=== PATIENT | female | born 1995 | race Caucasian/White ===

== ENCOUNTER 2023-08-26 19:17 | Inpatient (IN) | payer OTHER, SELFPAY ==
[2023-08-26] VITALS (50 sets, daily range): BP systolic 78–169; BP diastolic 41–99; PULSE 60–109; RESP 16–18; TEMP 36.1–37.3; O2SAT 91–100; BMI 44.2
[2023-08-26 19:45] LABS: Absolute Lymphocyte Count 2.22 X10^3/uL (0.83-4.51); Absolute Neutrophil Count 8.9 X10^3/uL (2.0-7.7); Basophil# 0.02 X10^3/uL; Basophil% 0.2 % (0-1); Eosinophil# 0.05 X10^3/uL; Eosinophils% 0.4 % (0-5); Hematocrit 36.3 % (37-47); Hemoglobin 12.6 g/dL (12.0-15.0); Lymphocyte # 2.22 X10^3/ul (0.83-4.51); Lymphocyte % 17.9 % (19-41); Mean Corp Hgb Conc 34.7 g/dL (32-36); Mean Corpuscular Hgb 30.6 pg (27.0-32.0); Mean Corpuscular Volume 88.1 fL (81-99); Mean Platelet Vol. 11.4 fl (6.2-12.0); Monocyte# 1.09 X10^3/uL; Monocyte% 8.8 % (0-10); NRBC Flagged by Analyzer 0 % (0-5); Neutrophil # 8.92 X10^3/uL (2.7-7.7); Neutrophil % 71.9 % (47-70); Platelet Count 204 K/mm3 (150-450); RBC Distribution Width CV 12.2 % (11.6-14.6); Red Blood Count 4.12 M/mm3 (4.2-5.4); White Blood Count 12.4 K/mm3 (4.4-11.0)
--- NOTE | 2023-08-26 19:49 | PCM.HP.OB ---
HPI - General General Date of Admission: 08/26/23 HPI Narrative VIKKI HATFIELD, is a 28 F at 37.6 weeks gestation who presents for induction of labor for gestational hypertension. Patient was seen in office with continued increasing blood pressures. Denies headache, vision changes, SOB, CP or RUQ pain. complicated by obesity and anxiety. Maternal Data Information GUERDA Calculator Estimated Delivery Date Method Current WG Current Estimate 09/10/23 Manual 37w 6d PFSH PFSH Medical History (Updated 08/26/23 @ 21:02 by Darleen Wu CNM) Gestational hypertension Home Medications ?Medication ?Instructions ?Recorded ?Last Taken ?Type PNV#14-iron fum-FA#9-oky-dlpanppe cap PO 08/26/23 08/26/23 History 27 mg iron-1 mg-300 mg-50 mg capsule magnesium 200 mg tablet 200 mg PO DAILY 08/26/23 08/26/23 History Allergy/AdvReac Type Severity Reaction Status Date / Time No Known Allergies Allergy Verified 08/26/23 19:38 Social History Smoking Status: Never smoker History Elective abortions Hx Para 0 Spontaneous abortions Hx # Term Pregnancies Ectopic pregnancies Hx # Pregnancies Multiple births # of living children NST FHR Rate Baby A Baseline: 150 Variability:: Moderate Accelerations:: 15 x 15 Decelerations:: None NST Reactive:: Yes FHR Category:: Category I Uterine Activity:: Irritability ROS Eyes Eyes: Denies blurry vision, change in vision or spots in vision ENT HEENT: Denies dizziness or headache(s) Cardiovascular Cardiovascular: Denies abdominal pain, chest pain or dyspnea Respiratory/Chest Respiratory/Chest: Denies cough, dyspnea, shortness of breath at rest or shortness of breath with exertion Gastrointestinal Gastrointestinal: Denies abdominal pain, diarrhea or vomiting Genitourinary Genitourinary: Denies change in urinary stream, difficulty urinating or dysuria Musculoskeletal Musculoskeletal: Reports none Integumentary Integumentary: Denies rash Neurologic Neurologic: Denies dizziness, headache(s), memory loss or weakness Psychiatric Psychiatric: Reports none Vital Signs Vital Signs Vital Signs: 08/26/23 19:31 08/26/23 19:31 08/26/23 19:31 Temperature 99.1 F Pulse Rate 109 H Blood Pressure 169/99 H BP Systolic 169 BP Diastolic 99 08/26/23 19:33 08/26/23 19:33 Temperature Pulse Rate 107 H Blood Pressure 156/82 H BP Systolic 156 BP Diastolic 82 Weight Weight: 274 lb Body Mass Index (BMI) 44.2 Physical Exam Const alert, oriented x3 and no apparent distress General Appearance: cooperative Orientation / Consciousness: awake Exam Limitations: no limitations HEENT normocephalic Head and Scalp: normal to inspection Eyes General Eye: normal appearance of both eyes Neck full ROM and no lymphadenopathy Lymph Lymphatic: no lymphadenopathy noted Chest inspection of chest normal Resp normal respiratory effort, normal air movement and clear to auscultation bilaterally Effort and Inspection: able to speak in complete sentences and symmetric chest movement Cardio regular rate and regular rhythm GI normal to inspection, nondistended, normoactive bowel sounds Manual OB Exam: presentation cephalic Back/Spine normal ROM Extremity full ROM and no calf tenderness Extremity Narrative: BLE +2 edema Skin no rashes or lesions noted General Skin Exam: no breakdown Neuro oriented x3 and CN's II-XII intact bilaterally Psych mental status grossly normal and thought process normal Labs Labs Labs: Blood Type A NEGATIVE Antibody Screen NEGATIVE Hct 36.3 % (37-47) L Hgb 12.6 g/dL (12.0-15.0) Syphilis Total Ab Non-reactive Hepatitis C Antibody Non-Reactive (Nonreactive) GBS negative Assessment & Plan (1) 37 weeks gestation of : (2) Encounter for induction of labor: (3) Obesity affecting : (4) Rh negative status during : (5) Acute adjustment disorder with mixed anxiety and depressed mood: PLAN: Plan Admit to labor and delivery GBS negative Initial BP elevated at 169/99 with repeat of 156/82 Hypertension protocol initiated PIH labs drawn CE /-3 Aggarwal bulb placed without difficulty and filled with 30 cc N/S Cytotec 25 mcg PO every 4 hours x [address] Suggs aware of admission and plan of care and is collaborating physician
[2023-08-26 20:39] LABS: Syphilis Antibodies Non-reactive
[2023-08-26] MEDS: miSOPROStol 25 MCG TABLET PO (20:40)
[2023-08-26] MEDS: 0.9% Normal Saline Single 100 ML IV.SOLN. INTRA-UTER (20:43)
[2023-08-26] MEDS: Lactated Ringers 1,000 ML 50 ML IV (20:43)
[2023-08-26 20:44] LABS: AST(SGOT) 19 U/L (15-37); Alanine Aminotransfer ALT/SGPT 17 U/L (13-56); Creatinine, Serum 0.53 mg/dL (0.55-1.02); EST Glomerular Filtration Rate 145 mL/min (>60); Est Glom Filt Rate - Afr Amer 175 mL/min (>60); Estimated Creatinine Clearance 212.79 ml/min; Uric Acid 3.2 mg/dL (2.6-6.0)
[2023-08-26 20:55] LABS: Hepatitis C Antibody Non-Reactive (Nonreactive)
[2023-08-26 21:10] LABS: Protein, Urine (Random) < 6.0 mg/dL (<11.9)
--- NOTE | 2023-08-26 21:24 | PCM.PN.CNM ---
Subjective Subjective Called by nursing for consecutive severe range blood pressures of 163/83 with repeat of 167/84. Hypertension protocol activated. Objective Data Objective Data Vital Signs: Vital Signs Temp Pulse Resp BP Pulse Ox 98.0 F 92 18 167/84 H 100 08/26/23 19:33 08/26/23 21:21 08/26/23 19:33 08/26/23 21:18 08/26/23 21:21 Weight: 274 lb Body Mass Index (BMI) 44.2 Intake & Output: Intake and Output for Last 24 Hours 08/24/23 08/25/23 08/26/23 23:59 23:59 23:59 Output Total 600 / 600 Balance -600 / -600 Lab / Micro Data 08/26/23 19:30 08/26/23 20:15 Labs: Laboratory Results - last 24 hr 08/26/23 19:30: WBC 12.4 H, RBC 4.12 L, Hgb 12.6, Hct 36.3 L, MCV 88.1, MCH 30.6, MCHC 34.7, RDW Std Deviation 39.0, RDW Coeff of Max 12.2, Plt Count 204, MPV 11.4, Immature Gran % (Auto) 0.800, Neut % (Auto) 71.9 H, Lymph % (Auto) 17.9 L, [place] % (Auto) 8.8, Eos % (Auto) 0.4, Baso % (Auto) 0.2, Absolute Neuts (auto) 8.9 H, Absolute Lymphs (auto) 2.22, Nucleated RBC % 0, Syphilis Total Ab Non-reactive, Hepatitis C Antibody Non-Reactive, Blood Type A NEGATIVE, Antibody Screen NEGATIVE 08/26/23 20:15: Creatinine 0.53 L, Estim Creat Clear Calc 212.79, Est GFR (MDRD) Af Amer 175, Est GFR (MDRD) Non-Af 145, Uric Acid 3.2, AST 19, ALT 17 08/26/23 20:50: U Random Total Protein < 6.0, Urine Creatinine 22.70, Protein/Creatinin Ratio TNP Assessment & Plan (1) Preeclampsia: (2) Obesity affecting : (3) Encounter for induction of labor: (4) 37 weeks gestation of : (5) Rh negative status during : (6) Acute adjustment disorder with mixed anxiety and depressed mood: PLAN: Plan Start Magnesium Sulfate- 4 gm IV bolus followed by 2 gm/ hour IV Continuous BP monitoring Fluid restriction Dr. Suggs to assume management of patient
[2023-08-26] MEDS: Labetalol (Prefilled) 20 MG/4 ML IV (21:33)
[2023-08-26] MEDS: Magnesium Sulfate 4gm/100mL 4 GM/100 ML IV.SOLN. IV (21:34)
[2023-08-26] MEDS: CHLORHEXIDINE GLUC 2% CLOTH 1 EACH TOWELETTE TOPICAL (22:41)
[2023-08-27] VITALS (131 sets, daily range): BP systolic 103–165; BP diastolic 53–91; PULSE 71–182; RESP 16–18; TEMP 35.9–38.1; O2SAT 91–100
[2023-08-27] MEDS: miSOPROStol 25 MCG TABLET PO (01:20)
[2023-08-27] MEDS: Magnesium Sulfate 20 GM/500 ML BAG IV ×2 (04:25→14:55)
[2023-08-27] MEDS: Oxytocin 15 Units/NS 250ml 15 UNITS/250 ML IV.SOLN 2 UNITS IV (06:01)
--- NOTE | 2023-08-27 07:08 | PCM.PN.CNM ---
Subjective Subjective Patient seen at bedside. Denies pain. Denies headache, dizziness, SOB, or CP. Objective Data Objective Data Vital Signs: Vital Signs Temp Pulse Resp BP Pulse Ox O2 Del Method 98.2 F 85 18 148/83 H 97 Room Air 08/27/23 04:39 08/27/23 07:04 08/27/23 06:10 08/27/23 07:04 08/27/23 06:21 08/27/23 06:10 Oxygen Delivery Method Room Air Weight: 274 lb Body Mass Index (BMI) 44.2 Intake & Output: Intake and Output for Last 24 Hours 08/25/23 08/26/23 08/27/23 23:59 23:59 23:59 Intake Total 579.55 / 579.55 51.47 / 51.47 Output Total 600 / 600 100 / 100 Balance -20.45 / -20.45 -48.53 / -48.53 Lab / Micro Data 08/26/23 19:30 08/26/23 20:15 Labs: Laboratory Results - last 24 hr 08/26/23 19:30: WBC 12.4 H, RBC 4.12 L, Hgb 12.6, Hct 36.3 L, MCV 88.1, MCH 30.6, MCHC 34.7, RDW Std Deviation 39.0, RDW Coeff of Max 12.2, Plt Count 204, MPV 11.4, Immature Gran % (Auto) 0.800, Neut % (Auto) 71.9 H, Lymph % (Auto) 17.9 L, [place] % (Auto) 8.8, Eos % (Auto) 0.4, Baso % (Auto) 0.2, Absolute Neuts (auto) 8.9 H, Absolute Lymphs (auto) 2.22, Nucleated RBC % 0, Syphilis Total Ab Non-reactive, Hepatitis C Antibody Non-Reactive, Blood Type A NEGATIVE, Antibody Screen NEGATIVE 08/26/23 20:15: Creatinine 0.53 L, Estim Creat Clear Calc 212.79, Est GFR (MDRD) Af Amer 175, Est GFR (MDRD) Non-Af 145, Uric Acid 3.2, AST 19, ALT 17 08/26/23 20:50: U Random Total Protein < 6.0, Urine Creatinine 22.70, Protein/Creatinin Ratio TNP Assessment & Plan (1) Preeclampsia: (2) Acute adjustment disorder with mixed anxiety and depressed mood: (3) Rh negative status during : (4) Obesity affecting : (5) Encounter for induction of labor: PLAN: Plan Magnesium Sufate 2 gm / hour running Aggarwal bulb out last night CE /-3 AROM for large amount of clear fluid Epidural when indicated Dr. Suggs involved with plan of care
[2023-08-27 07:12] LABS: Magnesium 3.1 mg/dL (1.6-2.6)
[2023-08-27] MEDS: LACTATED RINGERS 500 ML 999 ML IV ×2 (09:24→22:56)
[2023-08-27] MEDS: Lactated Ringers 1,000 ML 200 ML IV (09:55)
[2023-08-27] MEDS: fentaNYL-bupivacaine (epidural) 100 ML BAG EPIDURAL ×3 (10:15→19:32)
[2023-08-27] MEDS: CHLORHEXIDINE GLUC 2% CLOTH 1 EACH TOWELETTE TOPICAL (10:46)
[2023-08-27] MEDS: Acetaminophen 500 MG Tablet PO (17:15)
[2023-08-27] MEDS: Ondansetron 4 MG/2 ML Vial IV (19:32)
[2023-08-27] MEDS: Lactated Ringers 1,000 ML 100 ML IV (19:32)
[2023-08-27] MEDS: 0.9% Saline Lock 10 ML Syringe IV ×2 (19:32→22:16)
--- NOTE | 2023-08-27 19:48 | NURSING ---
this RN to place perla cath
[2023-08-27] MEDS: Carboprost Tromethamine 250 MCG/ML Ampul IM (21:54)
[2023-08-27] MEDS: Lidocaine 1% (20 ml mdv) 20 ML Vial INFILT (21:55)
[2023-08-27] MEDS: miSOPROStol 200 MCG Tablet 1000 MCG RC (22:12)
[2023-08-27] MEDS: Oxytocin 15 Units/NS 250ml 15 UNITS/250 ML IV.SOLN 83 UNITS IV (22:15)
[2023-08-27] MEDS: HYDROmorphone 1 MG/ML Syringe IV (22:16)
--- NOTE | 2023-08-27 22:27 | EX.PCM.OBRPT ---
Maternal Data Information GUERDA Calculator Estimated Delivery Date Method Current Current Estimate 09/10/23 Manual 38w 0d Final GUERDA: 08/27/23 Gestational age: 38 0/7 Vaginal Delivery Maternal Presentation Maternal Presentation: Medically Indicated Induction Type of Induction: Pitocin, Aggarwal Bulb, Amniotomy and Cytotec Medical Reason for Induction: Preeclampsia, eclampsia Operative Information Date of Procedure: 08/27/23 Pre-Operative Diagnosis: labor, preeclampsia with severe features, maternal exhaustion Post-Operative Diagnosis: same Surgery / Procedure Performed: Vacuum Assisted Vaginal Delivery (Outlet) Type of Anesthesia: Epidural and Local with 1% Lidocaine (20 cc) Drain: Aggarwal to straight drain Estimated Blood Loss: 900 Time of Delivery: 19:46 Findings Description of Procedure: The patient and pushing for over 2 hours with good progress. There is mild caput. Pelvis was adequate. Aggarwal catheter was in place. Epidural was in place and adequate. Patient was becoming very fatigued and having a lot of pressure in between contractions. Position was EM[place] and with pushing she was labia approximately 2 cm. She was plus 4 out of 5 station. Discussed with the patient and her partner response and alternatives to attempted vacuum-assisted vaginal delivery. They desire to proceed. The vacuum was placed on the flexion point after the team was assembled. There were 2 pulls with no pop offs. The pressure was 550 mmHg. The head was and the vacuum was removed. The head delivered with continued pushing efforts. There was a somewhat tight nuchal cord. The anterior shoulder was delivered easily with minimal traction and maternal pushing efforts and then the posterior shoulder and then I was able to reduce the nuchal cord and deliver the remainder the infant in less than 10 seconds. Nursing staff attended to the . Cord clamping was delayed until cord pulsations ceased. Spontaneous delivery of the placenta intact with a three-vessel cord. Cord gases were collected as was cord blood. Cervix was intact. There was some atony and I removed some clots from the uterus. IV Pitocin bolus was given along with Hemabate x 1. Some fundal massage was given and the bleeding slowed. There was then another small gush when I massage the uterus again. Some local lidocaine was placed in the perineal laceration and this was repaired with 3-0 Vicryl suture in a running standard fashion. Excellent hemostasis was noted. There is still some small amount of clot and debris in the uterus. The patient was given IV Dilaudid 1 mg to help with pain and discomfort from this. She was given 1000 mcg of rectal Cytotec. The uterus was then firm and bleeding was average. The Aggarwal was left in place. Sponge and needle counts were correct. Vaginal sweep was completed by me. Patient had atony without hemorrhage. Presentation: [place] Amniotic Membrane Rupture Type: Artificial Amniotic Fluid Description: Clear Placental Delivery Description: Spontaneous Placenta Disposition: [facility] Cord Vessel Description: 3 Vessels Cord Entanglement: Around neck x 1, tight Nuchal Cord Compression: Without compression Cord Gases: ABG and VBG A Gender: Male (1 minute): 8 (5 minute): 9 Delayed Cord Clamping: Yes Post Vaginal Delivery Medications Given After Delivery: IV Pitocin Episiotomy Description: None Laceration: 2nd degree Complication Complications: None
[2023-08-28] VITALS (50 sets, daily range): BP systolic 111–160; BP diastolic 52–78; PULSE 74–110; RESP 16; TEMP 36.2–37; O2SAT 94–100
[2023-08-28] MEDS: Ibuprofen 600 MG Tablet PO ×3 (00:05→17:02)
[2023-08-28] MEDS: Magnesium Sulfate 20 GM/500 ML BAG IV ×3 (00:56→19:22)
[2023-08-28 05:06] LABS: Absolute Lymphocyte Count 1.98 X10^3/uL (0.83-4.51); Absolute Neutrophil Count 20.5 X10^3/uL (2.0-7.7); Basophil# 0.06 X10^3/uL; Basophil% 0.2 % (0-1); Eosinophil# 0.01 X10^3/uL; Hematocrit 29.4 % (37-47); Lymphocyte # 1.98 X10^3/ul (0.83-4.51); Lymphocyte % 8.1 % (19-41); Mean Corpuscular Hgb 30.3 pg (27.0-32.0); Mean Corpuscular Volume 89.1 fL (81-99); Mean Platelet Vol. 11.3 fl (6.2-12.0); Monocyte# 1.79 X10^3/uL; Monocyte% 7.3 % (0-10); NRBC Flagged by Analyzer 0 % (0-5); Neutrophil # 20.53 X10^3/uL (2.7-7.7); Neutrophil % 83.6 % (47-70); POSITIVE DIFFERENTIAL YES; Platelet Count 211 K/mm3 (150-450); RBC Distribution Width CV 12.2 % (11.6-14.6); RBC Distribution Width SD 39.7 fl (35.1-43.9); White Blood Count 24.6 K/mm3 (4.4-11.0)
[2023-08-28 05:09] LABS: Differential Indicated SCAN CRITERIA MET
[2023-08-28 06:04] LABS: Differential Comment SCANNED
[2023-08-28] MEDS: Rho(D) Immune Globulin 300 MCG (1500 Unit) Syringe IV (06:34)
--- NOTE | 2023-08-28 08:27 | PN.OBGYN_ITS ---
Subjective Subjective Pain well-controlled. Average lochia. Denies headache or visual changes. Tired. Denies palpitations, chest pain or shortness of breath. Objective Data Objective Data Vital Signs: Vital Signs Temp Pulse Resp BP Pulse Ox O2 Del Method 97.7 F L 75 16 124/64 H 99 Room Air 08/28/23 07:37 08/28/23 07:36 08/28/23 06:41 08/28/23 07:36 08/28/23 06:41 08/28/23 06:41 Oxygen Delivery Method Room Air Weight: 124.284 kg Body Mass Index (BMI) 44.2 Intake & Output: Intake and Output for Last 24 Hours 08/26/23 08/27/23 08/28/23 23:59 23:59 23:59 Intake Total 579.55 / 579.55 4519.61 / 4669.61 989.17 / 989.17 Output Total 600 / 600 2500 / 2600 725 / 725 Balance -20.45 / -20.45 2019.61 / 2069.61 264.17 / 264.17 Lab / Micro Data 08/28/23 04:45 08/26/23 20:15 Labs: Laboratory Results - last 24 hr 08/28/23 04:45: WBC 24.6 H, RBC 3.30 L, Hgb 10.0 L, Hct 29.4 L, MCV 89.1, MCH 30.3, MCHC 34.0, RDW Std Deviation 39.7, RDW Coeff of Max 12.2, Plt Count 211, MPV 11.3, Immature Gran % (Auto) 0.800, Neut % (Auto) 83.6 H, Lymph % (Auto) 8.1 L, [place] % (Auto) 7.3, Eos % (Auto) 0.0, Baso % (Auto) 0.2, Absolute Neuts (auto) 20.5 H, Absolute Lymphs (auto) 1.98, Nucleated RBC % 0, Differential Comment SCANNED, Diff Path Review August, Screen NEGATIVE, Baby's Blood Type O POSITIVE, Baby's EFRAIN NEGATIVE Physical Exam Narrative 2+ lower extremity edema, no clonus, 2+ DTRs Const alert and no apparent distress Narrative: Fundus firm, below umbilicus. Assessment & Plan (1) Vacuum-assisted vaginal delivery: PLAN: day #1 status post vacuum-assisted vaginal delivery. is breast-feeding and doing well. Patient is doing well. Blood pressures are stable. Continue magnesium until 24 hours . May have regular diet. Acute blood loss anemia from delivery. Patient is tolerating well. Recheck CBC tomorrow. (2) Preeclampsia: QUALIFIERS: Trimester: third trimester Qualified Code(s): O14.93 - Unspecified pre-eclampsia, third trimester
[2023-08-29] VITALS (10 sets, daily range): BP systolic 129–139; BP diastolic 61–79; PULSE 73–100; RESP 16; TEMP 36.3–37.2; O2SAT 94–99
[2023-08-29] MEDS: Ibuprofen 600 MG Tablet PO ×3 (01:46→14:25)
--- NOTE | 2023-08-29 10:53 | PCM.PN.OB ---
Subjective Subjective pain well controlled, average lochia. Denies MENENDEZ or visual change. Denies fever, chills SOB or CP Objective Data Objective Data Vital Signs: Vital Signs Temp Pulse Resp BP Pulse Ox O2 Del Method 97.3 F L 76 16 131/68 H 97 Room Air 08/29/23 07:30 08/29/23 07:30 08/29/23 07:30 08/29/23 07:30 08/29/23 07:30 08/29/23 07:30 Oxygen Delivery Method Room Air Weight: 124.284 kg Body Mass Index (BMI) 44.2 Intake & Output: Intake and Output for Last 24 Hours 08/27/23 08/28/23 08/29/23 23:59 23:59 23:59 Intake Total 4519.61 / 4669.61 3382.51 / 3382.51 Output Total 2500 / 2600 4425 / 4625 200 / 200 Balance 2019.61 / 2069.61 -1042.49 / -1242.49 -200 / -200 Lab / Micro Data 08/28/23 04:45 08/26/23 20:15 Physical Exam Narrative 2+ LE edema, 2+DTRs, no clonus Const alert and no apparent distress Narrative: Fundus firm, below umbilicus. Assessment & Plan (1) Vacuum-assisted vaginal delivery: PLAN: PPD#2 preeclampsia w/ severe features. BP stable. D/w her r/b/a to d/c home w/ labetalol. Close surveillance of BP w/ home monitor. Patient has and has been checking at home. D/w her importance of f/u within 3 days. Call or return for severe preeclampsia features. acute blood loss anemia- d/c home on fe and doing well
--- NOTE | 2023-08-29 11:01 | PCM.DC.SUM ---
Providers Date of Admission: 08/26/23 Date of Discharge: 08/29/23 Reason For Visit: vacuum assisted vaginal delivery Diagnosis Discharge Diagnosis (1) Vacuum-assisted vaginal delivery: Status: Acute Code(s): Z37.9 - Outcome of delivery, unspecified Plan: PPD#2 preeclampsia w/ severe features. BP stable. D/w her r/b/a to d/c home w/ labetalol. Close surveillance of BP w/ home monitor. Patient has and has been checking at home. D/w her importance of f/u within 3 days. Call or return for severe preeclampsia features. acute blood loss anemia- d/c home on fe and doing well Medications at Discharge Home Medications PNV#14-iron fum-FA#2-[id number]-[id number] 27 mg iron-1 mg-300 mg-50 mg capsule cap PO 08/26/23 ferrous sulfate 325 mg (65 mg iron) tablet (FeroSul) 325 mg PO QODAY 60 days #15 tabs 08/29/23 ibuprofen 600 mg tablet 600 mg PO Q6H PRN Pain 20 days #60 TABLETS 08/29/23 labetalol 100 mg tablet 100 mg PO BID 10 days #20 tabs 08/29/23 Hospital Course Operations - (Vaccum assisted vaginal delivery on 08/27/23) Procedures None Summary of Care Provided Minutes Spent on Discharge: 22 Hospital Course: 28-year-old female presented for induction of labor on 08/26/2023 for gestational hypertension. Upon arrival she was diagnosed with preeclampsia with severe features. She required IV labetalol. She underwent Cytotec, Aggarwal, Pitocin and AROM for induction of labor. She had a vacuum-assisted vaginal delivery on 08/27/2023 for paternal exhaustion. She had a second-degree laceration. She had atony without hemorrhage. She had mild acute blood loss anemia. She tolerated this well. By day #2 her blood pressures were stable and she was not on antihypertensives. She was tolerating the anemia well. She was discharged home on iron. She was instructed to call or return for any symptoms of severe preeclampsia. She completed 24 hours of magnesium status post vaginal delivery. Discussed with her chance of rebound hypertension. Will discharge home with a prescription of labetalol. She does not have to take this regularly at this time but will give her 1 dose before she leaves to make sure she tolerates it so she can take it as needed at home if her blood pressure trends up. Return to the office within 3 days of delivery. Patient is comfortable with this plan and will monitor blood pressures closely at home. Weight / BMI Weight Weight: 124.284 kg Body Mass Index (BMI) 44.2 ABG / Lab / Microbiology Data 08/28/23 04:45 08/26/23 20:15 Meaningful Use Info Meaningful Use Meaningful Use Diagnoses (Choose all that apply): None applicable Ischemic Stroke Statin Dosing Therapy Reference: STATIN DOSE THERAPY REFERENCE: * Patients > 75 years receive moderate or high dose statin therapy. * Patients 75 years or YOUNGER should receive HIGH intensity statin dose unless contraindicated. You will be required to document reason for non-treatment if statin daily dose does not meet guidelines. HIGH DOSE STATIN THERAPY DAILY Atorvastatin > than or = to 40 mg Rosuvastatin > than or = to 20 mg Amlodipine + Atorvastatin > than or = to 2.5/40 mg Ezetimibe + Simvastatin 10/80 mg Simvastatin 80mg Discharge Plan Admission Admit Date/Time: 08/26/23 19:17 Primary Reason for Your Visit: Vaginal delivery Attending Provider: Sona Figueroa Discharge Orders/Prescriptions Prescriptions: New labetalol 100 mg tablet 100 mg PO BID 10 Days Qty: 20 0RF Rx Instructions: take if BP >150 systolic or > 95 diastolic ferrous sulfate [FeroSul] 325 mg (65 mg iron) tablet 325 mg PO QODAY 60 Days Qty: 15 1RF ibuprofen 600 mg tablet 600 mg PO Q6H PRN (Reason: Pain) 20 Days Qty: 60 1RF Continued PNV #14-iron-FA#2-[id number]-twecpdqs 27 mg iron-1 mg -300 mg-50 mg capsule PO Discontinued magnesium 200 mg tablet 200 mg PO DAILY Disposition Disposition (needs filled in before D/C Order can be placed): Home, Self Care
[2023-08-29] MEDS: Labetalol 100 MG Tablet PO (11:31)
[2023-08-31 14:39] LABS: Pathologist Review Reviewed
--- NOTE | 2023-09-04 08:40 | NURSING ---
F/up questions asked during IBCLC visit today. Pt. feeling sore but doing well. Feeling tired from the frequent jaundice checks for infant, but things on the upswing. Denies s+s of complications.
== END 2023-08-29 15:00 | disposition home or self-care (01) | DRG 806 ==
PROVIDERS: Advanced Practice Midwife; Obstetrics & Gynecology; Admitting Provider Obstetrics & Gynecology; Referring Provider Obstetrics & Gynecology; Visit Provider Obstetrics & Gynecology
DX: O14.14 Severe pre-eclampsia complicating childbirth (principal); Z37.0 Single live birth; D62 Acute posthemorrhagic anemia; O99.214 Obesity complicating childbirth; O13.4 Gestational [pregnancy-induced] hypertension without significant proteinuria, complicating childbirth; O70.1 Second degree perineal laceration during delivery; O90.81 Anemia of the puerperium; Z3A.37 37 weeks gestation of pregnancy; O75.81 Maternal exhaustion complicating labor and delivery; O69.1XX0 Labor and delivery complicated by cord around neck, with compression, not applicable or unspecified; O75.89 Other specified complications of labor and delivery
CPT/HCPCS: 59025; 59050; 82565; 82570; 83735; 84156; 84450; 84460; 84550; 85025; 85461; 86780; 86803; 86850; 86900; 86901; 90384; 99221; J7120; A4216; G0378; J0612; J2405; J2790; J2791

== ENCOUNTER 2025-01-21 19:13 | Inpatient (IN) | payer OTHER, SELFPAY ==
--- OUTSIDE RECORDS SUMMARY | 2025-01-21 19:07 | XMS RPT_ITS | CCD ---
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 Role Phone None, No PCP Unavailable Unavailable Unavailable Unavailable IRINA HANDLEY Attending UnavailIIRNA Barnes Attending UnavailMD IRINA Barnes Referring Unava ilable HANDLEY, MD IRINA QUINTANA Attending Unava ilable HANDLEYMD IRINA GIBSON Referring Unava ilable HANDLEY, MD IRINA QUINTANA Attending Unava ilable HANDLEYMD IRINA GIBSON Attending Unava ilable HANDLEY, MD IRINA QUINTANA Referring Unava ilable Handley Irina RAMEY Unavailable [phone] Unavailable Primary Care Provider Unavailabl e Unavailable Primary Care Provider Unavailabl e Eyal SIDE LASTER STAPLE, Karina Attending Unavailable Elicia Gaming Referring Unavailable Sona Figueroa Admitting Unavailable Sona Figueroa Attending Unavailable HANDLEY, IRINA P Referring Unavailable HANDLEY, IRINA P Attending Unavailable DARLEEN WU Attending Unavailable SHEPHERD, GRECIA Referring Unavailable NIKITA CARR Attending Unavailable NEYHART CANO, ELENITA Referring Unavail able SHEPHERD, GRECIA Referring Unavailable SHEPHERD, GRECIA Referring Unavailable SHEPHERD, GRECIA Referring Unavailable SHEPHERD, GRECIA Referring Unavailable NEYHART EVAN CANORE Attending Unavail able ELICIA GAMING Attending Unavailable SHEPHERD, GRECIA Referring Unavailable SHEPHERD, GRECIA Referring Unavailable SHEPHERD, GRECIA Referring Unavailable NEYHART CANO ELENITA Attending Unavail able GIANNI NASCIMENTO Attending Unavailable SHEPHERD, GRECIA Referring Unavailable NIKITA CARR Attending Unavailable NEYHART CANO, ELENITA Attending Unavail able SHEPHERD, GRECIA Attending Unavailable SHEPHERD, GRECIA Referring Unavailable NEYHART CANO, ELENITA Referring Unavail able HAURY, JONNIE Referring Unavailable DARLEEN WU Attending Unavailable HAURY, JONNIE Attending Unavailable KHADAR, TARA Attending Unavailable EZEQUIEL SHEPHERDICA Referring Unavailable GRECIA SHEPHERD Attending Unavailable SHEPHERD, GRECIA Attending Unavailable SHEPHERD, GRECIA Referring Unavailable KHADAR, TARA Referring Unavailable HAURY, JONNIE Attending Unavailable KHADAR, TARA Referring Unavailable HAURY, JONNIE Attending Unavailable KHADAR, TARA Referring Unavailable KHADAR, TARA Referring Unavailable Medications Current Medications Medication Drug Class(es) Dates Sig (Normalized) Sig (Original) aspirin 81 mg delayed release oral tablet (11 sources) Platelet Aggregation Inhibitor, Nonsteroidal Anti-inflammatory Drug Start: 12-05-2024 take 2 tablets by mouth once daily aspirin, enteric coated (ECOTRIN LOW STRENGTH) 81 mg EC tablet Indications: History of pre-eclampsia Take 2 tablets by mouth once daily. 90 tablet 3 12/05/2024 Active Start: 07-18-2024 End: 12-05-2024 take 1 tablet by mouth once daily aspirin, enteric coated (ECOTRIN LOW STRENGTH) 81 mg EC tablet Indications: with uncertain dates, antepartum (HCC) Take 1 tablet by mouth once daily. 90 tablet 3 07/18/2024 12/05/2024 Discontinued (Adjust Sig - Block E-Cancel) calcium phosphate dibas/vit D3 (VITAMIN D, WITH CALCIUM, ORAL) (3 sources) End: 07-18-2024 take 5000 mg by mouth once daily calcium phosphate dibas/vit D3 (VITAMIN D, WITH CALCIUM, ORAL) Take 5,000 mg by mouth once daily. 07/18/2024 Discontinued take 5000 mg by mouth once daily calcium phosphate dibas/vit D3 (VITAMIN D, WITH CALCIUM, ORAL) Take 5,000 mg by mouth once daily. Active take 5000 mg by mouth once daily calcium phosphate dibas/vit D3 (VITAMIN D, WITH CALCIUM, ORAL) Take 5,000 mg by mouth once daily. 0 Active ferrous sulfate 325 mg oral tablet (4 sources) End: 07-18-2024 take 1 tablet by mouth every other day ferrous sulfate (IRON) 325 mg (65 mg iron) tablet Take 325 mg by mouth every other day. 07/18/2024 Discontinued ibuprofen 200 mg oral tablet (4 sources) Nonsteroidal Anti-inflammatory Drug End: 07-18-2024 take 1 tablet by mouth every six hours as needed ibuprofen (MOTRIN) 200 mg tablet Take 200 mg by mouth every 6 hours as needed. 07/18/2024 Discontinued labetalol hydrochloride 100 mg oral tablet (4 sources) beta-Adrenergic Nilda Start: 08-29-2023 End: 07-18-2024 labetalol (TRANDATE) 100 mg tablet Take 100 mg by mouth once daily. TAKE 1 TABLET BY MOUTH TWICE DAILY FOR 10 DAYS. TAKE IF BLOOD PRESSURE IS GREATER THAN 150 SYSTOLIC OR GREATER THAN 95 DIASTOLIC 08/29/2023 07/18/2024 Discontinued magnesium oxide 400 mg oral tablet (20 sources) Start: 02-02-2023 take 1 tablet by mouth once daily magnesium oxide (MAG-OX) 400 mg (241.3 mg magnesium) tablet Take 400 mg by mouth once daily. 02/02/2023 Active Start: 02-02-2023 End: 02-02-2024 magnesium oxide (MAG-OX) 400 mg (241.3 mg magnesium) tablet Take 400 mg by mouth. 02/02/2023 Active Comment on above: Take 400 mg by mouth . PNV,calcium 72/iron,carb/fol ic ( PLUS ORAL) (2 sources) PNV,calcium 72/iron,carb/folic ( PLUS ORAL) Take by mouth. 0 Active vit calc,iron,folic ( LZAGEMZU-JAB-ON-FA ORAL) (20 sources) vit harriet c,iron,folic ( HQSFRNGX-QKI-CV-FA ORAL) Take by mouth as directed. Active vit harriet c,iron,folic ( IYFIMOOU-ELM-GV-FA ORAL) Take by mouth as directed. 0 Active Comment on above: Take by mouth as dir ected. Completed/Discontinued Medications Medication Drug Class(es) Dates Sig (Normalized) Sig (Original) PNV Plus Multivitamin TABS (7 sources) PNV Plu s Multivitamin TABS Quantity: 0 Refills: 0 Ordered: 23-Jun-2022 DO Active rho(d) immune globulin, human 1500 unt prefilled syringe (1 source) Human Immunoglobulin G Start: 06-24-2022 RhoGAM Ultra-Filtered Plus 1500 UNIT Intramuscular Solution Prefilled Syringe 0 SOSY IM Quantity: 0 Refills: 0 Ordered: 24-Jun-2022 DO Start : 24-Jun-2022 Complete Problems Active Problems Problem Classification Problem Date Documented Date Episodic/Chronic Diabetes or abnormal glucose tolerance complicating ; childbirth; or the puerperium (1 source) Impaired glucose tolerance in ; Translations: [Abnormal glucose complicating ] 06-17-2023 Episodic Headache; including migraine (20 sources) Tension-type headache; Translations: [Tension-type headache, unspecified, not intractable] Onset: 05-20-2023 05-20-2023 Chronic Hemorrhage during ; abruptio placenta; placenta previa (2 sources) Threatened ; Translations: [Threatened ] Onset: 02-09-2023 Episodic Hypertension complicating ; childbirth and the puerperium (1 source) Hypertensive disorder; Translations: [Unspecified maternal hypertension, complicating the puerperium] 09-01-2023 Chronic Hypertension complicating ; childbirth and the puerperium (11 sources) Hypertension AND/OR vomiting complicating childbirth AND/OR puerperium; Translations: [Gestational [-induced] hypertension without significant proteinuria, third trimester] Onset: 08-20-2023 Resolved: 10-06-2023 08-20-2023 Episodic Immunizations and screening for infectious disease (4 sources) Vaccination needed; Translations: [Encounter for immunization] Onset: 11-24-2024 06-17-2023 Episodic Other circulatory disease (3 sources) Elevated blood-pressure reading without diagnosis of hypertension; Translations: [Elevated blood-pressure reading, without diagnosis of hypertension] 08-17-2023 Episodic Other circulatory disease (1 source) Elevated blood-pressure reading, without diagnosis of hypertension; Translations: [Elevated BP without diagnosis of hypertension] Onset: 12-22-2024 Episodic Other complications of (20 sources) Maternal obesity complicating , childbirth and the puerperium, antepartum; Translations: [Obesity complicating , second trimester] Onset: 05-20-2023 Resolved: 09-01-2023 05-20-2023 Chronic Other complications of (2 sources) Obesity complicating , unspecified trimester; Translations: [Obesity affecting , antepartum, unspecified obesity type (HCC)] Onset: 12-05-2024 Chronic Other complications of (1 source) Obesity complicating , third trimester; Translations: [Obesity affecting in third trimester, unspecified obesity type ([facility])] Onset: 12-05-2024 Chronic Other complications of (14 sources) ; Translations: [ with inconclusive viability] Episodic Other complications of (6 sources) with inconclusive viability, not applicable or unspecified; Translations: [ with inconclusive viability] Onset: 06-24-2022 Episodic Other complications of (20 sources) High risk ; Translations: [Supervision of high risk , unspecified, second trimester] Onset: 05-20-2023 Resolved: 09-01-2023 05-20-2023 Episodic Other complications of (20 sources) RhD negative; Translations: [Other specified related conditions, second trimester] Onset: 05-20-2023 Resolved: 09-01-2023 05-20-2023 Episodic Other complications of (17 sources) Finding of pattern of ; Translations: [Supervision of other high risk pregnancies, unspecified trimester] Onset: 07-18-2024 07-18-2024 Episodic Other complications of (2 sources) Uterine size for dates discrepancy; Translations: [Uterine size-date discrepancy, third trimester] Onset: 12-05-2024 12-05-2024 Episodic Other complications of (1 source) Supervision of high risk , unspecified, third trimester; Translations: [Supervision of high risk in third trimester ([facility])] Onset: 01-12-2025 Episodic Other complications of (1 source) Supervision of high risk , unspecified, second trimester; Translations: [Supervision of high risk in second trimester ([facility])] Onset: 11-24-2024 Episodic Other complications of (1 source) Uterine size-date discrepancy, third trimester; Translations: [Uterine size-date discrepancy, third trimester ([facility])] Onset: 12-05-2024 Episodic Other complications of (1 source) Maternal care for excessive growth, third trimester, not applicable or unspecified; Translations: [Excessive growth affecting management of in third trimester, single or unspecified fetus ([facility])] Onset: 12-25-2024 Episodic Other female genital disorders (9 sources) Vaginal bleeding; Translations: [Other specified noninflammatory disorders of vagina] Onset: 01-31-2023 01-31-2023 Chronic Polyhydramnios and other problems of amniotic cavity (1 source) Polyhydramnios, unspecified trimester, not applicable or unspecified; Translations: [Polyhydramnios affecting (HCC)] Onset: 12-25-2024 Episodic Residual codes; unclassified (1 source) Less than 8 weeks gestation of ; Translations: [Less than 8 weeks gestation of ] Onset: 06-24-2022 Episodic Residual codes; unclassified (3 sources) Gestation period, 16 weeks; Translations: [16 weeks gestation of ] 04-21-2023 Episodic Residual codes; unclassified (1 source) Gestation period, 27 weeks; Translations: [27 weeks gestation of ] 06-17-2023 Episodic Residual codes; unclassified (2 sources) Gestation period, 31 weeks; Translations: [31 weeks gestation of ] 07-15-2023 Episodic Residual codes; unclassified (1 source) Gestation period, 33 weeks; Translations: [33 weeks gestation of ] 07-29-2023 Episodic Residual codes; unclassified (1 source) Gestation period, 35 weeks; Translations: [35 weeks gestation of ] 08-12-2023 Episodic Residual codes; unclassified (1 source) Gestation period, 36 weeks; Translations: [36 weeks gestation of ] 08-17-2023 Episodic Residual codes; unclassified (2 sources) Gestation period, 37 weeks; Translations: [37 weeks gestation of ] 08-20-2023 Episodic Residual codes; unclassified (2 sources) Gestation period, 10 weeks; Translations: [10 weeks gestation of ] 07-18-2024 Episodic Residual codes; unclassified (2 sources) Gestation period, 13 weeks; Translations: [13 weeks gestation of ] 08-09-2024 Episodic Residual codes; unclassified (15 sources) History of pre-eclampsia; Translations: [Personal history of other complications of , childbirth and the puerperium] Onset: 08-09-2024 08-09-2024 Episodic Residual codes; unclassified (2 sources) Gestation period, 20 weeks; Translations: [20 weeks gestation of ] 09-29-2024 Episodic Residual codes; unclassified (1 source) Gestation period, 24 weeks; Translations: [24 weeks gestation of ] 10-26-2024 Episodic Residual codes; unclassified (1 source) Gestation period, 28 weeks; Translations: [28 weeks gestation of ] 11-24-2024 Episodic Residual codes; unclassified (1 source) Gestation period, 30 weeks; Translations: [30 weeks gestation of ] 12-05-2024 Episodic Residual codes; unclassified (1 source) 36 weeks gestation of ; Translations: [36 weeks gestation of (HCC)] Onset: 01-15-2025 Episodic Residual codes; unclassified (1 source) 35 weeks gestation of ; Translations: [35 weeks gestation of (HCC)] Onset: 01-12-2025 Episodic Residual codes; unclassified (1 source) 34 weeks gestation of ; Translations: [34 weeks gestation of (HCC)] Onset: 01-05-2025 Episodic Residual codes; unclassified (1 source) 33 weeks gestation of ; Translations: [33 weeks gestation of (HCC)] Onset: 12-27-2024 Episodic Residual codes; unclassified (1 source) 32 weeks gestation of ; Translations: [32 weeks gestation of (HCC)] Onset: 12-22-2024 Episodic Residual codes; unclassified (1 source) 30 weeks gestation of ; Translations: [30 weeks gestation of (HCC)] Onset: 12-05-2024 Episodic Residual codes; unclassified (1 source) 28 weeks gestation of ; Translations: [28 weeks gestation of (HCC)] Onset: 11-24-2024 Episodic Residual codes; unclassified (1 source) 24 weeks gestation of ; Translations: [24 weeks gestation of (HCC)] Onset: 11-24-2024 Episodic Spontaneous (4 sources) Miscarriage; Translations: [Spontaneous , without mention of complication, unspecified] Onset: 01-31-2023 01-31-2023 Episodic Unclassified (20 sources) [facility] - [facility]ON Onset: 05-19-2023 05-19-2023 Unclassified (10 sources) Education - [place] Onset: 07-18-2024 07-18-2024 Unclassified (2 sources) Routine Visit; Translations: [Routine Visit] Onset: 04-21-2023 Past or Other Problems Problem Classification Problem Date Documented Date Episodic/Chronic Diabetes mellitus without complication (20 sources) Abnormal glucose tolerance test; Translations: [Other abnormal glucose] Onset: 06-18-2023 Resolved: 10-06-2023 06-18-2023 Episodic Other complications of (20 sources) Anxiety in ; Translations: [Other mental disorders complicating , unspecified trimester] Onset: 05-20-2023 Resolved: 10-06-2023 05-20-2023 Episodic Other complications of (20 sources) Diseases of the digestive system complicating , second trimester; Translations: [Other current conditions classifiable elsewhere of mother, antepartum condition or complication] Onset: 05-20-2023 Resolved: 09-01-2023 05-20-2023 Episodic Other complications of (10 sources) Other mental disorders complicating , unspecified trimester; Translations: [Mental disorders of mother, antepartum condition or complication] Onset: 05-20-2023 Resolved: 10-06-2023 10-06-2023 Episodic Other complications of (1 source) Other specified related conditions, unspecified trimester; Translations: [Rh negative state in antepartum period (HCC)] Onset: 08-09-2024 Episodic Other complications of (1 source) Supervision of other high risk pregnancies, unspecified trimester; Translations: [Short interval between pregnancies affecting , antepartum (HCC)] Onset: 07-18-2024 Episodic Other and delivery including normal (20 sources) Urine test positive; Translations: [ examination or test, positive result] Onset: 06-23-2022 Resolved: 09-01-2023 Episodic Other screening for suspected conditions (not mental disorders or infectious disease) (4 sources) Patient encounter status; Translations: [Encounter for other specified screening] Onset: 08-09-2024 07-15-2023 Episodic Residual codes; unclassified (5 sources) 16 weeks gestation of ; Translations: [16 weeks gestation of ] Onset: 03-31-2023 Episodic Residual codes; unclassified (20 sources) Gestation period, 23 weeks; Translations: [23 weeks gestation of ] Onset: 05-20-2023 Resolved: 09-01-2023 05-20-2023 Episodic Residual codes; unclassified (14 sources) H/O: previous delivery by vacuum extraction; Translations: [Personal history of other complications of , childbirth and the puerperium] Onset: 08-09-2024 08-09-2024 Episodic Residual codes; unclassified (18 sources) History of gestational hypertension; Translations: [Personal history of other complications of , childbirth and the puerperium] Onset: 08-20-2023 Resolved: 10-06-2023 08-09-2024 Episodic Residual codes; unclassified (3 sources) Personal history of other complications of , childbirth and the puerperium; Translations: [History of vacuum extraction assisted delivery] Onset: 09-01-2024 Episodic Residual codes; unclassified (1 source) Unspecified blood type, Rh negative; Translations: [Rh negative state in antepartum period (HCC)] Onset: 08-09-2024 Episodic Residual codes; unclassified (1 source) 20 weeks gestation of ; Translations: [20 weeks gestation of ([facility])] Onset: 09-29-2024 Episodic Residual codes; unclassified (1 source) 13 weeks gestation of ; Translations: [13 weeks gestation of ([facility])] Onset: 08-09-2024 Episodic Residual codes; unclassified (1 source) 10 weeks gestation of ; Translations: [10 weeks gestation of ([facility])] Onset: 07-18-2024 Episodic Unclassified (7 sources) Finding of menstrual bleeding; Translations: [Menstruation] Comment on above: AGE 12; Results Test Name Value Interpretation Reference Range Facility CBC panel Auto (Bld)on 01-18 Erythrocyte distribution width (RBC) [Ratio] 13.0 % Normal 11.5-15.[address] [facility] Comment on above: Order Comment: Lynsey soto Type: BLOOD SPECIMEN Ordering Facility: [facility] Address: [address] [place] [address] Performed By: #### 3 084-1, 62710-4 #### [facility] CLIA [id number] [address] [place] [address] [place] Hematocrit (Bld) [Volume fraction] 37.0 % Normal 36.0-46.[address] [facility] Comment on above: Order Comment: Lynsey soto Type: BLOOD SPECIMEN Ordering Facility: [facility] Address: [address] [place] [address] Performed By: #### 3 084-1, 62815-7 #### [facility] CLIA [id number] [address] [place] [address] [place] Hemoglobin (Bld) [Mass/Vol] 13.2 g/dL Normal 11.5-15.[address] [facility] Comment on above: Order Comment: Speci men Type: BLOOD SPECIMEN Ordering Facility: [facility] Address: [address] [place] [address] Performed By: #### 3 084-, 24166-7 #### [facility] CLIA [id number] [address] [place] [address] [place] MCH (RBC) [Entitic mass] 31.0 pg Normal 26.0-34.[address] [facility] Comment on above: Order Comment: Speci men Type: BLOOD SPECIMEN Ordering Facility: [facility] Address: [address] [place] [address] Performed By: #### 3 084-, 41541-4 #### [id number] [address] [place] [address] [place] MCHC (RBC) [Mass/Vol] 35.7 g/dL Normal 30.5-36.[address] [facility] Comment on above: Order Comment: Speci men Type: BLOOD SPECIMEN Ordering Facility: [facility] Address: [address] [place] [address] Performed By: #### 3 084-, 60507-8 #### [id number] [address] [place] [address] [place] MCV (RBC) [Entitic vol] 86.9 fL Normal 80.0-100.[address] [facility] Comment on above: Order Comment: Speci men Type: BLOOD SPECIMEN Ordering Facility: [facility] Address: [address] [place] [address] Performed By: #### 3 084-1, 49361-5 #### [facility] [id number] [address] [place] [address] [place] Nucleated RBC (Bld) [#/Vol] 10*3/uL Normal <0.[address] [facility] Comment on above: Order Comment: Speci men Type: BLOOD SPECIMEN Ordering Facility: [facility] Address: [address] [place] [address] Performed By: #### 3 084-1, 54535-7 #### [facility] CLIA [id number] [address] [place] [address] [place] Platelet mean volume (Bld) [Entitic vol] 11.1 fL Normal 9.0-12.[address] [facility] Comment on above: Order Comment: Speci men Type: BLOOD SPECIMEN Ordering Facility: [facility] Address: [address] [place] [address] Performed By: #### 3 084-1, 61046-5 #### [facility] CLIA [id number] [address] [place] [address] [place] Platelets (Bld) [#/Vol] 183 10*3/uL Normal 150-[address] [facility] Comment on above: Order Comment: Speci men Type: BLOOD SPECIMEN Ordering Facility: [facility] Address: [address] [place] [address] Performed By: #### 3 084-1, 80364-5 #### [facility] CLIA [id number] [address] [place] [address] [place] RBC (Bld) [#/Vol] 4.26 10*6/uL Normal 3.90-5.20 [facility] Comment on above: Order Comment: Speci men Type: BLOOD SPECIMEN Ordering Facility: [facility] Address: [address] [place] [address] Performed By: #### 3 084-1, 16261-0 #### [facility] CLIA [id number] [address] [place] [address] [place] WBC (Bld) [#/Vol] 12.43 10*3/uL High 3.70-11.00 [facility] Comment on above: Order Comment: Speci men Type: BLOOD SPECIMEN Ordering Facility: [facility] Address: [address] [place] [address] Performed By: #### 3 084-1, 60708-5 #### [facility] CLIA [id number] [address] [place] [address] [place] Comprehensive metabolic 2000 panelon 01-18-2025 Albumin [Mass/Vol] 3.3 g/dL Low 3.9-4.9 [facility] Comment on above: Order Comment: Speci men Type: BLOOD SPECIMENOrdering Facility: [facility] Address: [address] [place] [address] Performed By: #### 3 084-1, 85152-8 ####[facility] [id number] [place] [address] [place] ALP [Catalytic activity/Vol] 127 U/L High 34-[address] [facility] Comment on above: Order Comment: Speci men Type: BLOOD SPECIMENOrdering Facility: [facility] Address: [address] [place] [address] Performed By: #### 3 084-1, 85761-1 ####[facility] [id number] [place] [address] [place] ALT [Catalytic activity/Vol] 7 U/L Normal 7-[address] [facility] Comment on above: Order Comment: Speci men Type: BLOOD SPECIMENOrdering Facility: [facility] Address: [address] [place] [address] Performed By: #### 3 084-1, 79367-8 ####[facility] [id number] [place] [address] [place] Anion gap [Moles/Vol] 11 mmol/L Normal 8-[address] [facility] Comment on above: Order Comment: Speci men Type: BLOOD SPECIMENOrdering Facility: [facility] Address: [address] [place] [address] Performed By: #### 3 084-1, 60661-0 ####[facility] [id number] [place] [address] [place] AST [Catalytic activity/Vol] 11 U/L Low 13-[address] [facility] Comment on above: Order Comment: Speci men Type: BLOOD SPECIMENOrdering Facility: [facility] Address: [address] [place] [address] Performed By: #### 3 084-1, 90463-4 ####[facility] [id number] [place] [address] [place] Bilirubin [Mass/Vol] 0.2 mg/dL Normal 0.2-1.[address] [facility] Comment on above: Order Comment: Speci men Type: BLOOD SPECIMENOrdering Facility: [facility] Address: [address] [place] [address] Performed By: #### 3 084-1, 82558-8 ####[facility]IF[facility] [id number] [place] [address] [place] Calcium [Mass/Vol] 9.2 mg/dL Normal 8.5-10.2 [facility] Comment on above: Order Comment: Speci men Type: BLOOD SPECIMENOrdering Facility: [facility] Address: [address] [place], [place] [address] Performed By: #### 3 084-1, 47836-9 ####[facility]ITALNCLIA [id number] [place] [address] [place] Chloride [Moles/Vol] 104 mmol/L Normal 98-[address] [facility] Comment on above: Order Comment: Speci men Type: BLOOD SPECIMENOrdering Facility: [facility] Address: [address] [place] [address] Performed By: #### 3 084-1, 47695-0 ####[facility] ASHVINSunniNCCLEMENCIA [id number] [place] [address] [place] CO2 [Moles/Vol] 20 mmol/L Low 22-[address] [facility] Comment on above: Order Comment: Speci men Type: BLOOD SPECIMENOrdering Facility: [facility] Address: [address] [place] [address] Performed By: #### 3 084-1, 01879-9 ####[facility] HOSPITALNCLIA [id number] [place] [address] [place] Creatinine [Mass/Vol] 0.47 mg/dL Low 0.58-0.[address] [facility] Comment on above: Order Comment: Speci men Type: BLOOD SPECIMENOrdering Facility: [facility] Address: [address] [place] [address] Performed By: #### 3 084-1, 65819-3 ####[facility]ITALNCLIA [id number] [address] [place] eGFRcr SerPlBld CKD-EPI 2020 132 mL/min/1.73m??? Normal >=[address] [facility] Comment on above: Order Comment: Speci men Type: BLOOD SPECIMENOrdering Facility: [facility] Address: [address] [place] [address] Result Comment: Eda mated Glomerular Filtration Rate (eGFR) is calculated using the 2020 CKD-EPI creatinine equation. This equation utilizes serum creatinine, sex, and age as parameters. The creatinine assay has traceable calibration to isotope dilution-mass spectrometry. Refer to KDIGO guidelines for clinical interpretation. In patients with unstable renal function, e.g. those with acute kidney injury, the eGFR may not accurately reflect actual GFR. Performed By: #### 3 084-1, 45047-7 ####[facility]ITALNCLIA [id number] [place] [address] [place] Glucose [Mass/Vol] 97 mg/dL Normal 74-99 [facility] Comment on above: Order Comment: Speci men Type: BLOOD SPECIMENOrdering Facility: [facility] Address: [address] [place] [address] Result Comment: The [place] [employer] Association (ADA) provides guidance for cutoff values for fasting glucose and random glucose. The ADA defines fasting as no caloric intake for at least 8 hours. Fasting plasma glucose results between 100 to 125 mg/dL indicate increased risk for diabetes (prediabetes). Fasting plasma glucose results greater than or equal to 126 mg/dL meet the criteria for diagnosis of diabetes. In the absence of unequivocal hyperglycemia, results should be confirmed by repeat testing. In a patient with classic symptoms of hyperglycemia or hyperglycemic crisis, random plasma glucose results greater than or equal to 200 mg/dL meet the criteria for diagnosis of diabetes. Reference: Standards of Medical Care in Diabetes 2016, [place] [employer]. Diabetes Care. 2016.39(Suppl 1). Performed By: #### 3 084-1, 04486-6 ####[facility] ERA [id number] [place] [address] [place] Potassium [Moles/Vol] 3.7 mmol/L Normal 3.7-5.[address] [facility] Comment on above: Order Comment: Speci men Type: BLOOD SPECIMENOrdering Facility: [facility] Address: [address] [place] [address] Performed By: #### 3 084-1, 91347-6 ####[facility] CENTERLIA [id number] [place] [address] [place] Protein [Mass/Vol] 6.3 g/dL Normal 6.3-8.0 [facility] Comment on above: Order Comment: Speci men Type: BLOOD SPECIMENOrdering Facility: [facility] Address: [address] [place] [address] Performed By: #### 3 084-1, 43554-7 ####[facility]ITALNCLIA [id number] [place] [address] [place] Sodium [Moles/Vol] 135 mmol/L Low 136-144 [facility] Comment on above: Order Comment: Speci men Type: BLOOD SPECIMENOrdering Facility: [facility] Address: [address] [place] [address] Performed By: #### 3 084-1, 23935-2 ####[facility]ITALNCLIA [id number] [place] [address] [place] Urea nitrogen [Mass/Vol] 5 mg/dL Low 7-[address] [facility] Comment on above: Order Comment: Speci men Type: BLOOD SPECIMENOrdering Facility: [facility] Address: [address] [place] [address] Performed By: #### 3 084-1, 94947-4 ####[facility] ERA [id number] [place] [address] [place] Prot/Creat Uron 01-18-2025 Protein/Creatinine (U) [Mass ratio] 0.10 mg/mg Normal <0.[address] [facility] Comment on above: Order Comment: Speci men Type: URINE SPECIMENOrdering Facility: [facility] Address: [address] [place] [address] Result Comment: Adul t Proteinuria Categories: <0.15 mg/mg is considered normal to mildly increased 0.15 - 0.50 mg/mg is considered moderately increased >0.50 mg/mg is considered severely increased KDIGO. (2013). KDIGO 2012 Clinical Practice Guideline for the Evaluation and Management of Chronic Kidney Disease. Official Journal of the International Society of Nephrology, 3(1), 1-150. Performed By: #### 2 890-2 ####[facility] LABCLIA [id number] [place] [address] [place] Protein/Creatinine (U) [Mass ratio]on 01-18-2025 Creatinine (U) [Mass/Vol] 102.5 mg/dL Normal 20.0-300.[address] [facility] Comment on above: Order Comment: Speci men Type: URINE SPECIMENOrdering Facility: [facility] Address: [address] [place] [address] Performed By: #### 2 890-2 ####[facility] LABCLIA [id number] [address] [place] Protein (U) [Mass/Vol] 10 mg/dL Normal 0-[address] [facility] Comment on above: Order Comment: Speci men Type: URINE SPECIMENOrdering Facility: [facility] Address: [address] [place] [address] Performed By: #### 2 890-2 ####[facility] LABCLIA [id number] [address] [place] Urate SerPl-mCncon Urate [Mass/Vol] 4.0 mg/dL Normal 2.5-6.6 [facility] Comment on above: Order Comment: Speci men Type: BLOOD SPECIMENOrdering Facility: [facility] Address: [address] [place] [address] Performed By: #### 3 084-1, 69543-8 ####[facility] [id number] [place] [address] [place] CBC panel Auto (Bld)on 01-12 Erythrocyte distribution width (RBC) [Ratio] 12.8 % Normal 11.5-15.[address] [facility] Comment on above: Order Comment: Speci men Type: BLOOD SPECIMENOrdering Facility: [facility] Address: [address] [place] [address] Performed By: #### 5 8410-2 ####[facility] HOSPITALNCA [id number] [place] [address] [place] Hematocrit (Bld) [Volume fraction] 37.5 % Normal 36.0-46.[address] [facility] Comment on above: Order Comment: Speci men Type: BLOOD SPECIMENOrdering Facility: [facility] Address: [address] [place] [address] Performed By: #### 5 8410-2 ####[facility]ITALNCMCK[facility] [id number] [place] [address] [place] Hemoglobin (Bld) [Mass/Vol] 13.6 g/dL Normal 11.5-15.[address] [facility] Comment on above: Order Comment: Speci men Type: BLOOD SPECIMENOrdering Facility: [facility] Address: [address] [place] [address] Performed By: #### 5 8410-2 ####[facility]ITALNCMCKAY[facility] [id number] [place] [address] [place] MCH (RBC) [Entitic mass] 31.6 pg Normal 26.0-34.[address] [facility] Comment on above: Order Comment: Speci men Type: BLOOD SPECIMENOrdering Facility: [facility] Address: [address] [place] [address] Performed By: #### 5 8410-2 ####[facility] H[facility]ITALNCLI [id number] [place] [address] [place] MCHC (RBC) [Mass/Vol] 36.3 g/dL High 30.5-36.[address] [facility] Comment on above: Order Comment: Speci men Type: BLOOD SPECIMENOrdering Facility: [facility] Address: [address] [place], [place] [address] Performed By: #### 5 8410-2 ####[facility] CENTERLI [id number] [address] [place] MCV (RBC) [Entitic vol] 87.2 fL Normal 80.0-100.[address] [facility] Comment on above: Order Comment: Speci men Type: BLOOD SPECIMENOrdering Facility: [facility] Address: [address] [place] [address] Performed By: #### 5 8410-2 ####[facility] LLOYD [id number] [place] [address] [place] Nucleated RBC (Bld) [#/Vol] 10*3/uL Normal <0.[address] [facility] Comment on above: Order Comment: Speci men Type: BLOOD SPECIMENOrdering Facility: [facility] Address: [address] [place] [address] Performed By: #### 5 8410-2 ####[facility] HOSPITALHUNG [id number] [place] [address] [place] Platelet mean volume (Bld) [Entitic vol] 10.8 fL Normal 9.0-12.[address] [facility] Comment on above: Order Comment: Speci men Type: BLOOD SPECIMENOrdering Facility: [facility] Address: [address] [place] [address] Performed By: #### 5 8410-2 ####[facility] HOSPITALHUNG [id number] [place] [address] [place] Platelets (Bld) [#/Vol] 191 10*3/uL Normal 150-[address] [facility] Comment on above: Order Comment: Speci men Type: BLOOD SPECIMENOrdering Facility: [facility] Address: [address] [place] [address] Performed By: #### 5 8410-2 ####[facility] HOSPITALGLENNALIA [id number] [place] [address] [place] RBC (Bld) [#/Vol] 4.30 10*6/uL Normal 3.90-5.20 [facility] Comment on above: Order Comment: Speci men Type: BLOOD SPECIMENOrdering Facility: [facility] Address: [address] [place] [address] Performed By: #### 5 8410-2 ####[facility] MILLWNCLIA [id number] [place] [address] [place] WBC (Bld) [#/Vol] 12.57 10*3/uL High 3.70-11.00 [facility] Comment on above: Order Comment: Speci men Type: BLOOD SPECIMENOrdering Facility: [facility] Address: [address] [place] [address] Performed By: #### 5 8410-2 ####[facility] CENTERLIA [id number] [place] [address] [place] Comprehensive metabolic 2000 panelon 01-12-2025 Albumin [Mass/Vol] 3.6 g/dL Low 3.9-4.9 [facility] Comment on above: Order Comment: Speci men Type: BLOOD SPECIMEN [facility] Address: [address] [place], [place] [address] Performed By: #### 3 084-1, 99415-2 #### [facility] CLIA [id number] [address] [place] [address] [place] ALP [Catalytic activity/Vol] 128 U/L High 34-[address] [facility] Comment on above: Order Comment: Speci men Type: BLOOD SPECIMEN [facility] Address: [address] [place], [place] [address] Performed By: #### 3 084-1, 71645-0 #### [facility] CLIA [id number] [place] [address] [place] ALT [Catalytic activity/Vol] 6 U/L Low 7-[address] [facility] Comment on above: Order Comment: Speci men Type: BLOOD SPECIMEN [facility] Address: [address] [place], [place] [address] Performed By: #### 3 084-1, 18635-1 #### [facility] CLIA [id number] [address] [place] [address] [place] Anion gap [Moles/Vol] 13 mmol/L Normal 8-[address] [facility] Comment on above: Order Comment: Speci men Type: BLOOD SPECIMEN [facility] Address: [address] [place] [address] Performed By: #### 3 084-1, 84482-2 #### [facility] CLIA [id number] [address] [place] [address] [place] AST [Catalytic activity/Vol] 13 U/L Normal 13-[address] [facility] Comment on above: Order Comment: Speci men Type: BLOOD SPECIMEN [facility] Address: [address] [place] [address] Performed By: #### 3 084-1, 00911-0 #### [facility] CLIA [id number] [address] [place] [address] [place] Bilirubin [Mass/Vol] 0.2 mg/dL Normal 0.2-1.[address] [facility] Comment on above: Order Comment: Speci men Type: BLOOD SPECIMEN [facility] Address: [address] [place] [address] Performed By: #### 3 084-1, 33767-2 #### [facility] CLIA [id number] [address] [place] [address] [place] Calcium [Mass/Vol] 9.6 mg/dL Normal 8.5-10.2 [facility] Comment on above: Order Comment: Speci men Type: BLOOD SPECIMEN [facility] Address: [address] [place] [address] Performed By: #### 3 084-1, 79743-8 #### [facility] CLIA [id number] [address] [place] [address] [place] Chloride [Moles/Vol] 104 mmol/L Normal 98-[address] [facility] Comment on above: Order Comment: Speci men Type: BLOOD SPECIMEN [facility] Address: [address] [place] [address] Performed By: #### 3 084-1, 06639-2 #### [facility] CLIA [id number] [address] [place] [address] [place] CO2 [Moles/Vol] 19 mmol/L Low 22-[address] [facility] Comment on above: Order Comment: Speci men Type: BLOOD SPECIMEN [facility] Address: [address] [place] [address] Performed By: #### 3 084-1, 01612-4 #### [facility] CLIA [id number] [address] [place] [address] [place] Creatinine [Mass/Vol] 0.53 mg/dL Low 0.58-0.[address] [facility] Comment on above: Order Comment: Speci men Type: BLOOD SPECIMEN [facility] Address: [address] [place] [address] Performed By: #### 3 084-1, 28723-9 #### [facility] [id number] [address] [place] [address] [place] eGFRcr SerPlBld CKD-EPI 2020 129 mL/min/1.73m??? Normal >=[address] [facility] Comment on above: Order Comment: Speci men Type: BLOOD SPECIMEN [facility] Address: [address] [place] [address] Result Comment: Eda mated Glomerular Filtration Rate (eGFR) is calculated using the 2020 CKD-EPI creatinine equation. This equation utilizes serum creatinine, sex, and age as parameters. The creatinine assay has traceable calibration to isotope dilution-mass spectrometry. Refer to KDIGO guidelines for clinical interpretation. In patients with unstable renal function, e.g. those with acute kidney injury, the eGFR may not accurately reflect actual GFR. Performed By: #### 3 084- 26055-7 #### [facility] [id number] [address] [place] [address] [place] Glucose [Mass/Vol] 108 mg/dL High 74-99 [facility] Comment on above: Order Comment: Lynsey soto Type: BLOOD SPECIMEN [facility] Address: [address] [place] [address] Result Comment: The [place] Diabetes Association (ADA) provides guidance for cutoff values for fasting glucose and random glucose. The ADA defines fasting as no caloric intake for at least 8 hours. Fasting plasma glucose results between 100 to 125 mg/dL indicate increased risk for diabetes (prediabetes). Fasting plasma glucose results greater than or equal to 126 mg/dL meet the criteria for diagnosis of diabetes. In the absence of unequivocal hyperglycemia, results should be confirmed by repeat testing. In a patient with classic symptoms of hyperglycemia or hyperglycemic crisis, random plasma glucose results greater than or equal to 200 mg/dL meet the criteria for diagnosis of diabetes. Reference: Standards of Medical Care in Diabetes 2016, [place] [employer]. Diabetes Care. 2016.39(Suppl 1). Performed By: #### 3 084-1, 58740-1 #### [facility] [id number] [address] [place] [address] [place] Potassium [Moles/Vol] 3.8 mmol/L Normal 3.7-5.[address] [facility] Comment on above: Order Comment: Lynsey soto Type: BLOOD SPECIMEN [facility] Address: [address] [place] [address] Performed By: #### 3 084-1, 66919-0 #### [facility] [id number] [address] [place] [address] [place] Protein [Mass/Vol] 6.8 g/dL Normal 6.3-8.0 [facility] Comment on above: Order Comment: Lynsey soto Type: BLOOD SPECIMEN [facility] Address: [address] [place], [place] [address] Performed By: #### 3 084-1, 41826-7 #### [facility] CLIA [id number] [address] [place] [address] [place] Sodium [Moles/Vol] 136 mmol/L Normal 136-144 [facility] Comment on above: Order Comment: Speci men Type: BLOOD SPECIMEN [facility] Address: [address] [place] [address] Performed By: #### 3 084-1, 97669-0 #### [facility] CLIA [id number] [address] [place] [address] [place] Urea nitrogen [Mass/Vol] 7 mg/dL Normal 7-[address] [facility] Comment on above: Order Comment: Speci men Type: BLOOD SPECIMEN [facility] Address: [address] [place] [address] Performed By: #### 3 084-1, 61235-1 #### [facility] [id number] [address] [place] [address] [place] Prot/Creat Uron 01-12-2025 Protein/Creatinine (U) [Mass ratio] 0.10 mg/mg Normal <0.[address] [facility] Comment on above: Order Comment: Speci men Type: URINE SPECIMENOrdering Facility: [facility] Address: [address] [place] [address] Result Comment: Adul t Proteinuria Categories: <0.15 mg/mg is considered normal to mildly increased 0.15 - 0.50 mg/mg is considered moderately increased >0.50 mg/mg is considered severely increased KDIGO. (2013). KDIGO 2012 Clinical Practice Guideline for the Evaluation and Management of Chronic Kidney Disease. Official Journal of the International Society of Nephrology, 3(1), 1-150. Performed By: #### 2 890-2 ####[facility] LABCLIA [id number] [place] [address] [place] Protein/Creatinine (U) [Mass ratio]on 01-12-2025 Creatinine (U) [Mass/Vol] 69.4 mg/dL Normal 20.0-300.[address] [facility] Comment on above: Order Comment: Speci men Type: URINE SPECIMENOrdering Facility: [facility] Address: [address] [place] [address] Performed By: #### 2 890-2 ####[facility] LABCLIA [id number] [place] [address] [place] Protein (U) [Mass/Vol] 7 mg/dL Normal 0-[address] [facility] Comment on above: Order Comment: Speci men Type: URINE SPECIMENOrdering Facility: [facility] Address: [address] [place] [address] Performed By: #### 2 890-2 ####[facility] LABCLIA [id number] [place] [address] [place] ROUTINE, GROUP B ST REPTOCOCCUS BY PCRon 01-12-2025 ROUTINE, GROUP B STREPTOCOCCUS BY PCR Not detected Normal [facility] Comment on above: Performed By: #### G BPCR ####[facility] LABIA [id number] [place] [address] [place] Urate SerPl-mCncon Urate [Mass/Vol] 3.8 mg/dL Normal 2.5-6.6 [facility] Comment on above: Order Comment: Speci men Type: BLOOD SPECIMEN [facility] Address: [address] [place] [address] Performed By: #### 3 084-1, 57300-6 #### [facility] [id number] [address] [place] [address] [place] CNPTana 01-05-2025 BILLN Telephone (OBGYWM) -------- GRECIA LOCKETT ([id number]) 1995 F Date Time Provider Department 01/05/25 GRECIA SHEPHERD During your visit today, we recorded the following information about you: Susan Munoz RN 01/05/2025 10:05 AM Signed Received [facility] paperwork for patient. Patient presented with paperwork today for NST appointment. She requested that this be filled out for leave today or Wednesday due to gestational HTN. Dr Cano requests paperwork goes to Grecia Shepherd because she recently discussed this with her at appointment. [place] paperwork on Grecia Shepherd's desk for her to address next week. Elicia Ashley RN 01/08/2025 5:00 PM Signed [place] faxed to employer and copy sent for scanning. Elicia Ashley RN Allergies As of Date: 01/05/2025 (No Known Allergies) Date Reviewed: 01/02/2025 Reviewed by: Hector Yost LPN - Fully Assessed Reason for Visit: [facility] Paperwork [8069] Prescriptions as of 01/08/2025 - aspirin, enteric coated (ECOTRIN LOW STRENGTH) 81 mg EC tablet Take 2 tablets by mouth once daily. - vit calc,iron,folic ( PLODNQKO-XHR-UB-FA ORAL) Take by mouth as directed. - magnesium oxide (MAG-OX) 400 mg (241.3 mg magnesium) tablet Take 400 mg by mouth once daily. Problem List As Of Date 01/05/2025 Noted Resolved Supervision of high risk in second tr*05/20/2023 09/01/2023 23 weeks gestation of [Z3A.23] 05/20/2023 09/01/2023 Rh negative state in antepartum period (HCC) [O*05/20/2023 with care elsewhere in secon*05/20/2023 09/01/2023 Tension headaches [G44.209] 05/20/2023 Anxiety during [O99.340, F41.9] 05/20/2023 10/06/2023 Obesity affecting , antepartum (HCC) [*07/18/2024 Constipation during in second trimest*05/20/2023 09/01/2023 Elevated glucose tolerance test [R73.09] 06/18/2023 10/06/2023 History of gestational hypertension [Z87.59] 08/20/2023 10/06/2023 Short interval between pregnancies affecting pr*07/18/2024 Supervision of high risk in second tr*07/18/2024 History of vacuum extraction assisted delivery *08/09/2024 History of pre-eclampsia [Z87.59] 08/09/2024 History of gestational hypertension [Z87.59] 09/01/2024 Uterine size-date discrepancy, third trimester *12/05/2024 Gestational hypertension, third trimester (HCC)*12/22/2024 Polyhydramnios affecting (HCC) [O40.9*12/25/2024 Excessive growth affecting management of *12/25/2024 Encounter Status:Closed by ELCIIA ASHLEY on 01/08/[address] [facility] CBC W Auto Differential pane l (Bld)on 01-02-2025 Basophils (Bld) [#/Vol] 10*3/uL Normal <0.[address] [facility] Comment on above: Order Comment: Speci men Type: BLOOD SPECIMENOrdering Facility: [facility] Address: [address] [place] [address] Performed By: #### 5 7021-8 ####[facility] [id number] [place] [address] [place] Basophils/100 WBC (Bld) 0.2 % Normal [facility] Comment on above: Order Comment: Speci men Type: BLOOD SPECIMENOrdering Facility: [facility] Address: [address] [place] [address] Performed By: #### 5 7021-8 ####[facility] [id number] [place] [address] [place] Differential cell count method Nom (Bld) Auto Normal [facility] Comment on above: Order Comment: Speci men Type: BLOOD SPECIMENOrdering Facility: [facility] Address: [address] [place] [address] Performed By: #### 5 7021-8 ####[facility] [id number] [place] [address] [place] Eosinophils (Bld) [#/Vol] 0.06 10*3/uL Normal <0.[address] [facility] Comment on above: Order Comment: Speci men Type: BLOOD SPECIMENOrdering Facility: [facility] Address: [address] [place] [address] Performed By: #### 5 7021-8 ####[facility] [id number] [place] [address] [place] Eosinophils/100 WBC (Bld) 0.6 % Normal [facility] Comment on above: Order Comment: Speci men Type: BLOOD SPECIMENOrdering Facility: [facility] Address: [address] [place] [address] Performed By: #### 5 7021-8 ####[facility] [id number] [place] [address] [place] Erythrocyte distribution width (RBC) [Ratio] 12.8 % Normal 11.5-15.[address] [facility] Comment on above: Order Comment: Speci men Type: BLOOD SPECIMENOrdering Facility: [facility] Address: [address] [place] [address] Performed By: #### 5 7021-8 ####[facility] [id number] [place] [address] [place] Hematocrit (Bld) [Volume fraction] 35.6 % Low 36.0-46.[address] [facility] Comment on above: Order Comment: Speci men Type: BLOOD SPECIMENOrdering Facility: [facility] Address: [address] [place] [address] Performed By: #### 5 7021-8 ####[facility] MILLTOWNCLIA [id number] [place] [address] [place] Hemoglobin (Bld) [Mass/Vol] 12.5 g/dL Normal 11.5-15.[address] [facility] Comment on above: Order Comment: Speci men Type: BLOOD SPECIMENOrdering Facility: [facility] Address: [address] [place] [address] Performed By: #### 5 7021-8 ####[facility]ITALNCLIA [id number] [place] [address] [place] Immature granulocytes (Bld) [#/Vol] 0.13 10*3/uL High <0.[address] [facility] Comment on above: Order Comment: Speci men Type: BLOOD SPECIMENOrdering Facility: [facility] Address: [address] [place] [address] Performed By: #### 5 7021-8 ####[facility]ITALNCLIA [id number] [place] [address] [place] Immature granulocytes/100 WBC (Bld) 1.2 % Normal [facility] Comment on above: Order Comment: Speci men Type: BLOOD SPECIMENOrdering Facility: [facility] Address: [address] [place] [address] Performed By: #### 5 7021-8 ####[facility]ITALNCLIA [id number] [place] [address] [place] Lymphocytes (Bld) [#/Vol] 2.06 10*3/uL Normal 1.00-4.[address] [facility] Comment on above: Order Comment: Speci men Type: BLOOD SPECIMENOrdering Facility: [facility] Address: [address] [place] [address] Performed By: #### 5 7021-8 ####[facility]ITALNCLIA [id number] [place] [address] [place] Lymphocytes/100 WBC (Bld) 19.8 % Normal [facility] Comment on above: Order Comment: Speci men Type: BLOOD SPECIMENOrdering Facility: [facility] Address: [address] [place] [address] Performed By: #### 5 7021-8 ####[facility]PITALGLENNAMCKAY-DEE [facility] [id number] [place] [address] [place] MCH (RBC) [Entitic mass] 31.3 pg Normal 26.0-34.[address] [facility] Comment on above: Order Comment: Speci men Type: BLOOD SPECIMENOrdering Facility: [facility] Address: [address] [place] [address] Performed By: #### 5 7021-8 ####[facility] HOSPITALNCSal [id number] [place] [address] [place] MCHC (RBC) [Mass/Vol] 35.1 g/dL Normal 30.5-36.[address] [facility] Comment on above: Order Comment: Speci men Type: BLOOD SPECIMENOrdering Facility: [facility] Address: [address] [place] [address] Performed By: #### 5 7021-8 ####[facility] HOSPITALNCLISal [id number] [place] [address] [place] MCV (RBC) [Entitic vol] 89.0 fL Normal 80.0-100.[address] [facility] Comment on above: Order Comment: Speci men Type: BLOOD SPECIMENOrdering Facility: [facility] Address: [address] [place] [address] Performed By: #### 5 7021-8 ####[facility] HOSPITALNCLI [id number] [place] [address] [place] Monocytes (Bld) [#/Vol] 0.87 10*3/uL High <0.[address] [facility] Comment on above: Order Comment: Speci men Type: BLOOD SPECIMENOrdering Facility: [facility] Address: [address] [place] [address] Performed By: #### 5 7021-8 ####[facility] [id number] [place] [address] [place] Monocytes/100 WBC (Bld) 8.4 % Normal [facility] Comment on above: Order Comment: Speci men Type: BLOOD SPECIMENOrdering Facility: [facility] Address: [address] [place] [address] Performed By: #### 5 7021-8 ####[facility] [id number] [place] [address] [place] Neutrophils (Bld) [#/Vol] 7.27 10*3/uL Normal 1.45-7.[address] [facility] Comment on above: Order Comment: Speci men Type: BLOOD SPECIMENOrdering Facility: [facility] Address: [address] [place] [address] Performed By: #### 5 7021-8 ####[facility] [id number] [place] [address] [place] Neutrophils/100 WBC (Bld) 69.8 % Normal [facility] Comment on above: Order Comment: Speci men Type: BLOOD SPECIMENOrdering Facility: [facility] Address: [address] [place] [address] Performed By: #### 5 7021-8 ####[facility] [id number] [place] [address] [place] Nucleated RBC (Bld) [#/Vol] 10*3/uL Normal <0.[address] [facility] Comment on above: Order Comment: Speci men Type: BLOOD SPECIMENOrdering Facility: [facility] Address: [address] [place] [address] Performed By: #### 5 7021-8 ####[facility] ANIKETNCLIA [id number] [place] [address] [place] Nucleated RBC/100 WBC (Bld) [Ratio] 0.0 /[address] [facility] Comment on above: Order Comment: Speci men Type: BLOOD SPECIMENOrdering Facility: [facility] Address: [address] [place] [address] Performed By: #### 5 7021-8 ####[facility]ITALNCLIA [id number] [place] [address] [place] Platelet mean volume (Bld) [Entitic vol] 10.5 fL Normal 9.0-12.[address] [facility] Comment on above: Order Comment: Speci men Type: BLOOD SPECIMENOrdering Facility: [facility] Address: [address] [place] [address] Performed By: #### 5 7021-8 ####[facility] H[facility]ITALNCLIA [id number] [place] [address] [place] Platelets (Bld) [#/Vol] 185 10*3/uL Normal 150-[address] [facility] Comment on above: Order Comment: Speci men Type: BLOOD SPECIMENOrdering Facility: [facility] Address: [address] [place] [address] Performed By: #### 5 7021-8 ####[facility]ITALNCLIA [id number] [place] [address] [place] RBC (Bld) [#/Vol] 4.00 10*6/uL Normal 3.90-5.20 [facility] Comment on above: Order Comment: Speci men Type: BLOOD SPECIMENOrdering Facility: [facility] Address: [address] [place] [address] Performed By: #### 5 7021-8 ####[facility]ITALNCLIA [id number] [place] [address] [place] WBC (Bld) [#/Vol] 10.41 10*3/uL Normal 3.70-11.00 [facility] Comment on above: Order Comment: Speci men Type: BLOOD SPECIMENOrdering Facility: [facility] Address: [address] [place] [address] Performed By: #### 5 7021-8 ####[facility] [id number] [place] [address] [place] Comprehensive metabolic 2000 panelon 01-02-2025 Albumin [Mass/Vol] 3.4 g/dL Low 3.9-4.9 [facility] Comment on above: Order Comment: Speci men Type: BLOOD SPECIMEN [facility] Address: [address] [place] [address] Performed By: #### 3 084-1, 13554-6 #### [facility] CLIA [id number] [address] [place] [address] [place] ALP [Catalytic activity/Vol] 99 U/L Normal 34-[address] [facility] Comment on above: Order Comment: Speci men Type: BLOOD SPECIMEN [facility] Address: [address] [place] [address] Performed By: #### 3 084-1, 35040-5 #### [facility] CLIA [id number] [address] [place] [address] [place] ALT [Catalytic activity/Vol] 6 U/L Low 7-[address] [facility] Comment on above: Order Comment: Speci men Type: BLOOD SPECIMEN [facility] Address: [address] [place] [address] Performed By: #### 3 084-1, 20352-6 #### [facility] CLIA [id number] [address] [place] [address] [place] Anion gap [Moles/Vol] 10 mmol/L Normal 8-[address] [facility] Comment on above: Order Comment: Speci men Type: BLOOD SPECIMEN [facility] Address: [address] [place] [address] Performed By: #### 3 084-1, 08469-8 #### [facility] CLIA [id number] [address] [place] [address] [place] AST [Catalytic activity/Vol] 11 U/L Low 13-[address] [facility] Comment on above: Order Comment: Speci men Type: BLOOD SPECIMEN [facility] Address: [address] [place] [address] Performed By: #### 3 084-1, 89100-6 #### [facility] CLIA [id number] [address] [place] [address] [place] Bilirubin [Mass/Vol] 0.2 mg/dL Normal 0.2-1.[address] [facility] Comment on above: Order Comment: Speci men Type: BLOOD SPECIMEN [facility] Address: [address] [place] [address] Performed By: #### 3 084-1, 31123-0 #### [facility] CLIA [id number] [address] [place] [address] [place] Calcium [Mass/Vol] 9.0 mg/dL Normal 8.5-10.2 [facility] Comment on above: Order Comment: Speci men Type: BLOOD SPECIMEN [facility] Address: [address] [place] [address] Performed By: #### 3 084-1, 12697-1 #### [facility] CLIA [id number] [address] [place] [address] [place] Chloride [Moles/Vol] 104 mmol/L Normal 98-[address] [facility] Comment on above: Order Comment: Speci men Type: BLOOD SPECIMEN [facility] Address: [address] [place], [place] [address] Performed By: #### 3 084-1, 55142-7 #### [facility] [id number] [address] [place] [address] [place] CO2 [Moles/Vol] 22 mmol/L Normal 22-[address] [facility] Comment on above: Order Comment: Speci men Type: BLOOD SPECIMEN [facility] Address: [address] [place] [address] Performed By: #### 3 084-1, 90211-7 #### [facility] [id number] [address] [place] [address] [place] Creatinine [Mass/Vol] 0.57 mg/dL Low 0.58-0.[address] [facility] Comment on above: Order Comment: Speci men Type: BLOOD SPECIMEN [facility] Address: [address] [place] [address] Performed By: #### 3 084-1, 03108-6 #### [facility] [id number] [address] [place] [address] [place] eGFRcr SerPlBld CKD-EPI 2020 126 mL/min/1.73m??? Normal >=[address] [facility] Comment on above: Order Comment: Speci men Type: BLOOD SPECIMEN [facility] Address: [address] [place] [address] Result Comment: Eda mated Glomerular Filtration Rate (eGFR) is calculated using the 2020 CKD-EPI creatinine equation. This equation utilizes serum creatinine, sex, and age as parameters. The creatinine assay has traceable calibration to isotope dilution-mass spectrometry. Refer to KDIGO guidelines for clinical interpretation. In patients with unstable renal function, e.g. those with acute kidney injury, the eGFR may not accurately reflect actual GFR. Performed By: #### 3 084-1, 69340-6 #### [facility] CLIA [id number] [address] [place] [address] [place] Glucose [Mass/Vol] 90 mg/dL Normal 74-99 [facility] Comment on above: Order Comment: Lynsye soto Type: BLOOD SPECIMEN [facility] Address: [address] [place], [place] [address] Result Comment: The [place] [employer] (ADA) provides guidance for cutoff values for fasting glucose and random glucose. The ADA defines fasting as no caloric intake for at least 8 hours. Fasting plasma glucose results between 100 to 125 mg/dL indicate increased risk for diabetes (prediabetes). Fasting plasma glucose results greater than or equal to 126 mg/dL meet the criteria for diagnosis of diabetes. In the absence of unequivocal hyperglycemia, results should be confirmed by repeat testing. In a patient with classic symptoms of hyperglycemia or hyperglycemic crisis, random plasma glucose results greater than or equal to 200 mg/dL meet the criteria for diagnosis of diabetes. Reference: Standards of Medical Care in Diabetes 2016, [place] [employer]. Diabetes Care. 2016.39(Suppl 1). Performed By: #### 3 084-1, 17554-0 #### [facility] [id number] [address] [place] [address] [place] Potassium [Moles/Vol] 3.9 mmol/L Normal 3.7-5.[address] [facility] Comment on above: Order Comment: Lynsey soto Type: BLOOD SPECIMEN [facility] Address: [address] [place] [address] Performed By: #### 3 084-1, 00389-0 #### [facility] CLIA [id number] [address] [place] [address] [place] Protein [Mass/Vol] 6.3 g/dL Normal 6.3-8.0 [facility] Comment on above: Order Comment: Lynsey soto Type: BLOOD SPECIMEN [facility] Address: [address] [place], [place] [address] Performed By: #### 3 084-1, 68243-9 #### [facility] CLIA [id number] [address] [place] [address] [place] Sodium [Moles/Vol] 136 mmol/L Normal 136-144 [facility] Comment on above: Order Comment: Speci men Type: BLOOD SPECIMEN [facility] Address: [address] [place] [address] Performed By: #### 3 084-1, 70465-4 #### [facility] CLIA [id number] [address] [place] [address] [place] Urea nitrogen [Mass/Vol] 5 mg/dL Low 7-[address] [facility] Comment on above: Order Comment: Speci men Type: BLOOD SPECIMEN [facility] Address: [address] [place] [address] Performed By: #### 3 084-1, 11654-3 #### [facility] CLIA [id number] [address] [place] [address] [place] Prot/Creat Uron 01-02-2025 Protein/Creatinine (U) [Mass ratio] 0.15 mg/mg High <0.[address] [facility] Comment on above: Order Comment: Speci men Type: BLOOD SPECIMEN [facility] Address: [address] [place] [address] Result Comment: Adul t Proteinuria Categories: <0.15 mg/mg is considered normal to mildly increased 0.15 - 0.50 mg/mg is considered moderately increased >0.50 mg/mg is considered severely increased KDIGO. (2013). KDIGO 2012 Clinical Practice Guideline for the Evaluation and Management of Chronic Kidney Disease. Official Journal of the International Society of Nephrology, 3(1), 1-150. Performed By: #### 3 084-1, 82047-4 #### [facility] CLIA [id number] [address] [place] [address] [place] Protein/Creatinine (U) [Mass ratio]on 01-02-2025 Creatinine (U) [Mass/Vol] 33.4 mg/dL Normal 20.0-300.[address] [facility] Comment on above: Order Comment: Speci men Type: BLOOD SPECIMEN [facility] Address: [address] [place] [address] Performed By: #### 3 084-1, 76198-9 #### [facility] CLIA [id number] [address] [place] [address] [place] Protein (U) [Mass/Vol] 5 mg/dL Normal 0-[address] [facility] Comment on above: Order Comment: Speci men Type: BLOOD SPECIMEN [facility] Address: [address] [place] [address] Performed By: #### 3 084-1, 40972-1 #### [facility] [id number] [address] [place] [address] [place] Urate SerPl-mCncon Urate [Mass/Vol] 3.5 mg/dL Normal 2.5-6.6 [facility] Comment on above: Order Comment: Speci men Type: BLOOD SPECIMEN [facility] Address: [address] [place] [address] Performed By: #### 3 084-1, 13402-3 #### [facility] [id number] [address] [place] [address] [place] CBC W Auto Differential pane l (Bld)on 12-22-2024 Basophils (Bld) [#/Vol] 0.03 10*3/uL Normal <0.[address] [facility] Comment on above: Order Comment: Speci men Type: BLOOD SPECIMENOrdering Facility: [facility] Address: [address] [place] [address] Performed By: #### 5 7021-8 ####[facility] [id number] [place] [address] [place] Basophils/100 WBC (Bld) 0.3 % Normal [facility] Comment on above: Order Comment: Speci men Type: BLOOD SPECIMENOrdering Facility: [facility] Address: [address] [place] [address] Performed By: #### 5 7021-8 ####[facility] HOSPITALGLENNALIA [id number] [place] [address] [place] Differential cell count method Nom (Bld) Auto Normal [facility] Comment on above: Order Comment: Speci men Type: BLOOD SPECIMENOrdering Facility: [facility] Address: [address] [place] [address] Performed By: #### 5 7021-8 ####[facility] HOSPITALSILASA [id number] [place] [address] [place] Eosinophils (Bld) [#/Vol] 0.08 10*3/uL Normal <0.[address] [facility] Comment on above: Order Comment: Speci men Type: BLOOD SPECIMENOrdering Facility: [facility] Address: [address] [place] [address] Performed By: #### 5 7021-8 ####[facility] [id number] [place] [address] [place] Eosinophils/100 WBC (Bld) 0.7 % Normal [facility] Comment on above: Order Comment: Speci men Type: BLOOD SPECIMENOrdering Facility: [facility] Address: [address] [place] [address] Performed By: #### 5 7021-8 ####[facility]ITALNCLIA [id number] [place] [address] [place] Erythrocyte distribution width (RBC) [Ratio] 12.8 % Normal 11.5-15.[address] [facility] Comment on above: Order Comment: Speci men Type: BLOOD SPECIMENOrdering Facility: [facility] Address: [address] [place] [address] Performed By: #### 5 7021-8 ####[facility] ASHVINVARSHALIA [id number] [place] [address] [place] Hematocrit (Bld) [Volume fraction] 35.0 % Low 36.0-46.[address] [facility] Comment on above: Order Comment: Speci men Type: BLOOD SPECIMENOrdering Facility: [facility] Address: [address] [place] [address] Performed By: #### 5 7021-8 ####[facility] CENTERLIA [id number] [place] [address] [place] Hemoglobin (Bld) [Mass/Vol] 12.4 g/dL Normal 11.5-15.[address] [facility] Comment on above: Order Comment: Speci men Type: BLOOD SPECIMENOrdering Facility: [facility] Address: [address] [place] [address] Performed By: #### 5 7021-8 ####[facility] [id number] [place] [address] [place] Immature granulocytes (Bld) [#/Vol] 0.12 10*3/uL High <0.[address] [facility] Comment on above: Order Comment: Speci men Type: BLOOD SPECIMENOrdering Facility: [facility] Address: [address] [place] [address] Performed By: #### 5 7021-8 ####[facility] CENTERLIA [id number] [place] [address] [place] Immature granulocytes/100 WBC (Bld) 1.1 % Normal [facility] Comment on above: Order Comment: Speci men Type: BLOOD SPECIMENOrdering Facility: [facility] Address: [address] [place] [address] Performed By: #### 5 7021-8 ####[facility]ENTERLI [id number] [place] [address] [place] Lymphocytes (Bld) [#/Vol] 2.24 10*3/uL Normal 1.00-4.[address] [facility] Comment on above: Order Comment: Speci men Type: BLOOD SPECIMENOrdering Facility: [facility] Address: [address] [place] [address] Performed By: #### 5 7021-8 ####[facility] [id number] [place] [address] [place] Lymphocytes/100 WBC (Bld) 19.7 % Normal [facility] Comment on above: Order Comment: Speci men Type: BLOOD SPECIMENOrdering Facility: [facility] Address: [address] [place] [address] Performed By: #### 5 7021-8 ####[facility] [id number] [place] [address] [place] MCH (RBC) [Entitic mass] 31.4 pg Normal 26.0-34.[address] [facility] Comment on above: Order Comment: Speci men Type: BLOOD SPECIMENOrdering Facility: [facility] Address: [address] [place] [address] Performed By: #### 5 7021-8 ####[facility] [id number] [place] [address] [place] MCHC (RBC) [Mass/Vol] 35.4 g/dL Normal 30.5-36.[address] [facility] Comment on above: Order Comment: Speci men Type: BLOOD SPECIMENOrdering Facility: [facility] Address: [address] [place] [address] Performed By: #### 5 7021-8 ####[facility]ITALNCLI [id number] [place] [address] [place] MCV (RBC) [Entitic vol] 88.6 fL Normal 80.0-100.[address] [facility] Comment on above: Order Comment: Speci men Type: BLOOD SPECIMENOrdering Facility: [facility] Address: [address] [place] [address] Performed By: #### 5 7021-8 ####[facility] ASHVINSunniNCCLEMENCIA [id number] [place] [address] [place] Monocytes (Bld) [#/Vol] 1.00 10*3/uL High <0.[address] [facility] Comment on above: Order Comment: Speci men Type: BLOOD SPECIMENOrdering Facility: [facility] Address: [address] [place] [address] Performed By: #### 5 7021-8 ####[facility] [id number] [place] [address] [place] Monocytes/100 WBC (Bld) 8.8 % Normal [facility] Comment on above: Order Comment: Speci men Type: BLOOD SPECIMENOrdering Facility: [facility] Address: [address] [place] [address] Performed By: #### 5 7021-8 ####[facility] [id number] [place] [address] [place] Neutrophils (Bld) [#/Vol] 7.92 10*3/uL High 1.45-7.[address] [facility] Comment on above: Order Comment: Speci men Type: BLOOD SPECIMENOrdering Facility: [facility] Address: [address] [place] [address] Performed By: #### 5 7021-8 ####[facility] HOSPITALNCA [id number] [place] [address] [place] Neutrophils/100 WBC (Bld) 69.4 % Normal [facility] Comment on above: Order Comment: Speci men Type: BLOOD SPECIMENOrdering Facility: [facility] Address: [address] [place] [address] Performed By: #### 5 7021-8 ####[facility]ITALNCLIA [id number] [place] [address] [place] Nucleated RBC (Bld) [#/Vol] 10*3/uL Normal <0.[address] [facility] Comment on above: Order Comment: Speci men Type: BLOOD SPECIMENOrdering Facility: [facility] Address: [address] [place] [address] Performed By: #### 5 7021-8 ####[facility] [id number] [place] [address] [place] Nucleated RBC/100 WBC (Bld) [Ratio] 0.0 /[address] [facility] Comment on above: Order Comment: Speci men Type: BLOOD SPECIMENOrdering Facility: [facility] Address: [address] [place] [address] Performed By: #### 5 7021-8 ####[facility] [id number] [place] [address] [place] Platelet mean volume (Bld) [Entitic vol] 10.3 fL Normal 9.0-12.[address] [facility] Comment on above: Order Comment: Speci men Type: BLOOD SPECIMENOrdering Facility: [facility] Address: [address] [place] [address] Performed By: #### 5 7021-8 ####[facility] [id number] [place] [address] [place] Platelets (Bld) [#/Vol] 186 10*3/uL Normal 150-[address] [facility] Comment on above: Order Comment: Speci men Type: BLOOD SPECIMENOrdering Facility: [facility] Address: [address] [place] [address] Performed By: #### 5 7021-8 ####[facility] [id number] [place] [address] [place] RBC (Bld) [#/Vol] 3.95 10*6/uL Normal 3.90-5.20 [facility] Comment on above: Order Comment: Speci men Type: BLOOD SPECIMENOrdering Facility: [facility] Address: [address] [place] [address] Performed By: #### 5 7021-8 ####[facility] [id number] [place] [address] [place] WBC (Bld) [#/Vol] 11.39 10*3/uL High 3.70-11.00 [facility] Comment on above: Order Comment: Speci men Type: BLOOD SPECIMENOrdering Facility: [facility] Address: [address] [place] [address] Performed By: #### 5 7021-8 ####[facility] [id number] [place] [address] [place] Comprehensive metabolic 2000 panelon 12-22-2024 Albumin [Mass/Vol] 3.5 g/dL Low 3.9-4.9 [facility] Comment on above: Order Comment: Speci men Type: BLOOD SPECIMEN [facility] Address: [address] [place] [address] Performed By: #### 3 084-1, 94208-0 #### [facility] CLIA [id number] [address] [place] [address] [place] ALP [Catalytic activity/Vol] 91 U/L Normal 34-[address] [facility] Comment on above: Order Comment: Speci men Type: BLOOD SPECIMEN [facility] Address: [address] [place] [address] Performed By: #### 3 084-1, 34971-7 #### [facility] CLIA [id number] [address] [place] [address] [place] ALT [Catalytic activity/Vol] 6 U/L Low 7-[address] [facility] Comment on above: Order Comment: Speci men Type: BLOOD SPECIMEN [facility] Address: [address] [place] [address] Performed By: #### 3 084-1, 42806-9 #### [facility] CLIA [id number] [address] [place] [address] [place] Anion gap [Moles/Vol] 11 mmol/L Normal 8-[address] [facility] Comment on above: Order Comment: Speci men Type: BLOOD SPECIMEN [facility] Address: [address] [place] [address] Performed By: #### 3 084-1, 94621-7 #### [facility] CLIA [id number] [address] [place] [address] [place] AST [Catalytic activity/Vol] 10 U/L Low 13-[address] [facility] Comment on above: Order Comment: Speci men Type: BLOOD SPECIMEN [facility] Address: [address] [place] [address] Performed By: #### 3 084-1, 62738-2 #### [facility] CLIA [id number] [address] [place] [address] [place] Bilirubin [Mass/Vol] 0.2 mg/dL Normal 0.2-1.[address] [facility] Comment on above: Order Comment: Speci men Type: BLOOD SPECIMEN [facility] Address: [address] [place] [address] Performed By: #### 3 084-1, 99844-9 #### [facility] CLIA [id number] [address] [place] [address] [place] Calcium [Mass/Vol] 9.0 mg/dL Normal 8.5-10.2 [facility] Comment on above: Order Comment: Speci men Type: BLOOD SPECIMEN [facility] Address: [address] [place] [address] Performed By: #### 3 084-1, 43576-8 #### [facility] CLIA [id number] [address] [place] [address] [place] Chloride [Moles/Vol] 107 mmol/L Normal 98-[address] [facility] Comment on above: Order Comment: Speci men Type: BLOOD SPECIMEN [facility] Address: [address] [place] [address] Performed By: #### 3 084-1, 28138-6 #### [facility] CLIA [id number] [address] [place] [address] [place] CO2 [Moles/Vol] 19 mmol/L Low 22-[address] [facility] Comment on above: Order Comment: Speci men Type: BLOOD SPECIMEN [facility] Address: [address] [place] [address] Performed By: #### 3 084-1, 00182-2 #### [facility] CLIA [id number] [address] [place] [address] [place] Creatinine [Mass/Vol] 0.53 mg/dL Low 0.58-0.[address] [facility] Comment on above: Order Comment: Speci men Type: BLOOD SPECIMEN [facility] Address: [address] [place] [address] Performed By: #### 3 084-1, 74439-2 #### [facility] CLIA [id number] [address] [place] [address] [place] eGFRcr SerPlBld CKD-EPI 2020 129 mL/min/1.73m??? Normal >=[address] [facility] Comment on above: Order Comment: Speci men Type: BLOOD SPECIMEN [facility] Address: [address] [place] [address] Result Comment: Eda mated Glomerular Filtration Rate (eGFR) is calculated using the 2020 CKD-EPI creatinine equation. This equation utilizes serum creatinine, sex, and age as parameters. The creatinine assay has traceable calibration to isotope dilution-mass spectrometry. Refer to KDIGO guidelines for clinical interpretation. In patients with unstable renal function, e.g. those with acute kidney injury, the eGFR may not accurately reflect actual GFR. Performed By: #### 3 084-1, 03313-2 #### [facility] CLIA [id number] [address] [place] [address] [place] Glucose [Mass/Vol] 99 mg/dL Normal 74-99 [facility] Comment on above: Order Comment: Lynsey soto Type: BLOOD SPECIMEN [facility] Address: [address] [place] [address] Result Comment: The [place] [employer] (ADA) provides guidance for cutoff values for fasting glucose and random glucose. The ADA defines fasting as no caloric intake for at least 8 hours. Fasting plasma glucose results between 100 to 125 mg/dL indicate increased risk for diabetes (prediabetes). Fasting plasma glucose results greater than or equal to 126 mg/dL meet the criteria for diagnosis of diabetes. In the absence of unequivocal hyperglycemia, results should be confirmed by repeat testing. In a patient with classic symptoms of hyperglycemia or hyperglycemic crisis, random plasma glucose results greater than or equal to 200 mg/dL meet the criteria for diagnosis of diabetes. Reference: Standards of Medical Care in Diabetes 2016, [place] [employer]. Diabetes Care. 2016.39(Suppl 1). Performed By: #### 3 084-, 27453-4 #### [facility] [id number] [address] [place] [address] [place] Potassium [Moles/Vol] 3.6 mmol/L Low 3.7-5.[address] [facility] Comment on above: Order Comment: Lynsey soto Type: BLOOD SPECIMEN [facility] Address: [address] [place] [address] Performed By: #### 3 084-1, 07020-0 #### [facility] CLIA [id number] [address] [place] [address] [place] Protein [Mass/Vol] 6.3 g/dL Normal 6.3-8.0 [facility] Comment on above: Order Comment: Speci men Type: BLOOD SPECIMEN [facility] Address: [address] [place] [address] Performed By: #### 3 084-1, 70700-6 #### [facility] [id number] [address] [place] [address] [place] Sodium [Moles/Vol] 137 mmol/L Normal 136-144 [facility] Comment on above: Order Comment: Speci men Type: BLOOD SPECIMEN [facility] Address: [address] [place] [address] Performed By: #### 3 084-1, 22912-6 #### [facility] [id number] [address] [place] [address] [place] Urea nitrogen [Mass/Vol] 5 mg/dL Low 7-[address] [facility] Comment on above: Order Comment: Speci men Type: BLOOD SPECIMEN [facility] Address: [address] [place] [address] Performed By: #### 3 084-1, 24206-9 #### [facility] [id number] [address] [place] [address] [place] Prot/Creat Uron 12-22-2024 Protein/Creatinine (U) [Mass ratio] 0.08 mg/mg Normal <0.[address] [facility] Comment on above: Order Comment: Speci men Type: URINE SPECIMENOrdering Facility: [facility] Address: [address] [place] [address] Result Comment: Adul t Proteinuria Categories: <0.15 mg/mg is considered normal to mildly increased 0.15 - 0.50 mg/mg is considered moderately increased >0.50 mg/mg is considered severely increased KDIGO. (2013). KDIGO 2012 Clinical Practice Guideline for the Evaluation and Management of Chronic Kidney Disease. Official Journal of the International Society of Nephrology, 3(1), 1-150. Performed By: #### 2 890-2 ####[facility] [id number] [place] [id number] [place] Protein/Creatinine (U) [Mass ratio]on 12-22-2024 Creatinine (U) [Mass/Vol] 166.1 mg/dL Normal 20.0-300.[address] [facility] Comment on above: Order Comment: Speci men Type: URINE SPECIMENOrdering Facility: [facility] Address: [address] [place] [address] Performed By: #### 2 890-2 ####[facility] [id number] [place] [id number] [place] Protein (U) [Mass/Vol] 13 mg/dL Normal 0-[address] [facility] Comment on above: Order Comment: Speci men Type: URINE SPECIMENOrdering Facility: [facility] Address: [address] [place] [address] Performed By: #### 2 890-2 ####[facility] [id number] [place] [id number] [place] Urate SerPl-mCncon Urate [Mass/Vol] 3.3 mg/dL Normal 2.5-6.6 [facility] Comment on above: Order Comment: Speci men Type: BLOOD SPECIMEN [facility] Address: [address] [place] [address] Performed By: #### 3 084-1, 63904-7 #### [facility] [id number] [address] [place] [address] [place] CBC panel Auto (Bld)on 11-24 Erythrocyte distribution width (RBC) [Ratio] 12.3 % Normal 11.5-15.[address] [facility] Comment on above: Order Comment: Speci men Type: BLOOD SPECIMEN [facility] Address: [address] [place] [address] Performed By: #### R UBIGG #### [facility] CLIA [id number] [address] [place] [address] [place] Hematocrit (Bld) [Volume fraction] 33.9 % Low 36.0-46.[address] [facility] Comment on above: Order Comment: Speci men Type: BLOOD SPECIMEN [facility] Address: [address] [place] [address] Performed By: #### R UBIGG #### [facility] IA [id number] [address] [place] [address] [place] Hemoglobin (Bld) [Mass/Vol] 11.9 g/dL Normal 11.5-15.[address] [facility] Comment on above: Order Comment: Speci men Type: BLOOD SPECIMEN [facility] Address: [address] [place] [address] Performed By: #### R UBIGG #### [facility] IA [id number] [address] [place] [address] [place] MCH (RBC) [Entitic mass] 31.6 pg Normal 26.0-34.[address] [facility] Comment on above: Order Comment: Speci men Type: BLOOD SPECIMEN [facility] Address: [address] [place] [address] Performed By: #### R UBIGG #### [facility] CLIA [id number] [address] [place] [address] [place] MCHC (RBC) [Mass/Vol] 35.1 g/dL Normal 30.5-36.[address] [facility] Comment on above: Order Comment: Speci men Type: BLOOD SPECIMEN [facility] Address: [address] [place] [address] Performed By: #### R UBIGG #### [facility] CLIA [id number] [address] [place] [address] [place] MCV (RBC) [Entitic vol] 89.9 fL Normal 80.0-100.[address] [facility] Comment on above: Order Comment: Speci men Type: BLOOD SPECIMEN [facility] Address: [address] [place] [address] Performed By: #### R UBIGG #### [facility] CLIA [id number] [address] [place] [address] [place] Nucleated RBC (Bld) [#/Vol] 10*3/uL Normal <0.[address] [facility] Comment on above: Order Comment: Speci men Type: BLOOD SPECIMEN [facility] Address: [address] [place] [address] Performed By: #### R UBIGG #### [facility] CLIA [id number] [address] [place] [address] [place] Platelet mean volume (Bld) [Entitic vol] 10.0 fL Normal 9.0-12.[address] [facility] Comment on above: Order Comment: Speci men Type: BLOOD SPECIMEN [facility] Address: [address] [place] [address] Performed By: #### R UBIGG #### [facility] CLIA [id number] [address] [place] [address] [place] Platelets (Bld) [#/Vol] 189 10*3/uL Normal 150-[address] [facility] Comment on above: Order Comment: Speci men Type: BLOOD SPECIMEN [facility] Address: [address] [place] [address] Performed By: #### R UBIGG #### [facility] CLIA [id number] [address] [place] [address] [place] RBC (Bld) [#/Vol] 3.77 10*6/uL Low 3.90-5.20 [facility] Comment on above: Order Comment: Speci men Type: BLOOD SPECIMEN [facility] Address: [address] [place] [address] Performed By: #### R UBIGG #### [facility] CLIA [id number] [address] [place] [address] [place] WBC (Bld) [#/Vol] 8.49 10*3/uL Normal 3.70-11.00 [facility] Comment on above: Order Comment: Speci men Type: BLOOD SPECIMEN [facility] Address: [address] [place] [address] Performed By: #### R UBIGG #### [facility] CLIA [id number] [address] [place] [address] [place] GESTATIONAL GLUCOSE SCREEN, 1-HOUR, 50 GRAM, NON-FASTINGon 11-24-2024 Glucose [Mass/Vol] 128 mg/dL Normal 74-134 [facility] Comment on above: Order Comment: Speci men Type: BLOOD SPECIMEN [facility] Address: [address] [place] [address] Result Comment: [facility] Congress of Obstetricians and Gynecologists (Angeline/Tushar) guidelines state a gestational diabetes mellitus positive screen is made, in women not previously diagnosed with overt diabetes, when the 1 hr plasma glucose level is equal to or above 140 mg/dL. The [facility] Campaign Advisor and [facility] [place] recommends a 135 mg/dL cutoff. Performed By: #### R UBIGG #### [facility] CLIA [id number] [address] [place] [address] [place] Reagin and Treponema pallidu m IgG and IgM [Interp]on 11-24-2024 T. pallidum IgG+IgM IA Ql (S) Non-Reactive Normal Nonreactive [facility] Comment on above: Order Comment: Speci men Type: BLOOD SPECIMEN [facility] Address: [address] [place] [address] Performed By: #### R UBIGG #### [facility] CLIA [id number] [address] [place] [address] [place] Reagin+T pallidum IgG+IgM Se rPl-Impon 11-24-2024 Reagin and Treponema pallidum IgG and IgM [Interp] Cannot exclude recent Treponemal infection if specimen collected within 7-10 days after appearance of suspect lesions or 2-3 weeks after an exposure. Clinical correlation is required. Normal [facility] Comment on above: Order Comment: Speci men Type: BLOOD SPECIMEN [facility] Address: [address] [place] [address] Performed By: #### R UBIGG #### [facility] CLIA [id number] [address] [place] [address] [place] TYPE + SCREEN PRENATALon ABO A Normal [facility] Comment on above: Order Comment: Speci men Type: BLOOD SPECIMENOrdering Facility: [facility] Address: [address] [place] [address] Performed By: #### T SPN ####[facility] [id number] [place] [address] [place] Rh Nom (Bld) Negative Normal [facility] Comment on above: Order Comment: Speci men Type: BLOOD SPECIMENOrdering Facility: [facility] Address: [address] [place] [address] Performed By: #### T SPN ####[facility] [id number] [place] [address] [place] TYPE AND SCREEN EXPIRATION 11/27/2024 23:[address] [facility] Comment on above: Order Comment: Speci men Type: BLOOD SPECIMENOrdering Facility: [facility] Address: [address] [place] [address] Performed By: #### T SPN ####[facility] [id number] [place] [address] [place] Examination level ultrasound on 09-29-2024 Indication Detailed anatomic survey Maternal obesity, BMI >35, History of preeclampsia Impression The patient is referred for a detailed anatomic survey. - Single, live, intrauterine . - biometry is consistent with the established gestational age. - No malformations were visualized on a complete detailed anatomic survey. - The amniotic fluid volume is normal amount. - The placenta is posterior, fundal. - The Transabdominal cervical length measures 39.8 mm with no evidence of funneling or other dynamic changes. - Not all structural malformations can be detected by ultrasound examination. Recommendations Additional follow-up as clinically indicated. Maternal Assessment Height 168 cm Height (ft) 5 ft Height (in) 6 in Physical Exam Initial weight (lb) 245 lb Initial BMI 39.54 kg/m Maternal assessment other: 3 Para 1 REMOTE READ Method Transabdominal ultrasound examination. View: Suboptimal view: limited by maternal body habitus Vazquez . Number of fetuses: 1 Dating LMP on: 04/23/2024 GA by LMP 22 w + 5 d GUERDA by LMP: 01/28/2025 GA by prior assessment 20 w + 5 d GUERDA by prior assessment: 02/11/2025 Ultrasound examination on: 09/29/2024 GA by U/S based upon: AC, BPD, Femur, HC GA by U/S 21 w + 3 d GUERDA by U/S: 02/06/2025 Assigned: based on stated GUERDA, selected on 09/29/2024 Assigned GA 20 w + 5 d Assigned GUERDA: 02/11/2025 General Evaluation Cardiac activity present. FHR 141 bpm. movements: present. Presentation: breech Placenta: Placental site: posterior, fundal Umbilical cord: Cord vessels: 3 vessel cord Amniotic fluid: Amount of AF: normal amount. MVP 7.0 cm Growth Overview Exam date GA BPD (mm) HC (mm) AC (mm) FL (mm) HL (mm) EFW (g) 09/29/2024 20w 5d 51.4 82% 192.3 73% 164.7 70% 34.2 66% 33.7 74% 407 71% Biometry Standard BPD 51.4 mm 21w 4d 82% Hadlock OFD 68.5 mm 21w 3d 94% Nicolaides HC 192.3 mm 21w 3d 73% Marianna Cerebellum tr 21.9 mm 20w 4d 62% Hill Nuchal fold 5.5 mm AC 164.7 mm 21w 4d 70% Hadlock Femur 34.2 mm 21w 0d 66% Marianna Humerus 33.7 mm 21w 3d 74% Marianna EFW 407 g 21w 1d 71% Hadlock EFW (lb) 0 lb EFW (oz) 14 oz EFW by: Hadlock (HC-AC-FL) Extended Physician Assistant Certified 4.5 mm CM 3.8 mm 11% Nicolaides Extremities / Bony Struc FL / HC 0.18 15% Hadlock Other Structures FHR 141 bpm Anatomy Cranium: normal Lateral ventricles: normal Choroid plexus: normal Midline falx: normal Cavum septi pellucidi: normal Cerebellum: normal Cisterna magna: normal Head / Neck Vermis: normal Neck: normal Nuchal fold: normal Lips: normal Profile: normal Nose: normal Face Maxilla: normal Mandible: normal Orbits: normal Lens: normal 4-chamber view: normal RVOT view: normal LVOT view: normal 3-vessel view: normal 0-jbojid-fbezcqu view: normal Heart / Thorax Situs: situs solitus (normal) Aortic arch view: normal SVC: normal IVC: normal Cardiac axis: normal Rt lung: normal Lt lung: normal Diaphragm: normal Cord insertion: normal Stomach: normal Kidneys: normal Bladder: normal Genitals: normal Abdomen Abdom. wall: normal Cervical spine: normal Thoracic spine: normal Lumbar spine: normal Sacral spine: normal Arms: normal Legs: normal Rt upper arm: normal Rt forearm: normal Rt hand: normal Rt fingers: normal Lt upper arm: normal Lt forearm: normal Lt hand: normal Lt fingers: normal Rt upper leg: normal Rt lower leg: normal Rt foot: normal Lt upper leg: normal Lt lower leg: normal Lt foot: normal sex: female Wants to know sex: yes Maternal Structures Uterus / Cervix Uterus: Visualized Cervix: Visualized Approach: Transabdominal Cervical length 39.8 mm Other: Patient declined transvaginal ultrasound for cervical length. Ovaries / Tubes / Adnexa Rt ovary: Visualized Lt ovary: Visualized Performed By: Lisa Alston RDMS, RVT Read By: Elvie Goodwin M.D. MATERNAL MEDICINE [facility] Radiology Study observation (narrative) [facility] Examination level ultrasound on 08-09-2024 Indication First trimester anatomic survey Maternal obesity, BMI >35 Impression The patient is referred for a first trimester anatomy scan including nuchal translucency measurement as clinically indicated. - Single, live, intrauterine . - Samak rump length measurement is consistent with the established gestational age. - A qualitative screen of the nuchal translucency and other anatomic structures was unremarkable on an incomplete first trimester anatomic assessment. - Not all structural malformations can be detected by ultrasound examination. Maternal Structures: Right Ovary: Size 37 mm x 32 mm x 26 mm Left Ovary: Size 38 mm x 30 mm x 13 mm Recommendations - A standard anatomic survey at 16 weeks can be offered and a detailed exam at 20 weeks is recommended for increased risk. Maternal Assessment Height 168 cm Height (ft) 5 ft Height (in) 6 in Physical Exam Initial weight (lb) 245 lb Initial BMI 39.54 kg/m Maternal assessment other: 3 Para 1 REMOTE READ Method Transabdominal ultrasound examination Vazquez . Number of fetuses: 1 Dating LMP on: 04/23/2024 GA by LMP 15 w + 3 d GUERDA by LMP: 01/28/2025 GA by prior assessment 13 w + 3 d GUERDA by prior assessment: 02/11/2025 Ultrasound examination on: 08/09/2024 GA by U/S based upon: CRL GA by U/S 13 w + 6 d GUERDA by U/S: 02/08/2025 Assigned: based on stated GUERDA, selected on 08/09/2024 Assigned GA 13 w + 3 d Assigned GUERDA: 02/11/2025 General Evaluation Cardiac activity present Placenta: posterior Cord vessels: 3 vessel cord Amniotic fluid: normal amount Biometry Standard FHR 151 bpm CRL 78.5 mm 13w 6d 75% [facility] Calvarium: normal Falx cerebri: normal Choroid plexus: normal Profile: normal Nasal bone: normal Retronasal triangle: normal Maxilla: normal Mandible: normal Nuchal translucency: Unremarkable Situs: normal Cardiac position: normal Cardiac axis: normal 4-chamber view: visualized 4-chamber view with color: visualized 7-mfbogr-wadconu view: normal Abdominal cord insertion: normal Stomach: normal Kidneys: visualized Bladder: normal Color doppler of perivesical umbilical arteries: normal Vertebral alignment: normal Arms: normal Hands: normal Legs: normal Feet: normal Maternal Structures Uterus / Cervix Uterus: Visualized Uterus length 192 mm Uterus width 119 mm Uterus height 66 mm Uterus Vol 789.4 cm Ovaries / Tubes / Adnexa Rt ovary: Visualized Rt ovary D1 37 mm Rt ovary D2 32 mm Rt ovary D3 26 mm Rt ovary Vol 16.0 cm Lt ovary: Visualized Lt ovary D1 38 mm Lt ovary D2 30 mm Lt ovary D3 13 mm Lt ovary Vol 7.8 cm Performed By: Lisa Alston, GREG, RVT Read By: Elvie Goodwin M.D. MATERNAL MEDICINE [facility] Radiology Study observation (narrative) [facility] Bacteria Ur Culton Bacteria identified Cx Nom (U) CULTURE, URINE: No growth (<1,000 CFU/ml) Normal [facility] Comment on above: Performed By: #### 6 30-4 ####[facility] [id number] [address] STATES OF [facility] C. trachomatis+N. gonorrhoea e DNA ESME+probe Ql (Unsp spec)on 07-18-2024 C. trachomatis rRNA ESME+probe Ql (Unsp spec) Not detected Normal Not detected [facility] Comment on above: Order Comment: Speci men Type: BLOOD SPECIMEN Ordering Facility: [facility] Address: [address] [place] [address] Performed By: #### R UBIGG #### [facility] CLIA [id number] [address] [place] [address] [place] N. gonorrhoeae rRNA ESME+probe Ql (Unsp spec) Not detected Normal Not detected [facility] Comment on above: Order Comment: Speci men Type: BLOOD SPECIMEN Ordering Facility: [facility] Address: [address] [place] [address] Performed By: #### R UBIGG #### [facility] CLIA [id number] [address] [place] [address] [place] CBC W Auto Differential pane l (Bld)on 07-18-2024 Basophils (Bld) [#/Vol] 10*3/uL Normal <0.[address] [facility] Comment on above: Order Comment: Speci men Type: BLOOD SPECIMEN Ordering Facility: [facility] Address: [address] [place] [address] Performed By: #### R UBIGG #### [facility] CLIA [id number] [address] [place] [address] [place] Basophils/100 WBC (Bld) 0.3 % Normal [facility] Comment on above: Order Comment: Speci men Type: BLOOD SPECIMEN Ordering Facility: [facility] Address: [address] [place] [address] Performed By: #### R UBIGG #### [facility] CLIA [id number] [address] [place] [address] [place] Differential cell count method Nom (Bld) Auto Normal [facility] Comment on above: Order Comment: Speci men Type: BLOOD SPECIMEN Ordering Facility: [facility] Address: [address] [place] [address] Performed By: #### R UBIGG #### [facility] CLIA [id number] [address] [place] [address] [place] Eosinophils (Bld) [#/Vol] 0.06 10*3/uL Normal <0.[address] [facility] Comment on above: Order Comment: Speci men Type: BLOOD SPECIMEN Ordering Facility: [facility] Address: [address] [place] [address] Performed By: #### R UBIGG #### [facility] CLIA [id number] [address] [place] [address] [place] Eosinophils/100 WBC (Bld) 1.0 % Normal [facility] Comment on above: Order Comment: Speci men Type: BLOOD SPECIMEN Ordering Facility: [facility] Address: [address] [place] [address] Performed By: #### R UBIGG #### [facility] CLIA [id number] [address] [place] [address] [place] Erythrocyte distribution width (RBC) [Ratio] 12.3 % Normal 11.5-15.[address] [facility] Comment on above: Order Comment: Speci men Type: BLOOD SPECIMEN Ordering Facility: [facility] Address: [address] [place] [address] Performed By: #### R UBIGG #### [facility] CLIA [id number] [address] [place] [address] [place] Hematocrit (Bld) [Volume fraction] 35.3 % Low 36.0-46.[address] [facility] Comment on above: Order Comment: Speci men Type: BLOOD SPECIMEN Ordering Facility: [facility] Address: [address] [place] [address] Performed By: #### R UBIGG #### [facility] CLIA [id number] [address] [place] [address] [place] Hemoglobin (Bld) [Mass/Vol] 12.6 g/dL Normal 11.5-15.[address] [facility] Comment on above: Order Comment: Speci men Type: BLOOD SPECIMEN Ordering Facility: [facility] Address: [address] [place] [address] Performed By: #### R UBIGG #### [facility] CLIA [id number] [address] [place] [address] [place] Immature granulocytes (Bld) [#/Vol] 10*3/uL Normal <0.[address] [facility] Comment on above: Order Comment: Speci men Type: BLOOD SPECIMEN Ordering Facility: [facility] Address: [address] [place] [address] Performed By: #### R UBIGG #### [facility] CLIA [id number] [address] [place] [address] [place] Immature granulocytes/100 WBC (Bld) 0.3 % Normal [facility] Comment on above: Order Comment: Speci men Type: BLOOD SPECIMEN Ordering Facility: [facility] Address: [address] [place] [address] Performed By: #### R UBIGG #### [facility] CLIA [id number] [address] [place] [address] [place] Lymphocytes (Bld) [#/Vol] 1.82 10*3/uL Normal 1.00-4.[address] [facility] Comment on above: Order Comment: Speci men Type: BLOOD SPECIMEN Ordering Facility: [facility] Address: [address] [place] [address] Performed By: #### R UBIGG #### [facility] CLIA [id number] [address] [place] [address] [place] Lymphocytes/100 WBC (Bld) 29.2 % Normal [facility] Comment on above: Order Comment: Speci men Type: BLOOD SPECIMEN Ordering Facility: [facility] Address: [address] [place] [address] Performed By: #### R UBIGG #### [facility] CLIA [id number] [address] [place] [address] [place] MCH (RBC) [Entitic mass] 31.0 pg Normal 26.0-34.[address] [facility] Comment on above: Order Comment: Speci men Type: BLOOD SPECIMEN Ordering Facility: [facility] Address: [address] [place] [address] Performed By: #### R UBIGG #### [facility] CLIA [id number] [address] [place] [address] [place] MCHC (RBC) [Mass/Vol] 35.7 g/dL Normal 30.5-36.[address] [facility] Comment on above: Order Comment: Speci men Type: BLOOD SPECIMEN Ordering Facility: [facility] Address: [address] [place] [address] Performed By: #### R UBIGG #### [facility] CLIA [id number] [address] [place] [address] [place] MCV (RBC) [Entitic vol] 86.9 fL Normal 80.0-100.[address] [facility] Comment on above: Order Comment: Speci men Type: BLOOD SPECIMEN Ordering Facility: [facility] Address: [address] [place] [address] Performed By: #### R UBIGG #### [facility] CLIA [id number] [address] [place] [address] [place] Monocytes (Bld) [#/Vol] 0.51 10*3/uL Normal <0.[address] [facility] Comment on above: Order Comment: Speci men Type: BLOOD SPECIMEN Ordering Facility: [facility] Address: [address] [place] [address] Performed By: #### R UBIGG #### [facility] CLIA [id number] [address] [place] [address] [place] Monocytes/100 WBC (Bld) 8.2 % Normal [facility] Comment on above: Order Comment: Speci men Type: BLOOD SPECIMEN Ordering Facility: [facility] Address: [address] [place] [address] Performed By: #### R UBIGG #### [facility] CLIA [id number] [address] [place] [address] [place] Neutrophils (Bld) [#/Vol] 3.81 10*3/uL Normal 1.45-7.[address] [facility] Comment on above: Order Comment: Speci men Type: BLOOD SPECIMEN Ordering Facility: [facility] Address: [address] [place] [address] Performed By: #### R UBIGG #### [facility] CLIA [id number] [address] [place] [address] [place] Neutrophils/100 WBC (Bld) 61.0 % Normal [facility] Comment on above: Order Comment: Speci men Type: BLOOD SPECIMEN Ordering Facility: [facility] Address: [address] [place] [address] Performed By: #### R UBIGG #### [facility] CLIA [id number] [address] [place] [address] [place] Nucleated RBC (Bld) [#/Vol] 10*3/uL Normal <0.[address] [facility] Comment on above: Order Comment: Speci men Type: BLOOD SPECIMEN Ordering Facility: [facility] Address: [address] [place] [address] Performed By: #### R UBIGG #### [facility] CLIA [id number] [address] [place] [address] [place] Nucleated RBC/100 WBC (Bld) [Ratio] 0.0 /[address] [facility] Comment on above: Order Comment: Speci men Type: BLOOD SPECIMEN Ordering Facility: [facility] Address: [address] [place] [address] Performed By: #### R UBIGG #### [facility] CLIA [id number] [address] [place] [address] [place] Platelet mean volume (Bld) [Entitic vol] 10.2 fL Normal 9.0-12.[address] [facility] Comment on above: Order Comment: Speci men Type: BLOOD SPECIMEN Ordering Facility: [facility] Address: [address] [place] [address] Performed By: #### R UBIGG #### [facility] CLIA [id number] [address] [place] [address] [place] Platelets (Bld) [#/Vol] 228 10*3/uL Normal 150-[address] [facility] Comment on above: Order Comment: Speci men Type: BLOOD SPECIMEN Ordering Facility: [facility] Address: [address] [place] [address] Performed By: #### R UBIGG #### [facility] CLIA [id number] [address] [place] [address] [place] RBC (Bld) [#/Vol] 4.06 10*6/uL Normal 3.90-5.20 [facility] Comment on above: Order Comment: Speci men Type: BLOOD SPECIMEN Ordering Facility: [facility] Address: [address] [place] [address] Performed By: #### R UBIGG #### [facility] CLIA [id number] [address] [place] [address] [place] WBC (Bld) [#/Vol] 6.24 10*3/uL Normal 3.70-11.00 [facility] Comment on above: Order Comment: Speci men Type: BLOOD SPECIMEN Ordering Facility: [facility] Address: [address] [place] [address] Performed By: #### R UBIGG #### [facility] CLIA [id number] [address] [place] [address] [place] [facility] [place] Comprehensive metabolic 2000 panelOrdered By: Tonia Dinero on 07-18-2024 Albumin [Mass/Vol] 4.1 g/dL 3.9 - 4.9 g/dL [facility] ALP [Catalytic activity/Vol] 63 U/L 34 - 123 U/L [facility] ALT [Catalytic activity/Vol] 8 U/L 7 - 38 U/L [facility] Anion gap [Moles/Vol] 11 mmol/L 8 - 15 mmol/L [facility] AST [Catalytic activity/Vol] 12 U/L Low 13 - 35 U/L [facility] Bilirubin [Mass/Vol] 0.3 mg/dL 0.2 - 1.3 mg/dL [facility] Calcium [Mass/Vol] 9.4 mg/dL 8.5 - 10. 2 mg/dL [facility] Chloride [Moles/Vol] 105 mmol/L 98 - 107 mmol/L [facility] CO2 [Moles/Vol] 20 mmol/L Low 22 - 30 mmol/L [facility] Creatinine [Mass/Vol] 0.55 mg/dL Low 0.58 - 0.96 mg/dL [facility] GFR/1.73 sq M.predicted among non-blacks MDRD (S/P/Bld) [Vol rate/Area] 128 mL/min/{1.73_m2} - PINF [facility] Comment on above: Estimated Glomerular Filtration Rate (eGFR) is calculated using the 2020 CKD-EPI creatinine equation. This equation utilizes serum creatinine, sex, and age as parameters. The creatinine assay has traceable calibration to isotope dilution-mass spectrometry. Refer to KDIGO guidelines for clinical interpretation. In patients with unstable renal function, e.g. those with acute kidney injury, the eGFR may not accurately reflect actual GFR. Glucose [Mass/Vol] 94 mg/dL 74 - 99 mg/dL [facility] Comment on above: The [place] Di[employer] Association (ADA) provides guidance for cutoff values for fasting glucose and random glucose. The ADA defines fasting as no caloric intake for at least 8 hours. Fasting plasma glucose results between 100 to 125 mg/dL indicate increased risk for diabetes (prediabetes). Fasting plasma glucose results greater than or equal to 126 mg/dL meet the criteria for diagnosis of diabetes. In the absence of unequivocal hyperglycemia, results should be confirmed by repeat testing. In a patient with classic symptoms of hyperglycemia or hyperglycemic crisis, random plasma glucose results greater than or equal to 200 mg/dL meet the criteria for diagnosis of diabetes. Reference: Standards of Medical Care in Diabetes 2016, [place] [employer]. Diabetes Care. 2016.39(Suppl 1). Interpretation and review of laboratory results Abnormal [facility] Potassium [Moles/Vol] 3.6 mmol/L Low 3.7 - 5.1 mmol/L [facility] Protein [Mass/Vol] 6.7 g/dL 6.3 - 8.0 g/dL [facility] Sodium [Moles/Vol] 136 mmol/L 136 - 144 mmol/L [facility] Urea nitrogen [Mass/Vol] 8 mg/dL 7 - 21 mg/dL [facility] Comprehensive metabolic 2000 panelon 07-18-2024 Albumin [Mass/Vol] 4.1 g/dL Normal 3.9-4.9 [facility] Comment on above: Order Comment: Speci men Type: BLOOD SPECIMEN Ordering Facility: [facility] Address: [address] [place] [address] Performed By: #### R UBIGG #### [facility] CLIA [id number] [address] [place] [address] [place] ALP [Catalytic activity/Vol] 63 U/L Normal 34-[address] [facility] Comment on above: Order Comment: Speci men Type: BLOOD SPECIMEN Ordering Facility: [facility] Address: [address] [place] [address] Performed By: #### R UBIGG #### [facility] CLIA [id number] [address] [place] [address] [place] ALT [Catalytic activity/Vol] 8 U/L Normal 7-[address] [facility] Comment on above: Order Comment: Speci men Type: BLOOD SPECIMEN Ordering Facility: [facility] Address: [address] [place] [address] Performed By: #### R UBIGG #### [facility] CLIA [id number] [address] [place] [address] [place] Anion gap [Moles/Vol] 11 mmol/L Normal 8-[address] [facility] Comment on above: Order Comment: Speci men Type: BLOOD SPECIMEN Ordering Facility: [facility] Address: [address] [place] [address] Performed By: #### R UBIGG #### [facility] CLIA [id number] [address] [place] [address] [place] AST [Catalytic activity/Vol] 12 U/L Low 13-[address] [facility] Comment on above: Order Comment: Speci men Type: BLOOD SPECIMEN Ordering Facility: [facility] Address: [address] [place] [address] Performed By: #### R UBIGG #### [facility] CLIA [id number] [address] [place] [address] [place] Bilirubin [Mass/Vol] 0.3 mg/dL Normal 0.2-1.[address] [facility] Comment on above: Order Comment: Speci men Type: BLOOD SPECIMEN Ordering Facility: [facility] Address: [address] [place] [address] Performed By: #### R UBIGG #### [facility] CLIA [id number] [address] [place] [address] [place] Calcium [Mass/Vol] 9.4 mg/dL Normal 8.5-10.2 [facility] Comment on above: Order Comment: Speci men Type: BLOOD SPECIMEN Ordering Facility: [facility] Address: [address] [place] [address] Performed By: #### R UBIGG #### [facility] CLIA [id number] [address] [place] [address] [place] Chloride [Moles/Vol] 105 mmol/L Normal 98-[address] [facility] Comment on above: Order Comment: Speci men Type: BLOOD SPECIMEN Ordering Facility: [facility] Address: [address] [place] [address] Performed By: #### R UBIGG #### [facility] CLIA [id number] [address] [place] [address] [place] CO2 [Moles/Vol] 20 mmol/L Low 22-[address] [facility] Comment on above: Order Comment: Speci men Type: BLOOD SPECIMEN Ordering Facility: [facility] Address: [address] [place] [address] Performed By: #### R UBIGG #### [facility] CLIA [id number] [address] [place] [address] [place] Creatinine [Mass/Vol] 0.55 mg/dL Low 0.58-0.[address] [facility] Comment on above: Order Comment: Speci men Type: BLOOD SPECIMEN Ordering Facility: [facility] Address: [address] [place] [address] Performed By: #### R UBIGG #### [facility] CLIA [id number] [address] [place] [address] [place] Creatinine and Glomerular filtration rate.predicted panel (S/P/Bld) 128 mL/min/1.73m??? Normal >=[address] [facility] Comment on above: Order Comment: Lynsey soto Type: BLOOD SPECIMEN Ordering Facility: [facility] Address: [address] [place] [address] Result Comment: Eda mated Glomerular Filtration Rate (eGFR) is calculated using the 2020 CKD-EPI creatinine equation. This equation utilizes serum creatinine, sex, and age as parameters. The creatinine assay has traceable calibration to isotope dilution-mass spectrometry. Refer to KDIGO guidelines for clinical interpretation. In patients with unstable renal function, e.g. those with acute kidney injury, the eGFR may not accurately reflect actual GFR. Performed By: #### R UBIGG #### [facility] CLIA [id number] [address] [place] [address] [place] Glucose [Mass/Vol] 94 mg/dL Normal 74-99 [facility] Comment on above: Order Comment: Lynsey soto Type: BLOOD SPECIMEN Ordering Facility: [facility] Address: [address] [place] [address] Result Comment: The [place] Diabetes Association (ADA) provides guidance for cutoff values for fasting glucose and random glucose. The ADA defines fasting as no caloric intake for at least 8 hours. Fasting plasma glucose results between 100 to 125 mg/dL indicate increased risk for diabetes (prediabetes). Fasting plasma glucose results greater than or equal to 126 mg/dL meet the criteria for diagnosis of diabetes. In the absence of unequivocal hyperglycemia, results should be confirmed by repeat testing. In a patient with classic symptoms of hyperglycemia or hyperglycemic crisis, random plasma glucose results greater than or equal to 200 mg/dL meet the criteria for diagnosis of diabetes. Reference: Standards of Medical Care in Diabetes 2016, [place] [employer]. Diabetes Care. 2016.39(Suppl 1). Performed By: #### R UBIGG #### [facility] CLIA [id number] [address] [place] [address] [place] Potassium [Moles/Vol] 3.6 mmol/L Low 3.7-5.[address] [facility] Comment on above: Order Comment: Speci men Type: BLOOD SPECIMEN Ordering Facility: [facility] Address: [address] [place] [address] Performed By: #### R UBIGG #### [facility] CLIA [id number] [address] [place] [address] [place] Protein [Mass/Vol] 6.7 g/dL Normal 6.3-8.0 [facility] Comment on above: Order Comment: Speci men Type: BLOOD SPECIMEN Ordering Facility: [facility] Address: [address] [place] [address] Performed By: #### R UBIGG #### [facility] CLIA [id number] [address] [place] [address] [place] Sodium [Moles/Vol] 136 mmol/L Normal 136-144 [facility] Comment on above: Order Comment: Speci men Type: BLOOD SPECIMEN Ordering Facility: [facility] Address: [address] [place] [address] Performed By: #### R UBIGG #### [facility] CLIA [id number] [address] [place] [address] [place] Urea nitrogen [Mass/Vol] 8 mg/dL Normal 7-[address] [facility] Comment on above: Order Comment: Speci men Type: BLOOD SPECIMEN Ordering Facility: [facility] Address: [address] [place] [address] Performed By: #### R UBIGG #### [facility] CLIA [id number] [address] [place] [address] [place] HBV surface Ag Ser Qlon 04- HBV surface Ag Ql (S) Negative Normal Negative [facility] Comment on above: Order Comment: Speci men Type: BLOOD SPECIMENOrdering Facility: [facility] Address: [address] [place], [place] [id number] Performed By: #### 3 1201-7, 87122-5, 5-3 ####[facility] [id number] [place] [address] [place] HCV Ab Ser Qlon 07-18-2024 HCV Ab Ql (S) Negative Normal Negative [facility] Comment on above: Order Comment: Speci men Type: BLOOD SPECIMEN Ordering Facility: [facility] Address: [address] [place] [address] Result Comment: The result suggests no evidence of infection with Hepatitis C virus. Should recent infection be suspected, repeat testing may be considered 4-6 weeks after this draw. Performed By: #### R UBIGG #### [facility] CLIA [id number] [address] [place] [address] [place] HIV 1+2 Ab IA Qlon HIV 1 and 2 Ab IA.rapid Nom (S/P/Bld) Normal [facility] Comment on above: Order Comment: Speci men Type: BLOOD SPECIMENOrdering Facility: [facility] Address: [address] [place] [address] Result Comment: Test not indicated. Performed By: #### 3 1201-7, 97187-3, 5194-3 ####[facility] [id number] [place] [address] [place] HIV 1+2 Ab+HIV1 p24 Ag IA Ql Non-Reactive Normal Nonreactive [facility] Comment on above: Order Comment: Speci men Type: BLOOD SPECIMENOrdering Facility: [facility] Address: [address] [place] [address] Performed By: #### 3 1201-7, 70792-8, 5195-3 ####[facility] [id number] [place] [address] [place] HIV immunoassay testing algorithm interpretation (S/P/Bld) [Interp] Normal [facility] Comment on above: Order Comment: Speci men Type: BLOOD SPECIMENOrdering Facility: [facility] Address: [address] [place] [address] Result Comment: No e vidence of HIV-1 or HIV-2 infection. Should recent infection be suspected, repeat testing may be considered 2-3 weeks after this draw. Maverick Rev. Code 3701.243(E): This information has been disclosed to you from confidential records protected from disclosure by state law. ???You shall make no further disclosure of this information without the specific, written, and informed release of the individual to whom it pertains or as otherwise permitted by state law. A general authorization for the release of medical or other information is not sufficient for the purpose of the release of HIV test results or diagnoses. Performed By: #### 3 1201-7, 54227-9, 5195-3 ####[facility] [id number] [place] [address] [place] HbA1c (Bld)on 07-18-2024 Average glucose Estimated from glycated hemoglobin (Bld) [Mass/Vol] 88 mg/dL Normal [facility] Comment on above: Order Comment: [facility] Type: BLOOD SPECIMEN [facility] Address: [address] [place] [address] Result Comment: eAG: (Estimated average glucose) is a calculated value from HgbA1c and is ambulatory services representative of the average blood glucose level in the last 2-3 month period. Performed By: #### R UBIGG #### [facility] CLIA [id number] [address] [place] [address] [place] HbA1c (Bld) [Mass fraction] 4.7 % Normal 4.3-5.[address] [facility] Comment on above: Order Comment: Lynsey soto Type: BLOOD SPECIMEN [facility] Address: [address] [place] [address] Result Comment: Amer ican Diabetes Association guidelines indicate that patients with HgbA1c in the range 5.7-6.4% are at increased risk for development of diabetes, and intervention by lifestyle modification may be beneficial. HgbA1c greater or equal to 6.5% is considered diagnostic of diabetes. Performed By: #### R UBIGG #### [facility] CLIA [id number] [address] [place] [address] [place] [id number] PLUSon 07-18-2024 Cell-free DNA./Cell-free DNA.total Dosage of chromosome-specific cfDNA (cfDNA) [Molar fraction] 13% Normal [facility] Comment on above: Order Comment: Speci men Type: BLOOD SPECIMEN [facility] Address: [address] [place] [address] Performed By: #### 3 084-1, 91633-2 #### [facility] CLIA [id number] [address] [place] [address] OF [place] Chr 13+18+21+X+Y aneuploidy Dosage of chromosome-specific cfDNA Ql (cfDNA) Negative Normal [facility] Comment on above: Order Comment: Speci men Type: BLOOD SPECIMEN [facility] Address: [address] [place] [address] Performed By: #### 3 084-1, 14924-1 #### [id number] [address] [place] [address] Chr 21 trisomy Dosage of chromosome-specific cfDNA Ql (cfDNA) Negative Normal [facility] Comment on above: Order Comment: Speci men Type: BLOOD SPECIMEN [facility] Address: [address] [place] [address] Performed By: #### 3 084-1, 03606-4 #### [facility] [id number] [address] [place] [address] OF [place] Chr X and Y aneuploidy risk Sequencing Ql (cfDNA) [Interp] Not detected Normal [facility] Comment on above: Order Comment: Speci men Type: BLOOD SPECIMEN [facility] Address: [address] [place] [address] Result Comment: Not Detected Not Detected Performed By: #### 3 084-1, 68973-7 #### [facility] CLIA [id number] [address] [place] [address] [place] Citation Roe (Reference lab test) Comment Normal [facility] Comment on above: Order Comment: Speci men Type: BLOOD SPECIMEN [facility] Address: [address] [place] [address] Result Comment: 1. P chloe GONCALVES, et al. Nayely Med. 2012;14(3):296-305. 2. Luis MUÑOZ et al. Prenat Diag. 2013;33(6):591-597. 3. Adam C, et al. Clin Chem. 2015 Apr;61(4):608-616. 4. Jessy GONCALVES et al. Nayely Med. 2011;13(11):913-920. 5. ACOG/SMFM Practice Bulletin No. 226, Jan 2020. Performed By: #### 3 084-1, 52933-1 #### [facility] CLIA [id number] [address] [place] [address] [place] Gestational age Estimated from conception date Vazquez Normal [facility] Comment on above: Order Comment: Speci men Type: BLOOD SPECIMEN [facility] Address: [address] [place] [address] Performed By: #### 3 084-1, 02342-7 #### [facility] CLIA [id number] [address] [place] [address] [place] GESTATIONALAGE AGE > OR = 9W Yes Normal [facility] Comment on above: Order Comment: Speci men Type: BLOOD SPECIMEN [facility] Address: [address] [place] [address] Performed By: #### 3 084-1, 11625-9 #### [facility] CLIA [id number] [address] [place] [address] [place] Laboratory comment Roe (Report) Comment Normal [facility] Comment on above: Order Comment: Lynsey soto Type: BLOOD SPECIMEN [facility] Address: [address] [place] [address] Result Comment: The MaterniT(R) 21 PLUS laboratory-developed test (LDT) analyzes circulating cell-free DNA from a maternal blood sample. This test is used for screening purposes and not diagnostic. Clinical correlation is recommended. Validation data on twin pregnancies is limited and the ability of this test to detect aneuploidy in higher multiple gestations has not yet been validated. Performed By: #### 3 084-1, 78354-4 #### [facility] CLIA [id number] [address] [place] [address] OF [facility] interactive art director name Nom (Provider) Comment Normal [facility] Comment on above: Order Comment: Lynsey soto Type: BLOOD SPECIMEN [facility] Address: [address] [place] [address] Result Comment: This specimen showed an expected representation of chromosome 21, 18 and 13 material. Clinical correlation is suggested. Comment Иван Calderon MD, PhD, Director, [facility] Performed By: #### 3 084-1, 37598-0 #### [facility] CLIA [id number] [address] [place] [address] LIMITATIONS OF THE TEST Comment Normal [facility] Comment on above: Order Comment: Lynsey soto Type: BLOOD SPECIMEN [facility] Address: [address] [place] [address] Result Comment: Malini sheldon the results of these tests are highly reliable, discordant results, including inaccurate sex prediction, may occur due to placental, maternal, or mosaicism or neoplasm; vanishing twin; prior maternal organ transplant; or other causes. These tests are screening tests and not diagnostic; they do not replace the accuracy and precision of diagnosis with CVS or amniocentesis. A patient with a positive test result should be referred for genetic counseling and offered invasive diagnosis for confirmation of test results.[5] The results of this testing, including the benefits and limitations, should be discussed with a qualified healthcare provider. management decisions, including termination of the , should not be based on the results of these tests alone. The healthcare provider is responsible for the use of this information in the management of their patient. Sex chromosomal aneuploidies are not reportable for known multiple gestations. A negative result does not ensure an unaffected nor does it exclude the possibility of other chromosomal abnormalities or defects which are not a part of these tests. An uninformative result may be reported, the causes of which may include, but are not limited to, insufficient sequencing coverage, noise or artifacts in the region, amplification or sequencing bias, or insufficient fraction. These tests are not intended to identify pregnancies at risk for neural tube defects or ventral wall defects. Testing for whole chromosome abnormalities (including sex chromosomes) and for subchromosomal abnormalities could lead to the potential discovery of both and maternal genomic abnormalities that could have major, minor, or no, clinical significance. Evaluating the significance of a positive or a non-reportable result may involve both invasive testing and additional studies on the mother. Such investigations may lead to a diagnosis of maternal chromosomal or subchromosomal abnormalities, which on occasion may be associated with benign or malignant maternal neoplasms. These tests may not accurately identify triploidy, balanced rearrangements, or the precise location of subchromosomal duplications or deletions; these may be detected by diagnosis with CVS or amniocentesis. The ability to report results may be impacted by maternal BMI, maternal weight, maternal systemic lupus erythematosus (SLE) and/or by certain pharmaceutical agents such as low molecular weight heparin (for example: Lovenox(R), Xaparin(R), Clexane(R) and Fragmin(R)). Performed By: #### 3 084-1, 05372-1 #### [facility] CLIA [id number] [address] [place] [address] [place] Monosomy X risk Dosage of chromosome-specific cfDNA Ql (Plasma cell-free+WBC DNA) [Interp] Not detected Normal [facility] Comment on above: Order Comment: Speci men Type: BLOOD SPECIMEN [facility] Address: [address] [place], [place] [address] Performed By: #### 3 084-1, 72486-4 #### [facility] CLIA [id number] [address] NEGATIVE PREDICTIVE VALUE Note Normal [facility] Comment on above: Order Comment: Lynsey soto Type: BLOOD SPECIMEN [facility] Address: [address] [place] [address] Result Comment: The Negative Predictive Value (NPV) for trisomy 21, 18, and 13 is greater than 99%. The NPV for SCA and ESS cannot be calculated as SCA and ESS are only reported when an abnormality is detected. Performed By: #### 3 084-1, 34874-9 #### [facility] CLIA [id number] [address] PERFORMANCE CHARACTERISTICS Note Normal [facility] Comment on above: Order Comment: Lynsey soto Type: BLOOD SPECIMEN [facility] Address: [address] [place] [address] Result Comment: ! Sex ! Accuracy: 99.4% ! ! ! ! Region (associated syndrome) ! Est. Sens# ! Est. Spec ! ! ! ! Trisomy 21 (Down Syndrome) ! 99.1% ! 99.9% ! ! ! ! Trisomy 18 (Connolly Syndrome) ! >99.9% ! 99.6% ! ! ! ! Trisomy 13 (Patau Syndrome) ! 91.7% ! 99.7% ! ! ! ! Sex Chromosome Aneuploidies## ! 96.2% ! 99.7% ! ! ! * As reported in [facility] database nstd37 [https://www.ncbi.nlm.nih.gov/dbvar/studies/nstd37/ ] # Estimated Sensitivity. Sensitivity estimated across the observed size distribution of each syndrome [per [facility] database nstd37] and across the range of fractions observed in routine clinical NIPT. Actual sensitivity can also be influenced by other factors such as the size of the event, total sequence counts, amplification bias, or sequence bias. ## Vazquez gestation only. Performed By: #### 3 084-1, 21287-6 #### [facility] [id number] [address] [place] [address] [place] POSITIVE PREDICTIVE VALUE N/A Normal [facility] Comment on above: Order Comment: Speci men Type: BLOOD SPECIMEN [facility] Address: [address] [place] [address] Performed By: #### 3 084-1, 01266-0 #### [facility] CLIA [id number] [address] [place] [address] [place] Reference Lab Test Method Comment Normal [facility] Comment on above: Order Comment: Speci men Type: BLOOD SPECIMEN [facility] Address: [address] [place] [address] Result Comment: See Notes Circulating cell-free DNA was purified from the plasma component of maternal blood. The extracted DNA was then converted into a genomic DNA library for aneuploidy analysis of chromosomes 21, 18, and 13 via next generation sequencing.[1] Optional findings based on the test order include sex chromosome aneuploidy (SCA)[2], and enhanced sequencing series (ESS)[3], which will only be reported on as an additional finding when an abnormality is detected. SCA testing includes information on X and Y representation, while ESS testing includes deletions in selected regions (22q, 15q, 11q, 8q, 5p, 4p, 1p) and trisomy of chromosomes 16 and 22. Performed By: #### 3 084-1, 07110-3 #### [facility] CLIA [id number] [address] [place] [address] [place] Service comment (Unsp spec) [Interp] Comment Normal [facility] Comment on above: Order Comment: Lynsey soto Type: BLOOD SPECIMEN [facility] Address: [address] [place] [address] Result Comment: See Notes [facility]. is a subsidiary of [employer], using the brand [employer]. This test was developed and its performance characteristics determined by [employer]. It has not been cleared or approved by the Food and Drug Administration. This laboratory is certified under the Clinical Laboratory Improvement Amendments (CLIA) as qualified to perform high complexity clinical laboratory testing and accredited by the [employer] (CAP). If there is future clinical need for adding MaterniT GENOME testing, this specimen will be available until term. [facility] samples will not be retained beyond 60 days. [facility] patients will have to send a new sample for re-sequencing ([facility] Test Code: [id number]). Performed By: #### 3 084-1, 69530-1 #### [facility] CLIA [id number] [address] [place] [address] [place] Sex Dosage of chromosome-specific cfDNA Nom (cfDNA) Comment Normal [facility] Comment on above: Order Comment: Speci men Type: BLOOD SPECIMEN [facility] Address: [address] [place] [address] Result Comment: Cons istent with Female Performed By: #### 3 084-1, 15999-6 #### [facility] CLIA [id number] [address] [place] [address] [place] Test performance information Roe (Unsp spec) Comment Normal [facility] Comment on above: Order Comment: Speci men Type: BLOOD SPECIMEN [facility] Address: [address] [place] [address] Result Comment: The performance characteristics of the MaterniT(R) 21 PLUS laboratory-developed test (LDT) have been determined in a clinical validation study with women at increased risk for chromosomal aneuploidy.[1-4] Performed By: #### 3 084-1, 67702-1 #### [facility] CLIA [id number] [address] [place] [address] [place] Trisomy 13 risk Dosage of chromosome-specific cfDNA Ql (cfDNA) [Interp] Negative Normal [facility] Comment on above: Order Comment: Speci men Type: BLOOD SPECIMEN [facility] Address: [address] [place] [address] Performed By: #### 3 084-1, 64728-0 #### [facility] CLIA [id number] [address] [place] [address] [place] Trisomy 18 risk Dosage of chromosome-specific cfDNA Ql (Plasma cell-free+WBC DNA) [Interp] Negative Normal [facility] Comment on above: Order Comment: Leoneli men Type: BLOOD SPECIMEN [facility] Address: [address] [place] [address] Performed By: #### 3 084-1, 00268-6 #### 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 Confirmation of cardiac activity. Estimation of gestational age Impression cardiac activity is visualized, CRL indicates discrepancy from clinical dates, GUERDA 02/11/25 based on today's ultrasound Recommendations Follow up for 1st Trimester Anatomy with Nuchal Translucency as clinically indicated if desired. Method Transvaginal ultrasound examination. View: Adequate visualization Vazquez . Number of fetuses: 1 Dating LMP on: 04/23/2024 GA by LMP 12 w + 2 d GUERDA by LMP: 01/28/2025 Ultrasound examination on: 07/18/2024 GA by U/S based upon: CRL GA by U/S 10 w + 2 d GUERDA by U/S: 02/11/2025 Assigned: based on ultrasound (CRL), selected on 07/18/2024 Assigned GA 10 w + 2 d Assigned GUERDA: 02/11/2025 Biometry Standard FHR 167 bpm 34% Nicolaides CRL 34.4 mm 10w 2d 36% Hadlock Assessment Gestational sac: visualized Location: intrauterine Yolk sac: visualized Embryo: visualized CRL 34.4 mm 10w 2d 36% Hadlock Cardiac activity: present FHR 167 bpm 34% Nicolaides Maternal Structures BMI 39 General Evaluation Cardiac activity present. FHR 167 bpm. movements: present Performed By: Tara Rubalcava CNP Read By: Tara Rubalcava CNP MATERNAL MEDICINE [facility] Radiology Study observation (narrative) [facility] Prot/Creat Uron 07-18-2024 Protein/Creatinine (U) [Mass ratio] 0.32 mg/mg High <0.[address] [facility] Comment on above: Order Comment: Speci men Type: BLOOD SPECIMEN [facility] Address: [facility] [place] [address] Result Comment: Adul t Proteinuria Categories: <0.15 mg/mg is considered normal to mildly increased 0.15 - 0.50 mg/mg is considered moderately increased >0.50 mg/mg is considered severely increased KDIGO. (2013). KDIGO 2012 Clinical Practice Guideline for the Evaluation and Management of Chronic Kidney Disease. Official Journal of the International Society of Nephrology, 3(1), 1-150. Performed By: #### R UBIGG #### [facility] CLIA [id number] [address] [place] [address] [place] Protein/Creatinine (U) [Mass ratio]on 07-18-2024 Creatinine (U) [Mass/Vol] 37.9 mg/dL Normal 20.0-300.[address] [facility] Comment on above: Order Comment: Speci men Type: BLOOD SPECIMEN [facility] Address: [address] [place] [address] Performed By: #### R UBIGG #### [facility] IA [id number] [address] [place] [address] [place] Protein (U) [Mass/Vol] 12 mg/dL Normal 0-[address] [facility] Comment on above: Order Comment: Speci brittany Type: BLOOD SPECIMEN [facility] Address: [address] [place] [address] Performed By: #### R UBIGG #### [facility] CLIA [id number] [address] [place] [address] [place] RUBELLA IGG ANTIBODYon 07-18 RUBELLA IGG AB, QUAL Positive Normal Positive [facility] Comment on above: Order Comment: Lynsey soto Type: BLOOD SPECIMEN [facility] Address: [address] [place] [address] Result Comment: The result suggests recent or past exposure to Rubella virus or history of Rubella vaccination. Positive result may also be seen due to presence of passively-transferred antibodies. Please correlate with patient's history. Performed By: #### R UBIGG #### [facility] CLIA [id number] [address] [place] [address] [place] Reagin and Treponema pallidu m IgG and IgM [Interp]on 07-18-2024 T. pallidum IgG+IgM IA Ql (S) Non-Reactive Normal Nonreactive [facility] Comment on above: Order Comment: Speci men Type: BLOOD SPECIMENOrdering Facility: [facility] Address: [address] [place] [address] Performed By: #### 3 1201-7, 60701-1, 5195-3 ####[facility] [id number] [place] [address] [place] Reagin+T pallidum IgG+IgM Se rPl-Impon 07-18-2024 Reagin and Treponema pallidum IgG and IgM [Interp] Cannot exclude recent Treponemal infection if specimen collected within 7-10 days after appearance of suspect lesions or 2-3 weeks after an exposure. Clinical correlation is required. Normal [facility] Comment on above: Order Comment: Speci men Type: BLOOD SPECIMENOrdering Facility: [facility] Address: [address] [place] [address] Performed By: #### 3 1201-7, 82289-5, 5195-3 ####[facility] [id number] [place] [address] [place] TRICHOMONAS VAGINALIS NAATon 07-18-2024 T. vaginalis DNA ESME+probe Ql (Unsp spec) Not detected Normal Not detected [facility] Comment on above: Order Comment: Speci men Type: BLOOD SPECIMEN [facility] Address: [address] [place] [address] Performed By: #### R UBIGG #### [facility] CLIA [id number] [address] [place] [address] [place] TYPE + SCREEN PRENATALon ABO A Normal [facility] Comment on above: Order Comment: Speci men Type: BLOOD SPECIMENOrdering Facility: [facility] Address: [address] [place] [address] Performed By: #### T SPN ####[facility] [id number] [place] [address] [place] Rh Nom (Bld) Negative Normal [facility] Comment on above: Order Comment: Speci men Type: BLOOD SPECIMENOrdering Facility: [facility] Address: [address] [place] [address] Performed By: #### T SPN ####[facility] [id number] [address] TYPE AND SCREEN EXPIRATION 07/21/2024 23:[address] [facility] Comment on above: Order Comment: Speci men Type: BLOOD SPECIMENOrdering Facility: [facility] Address: [address] [place] [address] Performed By: #### T SPN ####[facility] [id number] [address] CNPTana 06-27-2024 BILLN Telephone (WOOB) -------- GRECIA LOCKETT ([id number]) 1995 F Date Time Provider Department 06/27/24 TARA RUBALCAVA During your visit today, we recorded the following information about you: Sheri Park 06/27/2024 9:27 AM Signed Patient called said she's needs her first appointments (her last period was 04/23) next available appointment is 07/18 Can be reached at [phone] Please advise Den Kang, BLANCA 06/27/2024 10:17 AM Signed Called Pt to offer sooner appt 07/05/24 at 0845 with as she has 2 appointments available for 45 minute spot; however, Pt states she is unable to come in that day d/t her work schedule. This RN asked Pt if she would be able to switch her work schedule around and Pt stated that it would be unlikely. Advised Pt to come to appt on 07/18/24 with full bladder, anticipate call from MA/RN to obtain medical hx prior to appt and if we are unable to reach her we ask that she arrive 30 minutes prior to her scheduled appt. Advised Pt if she develops vaginal bleeding or severe abdominal pain to go to ER. Pt voiced understanding. Den Kang RN Allergies As of Date: 06/27/2024 (No Known Allergies) Date Reviewed: 10/06/2023 Reviewed by: Elicia Gaming MD - Fully Assessed Reason for Visit: Patient Question [1477] Cmt: Sooner appointment? Prescriptions as of 06/27/2024 - calcium phosphate dibas/vit D3 (VITAMIN D, WITH CALCIUM, ORAL) Take 5,000 mg by mouth once daily. - labetalol (TRANDATE) 100 mg tablet Take 100 mg by mouth once daily. TAKE 1 TABLET BY MOUTH TWICE DAILY FOR 10 DAYS. TAKE IF BLOOD PRESSURE IS GREATER THAN 150 SYSTOLIC OR GREATER THAN 95 DIASTOLIC - ferrous sulfate (IRON) 325 mg (65 mg iron) tablet Take 325 mg by mouth every other day. - ibuprofen (MOTRIN) 200 mg tablet Take 200 mg by mouth every 6 hours as needed. - vit calc,iron,folic ( [id number]-[id number]-PK-FA ORAL) Take by mouth as directed. - magnesium oxide (MAG-OX) 400 mg (241.3 mg magnesium) tablet Take 400 mg by mouth. Problem List As Of Date 06/27/2024 Noted Resolved Supervision of high risk in second tr*05/20/2023 09/01/2023 23 weeks gestation of [Z3A.23] 05/20/2023 09/01/2023 Rh negative state in antepartum period, second *05/20/2023 09/01/20[facility]05/20/2023 09/01/2023 Tension headaches [G44.209] 05/20/2023 Anxiety during [O99.340, F41.9] 05/20/2023 10/06/2023 Obesity affecting in second trimester*05/20/2023 09/01/2023 Constipation during in second trimest*05/20/2023 09/01/2023 Elevated glucose tolerance test [R73.09] 06/18/2023 10/06/2023 Gestational hypertension, third trimester [O13.*08/20/2023 10/06/2023 Encounter Status:Closed by DEN KANG on 06/27/24 [facility] MR/BMS.Dayna 09-01-2023 MR/BMS.[facility] [place] [address] OFFICE VISIT Date of Service: 08/31/23 MR#: [id number] Acct: [id number] Name: GRECIA LOCKETT Rep #: [id number] : 1995 Provider: Karina Birch NP Age/Sex: 28/F Location: [facility] [place] Status: Signed Intake Vital Signs 08/26/23 19:37 09/01/23 10:06 Height 5 ft 6 in 5 ft 6 in Intake Visit Reasons: assessment Chief Complaint: assessment Accompanied by: Allergies No Known Allergies Allergy (Verified 08/26/23 19:38) : Yes PFSH PFSH Medical History (Updated 08/28/23 @ 08:[address] Sona Figueroa MD) Gestational hypertension Social History Smoking Status: Never smoker History 1 Elective abortions Hx Para 1 Spontaneous abortions Hx # Term Pregnancies Ectopic pregnancies Hx # Pregnancies Multiple births # of living children 1 HPI HPI HPI: GRECIA LOCKETT, is a 28 F who presents to the office today for assessment. History provided by the patient. ROS ROS Const Constitutional: Denies fever(s) or lethargy : Denies nipple discharge Skin Skin/Breast: Reports breast pain (feeling more full, milk coming in more last night ); Denies breast skin changes or nipple discharge Details: attempting to breastfeed q 3 hours, 5-45 minutes to one side, about 50% of the time baby has difficulty latching and parents will give him a bottle 10-20 ml, sometimes he latches after the bottle and other times he falls asleep, milk started to come in last night, pumping with Zomee pump and started to get 50 ml last night, minimal nipple pain with latching or pumping Exam Maternal Assessment Breast Assessment Bilateral Breasts: Full Nipple Assessment Bilateral Nipples: Everted Areolar Tissue Areolar Tissue: Pliable Assessment Baby Feeding History Is your baby latching onto the breast: Yes Number of Breast Feedings in 24 hours: about 5-6x latching effectively Minutes per breast: First Breast: 5-45 Supplements Supplement Type:: Expressed milk Frequency: 4-5 Amount: 10-20 ml Breast Pumping Type of Breast Pump: Zomee Frequency: q 3 hours Amount: 50 ml Reason for supplements or pumping:: Concerns baby is not latching well, pumping for supply and supplement Goals Breast Feeding Goals: To provide as much breastmilk as possible Exam Const General: comfortable and no acute distress Orientation: alert and oriented x3 Chest Breast inspection: normal inspection of the breasts Breast palpation: normal palpation of the breasts (full, no warmth) Other: bilateral nipples slight reddened Resp Effort Inspection: normal respiratory effort Skin General: no rashes or lesions noted Psych Appearance: grossly normal Mental Status: mental status grossly normal Affect: normal affect Assessment and Plan Assessment and Plan (1) Care and examination of lactating mother: Plan: Latch Score L - Latch Latch: Repeated attempts, holds nipple in mouth, stimulate to suck (1) A - Audible Swallowing Audible Swallowing: None (0) T - Type of Nipple Type of Nipple: Everted (after stimulation) (2) C - Comfort (Breast/Nipple) Comfort (Breast/Nipple): Filling/reddened/small blisters/bruises/mild/mo derate discomfort (1) H - Hold (Positioning) Hold (Positioning): Full assist (staff holds at breast) (0) Total Score Total Score:: 4 Observation Feeding Observed:: Yes Educated on latching positions, pumping, set up hands free pump and educated on settings. Discussed milk supply and milk storage. Follow up with PRN. Coding Level of Care Code 27891 PRVT COUNSELING INDIVID Diagnoses Care and examination of lactating mother Z39.1 Time Spent (min) 30 09/01/23 8804 Date Karina Birch NP [employer]-C Cosigner Signature: Date (if applicable) CC: Normal [facility] CBC W/Diff, Automatedon 05-2 PATH REV Reviewed Normal [facility] Comment on above: Order Comment: Comme nts: First day Result Comment: Neut rophilic leukocytosis. Normocytic anemia. Clinical correlation suggested. Anton Ross D.O. 08/31/23 AMENDED REPORT 08/31/23 1439 PATH REV previously reported as: August Performed By: #### L 100.0100 ####[facility] [address] [place], [place], [id number] BRho(D) IGon 08-28-2023 Rho(D) IG Normal [facility] Comment on above: Result Comment: RH10 5076 Rho(D) IG PRSMD TRFSD 08/28/23 0558 Performed By: #### B RHNM, BRho(D) IG #### [facility] [address] [place], [place], [id number] Rh Negative Mom Workupon ABO and Rh group Nom (Bld) Blood group A Rh(D) negative Normal [facility] Comment on above: Order Comment: Comme nts: Age > 13 Weeks baby boy saleemanzio [id number] Performed By: #### B RHNM, BRho(D) IG #### [facility] [address] [place], [place], [phone] ABO and Rh group Nom (Bld) Blood group O Rh(D) positive Normal [facility] Comment on above: Order Comment: Comme nts: Age > 13 Weeks baby boy pisanzio [id number] Performed By: #### B RHNM, BRho(D) IG #### [facility] [address] [place], [place], [phone] DIRECT ANTIGLOB Negative Normal NEGATIVE [facility] Comment on above: Order Comment: Comme nts: Age > 13 Weeks baby boy chase [id number] Performed By: #### B Genny MARTIN(D) IG #### [facility] [address] [place], [place], [address] SCREEN Negative Normal NEGATIVE [facility] Comment on above: Order Comment: Comme nts: Age > 13 Weeks baby boy chase [id number] Performed By: #### B Genny MARTIN(D) IG #### [facility] [address] [place], [place], [phone] MOM'S ABS Negative Normal [facility] Comment on above: Order Comment: Comme nts: Age > 13 Weeks baby boy chase [phone] Performed By: #### B MARIO, AMARILISho(D) IG #### [facility] [address] [place], [place], [address] Magnesiumon 08-27-2023 Magnesium [Mass/Vol] 3.1 mg/dL High 1.6-2.6 [facility] Comment on above: Performed By: #### L 501.5200 #### [facility] [address] [place], [place], [address] Operative Reporton 4 Operative Report [facility] Medical Records Department [address] [place] [address] Operative Report 08/27/23 2227 MR#: [id number] Acct: [id number] Name: GRECIA LOCKETT Rep #: [id number] : 1995 28 From: Sona Figueroa MD PCP: Status:ADM IN Location: [id number] Maternal Data Information GUERDA Calculator Estimated Delivery Date Method Current WG Current Estimate 09/10/23 Manual 38w 0d Final GUERDA: 08/27/23 Gestational age: 38 0/7 Vaginal Delivery Maternal Presentation Maternal Presentation: Medically Indicated Induction Type of Induction: Pitocin, Aggarwal Bulb, Amniotomy and Cytotec Medical Reason for Induction: Preeclampsia, eclampsia Operative Information Date of Procedure: 08/27/23 Pre-Operative Diagnosis: labor, preeclampsia with severe features, maternal exhaustion Post-Operative Diagnosis: same Surgery / Procedure Performed: Vacuum Assisted Vaginal Delivery (Outlet) Type of Anesthesia: Epidural and Local with 1% Lidocaine (20 cc) Drain: Aggarwal to straight drain Estimated Blood Loss: 900 Time of Delivery: 19:46 Findings Description of Procedure: The patient and pushing for over 2 hours with good progress. There is mild caput. Pelvis was adequate. Aggarwal catheter was in place. Epidural was in place and adequate. Patient was becoming very fatigued and having a lot of pressure in between contractions. Position was EMERSON and with pushing she was labia approximately 2 cm. She was plus 4 out of 5 station. Discussed with the patient and her partner response and alternatives to attempted vacuum-assisted vaginal delivery. They desire to proceed. The vacuum was placed on the flexion point after the team was assembled. There were 2 pulls with no pop offs. The pressure was 550 mmHg. The head was and the vacuum was removed. The head delivered with continued pushing efforts. There was a somewhat tight nuchal cord. The anterior shoulder was delivered easily with minimal traction and maternal pushing efforts and then the posterior shoulder and then I was able to reduce the nuchal cord and deliver the remainder the infant in less than 10 seconds. Nursing staff attended to the . Cord clamping was delayed until cord pulsations ceased. Spontaneous delivery of the placenta intact with a three-vessel cord. Cord gases were collected as was cord blood. Cervix was intact. There was some atony and I removed some clots from the uterus. IV Pitocin bolus was given along with Hemabate x 1. Some fundal massage was given and the bleeding slowed. There was then another small gush when I massage the uterus again. Some local lidocaine was placed in the perineal laceration and this was repaired with 3-0 Vicryl suture in a running standard fashion. Excellent hemostasis was noted. There is still some small amount of clot and debris in the uterus. The patient was given IV Dilaudid 1 mg to help with pain and discomfort from this. She was given 1000 mcg of rectal Cytotec. The uterus was then firm and bleeding was average. The Aggarwal was left in place. Sponge and needle counts were correct. Vaginal sweep was completed by me. Patient had atony without hemorrhage. Presentation: EMERSON Amniotic Membrane Rupture Type: Artificial Amniotic Fluid Description: Clear Placental Delivery Description: Spontaneous Placenta Disposition: [facility] Cord Vessel Description: 3 Vessels Cord Entanglement: Around neck x 1, tight Nuchal Cord Compression: Without compression Cord Gases: ABG and VBG Infant A Gender: Male (1 minute): 8 (5 minute): 9 Delayed Cord Clamping: Yes Post Vaginal Delivery Medications Given After Delivery: IV Pitocin Episiotomy Description: None Laceration: 2nd degree Complication Complications: None 08/27/232231 Cosigner Signature (if applicable): CC: Dr. Elicia Gaming MD; Dr. Sona Figueroa MD Signed Normal [facility] AST(SGOT)on 08-26-2023 AST [Catalytic activity/Vol] 19 U/L Normal 15-37 [facility] Comment on above: Performed By: #### L 501.1400, L100.0500, L501.4405, L501.0900, L501.4100, L501.1105 ####[facility] [address] [place], [address] Alanine Aminotransferas (SGP T)on 08-26-2023 ALT [Catalytic activity/Vol] 17 U/L Normal 13-56 [facility] Comment on above: Performed By: #### L 501.1400, L100.0500, L501.4405, L501.0900, L501.4100, L501.1105 ####[facility] [address] [place], [address] CBC W/Diff, Automatedon 05- Absolute Lymph 2.22 X10 3/uL Normal 0.83-4.51 [facility] Comment on above: Performed By: #### L 100.0100, BTS, K31251-5 #### [facility] [address] [place], [address] Absolute Neut 8.9 X10 3/uL High 2.0-7.7 [facility] Comment on above: Performed By: #### L 100.0100, BTS, O98904-3 #### [facility] [address] [place], [address] Basophils/100 WBC (Bld) 0.2 % Normal 0-1 [facility] Comment on above: Performed By: #### L 100.0100, BTS, O12025-8 #### [facility] [address] [place], [address] Eosinophils/100 WBC (Bld) 0.4 % Normal 0-5 [facility] Comment on above: Performed By: #### L 100.0100, BTS, J25492-3 #### [facility] [address] [place], [address] Erythrocyte distribution width (RBC) [Ratio] 12.2 % Normal 11.6-14.6 [facility] Comment on above: Performed By: #### L 100.0100, BTS, E27376-4 #### [facility] [address] [place], [address] Hematocrit (Bld) [Volume fraction] 36.3 % Low 37-47 [facility] Comment on above: Performed By: #### L 100.0100, BTS, V60871-4 #### [facility] [address] [place], [address] Hemoglobin (Bld) [Mass/Vol] 12.6 g/dL Normal 12.0-15.0 [facility] Comment on above: Performed By: #### L 100.0100, BTS, V60967-5 #### [facility] [address] [place], [address] IG% 0.800 Normal 0.0-0.9 [facility] Comment on above: Result Comment: IG% - Immature Granulocytes (promyelocytes, myelocytes and metamyelocytes) > 1% indicates that a LEFT SHIFT is Present. Performed By: #### L 100.0100, BTS, Z13603-3 #### [facility] [address] [place], [address] Lymphocytes/100 WBC (Bld) 17.9 % Low 19-41 [facility] Comment on above: Performed By: #### L 100.0100, BTS, V33640-5 #### [facility] [address] [place], [address] MCH (RBC) [Entitic mass] 30.6 pg Normal 27.0-32.0 [facility] Comment on above: Performed By: #### L 100.0100, BTS, U23283-9 #### [facility] [address] [place], [address] MCHC (RBC) [Mass/Vol] 34.7 g/dL Normal 32-36 [facility] Comment on above: Performed By: #### L 100.0100, BTS, M54030-6 #### [facility] [address] [place], [address] MCV (RBC) [Entitic vol] 88.1 fL Normal 81-99 [facility] Comment on above: Performed By: #### L 100.0100, BTS, D23250-2 #### [facility] [address] [place], [address] Monocytes/100 WBC (Bld) 8.8 % Normal 0-10 [facility] Comment on above: Performed By: #### L 100.0100, BTS, S42677-5 #### [facility] [address] [place], [address] Neutrophils/100 WBC (Bld) 71.9 % High 47-70 [facility] Comment on above: Performed By: #### L 100.0100, BTS, S80784-0 #### [facility] [address] [place], [address] Nucleated RBC (Bld) [#/Vol] 0 10*3/uL Normal 0-5 [facility] Comment on above: Performed By: #### L 100.0100, BTS, T03212-3 #### [facility] [address] [place], [address] Platelet mean volume (Bld) [Entitic vol] 11.4 fL Normal 6.2-12.0 [facility] Comment on above: Performed By: #### L 100.0100, BTS, P02833-8 #### [facility] [address] [place], [address] Platelets (Bld) [#/Vol] 204 10*3/uL Normal 150-450 [facility] Comment on above: Performed By: #### L 100.0100, BTS, U69467-0 #### [facility] [address] [place], [address] RBC (Bld) [#/Vol] 4.12 10*6/uL Low 4.2-5.4 [facility] Comment on above: Performed By: #### L 100.0100, BTS, Y18909-8 #### [facility] [address] [place], [address] RDW SD 39.0 fl Normal 35.1-43.9 [facility] Comment on above: Performed By: #### L 100.0100, BTS, U73902-1 #### [facility] [address] [place], [address] WBC (Bld) [#/Vol] 12.4 10*3/uL High 4.4-11.0 [facility] Comment on above: Performed By: #### L 100.0100, BTS, Q56024-6 #### [facility] [address] [place], [address] CBC-Complete Blood Cnt No Di ffon 08-26-2023 HCT Normal 37-47 [facility] Comment on above: Result Comment: DUPL ICATE ORDER Performed By: #### L 501.1400, L100.0500, L501.4405, L501.0900, L501.4100, L501.1105 ####[facility] [address] [place], [address] HGB Normal 12.0-15.0 [facility] Comment on above: Result Comment: DUPL ICATE ORDER Performed By: #### L 501.1400, L100.0500, L501.4405, L501.0900, L501.4100, L501.1105 ####[facility] [address] [place], [address] MCH Normal 27.0-32.0 [facility] Comment on above: Result Comment: DUPL ICATE ORDER Performed By: #### L 501.1400, L100.0500, L501.4405, L501.0900, L501.4100, L501.1105 ####[facility] [address] [place], [address] MCHC Normal 32-36 [facility] Comment on above: Result Comment: DUPL ICATE ORDER Performed By: #### L 501.1400, L100.0500, L501.4405, L501.0900, L501.4100, L501.1105 ####[facility] [address] [place], [address] MCV Normal 81-99 [facility] Comment on above: Result Comment: DUPL ICATE ORDER Performed By: #### L 501.1400, L100.0500, L501.4405, L501.0900, L501.4100, L501.1105 ####[facility] [address] [place], [address] PLT Normal 150-450 [facility] Comment on above: Result Comment: DUPL ICATE ORDER Performed By: #### L 501.1400, L100.0500, L501.4405, L501.0900, L501.4100, L501.1105 ####[facility] [address] [place], [address] RBC Normal 4.2-5.4 [facility] Comment on above: Result Comment: DUPL ICATE ORDER Performed By: #### L 501.1400, L100.0500, L501.4405, L501.0900, L501.4100, L501.1105 ####[facility] [address] [place], [address] RDW CV Normal 11.6-14.6 [facility] Comment on above: Result Comment: DUPL ICATE ORDER Performed By: #### L 501.1400, L100.0500, L501.4405, L501.0900, L501.4100, L501.1105 ####[facility] [address] [place], [address] RDW SD Normal 35.1-43.9 [facility] Comment on above: Result Comment: DUPL ICATE ORDER Performed By: #### L 501.1400, L100.0500, L501.4405, L501.0900, L501.4100, L501.1105 ####[facility] [address] [place], [address] WBC Normal 4.4-11.0 [facility] Comment on above: Result Comment: DUPL ICATE ORDER Performed By: #### L 501.1400, L100.0500, L501.4405, L501.0900, L501.4100, L501.1105 ####[facility] [address] [place], [address] H AND P Exam - OB/GYNon 05-2 H&P Exam - KILN TENDER [facility] Medical Records Department [address] [place] [address] H P Exam - KILN TENDER 08/26/231948 MR#: [id number] Acct: [id number] Name: GRECIA LOCKETT Rep #: [id number] : 1995 28 From: Darleen Wu CNM PCP: Status:ADM IN Location: [id number] HPI - General General Date of Admission: 08/26/23 HPI Narrative GRECIA LOCKETT, is a 28 F at 37.6 weeks gestation who presents for induction of labor for gestational hypertension. Patient was seen in office with continued increasing blood pressures. Denies headache, vision changes, SOB, CP or RUQ pain. complicated by obesity and anxiety. Maternal Data Information GUERDA Calculator Estimated Delivery Date Method Current WG Current Estimate 09/10/23 Manual 37w 6d PFSH PFS Medical History (Updated 08/26/23 @ 21:02 by Darleen Wu CNM) Gestational hypertension Home Medications ???Medication ???Instructions ???Recorded ???Last Taken ???Type PNV#14-iron fum-FA#7-csb-lngiddae cap PO 08/26/23 08/26/23 History 27 mg iron-1 mg-300 mg-50 mg capsule magnesium 200 mg tablet 200 mg PO DAILY 08/26/23 08/26/23 History Allergy/AdvReac Type Severity Reaction Status Date / Time No Known Allergies Allergy Verified 08/26/23 19:38 Social History Smoking Status: Never smoker History Elective abortions Hx Para 0 Spontaneous abortions Hx # Term Pregnancies Ectopic pregnancies Hx # Pregnancies Multiple births # of living children NST FHR Rate Baby A Baseline: 150 Variability:: Moderate Accelerations:: 15 x 15 Decelerations:: None NST Reactive:: Yes FHR Category:: Category I Uterine Activity:: Irritability ROS Eyes Eyes: Denies blurry vision, change in vision or spots in vision ENT HEENT: Denies dizziness or headache(s) Cardiovascular Cardiovascular: Denies abdominal pain, chest pain or dyspnea Respiratory/Chest Respiratory/Chest: Denies cough, dyspnea, shortness of breath at rest or shortness of breath with exertion Gastrointestinal Gastrointestinal: Denies abdominal pain, diarrhea or vomiting Genitourinary Genitourinary: Denies change in urinary stream, difficulty urinating or dysuria Musculoskeletal Musculoskeletal: Reports none Integumentary Integumentary: Denies rash Neurologic Neurologic: Denies dizziness, headache(s), memory loss or weakness Psychiatric Psychiatric: Reports none Vital Signs Vital Signs Vital Signs: 08/26/23 19:31 08/26/23 19:31 08/26/23 19:31 Temperature 99.1 F Pulse Rate 109 H Blood Pressure 169/99 H BP Systolic 169 BP Diastolic 99 08/26/23 19:33 08/26/23 19:33 Temperature Pulse Rate 107 H Blood Pressure 156/82 H BP Systolic 156 BP Diastolic 82 Weight Weight: 274 lb Body Mass Index (BMI) 44.2 Physical Exam Const alert, oriented x3 and no apparent distress General Appearance: cooperative Orientation / Consciousness: awake Exam Limitations: no limitations HEENT normocephalic Head and Scalp: normal to inspection Eyes General Eye: normal appearance of both eyes Neck full ROM and no lymphadenopathy Lymph Lymphatic: no lymphadenopathy noted Chest inspection of chest normal Resp normal respiratory effort, normal air movement and clear to auscultation bilaterally Effort and Inspection: able to speak in complete sentences and symmetric chest movement Cardio regular rate and regular rhythm GI normal to inspection, nondistended, normoactive bowel sounds Manual OB Exam: presentation cephalic Back/Spine normal ROM Extremity full ROM and no calf tenderness Extremity Narrative: BLE +2 edema Skin no rashes or lesions noted General Skin Exam: no breakdown Neuro oriented x3 and CN's II-XII intact bilaterally Psych mental status grossly normal and thought process normal Labs Labs Labs: Blood Type A NEGATIVE Antibody Screen NEGATIVE Hct 36.3 % (37-47) L Hgb 12.6 g/dL (12.0-15.0) Syphilis Total Ab Non-reactive Hepatitis C Antibody Non-Reactive (Nonreactive) GBS negative Assessment Plan (1) 37 weeks gestation of : (2) Encounter for induction of labor: (3) Obesity affecting : (4) Rh negative status during : (5) Acute adjustment disorder with mixed anxiety and depressed mood: PLAN: Plan Admit to labor and delivery GBS negative Initial BP elevated at 169/99 with repeat of 156/82 Hypertension protocol initiated PIH labs drawn CE /- Aggarwal bulb placed without difficulty and filled with 30 cc N/S Cytotec 25 mcg PO every 4 hours x [address] Nascimento aware of admission and plan of care and is collaborating physici (more content not included)... Normal [facility] Hepatitis C Antibodyon 08-25 Hepatitis C AB Non-Reactive Normal Nonreactive [facility] Comment on above: Result Comment: Non Reactive: < 0.8 Equivocal: >/= 0.8 to < 1.0 Reactive: >/= 1.0 The [facility] requires that a reactive/equivocal HCV antibody result be sent out for confirmation. HCV Quant by PCR testing. Performed By: #### L 3890.6300 ####[facility] [address] [place], [address] L509.8000on 08-26-2023 Syphilis Abs Non-Reactive Normal [facility] Comment on above: Performed By: #### L 509.8000 #### [facility] [address] [place], [address] Protein+Creatinine Ratio,Uri neon 08-26-2023 PROT:CRE RATIO TNP Normal 0-200 [facility] Comment on above: Performed By: #### L 501.1400, L100.0500, L501.4405, L501.0900, L501.4100, L501.1105 ####[facility] [address] [place], [address] PROTEIN,UR.RAN. < 6.0 Normal <11.9 [facility] Comment on above: Performed By: #### L 501.1400, L100.0500, L501.4405, L501.0900, L501.4100, L501.1105 ####[facility] [address] [place], [address] UR CREAT 22.70 mg/dL Normal NO RANGE EST. [facility] Comment on above: Performed By: #### L 501.1400, L100.0500, L501.4405, L501.0900, L501.4100, L501.1105 ####[facility] [address] [place], [address] Serum Creatinine AND GFRon 0 08-26-2023 Creatinine [Mass/Vol] 0.53 mg/dL Low 0.55-1.02 [facility] Comment on above: Result Comment: The validity of the calculated GFR GFRAA in patients over 70 years has not been determined. Clinical correlation is essential. Performed By: #### L 501.1400, L100.0500, L501.4405, L501.0900, L501.4100, L501.1105 ####[facility] [address] [place], [address] ECRCL 212.79 ml/min Normal [facility] Comment on above: Performed By: #### L 501.1400, L100.0500, L501.4405, L501.0900, L501.4100, L501.1105 ####[facility] [address] [place], [address] EST GFR - AA 175 mL/min Normal >60 [facility] Comment on above: Result Comment: Afri can [place]an GFR Calc Performed By: #### L 501.1400, L100.0500, L501.4405, L501.0900, L501.4100, L501.1105 ####[facility] [address] [place], [address] GFR/1.73 sq M.predicted among non-blacks MDRD (S/P/Bld) [Vol rate/Area] 145 mL/min/{1.73_m2} Normal >60 [facility] Comment on above: Result Comment: Non- GFR Calc Performed By: #### L 501.1400, L100.0500, L501.4405, L501.0900, L501.4100, L501.1105 ####[facility] [address] [place], [address] Type AND Screenon 08-26-2023 Ab SCREEN GEL TNP Normal [facility] Comment on above: Order Comment: Labor Performed By: #### L 100.0100, BTS, Y98156-5 #### [facility] [address] [place], [place], [address] Uric Acidon 08-26-2023 URIC 3.2 mg/dL Normal 2.6-6.0 [facility] Comment on above: Result Comment: The drugs N-Acetylcysteine and Metamizole may falsely depress this assay. Performed By: #### L 501.1400, L100.0500, L501.4405, L501.0900, L501.4100, L501.1105 ####[facility] [address] [place], [place], [id number] ALANINE AMINOTRANSFERASE / S GPTOrdered By: Shyanne Márquez on 08-17-2023 ALT [Catalytic activity/Vol] 8 U/L 7 - 38 U/L [facility] ALT [Catalytic activity/Vol] Ordered By: Shyanne Márquez on 08-17-2023 Interpretation and review of laboratory results Normal [facility] ASPARTATE AMINOTRANSFERASE/S GOTon 08-17-2023 AST [Catalytic activity/Vol] 15 U/L 13 - 35 U/L [facility] CBC panel Auto (Bld)on 08-16 Erythrocyte distribution width (RBC) [Ratio] 12.1 % 11.5 - 15.0 % [facility] Hematocrit (Bld) [Volume fraction] 38.6 % 36.0 - 46.0 % [facility] Hemoglobin (Bld) [Mass/Vol] 13.3 g/dL 11.5 - 15.5 g/dL [facility] Interpretation and review of laboratory results Normal [facility] MCH (RBC) [Entitic mass] 30.5 pg 26.0 - 34.0 pg [facility] MCHC (RBC) [Mass/Vol] 34.5 g/dL 30.5 - 36.0 g/dL [facility] MCV (RBC) [Entitic vol] 88.5 fL 80.0 - 100.0 fL [facility] Nucleated RBC (Bld) [#/Vol] NINF [facility] Platelet mean volume (Bld) [Entitic vol] 10.9 fL 9.0 - 12.7 fL [facility] Platelets (Bld) [#/Vol] 205 10*3/uL [facility] RBC (Bld) [#/Vol] 4.36 10*6/uL 3.90 - 5.2 0 m/uL [facility] WBC (Bld) [#/Vol] 10.04 10*3/uL [facility] CREATININE BLDon 08-17-2023 Creatinine [Mass/Vol] 0.60 mg/dL 0.58 - 0.96 mg/dL [facility] GFR/1.73 sq M.predicted among non-blacks MDRD (S/P/Bld) [Vol rate/Area] 126 mL/min/{1.73_m2} - PINF [facility] Comment on above: Estimated Glomerular Filtration Rate (eGFR) is calculated using the 2020 CKD-EPI creatinine equation. This equation utilizes serum creatinine, sex, and age as parameters. The creatinine assay has traceable calibration to isotope dilution-mass spectrometry. Refer to KDIGO guidelines for clinical interpretation. In patients with unstable renal function, e.g. those with acute kidney injury, the eGFR may not accurately reflect actual GFR. Interpretation and review of laboratory results Normal [facility] No Panel Informationon 08-16 [facility] Interpretation and review of laboratory results Normal [facility] PROTEIN / CREATININE RATIOon 08-17-2023 Protein/Creatinine (U) [Mass ratio] 0.10 mg/mg [facility] - 0.15 mg/mg [facility] Comment on above: Adult Proteinuria Ca tegories: <0.15 mg/mg is considered normal to mildly increased 0.15 - 0.50 mg/mg is considered moderately increased >0.50 mg/mg is considered severely increased KDIGO. (2013). KDIGO 2012 Clinical Practice Guideline for the Evaluation and Management of Chronic Kidney Disease. Official Journal of the International Society of Nephrology, 3(1), 1-150. Protein/Creatinine (U) [Mass ratio]on 08-17-2023 Creatinine (U) [Mass/Vol] 111.3 mg/dL 20.0 - 300.0 mg/dL [facility] Interpretation and review of laboratory results Normal [facility] Protein (U) [Mass/Vol] 11 mg/dL 0 - 20 mg/dL [facility] UREA NITROGENon 08-17-2023 Urea nitrogen [Mass/Vol] 5 mg/dL Low 7 - 21 mg/dL [facility] URIC ACIDon 08-17-2023 Urate [Mass/Vol] 4.3 mg/dL 2.5 - 6.6 mg/dL [facility] URINE OB DIP B/Oon 4 Glucose Ql (U) Negative Neg mg/dL [facility] Interpretation and review of laboratory results Normal [facility] Protein.monoclonal (U) [Mass/Vol] Negative Neg mg/dL [facility] Urea nitrogen [Mass/Vol]on 0 08-17-2023 Interpretation and review of laboratory results Abnormal [facility] URINE OB DIP B/Oon 4 Glucose Ql (U) Negative Neg mg/dL [facility] Protein.monoclonal (U) [Mass/Vol] Negative Neg mg/dL [facility] URINE OB DIP B/Oon 4 Glucose Ql (U) Negative Neg mg/dL [facility] Protein.monoclonal (U) [Mass/Vol] Negative Neg mg/dL [facility] Examination level ultrasound on 07-15-2023 [facility] US OB 14+ WEEKS ANATOMY SCAN on 04-21-2023 US OB 14+ WEEKS ANATOMY SCAN Interpreted By: Maxime Santiago, STUDY: US OB 14+ WEEKS ANATOMY SCAN; 04/21/2023 10:10 am INDICATION: Signs/Symptoms:Anatomy. COMPARISON: None. ACCESSION NUMBER(S): [id number] ORDERING CLINICIAN: IRINA HANDLEY TECHNIQUE: Multiple images were obtained through the pelvis. Transabdominal ultrasound was performed. FINDINGS: There is a single live intrauterine gestation in variable position. BPD 47mm, 20 weeks, 0 days HC 172mm, 19 weeks, 5 days AC 140mm, 19 weeks, 3 days FL 31mm, 19 weeks, 5 days This results in a composite gestational age of 19 weeks, 5 days, +/-10 days. The estimated date of delivery by ultrasound is 09/10/2023. By dates the fetus should be 19 weeks, 5 days, which is concordant with the ultrasound dating. There is an estimated weight of 302 g +/-45 g (39th percentile). heart rate measures 141 beats per minute. Anatomy: HEART (FOUR-CHAMBER): Seen THREE-VESSEL CORD: Seen UMBILICAL CORD INSERTION: Seen BLADDER: Seen STOMACH: Seen SPINE: Seen KIDNEYS: Seen DIAPHRAGM: Seen LATERAL VENTRICLE: Seen The placenta is is in anterior position. No evidence of placenta previa is seen. The amniotic fluid volume is within normal limits. Maternal anatomy: The cervix is closed, measuring up to 4.4 cm in length. IMPRESSION: Single live intrauterine gestation corresponding to 19 weeks, 5 days, +/-10 days. No gross anatomic abnormality is identified. Recommend continued routine follow-up imaging evaluation. MACRO: None Signed by: Maxime Santiago 04/21/2023 12:41 PM Dictation workstation: [id number] [facility] US for in second o r third trimesteron 04-21-2023 Single live intraute rine gestation corresponding to 19 weeks, 5 days, +/-10 days. No gross anatomic abnormality is identified. Recommend continued routine follow-up imaging evaluation. MACRO: None Signed by: Maxime Santiago 04/21/2023 12:41 PM Dictation workstation: [id number] [facility] Interpreted By: Maxime Santiago, STUDY: US OB 14+ WEEKS ANATOMY SCAN; 04/21/2023 10:10 am INDICATION: Signs/Symptoms:Anatomy. COMPARISON: None. ACCESSION NUMBER(S): [id number] ORDERING CLINICIAN: IRINA HANDLEY TECHNIQUE: Multiple images were obtained through the pelvis. Transabdominal ultrasound was performed. FINDINGS: There is a single live intrauterine gestation in variable position. BPD 47mm, 20 weeks, 0 days HC 172mm, 19 weeks, 5 days AC 140mm, 19 weeks, 3 days FL 31mm, 19 weeks, 5 days This results in a composite gestational age of 19 weeks, 5 days, +/-10 days. The estimated date of delivery by ultrasound is 09/10/2023. By dates the fetus should be 19 weeks, 5 days, which is concordant with the ultrasound dating. There is an estimated weight of 302 g +/-45 g (39th percentile). heart rate measures 141 beats per minute. Anatomy: HEART (FOUR-CHAMBER): Seen THREE-VESSEL CORD: Seen UMBILICAL CORD INSERTION: Seen BLADDER: Seen STOMACH: Seen SPINE: Seen KIDNEYS: Seen DIAPHRAGM: Seen LATERAL VENTRICLE: Seen The placenta is is in anterior position. No evidence of placenta previa is seen. The amniotic fluid volume is within normal limits. Maternal anatomy: The cervix is closed, measuring up to 4.4 cm in length. [facility] Maxime Santiago MD - 04/21/2023 Interpreted By: Maxime Santiago, STUDY: US OB 14+ WEEKS ANATOMY SCAN; 04/21/2023 10:10 am INDICATION: Signs/Symptoms:Anatomy. COMPARISON: None. ACCESSION NUMBER(S): [id number] ORDERING CLINICIAN: IRINA HANDLEY TECHNIQUE: Multiple images were obtained through the pelvis. Transabdominal ultrasound was performed. FINDINGS: There is a single live intrauterine gestation in variable position. BPD 47mm, 20 weeks, 0 days HC 172mm, 19 weeks, 5 days AC 140mm, 19 weeks, 3 days FL 31mm, 19 weeks, 5 days This results in a composite gestational age of 19 weeks, 5 days, +/-10 days. The estimated date of delivery by ultrasound is 09/10/2023. By dates the fetus should be 19 weeks, 5 days, which is concordant with the ultrasound dating. There is an estimated weight of 302 g +/-45 g (39th percentile). heart rate measures 141 beats per minute. Anatomy: HEART (FOUR-CHAMBER): Seen THREE-VESSEL CORD: Seen UMBILICAL CORD INSERTION: Seen BLADDER: Seen STOMACH: Seen SPINE: Seen KIDNEYS: Seen DIAPHRAGM: Seen LATERAL VENTRICLE: Seen The placenta is is in anterior position. No evidence of placenta previa is seen. The amniotic fluid volume is within normal limits. Maternal anatomy: The cervix is closed, measuring up to 4.4 cm in length. IMPRESSION: Single live intrauterine gestation corresponding to 19 weeks, 5 days, +/-10 days. No gross anatomic abnormality is identified. Recommend continued routine follow-up imaging evaluation. MACRO: None Signed by: Maxime Santiago 04/21/2023 12:41 PM Dictation workstation: [id number] [facility] Work Phone: Radiology Study observation (narrative) [facility] Work Phone: US for in second o r third trimesterOrdered By: Maxime Santiago on 04-21-2023 [facility] Work Phone: CBC panel Auto (Bld)on 03-02 Erythrocyte distribution width (RBC) [Ratio] 12.4 % Normal 11.5-14.5 [facility] Comment on above: Performed By: #### 5 8410-2 #### QUAN PEDRAZA ([id number]) [facility] ([facility]) [address] [place] [address] Hematocrit (Bld) [Volume fraction] 39.5 % Normal 36.0-46.0 [facility] Comment on above: Performed By: #### 5 8410-2 #### QUAN PEDRAZA ([id number]) [facility] ([facility]) [address] [place] [address] Hemoglobin (Bld) [Mass/Vol] 13.5 g/dL Normal 12.0-16.0 [facility] Comment on above: Performed By: #### 5 8410-2 #### QUAN PEDRAZA ([id number]) [facility] ([facility]) [address] [place] [address] MCH (RBC) [Entitic mass] 30.1 pg Normal 26.0-34.0 [facility] Comment on above: Performed By: #### 5 8410-2 #### QUAN PEDRAZA ([id number]) [facility] ([facility]) [address] [place] [address] MCHC (RBC) [Mass/Vol] 34.2 g/dL Normal 32.0-36.0 [facility] Comment on above: Performed By: #### 5 8410-2 #### QUAN PEDRAZA ([id number]) [facility] ([facility]) [address] [place] [address] MCV (RBC) [Entitic vol] 88 fL Normal 80-100 [facility] Comment on above: Performed By: #### 5 8410-2 #### QUAN PEDRAZA ([id number]) [facility] ([facility]) [address] [place] [address] Nucleated RBC/100 WBC (Bld) [Ratio] 0.0 /100 WBCs Normal 0.0-0.0 [facility] Comment on above: Performed By: #### 5 8410-2 #### QUAN PEDRAZA ([id number]) [facility] ([facility]) [address] [place] [address] Platelets (Bld) [#/Vol] 245 x10*3/uL Normal 150-450 [facility] Comment on above: Performed By: #### 5 8410-2 #### QUAN PEDRAZA ([id number]) [facility] ([facility]) [address] [place] [address] RBC (Bld) [#/Vol] 4.49 x10*6/uL Normal 4.00-5.20 [facility] Comment on above: Performed By: #### 5 8410-2 #### QUAN PEDRAZA ([id number]) [facility] ([facility]) [address] [place] [address] WBC (Bld) [#/Vol] 7.6 x10*3/uL Normal 4.4-11.3 [facility] Comment on above: Performed By: #### 5 8410-2 #### QUAN PEDRAZA ([id number]) [facility] ([facility]) [address] [place] [address] HIV 1+2 Ab+HIV1 p24 Agon HIV 1+2 Ab+HIV1 p24 Ag IA Ql Non-Reactive Normal Nonreactive [facility] Comment on above: Order Comment: HIV A g/Ab screen is performed using the Siemens AtellFilecubed HIV Ag/Ab Combo assay which detects the presence of HIV p24 antigen as well as antibodies to HIV-1 (Group M and O) and HIV-2. No laboratory evidence of HIV infection. If acute HIV infection is suspected, consider testing for HIV RNA by PCR (viral load). Performed By: #### 5 6888-1 #### SHYANNE Ross ([id number]) [facility] ([facility]) [address] [place] [address] Hepatitis B virus surface Ag on 03-02-2023 HBV surface Ag IA Ql Non-Reactive Normal Nonreactive [facility] Comment on above: Result Comment: Biot in interference may cause falsely decreased results. Patients taking a Biotin dose of up to 5 mg/day should refrain from taking Biotin for 24 hours before sample collection. Providers may contact their local laboratory for further information. Performed By: #### 5 196-1 #### SHYANNE Ross ([id number]) [facility] ([facility]) [address] [place] [address] REFLEX ADDED, ANEMIA PANELon 03-02-2023 REFLEX ADDED, ANEMIA PANEL Normal [facility] Comment on above: Result Comment: No r eflex Performed By: #### A PRFX #### SHYANNE Ross ([id number]) [facility] ([facility]) [address] [place] [address] Rubella virus IgG IA Qnon Rubella virus IgG IA Ql Positive Normal Negative [facility] Comment on above: Order Comment: NEGAT LIDYA: No IgG antibodies specific to Rubella detected. It is likely that the patient has not had a previous exposure to Rubella through infection or vaccination. Alternatively, the patient may have been exposed to Rubella but a failure to respond may indicate immunodeficiency. EQUIVOCAL: Equivocal results; obtain an additional sample for re-testing POSITIVE: IgG antibody to Rubella detected. This may indicate that the patient was exposed to Rubella through infection or vaccination. Performed By: #### 5 334-8 #### SHYANNE Ross ([id number]) [facility] ([facility]) [address] [place], [place] [address] Rubella virus IgG Qn (S) 1.6 IA Normal <=0.7 IA [facility] Comment on above: Order Comment: NEGAT LIDYA: No IgG antibodies specific to Rubella detected. It is likely that the patient has not had a previous exposure to Rubella through infection or vaccination. Alternatively, the patient may have been exposed to Rubella but a failure to respond may indicate immunodeficiency. EQUIVOCAL: Equivocal results; obtain an additional sample for re-testing POSITIVE: IgG antibody to Rubella detected. This may indicate that the patient was exposed to Rubella through infection or vaccination. Performed By: #### 5 334-8 #### SHYANNE Ross ([id number]) [facility] ([facility]) [address] [place], [place] [address] Treponema pallidum Abon 02-04 T. pallidum Ab Ql (S) Non-Reactive Normal Nonreactive [facility] Comment on above: Result Comment: No s ignificant level of Treponema pallidum antibody detected. Repeat testing in 2 to 4 weeks may be considered if early infection or incubating syphilis infection is suspected. Performed By: #### 2 2587-0 #### SHYANNE Ross ([id number]) [facility] ([facility]) [address] [place], [place] [address] Blood type and Indirect anti body screen panel (Bld)on 02-09-2023 ABO group Nom (Bld) A [facility] Comment on above: Order Comment: Speci men for compatibility testing requires full first and last name, MRN, , date, time of collection, and dry cans back tender/telephone coin box collector's signature on tube(s) or it will be rejected. Please collect 1 lavender top-KEDTA OR 1 pink top-KEDTA and sign, date and time with the patient's full first and last name, MRN and . Review your Rh Negative female patient's potential need for Rh Immune Globulin (RhIg)administration. Performed By: #### 3 4532-2 #### QUAN PEDRAZA ([id number]) [facility] [address] [place] [address] [place] Blood group antibody screen Ql Negative Normal [facility] Comment on above: Order Comment: Speci men for compatibility testing requires full first and last name, MRN, , date, time of collection, and dry cans back tender/telephone coin box collector's signature on tube(s) or it will be rejected. Please collect 1 lavender top-KEDTA OR 1 pink top-KEDTA and sign, date and time with the patient's full first and last name, MRN and . Review your Rh Negative female patient's potential need for Rh Immune Globulin (RhIg)administration. Performed By: #### 3 4532-2 #### QUAN PEDRAZA ([id number]) [facility] ([facility]) [address] [place], [place] [id number] [place] D Ag Ql (Bld) Negative Normal [facility] Comment on above: Order Comment: Speci men for compatibility testing requires full first and last name, MRN, , date, time of collection, and dry cans back tender/telephone coin box collector's signature on tube(s) or it will be rejected. Please collect 1 lavender top-KEDTA OR 1 pink top-KEDTA and sign, date and time with the patient's full first and last name, MRN and . Review your Rh Negative female patient's potential need for Rh Immune Globulin (RhIg)administration. Performed By: #### 3 4532-2 #### QUAN PEDRAZA ([id number]) [facility] ([facility]) [address] [place] [address] HCG, Beta Quantitativeon HCG.beta subunit Qn m[IU]/mL [place] [address] [place] Work Phone: Comment on above: .Total HCG measureme nt is performed using the [employer] AccessImmunoassay which detects intact HCG and free beta HCG subunit. .This test is not indicated for use as a tumor marker.HCG testing is performed using a different test methodology at [facility] than other [facility]. Direct result comparisonshould only be made within the same method. REF VALUESNON FEMALE <5MALES <5 HCG,BETA-QUANTITATIVEon 04- HCG,BETA-QUANTITATI VE <2 Normal [facility] Comment on above: Result Comment: . Total HCG measurement is performed using the [employer] [place] Access Immunoassay which detects intact HCG and free beta HCG subunit. . This test is not indicated for use as a tumor marker. HCG testing is performed using a different test methodology at [facility] than other [facility]. Direct result comparison should only be made within the same method. REF VALUES NON FEMALE <5 MALES <5 Performed By: #### H CGQU #### [place] [address] HCG, Beta Quantitativeon HCG.beta subunit Qn 5 m[IU]/mL Abnormal [facility] [address] [place] Work Phone: Comment on above: .Total HCG measureme nt is performed using the [employer] [place] AccessImmunoassay which detects intact HCG and free beta HCG subunit. .This test is not indicated for use as a tumor marker.HCG testing is performed using a different test methodology at [facility] than other [facility]. Direct result comparisonshould only be made within the same method. REF VALUESNON FEMALE <5MALES <5.Low-level positive HCG results can be seen in early , in bee- or post-menopausal females due to normal pituitary HCGproduction, or with analytic interference. Repeat testing in 48-72hours can aid in assessing for as results should doublein this time period. FSH measurement is recommended in bee- orpost-menopausal females as concurrent elevation of FSH can supportpituitary production as the source of the HCG elevation. HCG,BETA-QUANTITATIVEon 07-04 HCG,BETA-QUANTITATI VE 5 mIU/mL Abnormal [facility] Comment on above: Result Comment: . Total HCG measurement is performed using the [employer] [place] Access Immunoassay which detects intact HCG and free beta HCG subunit. . This test is not indicated for use as a tumor marker. HCG testing is performed using a different test methodology at [facility] than other [facility]. Direct result comparison should only be made within the same method. REF VALUES NON FEMALE <5 MALES <5 . Low-level positive HCG results can be seen in early , in bee- or post-menopausal females due to normal pituitary HCG production, or with analytic interference. Repeat testing in 48-72 hours can aid in assessing for as results should double in this time period. FSH measurement is recommended in bee- or post-menopausal females as concurrent elevation of FSH can support pituitary production as the source of the HCG elevation. Performed By: #### H QU #### [address] [address] KILN TENDER - Office Visiton 06-04 KILN TENDER - Office Visit Provider Impressions Grecia and her were here to discuss the results of her blood work. Her quantitative hCGs have started falling from 21,000-19,000 consistent with a nonviable and the ultrasound also showed a gestational sac but no pole. I discussed the significance of this. This is consistent with a blighted ovum. Discussed with the patient the option of expectant management versus scheduling a dilation and evacuation. Discussed the risk of expectant management as well as the risk of surgery. Patient desires expectant management for the time being. Patient advised that if she does not pass the products of conception within the next 2 to 3 weeks to contact our office. Additionally if she believes she has miscarried to please call us and we will follow her quantitative hCGs until they go back down to non levels. Bleeding precautions were given to patient and she and her verbalized understanding Chief Complaint Patient here for miscarriage follow up. She is still bleeding. A little bit more now but still not wearing a pad. She notes no cramping. History of Present IllnessGrecia is a 26-year-old who comes in to discuss results of blood work done. Patient was here earlier this week with some brown discharge to confirm her . However on ultrasound here no acute pole was identified. Subsequently we have been watching her hCGs Active Problems Problems Positive urine test (V72.42) (Z32.01) (V22.2) (Z34.90) of unknown anatomic location (V23.87) (O36.80X0) Vaginal spotting (623.8) (N93.9) Past Medical History Problems History of Menstruation AGE 12 Surgical History Problems No history of surgery Family History Grandparent Family history of diabetes mellitus (V18.0) (Z83.3) Grandfather Family history of hypertension (V17.49) (Z82.49) Social History Problems Does not use illicit drugs (V49.89) (Z78.9) Non-smoker (V49.89) (Z78.9) Rarely consumes alcohol (V49.89) (Z78.9) Sexually active Allergies Medication No Known Drug Allergies Recorded By: Yani Joseph; 06/23/2022 10:39:14 AM Current Meds Medication NameInstruction PNV Plus Multivitamin TABS Vitals Vital Signs Recorded: 26Jun2022 08:40AM Kqalzuwe825 Pwwfgkrfm61 Height5 ft 6 in Dughju509 lb BMI Jeeonidhwp83.87 kg/m2 BSA Calculated2.19 Physical Exam Constitutional: Healthy-appearing in no distress. Head and Face: No obvious lesions. Pulmonary: Breathing comfortably. Musculoskeletal: Good mobility. Psychiatric: Appropriately oriented with normal mood and affect. Signatures Electronically signed by : Irina Handley MD; Jun 26 2022 8:49AM EST (Author) Normal Touchworks HCG, Beta Quantitativeon HCG.beta subunit Qn m[IU]/mL Abnormal [facility] [address] Work Phone: Comment on above: .Total HCG measureme nt is performed using the [employer] AccessImmunoassay which detects intact HCG and free beta HCG subunit. .This test is not indicated for use as a tumor marker.HCG testing is performed using a different test methodology at [facility] than other [facility]. Direct result comparisonshould only be made within the same method. REF VALUESNON FEMALE <5MALES <5.Low-level positive HCG results can be seen in early , in bee- or post-menopausal females due to normal pituitary HCGproduction, or with analytic interference. Repeat testing in 48-72hours can aid in assessing for as results should doublein this time period. FSH measurement is recommended in bee- orpost-menopausal females as concurrent elevation of FSH can supportpituitary production as the source of the HCG elevation. HCG,BETA-QUANTITATIVEon 06-04 HCG,BETA-QUANTITATI VE mIU/mL Abnormal [facility] Comment on above: Result Comment: . Total HCG measurement is performed using the [employer] Access Immunoassay which detects intact HCG and free beta HCG subunit. . This test is not indicated for use as a tumor marker. HCG testing is performed using a different test methodology at [facility] than other [facility]. Direct result comparison should only be made within the same method. REF VALUES NON FEMALE <5 MALES <5 . Low-level positive HCG results can be seen in early , in bee- or post-menopausal females due to normal pituitary HCG production, or with analytic interference. Repeat testing in 48-72 hours can aid in assessing for as results should double in this time period. FSH measurement is recommended in bee- or post-menopausal females as concurrent elevation of FSH can support pituitary production as the source of the HCG elevation. Performed By: #### H CGQU #### [facility] [address] [place] [address] No Panel Informationon 06-24 Normal [facility] [address] Work Phone: KILN TENDER - Office Visiton 06-04 KILN TENDER - Office Visit Diagnoses/Problems Assessed of unknown anatomic location (V23.87) (O36.80X0) Orders Administered: RhoGAM Ultra-Filtered Plus 1500 UNIT Intramuscular Solution Prefilled Syringe HCG, Beta Quantitative; Status:Active; Requested for:24Jun2022; Provider Impressions The second is a 26-year-old who comes in for follow-up of questionable viability of . By today's ultrasound there was a approximately a 5-week gestational sac but no clear intrauterine . Patient may be extremely early versus a blighted ovum. Discussed the significance of these 2 with the patient we will repeat the quantitative hCG and 24 hours. If rising appropriately we will repeated again in 48 hours. If not rising appropriately we will call patient and discussed the options which were previously mentioned today of expectant management versus a dilation and evacuation. Bleeding precautions and ectopic precautions were also reviewed with patient and patient did receive RhoGAM today. Also discussed the significance of Rh- blood type and the protection provided by RhoGAM Chief Complaint PT HERE TODAY FOR U/S RESULTS AND RHOGAM. PT HAS NO CONCERNS OFFICE SUPPLY [facility] [place] [phone] LOT [id number] EXP 09/13/2023 RIGHT DELTOID History of Present IllnessLoDominick is a 26-year-old who comes in for follow-up after an ultrasound that was done today for questionable patient of . Patient was here yesterday and had an ultrasound that did not reveal anything within the uterus other than a sac. She was to be approximately 8 weeks gestation. She had been having some small amount of bleeding for approximately a week. Active Problems Problems Positive urine test (V72.42) (Z32.01) (V22.2) (Z34.90) of unknown anatomic location (V23.87) (O36.80X0) Vaginal spotting (623.8) (N93.9) Past Medical History Problems History of Menstruation AGE 12 Surgical History Problems No history of surgery Family History Grandparent Family history of diabetes mellitus (V18.0) (Z83.3) Grandfather Family history of hypertension (V17.49) (Z82.49) Social History Problems Does not use illicit drugs (V49.89) (Z78.9) Non-smoker (V49.89) (Z78.9) Rarely consumes alcohol (V49.89) (Z78.9) Sexually active Allergies Medication No Known Drug Allergies Recorded By: Yani Joseph; 06/23/2022 10:39:14 AM Current Meds Medication NameInstruction PNV Plus Multivitamin TABS Vitals Vital Signs Recorded: 24Jun2022 10:15AM Hkymzqcz582 Qpxbzksou92 Height5 ft 6 in Smqvnn621 lb 5.79 oz BMI Bczlrimsic02.77 kg/m2 BSA Calculated2.19 Physical Exam Constitutional: Healthy-appearing in no acute distress. Head and Face: No obvious lesions. Pulmonary: Breathing comfortably. Musculoskeletal: Good mobility. Psychiatric: Appropriately oriented with normal mood and affect. Signatures Electronically signed by : Irina Handley MD; Jun 24 2022 10:32AM EST (Author) Normal [employer] US PELVIS OB TRANSABDOMINAL W TRANSVAGINAL UP TO 1st TRIMESTERon 06-24-2022 US PELVIS OB TRANSABDOMINAL W TRANSVAGINAL UP TO 1st TRIMESTER Patient Name: GRECIA LOCKETT STUDY: US PELVIS OB TRANSABDOMINAL WITH TRANSVAGINAL 06/24/2022 9:47 am INDICATION: unknown location O36.80X0: of unknown anatomic location. COMPARISON: None. ACCESSION NUMBER(S): [id number] ORDERING CLINICIAN: IRINA HANDLEY TECHNIQUE: Multiple grayscale ultrasonographic images were obtained through the pelvis utilizing transabdominal and endovaginal imaging. FINDINGS: UTERUS AND GESTATIONAL SAC: There is a single intrauterine gestational sac identified. Within the gestational sac, no yolk sac or pole are visualized. The mean gestational sac diameter measures 1.6 cm. This corresponds to a gestational age of 5 weeks, 6 days + / -7 days. The estimated gestational age by last menstrual period was 9 weeks, 0 days, which is discordant with ultrasound dating. No cardiac motion is identified. The uterus measures at 8.6 cm in length and 5.8 x 6.0 cm in AP and in transverse diameters. The cervix is closed. ADNEXA/OVARIES: No discrete adnexal mass seen. RIGHT OVARY: Right ovary: A cyst is seen in the right ovary, measuring up to 4.4 x 4.7 x 4.1 cm Right ovary size: 6.2 x 6.7 x 5.6 cm LEFT OVARY: Left ovary: Grossly unremarkable in appearance. Left ovary size: 3.0 x 2.3 x 4.1 cm FREE FLUID: None. IMPRESSION: 1. Single intrauterine gestational sac. No pole or yolk sac is seen, though this may be secondary to early gestational age. Correlation with serial beta HCG levels and, if necessary, repeat ultrasound in 1-2 weeks is recommended. 2. Estimated gestational age: 5 weeks 6 days + / -7 days. Electronically signed by: MAXIME SANTIAGO MD [facility] Cult, Genitalon 06-23-2022 Bacteria identified Aer cx Nom (Genital specimen) [facility] [employer] Work Phone: GENITAL CULTURE, BACT.on GENITAL CULTURE, BACT. PATIENT: GRECIA LOCKETT LOCATION: [facility] BILL#: [id number] : 89 AGE: SEX: F ORDERED BY: IRINA HANDLEY SOURCE: GENITAL COLLECTED: 06/23/22 11:35 ANTIBIOTICS AT ANA CRISTINA.: RECEIVED : 06/23/22 17:49 SITE: Vaginal R E S U L T S GENITAL CULTURE, BACT. FINAL 06/27/22 09:32 NO PATHOGENS Culture examined for Group A Streptococcus, Group B Streptococcus, Neisseria gonorrhoeae and Yeast ONLY. NO Neisseria gonorrhoeae ISOLATED. Normal [facility] Comment on above: Performed By: #### G ENLO #### [facility] [address] [place] [address] HCG, [place] [address] m[IU]/mL Abnormal [facility] [employer] [address] Work Phone: Comment on above: .Total HCG measureme nt is performed using the [employer] AccessImmunoassay which detects intact HCG and free beta HCG subunit. .This test is not indicated for use as a tumor marker.HCG testing is performed using a different test methodology at [facility] than other [facility]. Direct result comparisonshould only be made within the same method. REF VALUESNON FEMALE <5MALES <5.Low-level positive HCG results can be seen in early , in bee- or post-menopausal females due to normal pituitary HCGproduction, or with analytic interference. Repeat testing in 48-72hours can aid in assessing for as results should doublein this time period. FSH measurement is recommended in bee- orpost-menopausal females as concurrent elevation of FSH can supportpituitary production as the source of the HCG elevation. HCG,BETA-QUANTITATIVEon 06-04 H[place] [address] mIU/mL Abnormal [facility] Comment on above: Result Comment: . Total HCG measurement is performed using the [employer] Access Immunoassay which detects intact HCG and free beta HCG subunit. . This test is not indicated for use as a tumor marker. HCG testing is performed using a different test methodology at [facility] than other [facility]. Direct result comparison should only be made within the same method. REF VALUES NON FEMALE <5 MALES <5 . Low-level positive HCG results can be seen in early , in bee- or post-menopausal females due to normal pituitary HCG production, or with analytic interference. Repeat testing in 48-72 hours can aid in assessing for as results should double in this time period. FSH measurement is recommended in bee- or post-menopausal females as concurrent elevation of FSH can support pituitary production as the source of the HCG elevation. Performed By: #### H CGQU #### [place] [id number] [place] [address] IO HCG, Urine Test on 06-23-2022 HCG ( test) Ql (U) Positive [facility] [employer] [address] Work Phone: Laboratory - Blood bankon ABO group Nom (Bld) A [facility] [address] Work Phone: ABO group Nom (Bld) Canceled [facility] [address] Work Phone: Blood group antibody screen Ql Negative [facility] Work Phone: Blood group antibody screen Ql Canceled [facility] Work Phone: Rh immune globulin screen (Bld) [Interp] Negative [facility] Work Phone: Comment on above: Review your Rh Negat lidya female patient's potential need for Rh Immune Globulin (RhIg)administration. Rh immune globulin screen (Bld) [Interp] Canceled [facility] Work Phone: KILN TENDER - Office Visiton 06-04 KILN TENDER - Office Visit Diagnoses/Problems Assessed (V22.2) (Z34.90) Vaginal spotting (623.8) (N93.9) Orders HCG, Beta Quantitative; Status:Active; Requested for:23Jun2022; Type and Screen; Status:Active; Requested for:23Jun2022; Tobacco Use Screening; Status:Complete; Done: 23Jun2022 Cult, Genital; Status:In Progress - Specimen/Data Collected,Retrospective Authorization; Done: 23Jun2022 Site : Vaginal Provider Impressions Patient is a 26-year-old who comes in for confirmation of . was confirmed however nothing was seen within the endometrial cavity. Unclear significance discussed with patient this may just be a very early IUP we will get a quantitative hCG stat and call her with plans for follow-up Chief Complaint New patient here today for amenorrhea. She states her LMP 04/22/2022 and her periods come regular. She has nausea, no breast tenderness, Some spotting when she wipes for the past week. History of Present IllnessJessica is a 26-year-old 1 para 0 who comes in for confirmation of . This is the patient's first . Patient reports that for about a week she has been having some brown spotting discharge. Patient reports she has been sexually active with her partner and the bleeding started before hand. Patient is taking vitamins and has no additional concerns today Active Problems Problems (V22.2) (Z34.90) Past Medical History Problems History of Menstruation AGE 12 Surgical History Problems No history of surgery Family History Grandparent Family history of diabetes mellitus (V18.0) (Z83.3) Grandfather Family history of hypertension (V17.49) (Z82.49) Social History Problems Does not use illicit drugs (V49.89) (Z78.9) Non-smoker (V49.89) (Z78.9) Rarely consumes alcohol (V49.89) (Z78.9) Sexually active Allergies Medication No Known Drug Allergies Recorded By: Yani Joseph; 06/23/2022 10:39:14 AM Current Meds Medication NameInstruction PNV Plus Multivitamin TABS Vitals Vital Signs Recorded: 23Jun2022 11:16AM Bcyfgvnl549 Xssqfloka36 Height5 ft 6 in Tjszuf380 lb BMI Qrgvjqlhsg42.54 kg/m2 BSA Calculated2.18 Physical Exam Constitutional: Healthy-appearing in no distress. Head and Face: No obvious lesions. Neck: Good range of motion. Pulmonary: breathing comfortably. External genitalia no lesions, scant brown discharge her cervix was nonfriable healthy appearing Musculoskeletal: Good mobility. Psychiatric: Appropriately oriented with normal mood and affect. Transvaginal ultrasound revealed a uterus empty uterus with no gestational sac or pole identified Signatures Electronically signed by : Irina Handley MD; Jun 23 2022 11:38AM EST (Author) Normal [facility]works TYPE + SCREENon 06-23-2022 ABO TYPE A Normal [facility] Comment on above: Performed By: #### T +S #### [place] [address] RH TYPE Negative Normal [facility] Comment on above: Result Comment: Revi ew your Rh Negative female patient's potential need for Rh Immune Globulin (RhIg)administration. Performed By: #### T +S #### [place] [id number] ABO TYPE Canceled Normal [facility] Comment on above: Order Comment: TEST TYPE + SCREEN WAS CANCELLED, 06/23/2022 14:12 MBANK. Performed By: #### T +S #### [facility] [address] [place] [address] RH TYPE Canceled Normal [facility] Comment on above: Order Comment: TEST TYPE + SCREEN WAS CANCELLED, 06/23/2022 14:12 MBANK. Performed By: #### T +S #### [facility] [address] [place] [address] Vital Signs Date Time Vital Sign Value Performing Clinician Facility 12-05-2024 09:33-0400 Body mass index (BMI) [Ratio] 43.58 kg/m2 Grecia Shepherd [employer]OE[employer]ANT ELECTRICAL ENGINEER.CNM Work Phone: [facility] 12-05-2024 09:33-0400 Body weight 122.47 kg Grecia Shepherd [employer] ELECTRICAL ENGINEER.CNM Work Phone: [facility] 12-05-2024 09:33-0400 Diastolic blood pressure 80 mm[Hg] Grecia Shepherd [employer] ELECTRICAL ENGINEER.CNM Work Phone: [facility] 12-05-2024 09:33-0400 Systolic blood pressure 124 mm[Hg] Grecia Shepherd [employer] ELECTRICAL ENGINEER.CNM Work Phone: [facility] 11-24-2024 09:14-0400 Body mass index (BMI) [Ratio] 42.93 kg/m2 Darleen Wu [employer] ELECTRICAL ENGINEER.CNM Work Phone: [facility] 11-24-2024 09:14-0400 Body weight 120.66 kg Darleen Wu [employer] ELECTRICAL ENGINEER.CNM Work Phone: [facility] 11-24-2024 09:14-0400 Diastolic blood pressure 70 mm[Hg] Darleen Vizcainots [employer]OELECT[employer]IC PLANT ELECTRICAL ENGINEER.CNM Work Phone: [facility] 11-24-2024 09:14-0400 Systolic blood pressure 144 mm[Hg] Darleen Vizcainots HY[employer]OELECT[employer]IC [employer]ANT ELECTRICAL ENGINEER.CNM Work Phone: [facility] 10-26-2024 08:36-0400 Body mass index (BMI) [Ratio] 41.48 kg/m2 Jonnie Hopson [employer] ELECTRICAL ENGINEER.PROVIDER SERVICE REPRESENTATIVE Work Phone: [facility] 10-26-2024 08:36-0400 Body weight 116.57 kg Jonnie Hopson HY[employer] PLANT ELECTRICAL ENGINEER.PROVIDER SERVICE REPRESENTATIVE Work Phone: [facility] 10-26-2024 08:36-0400 Diastolic blood pressure 68 mm[Hg] Jonnie Haury HYDROELECT[employer]IC PLANT ELECTRICAL ENGINEER.PROVIDER SERVICE REPRESENTATIVE Work Phone: [facility] 10-26-2024 08:36-0400 Systolic blood pressure 120 mm[Hg] Jonnie Haury HYDROELECTRIC PLANT ELECTRICAL ENGINEER.PROVIDER SERVICE REPRESENTATIVE Work Phone: [facility] 09-29-2024 10:40-0400 Body mass index (BMI) [Ratio] 40.19 kg/m2 Darleen Plotts HY[employer]IC PLANT ELECTRICAL ENGINEER.CNM Work Phone: [facility] 09-29-2024 10:40-0400 Body weight 112.95 kg Darleen Plotts HYDROELECTRIC PLANT ELECTRICAL ENGINEER.CNM Work Phone: [facility] 09-29-2024 10:40-0400 Diastolic blood pressure 76 mm[Hg] Darleen Plotts HYDROELECTRIC PLANT ELECTRICAL ENGINEER.CNM Work Phone: [facility] 09-29-2024 10:40-0400 Systolic blood pressure 116 mm[Hg] Darleen Plotts HYDROELECTRIC PLANT ELECTRICAL ENGINEER.CNM Work Phone: [facility] 09-01-2024 08:33-0400 Body mass index (BMI) [Ratio] 39.54 kg/m2 Jonnie Haury HYDROE[employer]IC PLANT ELECTRICAL ENGINEER.PROVIDER SERVICE REPRESENTATIVE Work Phone: [facility] 09-01-2024 08:33-0400 Body weight 111.13 kg Jonnie Haury HYDROE[employer]IC PLANT ELECTRICAL ENGINEER.PROVIDER SERVICE REPRESENTATIVE Work Phone: [facility] 09-01-2024 08:33-0400 Diastolic blood pressure 84 mm[Hg] Jonnie Haury HYDROELECTRIC PLANT ELECTRICAL ENGINEER.PROVIDER SERVICE REPRESENTATIVE Work Phone: [facility] 09-01-2024 08:33-0400 Systolic blood pressure 130 mm[Hg] Jonnie Haury HYDROELECTRIC PLANT ELECTRICAL ENGINEER.PROVIDER SERVICE REPRESENTATIVE Work Phone: [facility] 08-09-2024 08:38-0400 Body mass index (BMI) [Ratio] 39.54 kg/m2 Jonnie Haury HYDROE[employer]IC PLANT ELECTRICAL ENGINEER.PROVIDER SERVICE REPRESENTATIVE Work Phone: [facility] 08-09-2024 08:38-0400 Body weight 111.13 kg Jonnie Haury HYDROELECT[employer]IC PLANT ELECTRICAL ENGINEER.PROVIDER SERVICE REPRESENTATIVE Work Phone: [facility] 08-09-2024 08:38-0400 Diastolic blood pressure 72 mm[Hg] Jonnie Haury HYDROELECTRIC PLANT ELECTRICAL ENGINEER.PROVIDER SERVICE REPRESENTATIVE Work Phone: [facility] 08-09-2024 08:38-0400 Systolic blood pressure 120 mm[Hg] Jonnie Haury HYDROELECTRIC PLANT ELECTRICAL ENGINEER.PROVIDER SERVICE REPRESENTATIVE Work Phone: [facility] 07-18-2024 08:22-0400 Body mass index (BMI) [Ratio] 39.61 kg/m2 Tara Khadar HYDROELECTRIC PLANT ELECTRICAL ENGINEER.PROVIDER SERVICE REPRESENTATIVE Work Phone: [facility] 07-18-2024 08:22-0400 Body weight 111.31 kg Tara Hamburg HYDROELECTRIC PLANT ELECTRICAL ENGINEER.PROVIDER SERVICE REPRESENTATIVE Work Phone: [facility] 07-18-2024 08:22-0400 Diastolic blood pressure 70 mm[Hg] Tara Khadar HYDROELECTRIC PLANT ELECTRICAL ENGINEER.PROVIDER SERVICE REPRESENTATIVE Work Phone: [facility] 07-18-2024 08:22-0400 Systolic blood pressure 124 mm[Hg] Tara Khadar HYDROELECTRIC PLANT ELECTRICAL ENGINEER.PROVIDER SERVICE REPRESENTATIVE Work Phone: [facility] 10-06-2023 10:11-0400 Body mass index (BMI) [Ratio] 41.09 kg/m2 Elicia Gaming MD Work Phone: [facility] 10-06-2023 10:11-0400 Body weight 115.49 kg Elicia Gaming MD Work Phone: [facility] 10-06-2023 10:11-0400 Diastolic blood pressure 76 mm[Hg] Elicia Gaming MD Work Phone: [facility] 10-06-2023 10:11-0400 Systolic blood pressure 120 mm[Hg] Elicia Gaming MD Work Phone: [facility] 09-01-2023 14:40-0400 Body mass index (BMI) [Ratio] 41.48 kg/m2 Elicia Gaming MD Work Phone: [facility] 09-01-2023 14:40-0400 Body weight 116.57 kg Elicia Gaming MD Work Phone: [facility] 09-01-2023 14:40-0400 Diastolic blood pressure 86 mm[Hg] Elicia Gaming MD Work Phone: [facility] 09-01-2023 14:40-0400 Systolic blood pressure 131 mm[Hg] Elicia Gaming MD Work Phone: [facility] 08-25-2023 08:58-0400 Body mass index (BMI) [Ratio] 43.9 kg/m2 Elicia Gaming MD Work Phone: [facility] 08-25-2023 08:58-0400 Body weight 123.38 kg Elicia Gaming MD Work Phone: [facility] 08-25-2023 08:58-0400 Diastolic blood pressure 90 mm[Hg] Elicia Gaming MD Work Phone: [facility] Comment on above: Simultaneous filing. User may not have s een previous data. 08-25-2023 08:58-0400 Systolic blood pressure 135 mm[Hg] Elicia Gaming MD Work Phone: [facility] Comment on above: Simultaneous filing. User may not have s een previous data. 08-20-2023 11:07-0400 Body mass index (BMI) [Ratio] 43.26 kg/m2 Elicia Gaming MD Work Phone: [facility] 08-20-2023 11:07-0400 Body weight 121.56 kg Elicia Gaming MD Work Phone: [facility] 08-20-2023 11:07-0400 Diastolic blood pressure 84 mm[Hg] Elicia Gaming MD Work Phone: [facility] 08-20-2023 11:07-0400 Systolic blood pressure 142 mm[Hg] Elicia Gaming MD Work Phone: [facility] 08-17-2023 13:45-0400 Diastolic blood pressure 85 mm[Hg] Gianni Nascimento MD Work Phone: [facility] Comment on above: truBP average 08-17-2023 13:45-0400 Systolic blood pressure 133 mm[Hg] Gianni Nascimento MD Work Phone: [facility] Comment on above: truBP average 08-17-2023 13:33-0400 Body mass index (BMI) [Ratio] 42.87 kg/m2 Gianni Nascimento MD Work Phone: [facility] 08-17-2023 13:33-0400 Body weight 120.47 kg Gianni Nascimento MD Work Phone: [facility] 08-12-2023 14:09-0400 Body mass index (BMI) [Ratio] 42.77 kg/m2 Gianni Nascimento MD Work Phone: [facility] 08-12-2023 14:09-0400 Body weight 120.2 kg Gianni Nascimento MD Work Phone: [facility] 08-12-2023 14:09-0400 Diastolic blood pressure 84 mm[Hg] Gianni Nascimento MD Work Phone: [facility] 08-12-2023 14:09-0400 Systolic blood pressure 136 mm[Hg] Gianni Nascimento MD Work Phone: [facility] 07-29-2023 13:38-0400 Body mass index (BMI) [Ratio] 41.48 kg/m2 Gianni Nascimento MD Work Phone: [facility] 07-29-2023 13:38-0400 Body weight 116.57 kg Gianni Nascimento MD Work Phone: [facility] 07-29-2023 13:38-0400 Diastolic blood pressure 84 mm[Hg] Gianni Nascimento MD Work Phone: [facility] 07-29-2023 13:38-0400 Systolic blood pressure 134 mm[Hg] Gianni Nascimento MD Work Phone: [facility] 07-15-2023 14:35-0400 Diastolic blood pressure 83 mm[Hg] Gianni Nascimento MD Work Phone: [facility] 07-15-2023 14:35-0400 Systolic blood pressure 126 mm[Hg] Gianni Nascimento MD Work Phone: [facility] 07-15-2023 13:54-0400 Body weight 117.94 kg Gianni Nascimento MD Work Phone: [facility] 06-17-2023 09:40-0400 Body weight 115.21 kg Gianni Nascimento MD Work Phone: [facility] 06-17-2023 09:40-0400 Diastolic blood pressure 84 mm[Hg] Gianni Nascimento MD Work Phone: [facility] 06-17-2023 09:40-0400 Systolic blood pressure 128 mm[Hg] Gianni Nascimento MD Work Phone: [facility] 05-20-2023 10:00-0500 Body height 167.6 cm Jonnie Haury HYDROELECTRIC PLANT ELECTRICAL ENGINEER.PROVIDER SERVICE REPRESENTATIVE Work Phone: [facility] 05-20-2023 10:00-0500 Body weight 114.49 kg Jonnie Haury HYDROELECTRIC PLANT ELECTRICAL ENGINEER.PROVIDER SERVICE REPRESENTATIVE Work Phone: [facility] 05-20-2023 10:00-0500 Diastolic blood pressure 86 mm[Hg] Jonnie Haury HYDROELECTRIC PLANT ELECTRICAL ENGINEER.PROVIDER SERVICE REPRESENTATIVE Work Phone: [facility] 05-20-2023 10:00-0500 Systolic blood pressure 120 mm[Hg] Jonnie Haury HYDROELECTRIC PLANT ELECTRICAL ENGINEER.PROVIDER SERVICE REPRESENTATIVE Work Phone: [facility] 06-26-2022 08:40-0400 Body height 167.64 cm No PCP None [facility] [address] Work Phone: 06-26-2022 08:40-0400 Body mass index (BMI) [Ratio] 39.87 kg/m2 No PCP None [facility] [address] Work Phone: 06-26-2022 08:40-0400 Body surface area Derived from formula 2.19 m2 No PCP None [facility] [address] Work Phone: 06-26-2022 08:40-0400 Body weight 112.04 kg No PCP None [facility] [place] Work Phone: 06-26-2022 08:40-0400 Diastolic blood pressure 82 mm[Hg] No PCP None [facility] [place] Work Phone: 06-26-2022 08:40-0400 Systolic blood pressure 132 mm[Hg] No PCP None [facility] [place] Work Phone: 06-24-2022 10:15-0400 Body height 167.64 cm No PCP None [facility] [place] Work Phone: 06-24-2022 10:15-0400 Body mass index (BMI) [Ratio] 39.77 kg/m2 No PCP None [facility] [place] Work Phone: 06-24-2022 10:15-0400 Body surface area Derived from formula 2.19 m2 No PCP None [facility] [place] Work Phone: 06-24-2022 10:15-0400 Body weight 111.75 kg No PCP None [facility] [place] Work Phone: 06-24-2022 10:15-0400 Diastolic blood pressure 90 mm[Hg] No PCP None [facility] [place] Work Phone: 06-24-2022 10:15-0400 Systolic blood pressure 136 mm[Hg] No PCP None [facility] [place] Work Phone: 06-23-2022 11:16-0400 Body height 167.64 cm No PCP None [facility] [place] Work Phone: 06-23-2022 11:16-0400 Body mass index (BMI) [Ratio] 39.54 kg/m2 No PCP None [facility] [place] Work Phone: 06-23-2022 11:16-0400 Body surface area Derived from formula 2.18 m2 No PCP None [facility] [address] Work Phone: 06-23-2022 11:16-0400 Body weight 111.13 kg No PCP None [facility] [address] Work Phone: 06-23-2022 11:16-0400 Diastolic blood pressure 72 mm[Hg] No PCP None [facility] [address] Work Phone: 06-23-2022 11:16-0400 Systolic blood pressure 118 mm[Hg] No PCP None [facility] [address] Work Phone: Encounters Encounter Date Encounter Type Care Provider Facility Start: 01-18-2025 End: 01-18-2025 ambulatory ELENITA CANO Facility:[facility] Start: 01-18-2025 End: 01-18-2025 ambulatory GRECIA SHEPHERD Facility:[facility] Start: 01-16-2025 End: 01-16-2025 ambulatory GIANNI NASCIMENTO Facility:[facility] Start: 01-15-2025 End: 01-15-2025 ambulatory GRECIA SHEPHERD Facility:[facility] Start: 01-12-2025 End: 01-12-2025 ambulatory ELENITA CANO Facility:[facility] Start: 01-12-2025 End: 01-12-2025 ambulatory GRECIA SHEPHERD Facility:[facility] Start: 01-10-2025 End: 01-10-2025 ambulatory ELICIA GAMING Facility:[facility] Start: 01-05-2025 End: 01-05-2025 ambulatory GRECIALAKEISHA SHEPHERD Facility:[facility] Start: 01-02-2025 End: 01-02-2025 ambulatory GRECIA SHEPHERD Facility:[facility] Start: 01-02-2025 End: 01-02-2025 ambulatory GRECIA SHEPHERD Facility:[facility] Start: 12-27-2024 End: 12-27-2024 ambulatory ELENITA CANO Facility:[facility] Start: 12-22-2024 End: 12-22-2024 ambulatory GRECIA SHEPHERD Facility:[facility] Start: 12-22-2024 End: 12-22-2024 ambulatory GRECIA SHEPHERD Facility:[facility] Start: 12-05-2024 End: 12-05-2024 Patient encounter procedure Grecia Shepherd HYDROELECTRIC PLANT ELECTRICAL ENGINEER.CATRACHITAM Work Phone: OB/Gynecology Comment on above: Supervision of high risk in third trimester (HCC) (Primary Dx); 30 weeks gestation of (HCC); History of pre-eclampsia; Short interval between pregnancies affecting , antepartum (HCC); Obesity affecting , antepartum, unspecified obesity type (HCC); Rh negative state in antepartum period (HCC); Uterine size-date discrepancy, third trimester (HCC) Start: 12-05-2024 End: 12-05-2024 [facility] GRECIA DAI Facility:[facility] Start: 11-24-2024 End: 11-24-2024 Patient encounter procedure Darleen Wu HYDROELECTRIC PLANT ELECTRICAL ENGINEER.CNM Work Phone: OB/Gynecology Comment on above: Supervision of high risk in third trimester (HCC) (Primary Dx); 28 weeks gestation of (HCC); History of vacuum extraction assisted delivery; History of pre-eclampsia; Short interval between pregnancies affecting , antepartum (HCC); Obesity affecting , antepartum, unspecified obesity type (HCC); Need for vaccination; Rh negative state in antepartum period (HCC); Supervision of high risk in second trimester (HCC) Start: 11-24-2024 End: 11-24-2024 [facility] JONNIE HOPSON Facility:[facility] Start: 10-26-2024 End: 10-26-2024 Patient encounter procedure Jonnie Hopson HYDROELECTRIC PLANT ELECTRICAL ENGINEER.PROVIDER SERVICE REPRESENTATIVE Work Phone: OB/Gynecology Comment on above: Supervision of high risk in second trimester (HCC) (Primary Dx); 24 weeks gestation of (HCC); History of vacuum extraction assisted delivery; History of pre-eclampsia; Short interval between pregnancies affecting , antepartum (HCC); Obesity affecting , antepartum, unspecified obesity type (HCC); History of gestational hypertension Start: 10-26-2024 End: 10-26-2024 [facility] JONNIE HOPSON Facility:[facility] Start: 09-29-2024 End: 09-29-2024 Patient encounter procedure Darleen Wu APRN.CNM Work Phone: OB/Gynecology Comment on above: 20 weeks gestation o f (HCC) (Primary Dx); Supervision of high risk in second trimester (HCC); History of vacuum extraction assisted delivery; History of pre-eclampsia; Short interval between pregnancies affecting , antepartum (HCC); Obesity affecting , antepartum, unspecified obesity type (HCC) Encounter for anatomic survey (HCC) (Primary Dx); 20 weeks gestation of (HCC); Obesity affecting in second trimester, unspecified obesity type (HCC) Start: 09-29-2024 End: 09-29-2024 [facility] Start: 09-01-2024 End: 09-01-2024 Patient encounter procedure Jonnie Hopson APRN.CNP Work Phone: OB/Gynecology Comment on above: Supervision of high risk in second trimester (HCC) (Primary Dx); 16 weeks gestation of (HCC); History of vacuum extraction assisted delivery; History of pre-eclampsia; Short interval between pregnancies affecting , antepartum (HCC); Obesity affecting , antepartum, unspecified obesity type (HCC); History of gestational hypertension Start: 09-01-2024 End: 09-01-2024 [facility] Start: 08-09-2024 End: 08-09-2024 Patient encounter procedure Jonnie Hopson APRN.CNP Work Phone: OB/Gynecology Comment on above: Supervision of high risk in second trimester (HCC) (Primary Dx); 13 weeks gestation of (HCC); Short interval between pregnancies affecting , antepartum (HCC); Obesity affecting , antepartum, unspecified obesity type (HCC); History of vacuum extraction assisted delivery; History of pre-eclampsia Encounter for antena prudence screening for malformation using ultrasound (HCC) (Primary Dx); 13 weeks gestation of (HCC) Start: 08-09-2024 End: 08-09-2024 [facility] Start: 07-18-2024 End: 09-17-2024 Follow-up encounter Tara Rubalcava APRN.CNP Work Phone: OB/Gynecology Start: 07-18-2024 End: 07-18-2024 ambulatory TARA RUBALCAVA Facility:[facility] Start: 07-18-2024 End: 07-18-2024 Patient encounter procedure Tara Rubalcava BILLY.PROVIDER SERVICE REPRESENTATIVE Work Phone: OB/Gynecology Comment on above: , supervisi on, high-risk, unspecified trimester (HCC) (Primary Dx); Short interval between pregnancies affecting , antepartum (HCC); 10 weeks gestation of (HCC); with uncertain dates, antepartum (HCC); Screen for STD (sexually transmitted disease) Start: 06-27-2024 End: 06-27-2024 Telephone encounter Tara Rubalcava BILLY.PROVIDER SERVICE REPRESENTATIVE Work Phone: OB/Gynecology Comment on above: Patient Question (So keyon appointment?) Start: 10-06-2023 End: 10-06-2023 Patient encounter procedure Elicia Gaming MD Work Phone: OB/Gynecology Comment on above: care and examination (Primary Dx) Start: 09-01-2023 End: 09-01-2023 Patient encounter procedure Elicia Gaming MD Work Phone: OB/Gynecology Comment on above: hypertens ion (Primary Dx) Start: 08-31-2023 End: 08-31-2023 ambulatory Maru Esp[facility] [place] Start: 08-31-2023 Patient encounter procedure [facility] [place] Comment on above: Population Health Na vigation Outreach (Ob.peds/) Start: 08-27-2023 ambulatory Sona corral MD Work Phone: OB/Gynecology Comment on above: Ob Delivery Note Start: 08-26-2023 End: 08-29-2023 Evaluation and management of inpatient Elicia Gaming Facility:[facility] Start: 08-25-2023 End: 08-25-2023 Patient encounter procedure Elicia Gaming MD Work Phone: OB/Gynecology Comment on above: Obesity affecting pr egnancy in third trimester, unspecified obesity type (Primary Dx); Elevated blood pressure reading without diagnosis of hypertension; with care elsewhere in third trimester; 37 weeks gestation of Start: 08-20-2023 End: 08-20-2023 Patient encounter procedure Elicia Gaming MD Work Phone: OB/Gynecology Comment on above: with prena prudence care elsewhere in third trimester (Primary Dx); Obesity affecting in third trimester, unspecified obesity type; Elevated blood pressure reading without diagnosis of hypertension; 37 weeks gestation of ; Gestational hypertension, third trimester Start: 08-18-2023 ambulatory Gianni Abarca Work Phone: OB/Gynecology Comment on above: Being done with work Start: 08-17-2023 End: 08-17-2023 Patient encounter procedure Gianni Nascimento MD Work Phone: OB/Gynecology Comment on above: 36 weeks gestation o f (Primary Dx); Obesity affecting in third trimester, unspecified obesity type; Elevated blood pressure reading without diagnosis of hypertension Start: 08-12-2023 End: 08-12-2023 Patient encounter procedure Gianni Nascimento MD Work Phone: OB/Gynecology Comment on above: 35 weeks gestation o f (Primary Dx); Obesity affecting in third trimester, unspecified obesity type; with care elsewhere in third trimester Start: 07-29-2023 End: 07-29-2023 Patient encounter procedure Gianni Nascimento MD Work Phone: OB/Gynecology Comment on above: 33 weeks gestation o f (Primary Dx); Obesity affecting in third trimester, unspecified obesity type; with care elsewhere in third trimester Start: 07-16-2023 Telephone encounter Gianni byrne MD Work Phone: OB/Gynecology Comment on above: FMLA Paperwork Start: 07-15-2023 End: 07-15-2023 Patient encounter procedure Assignment Clerk [facility] Work Phone: OB/Gynecology Comment on above: Encounter for anatomic survey (Primary Dx); Obesity affecting in third trimester, unspecified obesity type; with care elsewhere in third trimester; 31 weeks gestation of 31 weeks gestation o f (Primary Dx); Obesity affecting in third trimester, unspecified obesity type Start: 06-18-2023 Telephone encounter Jonnie christie APRN.CNP Work Phone: OB/Gynecology Comment on above: Abnormal Glucose Start: 06-17-2023 ambulatory Gianni Abarca Work Phone: OB/Gynecology Comment on above: Glucose screening te st results Start: 06-17-2023 End: 06-17-2023 Patient encounter procedure Gianni Nascimento MD Work Phone: OB/Gynecology Comment on above: 27 weeks gestation o f (Primary Dx); Need for vaccination; Obesity affecting in third trimester, unspecified obesity type; Rh negative state in antepartum period Start: 05-20-2023 Telephone encounter Jonnie christie APRN.CNP Work Phone: OB/Gynecology Comment on above: Records Start: 05-20-2023 End: 05-20-2023 Patient encounter procedure Jonnie Hopson APRN.CNP Work Phone: OB/Gynecology Comment on above: Encounter for superv ision of high risk in second trimester, antepartum (Primary Dx); 23 weeks gestation of ; Rh negative state in antepartum period, second trimester; with care elsewhere in second trimester; Tension headaches; Anxiety during ; Obesity affecting in second trimester, unspecified obesity type; Constipation during in second trimester Start: 04-21-2023 End: 04-21-2023 ambulatory [facility] Start: 04-21-2023 End: 04-21-2023 Subsequent hospital visit by physician [address] Comment on above: 16 weeks gestation o f Start: 04-21-2023 End: 04-21-[address] [facility] Start: 03-31-2023 [facility] Start: 03-02-2023 End: 03-03-2023 [facility] Start: 02-09-2023 End: 02-10-2023 [facility] Start: 07-31-2022 Chart Update No PCP None [address] Work Phone: Start: 07-15-2022 AUDIT No PCP None [facility] [address] Work Phone: Start: 06-29-2022 Chart Update No PCP None [facility] [address] Work Phone: Start: 06-26-2022 FUV, Provider: Irina Handley, Status: Pen, Time: 8:30 AM No PCP None [facility] [address] Work Phone: Start: 06-26-2022 Office outpatient vi sit 25 minutes No PCP None [facility] [address] Work Phone: Start: 06-26-2022 ambulatory MD IRINA HANDLEY Facility:[id number] Start: 06-25-2022 Chart Update No PCP None [facility] [address] Work Phone: Start: 06-24-2022 Office outpatient vi sit 25 minutes No PCP None [facility] [address] Work Phone: Start: 06-24-2022 ambulatory MD IRINA HANDLEY Facility:[id number] Start: 06-24-2022 ambulatory IRINA HANDLEY Facility:[id number] Start: 06-23-2022 ambulatory IRINA HANDLEY Facility:[id number] Start: 06-23-2022 Office outpatient ne w 30 minutes No PCP None [facility] [address] Work Phone: Start: 06-23-2022 ambulatory MD IRINA HANDLEY Facility:[id number] Procedures Date Procedure Procedure Detail Performing Clinician Start: 11-24-2024 Antibody screen CHRISTINE WU Comment on above: Order Comment: Speci men Type: BLOOD SPECIMENOrdering Facility: [facility] Address: [address] [place] [address] Performed By: #### T SPN ####CC MAIN BLOOD BANKCLIA [id number] [facility] [id number] [place] [address] [place] Start: 09-29-2024 Us preg uterus after 1st trimest 04/05 gestation Tara Khadar HYDROELECTRIC PLANT ELECTRICAL ENGINEER.PROVIDER SERVICE REPRESENTATIVE Work Phone: Start: 08-09-2024 Us preg uterus after 1st trimest 04/05 gestation Tara Hamburg HYDROELECTRIC PLANT ELECTRICAL ENGINEER.PROVIDER SERVICE REPRESENTATIVE Work Phone: Start: 07-18-2024 Antibody screen CHRISTINE WU Comment on above: Order Comment: Speci men Type: BLOOD SPECIMENOrdering Facility: [facility] Address: [facility] [place] [address] Performed By: #### T SPN ####CC MAIN BLOOD BANKCLIA [id number] [facility] [id number] [place] Start: 07-18-2024 Us uterus l imited 1 fetuses Tara Whitecalf HYDROELECTRIC PLANT ELECTRICAL ENGINEER.PROVIDER SERVICE REPRESENTATIVE Work Phone: Start: 08-26-2023 Antibody screen Karina Birch NP Comment on above: Order Comment: Labor Performed By: #### L 100.0100, [facility], [id number] #### [facility] [address] [facility] [place], [place], [id number] Start: 08-17-2023 URINE OB DIP B/O Gianni Nascimento MD Work Phone: Start: 08-12-2023 URINE OB DIP B/O Gianni Nascimento MD Work Phone: Start: 07-29-2023 URINE OB DIP B/O Gianni Nascimento MD Work Phone: Start: 07-15-2023 Us preg uterus after 1st trimest 04/05 gestation Gianni Nascimento MD Work Phone: Start: 04-21-2023 US OB 14+ WEEKS ANATOMY SCAN IRINA HANDLEY Start: 04-21-2023 Us preg uterus after 1st trimest 04/05 gestation Irina Handley MD Work Phone: Start: 03-31-2023 QUAD SCREEN Start: 03-02-2023 CBC ANEMIA PANEL WIT H REFLEX, Start: 03-02-2023 CBC panel - Blood by Automated count Start: 03-02-2023 HEPATITIS B SURFACE ANTIGEN Start: 03-02-2023 HIV 1/2 ANTIGEN/ANTI BODY SCREEN WIH REFLEX TO CONFIRMATION Start: 03-02-2023 REFLEX ADDED, ANEMIA PANEL Start: 03-02-2023 RUBELLA ANTIBODY, IGG Start: 03-02-2023 SYPHILIS SCREENING W ITH REFLEX Start: 03-02-2023 Microscopic observat ion [Identifier] in Cervix by Cyto stain [facility] 2 Start: 02-09-2023 TYPE AND SCREEN Start: 06-23-2022 Antibody screen IRINA PITTMAN Comment on above: Performed By: #### T +S #### [facility] [address] [place] [address] Start: 06-23-2022 Antibody screen MD GI HANDLEY Comment on above: Order Comment: TEST TYPE + SCREEN WAS CANCELLED, 06/23/2022 14:12 MBANK. Performed By: #### T +S #### [facility] [address] [place] [address] No history of surgery No PCP None Plan of Treatment Date Care Activity Detail Author Start: 08-05-2045 Zoster Vaccines (1 o f 2) Zoster Vaccines (1 of 2) [facility] Start: 11-24-2034 Urine microalbumin profile DTaP,Tdap,Td Vaccine (3 - Td or Tdap) [facility] Start: 06-16-2033 Urine microalbumin profile DTaP,Tdap,Td Vaccine (2 - Td or Tdap) [facility] Start: 03-02-2026 Screening for malign ant neoplasm of cervix [facility] Start: 01-29-2025 End: 01-29-2025 Patient encounter procedure OB/Gynecology Comment on above: NST / OB Start: 01-24-2025 End: 01-24-2025 Patient encounter procedure OB/Gynecology Comment on above: NST NST OB Start: 01-15-2025 End: 01-15-2025 Patient encounter procedure [facility] Comment on above: BPP/ OB OB Start: 01-02-2025 End: 01-02-2025 Patient encounter procedure 01/02/2025 10:15 AM EDT Routine Office Visit OB/Gynecology [address] [place] [address] Grecia Shepherd APRN.CNM [address] [place] [address] Ob OB/Gynecology Comment on above: Ob Start: 12-22-2024 End: 12-22-2024 Patient encounter procedure [facility] Comment on above: BPP / OB OB Start: 12-17-2024 RSV Vaccine (1 - Ris k 1-dose series) RSV Vaccine (1 - Risk 1-dose series) [facility] Start: 12-05-2024 End: 12-05-2024 Patient encounter procedure 12/05/2024 9:45 AM EDT Routine Office Visit OB/Gynecology [address] [place] [address] Grecia Shepherd APRN.CNM [address] [place] [address] OB OB/Gynecology Comment on above: OB Start: 12-04-2024 Influenza vaccination [facility] Start: 11-24-2024 End: 11-24-2024 Patient encounter procedure 11/24/2024 9:15 AM EDT Routine Office Visit OB/Gynecology [address] [place] [address] Darleen Wu APRN.CNM [address] [place] [address] OB OB/Gynecology Comment on above: OB Start: 10-26-2024 End: 01-25-2025 CBC panel - Blood by Automated count COMPLETE BLOOD COUNT Lab Routine Supervision of high risk in second trimester (HCC) 24 weeks gestation of (HCC) Expected: 10/26/2024, Expires: 01/25/[address] [facility] Work Phone: Comment on above: Expected: 10/26/2024 , Expires: 01/25/2025 Start: 10-26-2024 End: 01-25-2025 GESTATIONAL GLUCOSE SCREEN, 1-HOUR, 50 GRAM, NON-FASTING GESTATIONAL GLUCOSE SCREEN, 1-HOUR, 50 GRAM, NON-FASTING Lab Routine Supervision of high risk in second trimester (HCC) 24 weeks gestation of (HCC) Expected: 10/26/2024, Expires: 01/25/2025 [facility] Comment on above: Expected: 10/26/2024 , Expires: 01/25/2025 Start: 10-26-2024 End: 01-25-2025 SYPHILIS TREPONEMAL W/REFLEX SYPHILIS TREPONEMAL W/REFLEX Lab Routine Supervision of high risk in second trimester (HCC) 24 weeks gestation of (HCC) Expected: 10/26/2024, Expires: 01/25/2025 [facility] Comment on above: Expected: 10/26/2024 , Expires: 01/25/2025 Start: 10-26-2024 End: 01-25-2025 TYPE + SCREEN TYPE + SCREEN Blood Bank Routine Supervision of high risk in second trimester (HCC) 24 weeks gestation of (HCC) Expected: 10/26/2024, Expires: 01/25/2025 [facility] Comment on above: Expected: 10/26/2024 , Expires: 01/25/2025 Start: 10-26-2024 End: 10-26-2024 Patient encounter procedure 10/26/2024 8:45 AM EDT Routine Office Visit OB/Gynecology [address] [place] [address] Jonnie Hopson APRN.PROVIDER SERVICE REPRESENTATIVE [address] [place] [address] OB OB/Gynecology Comment on above: OB Start: 10-10-2024 End: 10-10-2024 Patient encounter procedure 10/10/2024 9:40 AM EDT Office Visit OB/Gynecology [address] [place] [address] Gianni Nascimento MD [address] [place] [address] annual OB/Gynecology Comment on above: annual Start: 09-29-2024 End: 09-29-2024 Patient encounter procedure [facility] Comment on above: Anatomy Scan OB Routine Start: 09-01-2024 End: 09-01-2024 Patient encounter procedure 09/01/2024 8:45 AM EDT Routine Office Visit OB/Gynecology [address] [place] [address] Jonnie Hopson APRN.PROVIDER SERVICE REPRESENTATIVE [address] [place] [id number] OB Routine OB/Gynecology Comment on above: OB Routine Start: 08-17-2024 End: 08-17-2024 Patient encounter procedure 08/17/2024 10:00 AM EDT Routine Office Visit OB/Gynecology [address] [place] [address] Gianni Nascimento MD [address] [place] [address] OB/Gynecology Comment on above: Start: 08-09-2024 End: 08-09-2024 Patient encounter procedure Maternal Medicine Comment on above: Nuchal US OB Routine Start: 07-18-2024 End: 10-17-2024 ANEMIA REFLEX PANEL [facility] Work Phone: Comment on above: Expected: 07/18/2024 , Expires: 10/17/2024 Start: 07-18-2024 End: 10-17-2024 Chromosome 21 trisomy [Presence] in Blood or Tissue by Cytogenetics [facility] Comment on above: Expected: 07/18/2024 , Expires: 10/17/2024 Start: 07-18-2024 End: 10-17-2024 Hemoglobin A1c in Blood [facility] Comment on above: Expected: 07/18/2024 , Expires: 10/17/2024 Start: 07-18-2024 End: 10-17-2024 Hepatitis B virus surface Ag [Presence] in Serum [facility] Comment on above: Expected: 07/18/2024 , Expires: 10/17/2024 Start: 07-18-2024 End: 10-17-2024 Hepatitis C virus Ab [Presence] in Serum [facility] Comment on above: Expected: 07/18/2024 , Expires: 10/17/2024 Start: 07-18-2024 End: 10-17-2024 HIV 1+2 Ab [Presence] in Serum or Plasma by Immunoassay [facility] Comment on above: Expected: 07/18/2024 , Expires: 10/17/2024 Start: 07-18-2024 End: 07-18-2025 OBSTETRIC ULTRASOUND WHI [facility] Comment on above: Expected: 07/18/2024 , Expires: 07/18/2025 Start: 07-18-2024 End: 10-17-2024 Protein/Creatinine [Mass Ratio] in Urine [facility] Comment on above: Expected: 07/18/2024 , Expires: 10/17/2024 Start: 07-18-2024 End: 10-17-2024 RUBELLA IGG ANTIBODY [facility] Comment on above: Expected: 07/18/2024 , Expires: 10/17/2024 Start: 07-18-2024 End: 10-17-2024 SYPHILIS TREPONEMAL W/REFLEX [facility] Comment on above: Expected: 07/18/2024 , Expires: 10/17/2024 Start: 07-18-2024 End: 10-17-2024 TYPE + SCREEN [facility] Comment on above: Expected: 07/18/2024 , Expires: 10/17/2024 Start: 07-18-2024 End: 07-18-2024 Patient encounter procedure 07/18/2024 8:15 AM EDT Initial Office Visit OB/Gynecology [address] [place], [place] [address] Tara Rubalcava, BILLY.PROVIDER SERVICE REPRESENTATIVE [address] [place] [address] New OB OB/Gynecology Comment on above: New OB Start: 12-05-2023 Covid-19 Vaccine ( season) Covid-19 Vaccine () [facility] Start: 12-05-2023 Influenza vaccination [facility] Start: 10-06-2023 End: 10-06-2023 Patient encounter procedure 10/06/2023 10:20 AM EDT Office Visit OB/Gynecology [address] [place] [address] Elicia Gaming MD [address] [place] [address] Post OB/Gynecology Comment on above: Post Start: 09-03-2023 End: 09-03-2023 Patient encounter procedure 09/03/2023 9:10 AM EDT Routine Office Visit OB/Gynecology [address] [place] [address] Elicia Gaming MD [address] [place] [address] OB OB/Gynecology Comment on above: OB Start: 09-01-2023 End: 09-01-2023 Patient encounter procedure 09/01/2023 2:50 PM EDT Office Visit OB/Gynecology [address] [place] [address] Elicia Gaming MD [address] [place] [address] PP BP Check OB/Gynecology Comment on above: PP BP Check Start: 08-25-2023 End: 08-25-2023 Patient encounter procedure 08/25/2023 9:10 AM EDT Routine Office Visit OB/Gynecology [address] [place] [address] Elicia Gaming MD [address] [place] [address] OB OB/Gynecology Comment on above: OB Start: 08-20-2023 End: 08-20-2023 Patient encounter procedure 08/20/2023 11:10 AM EDT Routine Office Visit OB/Gynecology [address] [place] [address] Elicia Gaming MD [address] [place] [address] OB OB/Gynecology Comment on above: OB Start: 08-17-2023 End: 08-17-2023 Patient encounter procedure 08/17/2023 1:40 PM EDT Routine Office Visit OB/Gynecology [address] [place] [address] Gianni Nascimento MD [address] [place] [address] OB OB/Gynecology Comment on above: OB Start: 08-12-2023 End: 08-11-2024 OBSTETRIC ULTRASOUND WHI OBSTETRIC ULTRASOUND WHI Anc Imaging Routine 35 weeks gestation of Obesity affecting in third trimester, unspecified obesity type Expected: 08/12/2023, Expires: 08/11/[address] [facility] Work Phone: Comment on above: Expected: 08/12/2023 , Expires: 08/11/2024 Start: 08-12-2023 End: 08-12-2023 Patient encounter procedure 08/12/2023 1:50 PM EDT Routine Office Visit OB/Gynecology [address] [place] [address] Gianni Nascimento MD [address] [place] [address] OB OB/Gynecology Comment on above: OB Start: 06-17-2023 End: 09-16-2023 GEST GLUC MONIKA, 3-HR, 100 GM, FASTING GEST GLUC MONIKA, 3-HR, 100 GM, FASTING Lab Routine Abnormal glucose in , antepartum Expected: 06/17/2023, Expires: 09/16/[address] [facility] Work Phone: Comment on above: Expected: 06/17/2023 , Expires: 09/16/2023 Start: 06-17-2023 End: 06-16-2024 OBSTETRIC ULTRASOUND WHI OBSTETRIC ULTRASOUND WHI Anc Imaging Routine 27 weeks gestation of Obesity affecting in third trimester, unspecified obesity type Expected: 06/17/2023, Expires: 06/16/[address] [facility] Work Phone: Comment on above: Expected: 06/17/2023 , Expires: 06/16/2024 Start: 05-20-2023 End: 08-19-2023 CBC panel - Blood by Automated count CBC Lab Routine Encounter for supervision of high risk in second trimester, antepartum 23 weeks gestation of Expected: 05/20/2023, Expires: 08/19/[address] [facility] Work Phone: Comment on above: Expected: 05/20/2023 , Expires: 08/19/2023 Start: 05-20-2023 End: 08-19-2023 GEST GLUC SCREEN, 1-HR, 50 GM, NON-FASTING GEST GLUC SCREEN, 1-HR, 50 GM, NON-FASTING Lab Routine Encounter for supervision of high risk in second trimester, antepartum 23 weeks gestation of Expected: 05/20/2023, Expires: 08/19/[address] [facility] Work Phone: Comment on above: Expected: 05/20/2023 , Expires: 08/19/2023 Start: 05-20-2023 End: 08-19-2023 SYPHILIS TOTAL W/REFLEX SYPHILIS TOTAL W/REFLEX Lab Routine Encounter for supervision of high risk in second trimester, antepartum 23 weeks gestation of Expected: 05/20/2023, Expires: 08/19/[address] [facility] Work Phone: Comment on above: Expected: 05/20/2023 , Expires: 08/19/2023 Start: 05-19-2023 End: 05-19-2023 Patient encounter procedure 05/19/2023 10:00 AM EST Routine [facility] Medical Office Building [address] [place] [address] Ifeanyi Seth MD [address] [facility] Medical Office, [facility] [address] [place] [address] [facility] Medical Office Building Start: 04-05-2023 Behavioral Health Screening Behavioral Health Screening [facility] Start: 04-05-2023 Depression Assessment Depression Ass essment [facility] Start: 12-04-2022 Covid-19 Vaccine ( season) Covid-19 Vaccine ( season) [facility] Start: 12-04-2022 Influenza vaccination Influenza Vacc ine (#1) [facility] Start: 08-05-2022 HPV Vaccine (1 - 3-d ose SCDM series) HPV Vaccine (1 - 3-dose SCDM series) [facility] Start: 08-05-2017 DTaP/Tdap/Td Vaccine s (1 - Tdap) DTaP/Tdap/Td Vaccines (1 - Tdap) [facility] Start: 08-05-2016 Screening for malign ant neoplasm of cervix HPV/Cotest [facility] Start: 08-05-2014 Hepatitis B Vaccine (1 of 3 - 19+ 3-dose series) Hepatitis B Vaccine (1 of 3 - 19+ 3-dose series) [facility] Start: 08-05-2014 Urine microalbumin profile DTaP,Tdap,Td Vaccine (1 - Tdap) [facility] Start: 08-05-2013 Anxiety Screening Anxiety Screening [facility] Start: 08-05-2013 Depression Screening Depression Scre ening [facility] Start: 08-05-2013 Hepatitis C screening Hepatitis C Sc stanislaw [facility] Start: 08-05-2013 HIV screening HIV Screening [facility] Start: 08-05-1996 MMR Vaccines (1 of 1 - Standard series) MMR Vaccines (1 of 1 - Standard series) [facility] Start: 08-05-1996 Varicella vaccination Varicell a Vaccines (1 of 2 - 2-dose childhood series) [facility] Start: 02-06-1996 COVID-19 Vaccine (#1) COVID-19 Vacci ne (#1) [facility] Start: 1995 Hepatitis B Vaccine (1 of 3 - 3-dose series) Hepatitis B Vaccine (1 of 3 - 3-dose series) [facility] Start: 1995 Hepatitis B Vaccines (1 of 3 - 3-dose series) Hepatitis B Vaccines (1 of 3 - 3-dose series) [facility] Start: 1995 Lipid panel Lipid Panel [facility] Start: 1995 Yearly Adult Physical Yearly Adult P [facility] Bacteria identified in Urine by Culture BACTERIAL CULTURE, URINE Microbiology Routine with uncertain dates, antepartum (HCC) 07/18/2024 10:46 AM T [facility] Chlamydia trachomatis+Neisseria gonorrhoeae DNA [Presence] in Unspecified specimen by ESME with probe detection GONORRHEA/CHLAMYDIA NAAT Lab Routine with uncertain dates, antepartum (HCC) 07/18/2024 10:46 AM EDT [facility] End: 10-01-2023 nonstress test NON-STRESS TEST Procedures Routine Obesity affecting in third trimester, unspecified obesity type Once per week for 8 Occurrences starting 07/15/2023 until 10/01/[address] [facility] Work Phone: Comment on above: Once per week for 8 Occurrences starting 07/15/2023 until 10/01/2023 End: 11-25-2025 nonstress test NON-STRESS TEST Procedures Routine Supervision of high risk in third trimester (HCC) Obesity affecting , antepartum, unspecified obesity type (HCC) Once per week for 5 Occurrences starting 12/05/2024 until 11/25/[address] [facility] Work Phone: Comment on above: Once per week for 5 Occurrences starting 12/05/2024 until 11/25/2025 End: 11-19-2025 OBSTETRIC ULTRASOUND WHI OBSTETRIC ULTRASOUND WHI Anc Imaging Routine Supervision of high risk in third trimester (HCC) Obesity affecting , antepartum, unspecified obesity type (HCC) Once per month for 3 Occurrences starting 12/05/2024 until 11/19/2025 [facility] Comment on above: Once per month for 3 Occurrences starting 12/05/2024 until 11/19/2025 ROUTINE, GR OUP B STREP PCR ROUTINE, GROUP B STREP PCR Microbiology Routine with care elsewhere in third trimester 08/12/2023 3:56 PM EDT [facility] TRICHOMONAS VAGINALI S NAAT TRICHOMONAS VAGINALIS NAAT Lab Routine Screen for STD (sexually transmitted disease) 07/18/2024 10:46 AM T [facility] TYPE + SCREEN TYPE + SC REEN Blood Bank Routine 27 weeks gestation of 06/17/2023 10:24 AM EDT [facility] Work Phone: URINE OB DIP B/O URINE OB DIP B/ O Lab Routine Obesity affecting in third trimester, unspecified obesity type Elevated blood pressure reading without diagnosis of hypertension with care elsewhere in third trimester 37 weeks gestation of Ordered: 08/20/[address] [facility] Work Phone: Comment on above: Ordered: 08/20/2023 URINE OB DIP B/O URINE OB DIP B/ O Lab Routine Obesity affecting in third trimester, unspecified obesity type Elevated blood pressure reading without diagnosis of hypertension with care elsewhere in third trimester 37 weeks gestation of Ordered: 08/25/[address] [facility] Work Phone: Comment on above: Ordered: 08/25/2023 [facility] Immunizations Immunization Date Immunization Notes Care Provider Harley degroot 11-24-2024 RHO(D) immune globul in- IV or IM Darleen Wu APRN.CNRenato Work Phone: [facility] 11-24-2024 tetanus toxoid, redu piedad diphtheria toxoid, and acellular pertussis vaccine, adsorbed Darleen Wu APRN.CNM Work Phone: [facility] 06-17-2023 RHO(D) immune globul in- IV or IM Gianni Nascimento MD Work Phone: [facility] 06-17-2023 tetanus toxoid, redu piedad diphtheria toxoid, and acellular pertussis vaccine, adsorbed Gianni Nascimento MD Work Phone: [facility] 02-09-2023 RHO(D) immune globul in - IM [address] Payers Date Payer Category Payer Self-pay 2022 Private Health Insurance [id number] 2022 Private Health Insurance [id number] 1995 Unknown [id number] 2.16.8 [id number] 1995 Unknown [id number] 2.16.8 [id number] 1995 Unknown [id number] 2.16. [id number] 1995 Unknown [id number] 2.16. [id number] 1995 Unknown [id number] 2.16. [id number] 1995 Unknown [id number] 2.16.8 [id number] 1995 Unknown [id number] 2.16.8 [id number] 1995 Unknown [id number] 2.16.8 [id number] 1995 Unknown [id number] 2.16.8 [id number] 1995 Unknown [id number] 2.16.8 [id number] Unknown [employer] Unknown [id number] 2.16.8 [id number] Unknown [id number] 2.16.8 [id number] Social History Date Type Detail Facility Start: 02-09-2023 End: 06-17-2023 Sexually active Sexually active [facility] Start: 02-02-2023 End: 05-20-2023 Tobacco smoking status NHIS Never smoked tobacco [facility] Work Phone: Start: 02-02-2023 End: 05-20-2023 Tobacco use and exposure Smokeless tobacco non-user [facility] Work Phone: Start: 02-09-2023 End: 10-26-2024 Alcohol intake Lifetime non-drinker (finding) [facility] Work Phone: Start: 02-09-2023 End: 06-17-2023 Tobacco use panel [facility] Start: 12-18-2022 [facility] Work Phone: Start: 1995 Sex Assigned At Not on file [facility] Work Phone: Start: 04-11-2023 End: 04-21-2023 Exposure to SARS-CoV-2 (event) Not sure [facility] Start: 03-06-2012 National Score (1-100), lower number is lower risk 59 [facility] Goals Date Patient Goal Desired Activity /State Personal health goal Personal health goal Clinical Notes 06-21-2022 to 01-18-2025 Quick Notes - Grecia Shepherd APRN.[employer] - 12/05/2024 9:41 AM EDTPrenatal Quick Notes - Grecia Shepherd APRN.[employer] - 12/05/2024 9:41 AM EDTPatient InstructionsPatient Instructions Note Date & Type Note Facility 01-18-2025 Note HNO ID: [id number] Author: NIKITA CARR MD Service: ? Author Type: Physician Type: Progress Notes Filed: 01/18/2025 10:19 Note Text: NST SUMMARY PROVIDER ASSESSMENT AND INTERPRETATION Grecia Lockett is a 29 year old female, , who is at 36w4d with an GUERDA of 02/11/2025, by Ultrasound dating method. Indications for NST: Obesity Baseline: 135 Variability: Moderate Accelerations: Present 15 X 15 Decelerations: None Contractions: TOCO: Irregular Interpretation: Reactive SIGNATURE: Nikita Carr DO [facility] 01-18-2025 Note HNO ID: [id number] Author: SHERI LAST MA Service: ? Author Type: Superintendent [employer] Type: Progress Notes Filed: 01/18/2025 10:19 Note Text: TruBP: 131/81 126/2 129/85 128/80 Average: 128/[address] [facility] 01-16-2025 Note HNO ID: [id number] Author: SHERI LAST MA Service: ? Author Type: Superintendent [employer] Type: Progress Notes Filed: 01/16/2025 13:37 Note Text: TruBP: 139/87 137/84 135/87 130/88 133/83 130/87 Average: 134/[address] [facility] 01-12-2025 Note HNO ID: [id number] Author: SHERI LAST MA Service: ? Author Type: Superintendent [employer] Type: Progress Notes Filed: 01/12/2025 17:27 Note Text: TruBP: 138/87 125/84 122/81 129/77 111/76 114/80 Average: 123/[address] [facility] 01-10-2025 Note HNO ID: [id number] Author: ELICIA GAMING MD Service: ? Author Type: Physician Type: Progress Notes Filed: 01/10/2025 14:31 Note Text: NST SUMMARY PROVIDER ASSESSMENT AND INTERPRETATION Indications for NST: Obesity and GHTN, poly Baseline: 150 Variability: Moderate Accelerations: Present 15 X 15 Decelerations: None Interpretation: Reactive SIGNATURE: Elicia Gaming MD [facility] 01-05-2025 Note HNO ID: [id number] Author: ELENITA CHOWDHURY MD Service: ? Author Type: Physician Type: Progress Notes Filed: 01/05/2025 10:07 Note Text: NST SUMMARY PROVIDER ASSESSMENT AND INTERPRETATION Grecia Lockett is a 29 year old female, , who is at 34w5d with an GUERDA of 02/11/2025, by Ultrasound dating method. Indications for NST: Gestational HTN and Obesity Baseline: 140 Variability: Moderate Accelerations: Present 15 X 15 Decelerations: None Contractions: TOCO: None Interpretation: Category I and Reactive SIGNATURE: Elenita Hagen MD [facility] 01-02-2025 Note HNO ID: [id number] Author: GRECIA SHEPHERD APRN.[employer]NRenato Service: ? Author Type: Property Claims Manager Type: Progress Notes Filed: 01/04/2025 10:52 Note Text: NST SUMMARY PROVIDER ASSESSMENT AND INTERPRETATION Grecia Lockett is a 29 year old female, , who is at 34w2d with an GUERDA of 02/11/2025, by Ultrasound dating method. Indications for NST: Gestational HTN Baseline: 145 Variability: Moderate Accelerations: Present 15 X 15 Decelerations: None Contractions: TOCO: None Interpretation: Reactive SIGNATURE: Grecia Shepherd APRN.CNM [facility] 12-27-2024 Note HNO ID: [id number] Author: ELENITA CHOWDHURY MD Service: ? Author Type: Physician Type: Progress Notes Filed: 12/27/2024 10:01 Note Text: NST SUMMARY PROVIDER ASSESSMENT AND INTERPRETATION Grecia Lockett is a 29 year old female, , who is at 33w3d with an GUERDA of 02/11/2025, by Ultrasound dating method. Indications for NST: Obesity and Polyhydramnios GHTN Baseline: 150 Variability: Moderate Accelerations: Present 15 X 15 Decelerations: None Contractions: TOCO: None Interpretation: Category I and Reactive SIGNATURE: Elenita Hagen MD [facility] 12-22-2024 Note HNO ID: [id number] Author: GRECIA SHEPHERD APRN.CN Service: ? Author Type: Property Claims Manager Type: Progress Notes Filed: 12/22/2024 09:33 Note Text: SID-S: Grecia Lockett is a 29 year old female who presents at 32w5d with GUERDA:02/11/2025, by Ultrasound for a routine visit. Denies headache, visual changes, chest pain, shortness of breath, vaginal bleeding, leakage of fluid, or dysuria. Feeling well, no complaints. O: See flow sheet Gen: No apparent distress Abd: Gravid, nontender Growth US today, awaiting US report ASSESSMENT/PLAN: 1. Supervision of high risk in third trimester -Continue PNV 2. 32 weeks gestation of 3. History of pre-eclampsia -Continue ASA 162mg PO once daily -Baseline labs normal, repeated today due to elevated levels at home. -Recommend taking BP twice daily at home and sending log weekly. -Normal BP at home, range 142/90, to bring cuff to next visit. Will send her log today and can discuss diagnosis of GHTN. Only have one elevated level documented in office. 4. Short interval between pregnancies affecting , antepartum 5. Obesity affecting , antepartum, unspecified obesity type - Pre BMI 39 - Plan for 32 week growth q4 weeks. - Weekly NSTs at 36 weeks. 6. Rh negative state in antepartum period -Administered for 11/24/24 7.Uterine size-date discrepancy, third trimester -Growth US in 4 weeks 8. Need for vaccination -RSV today PTL precautions reviewed and when to call RTO in 2 weeks Grecia Shepherd APRN.CNM [facility] 12-05-2024 Progress note Formatting of t his note might be different from the original. SID-S: Grecia Lockett is a 29 year old female who presents at 30w2d with GUERDA:02/11/2025, by Ultrasound for a routine visit. Denies headache, visual changes, chest pain, shortness of breath, vaginal bleeding, leakage of fluid, or dysuria. Feeling well, no complaints. O: See flow sheet Gen: No apparent distress Abd: Gravid, nontender ASSESSMENT/PLAN: 1. Supervision of high risk in third trimester -Continue PNV 2. 30 weeks gestation of 3. History of pre-eclampsia -Continue ASA 162mg PO once daily -Baseline labs normal -BP stable, mildly elevated last visit, recommend taking BP twice daily at home and sending log weekly. . -Normal BP at home, range 117-128/75-85 4. Short interval between pregnancies affecting , antepartum 5. Obesity affecting , antepartum, unspecified obesity type -Pre BMI 39 - Plan for 32 week growth q 4 weeks. - Weekly NSTs at 36 weeks. 6. Rh negative state in antepartum period 7.Uterine size-date discrepancy, third trimester -Growth US at 32 weeks PTL precautions reviewed and when to call RTO in 2 weeks Grecia Shepherd APRN.CNM [facility] 12-05-2024 Miscellaneous Notes SID-S: Grecia Lockett is a 29 year old female who presents at 30w2d with GUERDA:02/11/2025, by Ultrasound for a routine visit. Denies headache, visual changes, chest pain, shortness of breath, vaginal bleeding, leakage of fluid, or dysuria. Feeling well, no complaints. O: See flow sheet Gen: No apparent distress Abd: Gravid, nontender ASSESSMENT/PLAN: 1. Supervision of high risk in third trimester -Continue PNV 2. 30 weeks gestation of 3. History of pre-eclampsia -Continue ASA 162mg PO once daily -Baseline labs normal -BP stable, mildly elevated last visit, recommend taking BP twice daily at home and sending log weekly. . -Normal BP at home, range 117-128/75-85 4. Short interval between pregnancies affecting , antepartum 5. Obesity affecting , antepartum, unspecified obesity type -Pre BMI 39 - Plan for 32 week growth q 4 weeks. - Weekly NSTs at 36 weeks. 6. Rh negative state in antepartum period 7.Uterine size-date discrepancy, third trimester -Growth US at 32 weeks PTL precautions reviewed and when to call RTO in 2 weeks Grecia Shepherd APRN.CNM documented in this encounter [facility] 12-05-2024 Instructions Shantelle Cardenas MA - 12/05/2024 9:32 AM EDT SEQUENTIAL SCREENINGS The [facility] offers sequential screenings for women who are interested in screenings for chromosomal abnormalities and certain defects during a . The sequential screen combines ultrasound and blood tests to determine the risk of chromosomal abnormalities, including Down's Syndrome (Trisomy 21) and Trisomy 18, as well as open neural tube defects including spina bifida. Ultrasound examination is performed between 11 weeks and 13 weeks gestational age. Blood tests are drawn after the ultrasound and again later in the between 15 and 21 weeks gestational age. Please let your physician know if you are interested in this testing. It will require an appointment with our aviation technician aircraft. This is not an ultrasound performed by a physician in our office during a routine visit. SIGNS AND SYMPTOMS OF LABOR 1. Contractions every 10 minutes or more often 2. Clear, pink, or brownish fluid (water) leaking from vagina 3. Feeling that baby is pushing down, pressure 4. Low, dull backache 5. Cramps that feel like a period 6. Cramps with or without diarrhea If you notice any of the above symptoms, contact our office at [phone] and ask to speak with a nurse. After hours, you can call doctors registry at [phone] OR call [facility] at [phone] and ask to have the doctor manager generation paged. If you consider this an emergency, dial [phone] or go to your nearest emergency department. NEED HELP? Are you dealing with a violent or abusive relationship? Are you a victim of rape or sexual assult? Call [facility] ([place]) 24 hour Crisis Hotline: 802.914.6149 or 356-652-2680. MANUAL Your Guide to a Healthy manual is now on-line. Visit [email or web address] to download your free copy documented in this encounter [facility] 11-24-2024 Note HNO ID: [id number] Author: DULCE GAVIRIA RN Service: ? Author Type: Registered Nurse Type: Progress Notes Filed: 11/24/2024 10:34 Note Text: Grecia Lockett 29 year old is here for her injection of Rhophylac. Grecia Lockett Antibody Screen (no units) Date Value 07/18/2024 Negative Grecia Lockett is RH Negative Rhophylac was given without incident. See immunizations for details of immunizations administered today. Provider Darleen Wu APRN.CATRACHITAM was present in office at time of injection Grecia Lockett was given her Rhophylac pocket card. Dulce Gaviria RN [facility] 11-24-2024 History of Presen t illness Narrative Grecia Lockett 29 year old is here for her injection of Rhophylac. Grecia Kateio Antibody Screen (no units) Date Value 07/18/2024 Negative Grecia Lockett is RH Negative Rhophylac was given without incident. See immunizations for details of immunizations administered today. Provider Darleen Wu APRN.ARNULFO was present in office at time of injection Grecia Lockett was given her Rhophylac pocket card. Dulce Gaviria RN Patient identified by name and date of . Grecia Lockett presents today for a vaccination of Tdap. Patient denies an allergy to latex: yes Patient denies a severe (life-threatening) allergy to a previous dose of Tdap, DTP, DTaP, DT or Td vaccine. Yes Patient denies history of epilepsy or neurological problems: Yes Patient is afebrile and denies being moderately or severely ill: Yes Patient denies history of Guillain-[place] Syndrome (a severe paralytic illness): Yes Tdap Adacel injection was given without incident. See immunizations for details of immunizations administered today. VIS sheet provided: Yes Provider Darleen Wu CNM was present in office at time of injection. documented in this encounter [facility] 11-24-2024 Progress note Formatting of t his note might be different from the original. S: Grecia Lockett is a 29 year old female who presents at 28 weeks gestation for a routine visit. Just completed GCT today. Denies headache, visual changes, chest pain, shortness of breath, vaginal bleeding, leakage of fluid, or dysuria. Feeling well, no complaints. O: See flow sheet Gen: No apparent distress Abd: Gravid, nontender ASSESSMENT/PLAN: 1. Supervision of high risk in third trimester 2. 28 weeks gestation of 3. History of vacuum extraction assisted delivery 4. History of pre-eclampsia 5. Short interval between pregnancies affecting , antepartum 6. Obesity affecting , antepartum, unspecified obesity type 7. Need for vaccination - 1 hour GCT, CBC, and RPR today - Rh negative- Rhogam injection today - TDAP today - LARC form reviewed and signed. Patient declines - Pregravid BMI 39- Growth US at 28 weeks - Depression screen negative - Opioid screen negative - plan form discussed and given to patient. Patient desires unmedicated - PTL precautions and kick counts reviewed - RTO- 2 weeks or sooner if needed Darleen Wu APRN.CNM [facility] 11-24-2024 Miscellaneous Notes S: Grecia Lockett is a 29 year old female who presents at 28 weeks gestation for a routine visit. Just completed GCT today. Denies headache, visual changes, chest pain, shortness of breath, vaginal bleeding, leakage of fluid, or dysuria. Feeling well, no complaints. O: See flow sheet Gen: No apparent distress Abd: Gravid, nontender ASSESSMENT/PLAN: 1. Supervision of high risk in third trimester 2. 28 weeks gestation of 3. History of vacuum extraction assisted delivery 4. History of pre-eclampsia 5. Short interval between pregnancies affecting , antepartum 6. Obesity affecting , antepartum, unspecified obesity type 7. Need for vaccination - 1 hour GCT, CBC, and RPR today - Rh negative- Rhogam injection today - TDAP today - LARC form reviewed and signed. Patient declines - Pregravid BMI 39- Growth US at 28 weeks - Depression screen negative - Opioid screen negative - plan form discussed and given to patient. Patient desires unmedicated - PTL precautions and kick counts reviewed - RTO- 2 weeks or sooner if needed Darleen Wu APRN.CNM documented in this encounter [facility] 11-24-2024 Note HNO ID: [id number] Author: MARGOTH LUNA MA Service: ? Author Type: [employer] Type: Progress Notes Filed: 11/24/2024 10:34 Note Text: Patient identified by name and date of . Grecia Lockett presents today for a vaccination of Tdap. Patient denies an allergy to latex: yes Patient denies a severe (life-threatening) allergy to a previous dose of Tdap, DTP, DTaP, DT or Td vaccine. Yes Patient denies history of epilepsy or neurological problems: Yes Patient is afebrile and denies being moderately or severely ill: Yes Patient denies history of Guillain-[place] Syndrome (a severe paralytic illness): Yes Tdap Adacel injection was given without incident. See immunizations for details of immunizations administered today. VIS sheet provided: Yes Provider Darleen Wu CNM was present in office at time of injection. [facility] 11-24-2024 Instructions Margoth Luna MA - 11/24/2024 9:13 AM EDT SEQUENTIAL SCREENINGS The [facility] offers sequential screenings for women who are interested in screenings for chromosomal abnormalities and certain defects during a . The sequential screen combines ultrasound and blood tests to determine the risk of chromosomal abnormalities, including Down's Syndrome (Trisomy 21) and Trisomy 18, as well as open neural tube defects including spina bifida. Ultrasound examination is performed between 11 weeks and 13 weeks gestational age. Blood tests are drawn after the ultrasound and again later in the between 15 and 21 weeks gestational age. Please let your physician know if you are interested in this testing. It will require an appointment with our aviation technician aircraft. This is not an ultrasound performed by a physician in our office during a routine visit. SIGNS AND SYMPTOMS OF LABOR 1. Contractions every 10 minutes or more often 2. Clear, pink, or brownish fluid (water) leaking from vagina 3. Feeling that baby is pushing down, pressure 4. Low, dull backache 5. Cramps that feel like a period 6. Cramps with or without diarrhea If you notice any of the above symptoms, contact our office at [phone] and ask to speak with a nurse. After hours, you can call doctors registry at [phone] OR call [facility] at [phone] and ask to have the doctor manager generation paged. If you consider this an emergency, dial or go to your nearest emergency department. NEED HELP? Are you dealing with a violent or abusive relationship? Are you a victim of rape or sexual assult? Call [facility] ([place]) 24 hour Crisis Hotline: 613.683.2354 or 826-641-3080. MANUAL Your Guide to a Healthy manual is now on-line. Visit [email or web address] to download your free copy documented in this encounter [facility] 10-26-2024 Progress note Formatting of t his note might be different from the original. EH - S: Grecia is a 29 year old female who presents at 24w4d for a routine visit. Feeling movement. Denies headache, visual changes, chest pain, shortness of breath, vaginal bleeding, leakage of fluid, or dysuria. Feeling well, no complaints. O: See flow sheet Gen: No apparent distress Abd: Gravid, nontender, S>D ASSESSMENT/PLAN: Supervision of high risk in second trimester ([facility]) - ICD9: V23.9, ICD10: O09.92 (primary diagnosis) - Continue PNV and LDA 24 weeks gestation of ([facility]) - ICD9: V22.2, ICD10: Z3A.24 - GTT, CBC, RPR, type and screen next visit - Rhogam next visit - Baby Girl AISLINN! 3. History of vacuum extraction assisted delivery - ICD9: V13.29, ICD10: Z87.59 - August 2023 History of pre-eclampsia - ICD9: V13.29, ICD10: Z87.59 History of gestational hypertension - ICD9: V13.29, ICD10: Z87.59 - BP stable at 120/68 Short interval between pregnancies affecting , antepartum ([facility]) - ICD9: V23.89, ICD10: O09.899 - August 2023 vaginal delivery Obesity affecting , antepartum, unspecified obesity type ([facility]) - ICD9: 649.13, ICD10: O99.210 -Pre BMI 39 - Plan for 32 week growth q 4 weeks. - Weekly NSTs at 36 weeks. PTL precautions reviewed. RTO in 4 weeks or sooner as needed. Jonnie Hopson APRN.PROVIDER SERVICE REPRESENTATIVE [facility] 10-26-2024 Miscellaneous Notes EH - S: Grecia is a 29 year old female who presents at 24w4d for a routine visit. Feeling movement. Denies headache, visual changes, chest pain, shortness of breath, vaginal bleeding, leakage of fluid, or dysuria. Feeling well, no complaints. O: See flow sheet Gen: No apparent distress Abd: Gravid, nontender, S>D ASSESSMENT/PLAN: Supervision of high risk in second trimester ([facility]) - ICD9: V23.9, ICD10: O09.92 (primary diagnosis) - Continue PNV and LDA 24 weeks gestation of ([facility]) - ICD9: V22.2, ICD10: Z3A.24 - GTT, CBC, RPR, type and screen next visit - Rhogam next visit - Baby Girl AISLINN! 3. History of vacuum extraction assisted delivery - ICD9: V13.29, ICD10: Z87.59 - August 2023 History of pre-eclampsia - ICD9: V13.29, ICD10: Z87.59 History of gestational hypertension - ICD9: V13.29, ICD10: Z87.59 - BP stable at 120/68 Short interval between pregnancies affecting , antepartum ([facility]) - ICD9: V23.89, ICD10: O09.899 - August 2023 vaginal delivery Obesity affecting , antepartum, unspecified obesity type ([facility]) - ICD9: 649.13, ICD10: O99.210 -Pre BMI 39 - Plan for 32 week growth q 4 weeks. - Weekly NSTs at 36 weeks. PTL precautions reviewed. RTO in 4 weeks or sooner as needed. Jonnie Hopson APRN.PROVIDER SERVICE REPRESENTATIVE documented in this encounter [facility] 10-26-2024 Instructions Shantelle Cardenas MA - 10/26/2024 8:32 AM EDT SEQUENTIAL SCREENINGS The [facility] offers sequential screenings for women who are interested in screenings for chromosomal abnormalities and certain defects during a . The sequential screen combines ultrasound and blood tests to determine the risk of chromosomal abnormalities, including Down's Syndrome (Trisomy 21) and Trisomy 18, as well as open neural tube defects including spina bifida. Ultrasound examination is performed between 11 weeks and 13 weeks gestational age. Blood tests are drawn after the ultrasound and again later in the between 15 and 21 weeks gestational age. Please let your physician know if you are interested in this testing. It will require an appointment with our aviation technician aircraft. This is not an ultrasound performed by a physician in our office during a routine visit. SIGNS AND SYMPTOMS OF LABOR 1. Contractions every 10 minutes or more often 2. Clear, pink, or brownish fluid (water) leaking from vagina 3. Feeling that baby is pushing down, pressure 4. Low, dull backache 5. Cramps that feel like a period 6. Cramps with or without diarrhea If you notice any of the above symptoms, contact our office at [phone] and ask to speak with a nurse. After hours, you can call doctors registry at [phone] OR call [facility] at [phone] and ask to have the doctor manager generation paged. If you consider this an emergency, dial 9-1-0 or go to your nearest emergency department. NEED HELP? Are you dealing with a violent or abusive relationship? Are you a victim of rape or sexual assult? Call [facility] ([place]) 24 hour Crisis Hotline: 425.227.1501 or 466-765-4553. MANUAL Your Guide to a Healthy manual is now on-line. Visit [email or web address] to download your free copy documented in this encounter [facility] 09-29-2024 Progress note Formatting of t his note might be different from the original. S: Grecia Lockett is a 29 year old female who presents at 20 weeks gestation for a routine visit. Just completed anatomy US. Positive movements. Denies headache, visual changes, chest pain, shortness of breath, vaginal bleeding, leakage of fluid, or dysuria. Feeling well, no complaints. O: See flow sheet Gen: No apparent distress Abd: Gravid, non tender BP stable today at 116/76 ASSESSMENT/PLAN: 1. 20 weeks gestation of 2. Supervision of high risk in second trimester 3. History of vacuum extraction assisted delivery 4. History of pre-eclampsia 5. Short interval between pregnancies affecting , antepartum 6. Obesity affecting , antepartum, unspecified obesity type - BP stable - Continue to monitor due to hx of preeclampsia - Continue taking 2 ASA at bedtime - Pregravid BMI 39 will require testing - RTO 4 weeks or sooner if needed Darleen Wu APRN.CNM [facility] 09-29-2024 Miscellaneous Notes S: Grecia Lockett is a 29 year old female who presents at 20 weeks gestation for a routine visit. Just completed anatomy US. Positive movements. Denies headache, visual changes, chest pain, shortness of breath, vaginal bleeding, leakage of fluid, or dysuria. Feeling well, no complaints. O: See flow sheet Gen: No apparent distress Abd: Gravid, non tender BP stable today at 116/76 ASSESSMENT/PLAN: 1. 20 weeks gestation of 2. Supervision of high risk in second trimester 3. History of vacuum extraction assisted delivery 4. History of pre-eclampsia 5. Short interval between pregnancies affecting , antepartum 6. Obesity affecting , antepartum, unspecified obesity type - BP stable - Continue to monitor due to hx of preeclampsia - Continue taking 2 ASA at bedtime - Pregravid BMI 39 will require testing - RTO 4 weeks or sooner if needed Darleen Wu APRN.CNM documented in this encounter [facility] 09-29-2024 Timoteo Menezes MA - 09/29/2024 10:33 AM EDT SEQUENTIAL SCREENINGS The [facility] offers sequential screenings for women who are interested in screenings for chromosomal abnormalities and certain defects during a . The sequential screen combines ultrasound and blood tests to determine the risk of chromosomal abnormalities, including Down's Syndrome (Trisomy 21) and Trisomy 18, as well as open neural tube defects including spina bifida. Ultrasound examination is performed between 11 weeks and 13 weeks gestational age. Blood tests are drawn after the ultrasound and again later in the between 15 and 21 weeks gestational age. Please let your physician know if you are interested in this testing. It will require an appointment with our aviation technician aircraft. This is not an ultrasound performed by a physician in our office during a routine visit. SIGNS AND SYMPTOMS OF LABOR 1. Contractions every 10 minutes or more often 2. Clear, pink, or brownish fluid (water) leaking from vagina 3. Feeling that baby is pushing down, pressure 4. Low, dull backache 5. Cramps that feel like a period 6. Cramps with or without diarrhea If you notice any of the above symptoms, contact our office at [phone] and ask to speak with a nurse. After hours, you can call doctors registry at [phone] OR call [facility] at [phone] and ask to have the doctor manager generation paged. If you consider this an emergency, dial 6-9-3 or go to your nearest emergency department. NEED HELP? Are you dealing with a violent or abusive relationship? Are you a victim of rape or sexual assult? Call [facility] ([place]) 24 hour Crisis Hotline: 290.726.8614 or 331-969-4312. MANUAL Your Guide to a Healthy manual is now on-line. Visit [email or web address] to download your free copy documented in this encounter [facility] 09-01-2024 Miscellaneous Notes EH - S: Grecia is a 29 year old female who presents at 16w5d for a routine visit. Feeling movement. Denies headache, visual changes, chest pain, shortness of breath, vaginal bleeding, leakage of fluid, or dysuria. Feeling well, no complaints. O: See flow sheet Gen: No apparent distress Abd: Gravid, nontender ASSESSMENT/PLAN: 1. Supervision of high risk in second trimester ([facility]) - ICD9: V23.9, ICD10: O09.92 (primary diagnosis) - Continue PNV - 130/84 BP, reviewed parameters. Has BP cuff at home. Had stressful morning. Start keeping log due to history of pre eclampsia. Asymptomatic. 2. 16 weeks gestation of ([facility]) - ICD9: V22.2, ICD10: Z3A.16 - Anatomy ultrasound next visit 3. History of vacuum extraction assisted delivery - ICD9: V13.29, ICD10: Z87.59 4. History of pre-eclampsia - ICD9: V13.29, ICD10: Z87.59 - Continue LDA 5. Short interval between pregnancies affecting , antepartum ([facility]) - ICD9: V23.89, ICD10: O09.899 - Vaginal delivery August 2023 6. Obesity affecting , antepartum, unspecified obesity type ([facility]) - ICD9: 649.13, ICD10: O99.210 -Pre BMI 39 - Plan for 32 week growth q 4 weeks. - Weekly NSTs at 36 weeks. PTL precautions reviewed. RTO in 4 weeks or sooner as needed. Jonnie Hopson APRN.PROVIDER SERVICE REPRESENTATIVE documented in this encounter [facility] 09-01-2024 Progress note Formatting of t his note might be different from the original. EH - S: Grecia is a 29 year old female who presents at 16w5d for a routine visit. Feeling movement. Denies headache, visual changes, chest pain, shortness of breath, vaginal bleeding, leakage of fluid, or dysuria. Feeling well, no complaints. O: See flow sheet Gen: No apparent distress Abd: Gravid, nontender ASSESSMENT/PLAN: 1. Supervision of high risk in second trimester ([facility]) - ICD9: V23.9, ICD10: O09.92 (primary diagnosis) - Continue PNV - 130/84 BP, reviewed parameters. Has BP cuff at home. Had stressful morning. Start keeping log due to history of pre eclampsia. Asymptomatic. 2. 16 weeks gestation of ([facility]) - ICD9: V22.2, ICD10: Z3A.16 - Anatomy ultrasound next visit 3. History of vacuum extraction assisted delivery - ICD9: V13.29, ICD10: Z87.59 4. History of pre-eclampsia - ICD9: V13.29, ICD10: Z87.59 - Continue LDA 5. Short interval between pregnancies affecting , antepartum ([facility]) - ICD9: V23.89, ICD10: O09.899 - Vaginal delivery August 2023 6. Obesity affecting , antepartum, unspecified obesity type ([facility]) - ICD9: 649.13, ICD10: O99.210 -Pre BMI 39 - Plan for 32 week growth q 4 weeks. - Weekly NSTs at 36 weeks. PTL precautions reviewed. RTO in 4 weeks or sooner as needed. Jonnie Hopson APRN.PROVIDER SERVICE REPRESENTATIVE [facility] 09-01-2024 Instructions Chloé Pino LPN - 09/01/2024 8:30 AM EDT SEQUENTIAL SCREENINGS The [facility] offers sequential screenings for women who are interested in screenings for chromosomal abnormalities and certain defects during a . The sequential screen combines ultrasound and blood tests to determine the risk of chromosomal abnormalities, including Down's Syndrome (Trisomy 21) and Trisomy 18, as well as open neural tube defects including spina bifida. Ultrasound examination is performed between 11 weeks and 13 weeks gestational age. Blood tests are drawn after the ultrasound and again later in the between 15 and 21 weeks gestational age. Please let your physician know if you are interested in this testing. It will require an appointment with our aviation technician aircraft. This is not an ultrasound performed by a physician in our office during a routine visit. SIGNS AND SYMPTOMS OF LABOR 1. Contractions every 10 minutes or more often 2. Clear, pink, or brownish fluid (water) leaking from vagina 3. Feeling that baby is pushing down, pressure 4. Low, dull backache 5. Cramps that feel like a period 6. Cramps with or without diarrhea If you notice any of the above symptoms, contact our office at [phone] and ask to speak with a nurse. After hours, you can call doctors registry at [phone] OR call [facility] at [phone] and ask to have the doctor manager generation paged. If you consider this an emergency, dial 12-04- or go to your nearest emergency department. NEED HELP? Are you dealing with a violent or abusive relationship? Are you a victim of rape or sexual assult? Call [facility] ([facility] 24 hour Crisis Hotline: 177.941.8235 or 738-884-4682. MANUAL Your Guide to a Healthy manual is now on-line. Visit [email or web address] to download your free copy documented in this encounter [facility] 08-09-2024 Progress note Formatting of t his note might be different from the original. Anatomy ultrasound reviewed. No abnormalities identified. Follow up as clinically indicated. Please place copy in ob chart. Sona Figueroa MD [facility] Work Phone: 08-09-2024 Miscellaneous Notes Anatomy ultrasound reviewed. No abnormalities identified. Follow up as clinically indicated. Please place copy in ob chart. Sona Figueroa MD documented in this encounter [facility] 08-09-2024 Instructions Shantelle Cardenas MA - 08/09/2024 8:22 AM EDT SEQUENTIAL SCREENINGS The [facility] offers sequential screenings for women who are interested in screenings for chromosomal abnormalities and certain defects during a . The sequential screen combines ultrasound and blood tests to determine the risk of chromosomal abnormalities, including Down's Syndrome (Trisomy 21) and Trisomy 18, as well as open neural tube defects including spina bifida. Ultrasound examination is performed between 11 weeks and 13 weeks gestational age. Blood tests are drawn after the ultrasound and again later in the between 15 and 21 weeks gestational age. Please let your physician know if you are interested in this testing. It will require an appointment with our aviation technician aircraft. This is not an ultrasound performed by a physician in our office during a routine visit. SIGNS AND SYMPTOMS OF LABOR 1. Contractions every 10 minutes or more often 2. Clear, pink, or brownish fluid (water) leaking from vagina 3. Feeling that baby is pushing down, pressure 4. Low, dull backache 5. Cramps that feel like a period 6. Cramps with or without diarrhea If you notice any of the above symptoms, contact our office at [phone] and ask to speak with a nurse. After hours, you can call doctors registry at [phone] OR call [facility] at [phone] and ask to have the doctor manager generation paged. If you consider this an emergency, dial 9-1-1 or go to your nearest emergency department. NEED HELP? Are you dealing with a violent or abusive relationship? Are you a victim of rape or sexual assult? Call [facility] ([place]) 24 hour Crisis Hotline: 389.913.8911 or 193-302-1858. MANUAL Your Guide to a Healthy manual is now on-line. Visit [email or web address] to download your free copy documented in this encounter [facility] 08-09-2024 Note HNO ID: [id number] Author: JONNIE HOPSON APRN.PROVIDER SERVICE REPRESENTATIVE Service: ? Author Type: Nurse Practitioner Type: Progress Notes Filed: 08/09/2024 08:45 Note Text: EH - S: Grecia is a 29 year old female who presents at 13w3d for a routine visit. Denies headache, visual changes, chest pain, shortness of breath, vaginal bleeding, leakage of fluid, or dysuria. Feeling well, no complaints. O: See flow sheet Gen: No apparent distress Abd: Gravid, nontender ASSESSMENT/PLAN: 1. Supervision of high risk in second trimester ([facility]) - ICD9: V23.9, ICD10: O09.92 (primary diagnosis) - Continue PNV - [id number] negative - Declines carrier screening 2. 13 weeks gestation of ([facility]) - ICD9: V22.2, ICD10: Z3A.13 - NT today, report pending 3. Short interval between pregnancies affecting , antepartum ([facility]) - ICD9: V23.89, ICD10: O09.899 - Delivered August 2023 4. Obesity affecting , antepartum, unspecified obesity type ([facility]) - ICD9: 649.13, ICD10: O99.210 -Pre BMI 39 - Plan for 32 week growth q 4 weeks. - Weekly NSTs at 36 weeks. 5. History of vacuum extraction assisted delivery - ICD9: V13.29, ICD10: Z87.59 6. History of pre-eclampsia - ICD9: V13.29, ICD10: Z87.59 - Start 162 mg of aspirin nightly PTL precautions reviewed. RTO in 4 weeks or sooner as needed. Jonnie Hopson APRN.BILL [facility] 08-09-2024 History of Presen t illness Narrative EH - S: Grecia is a 29 year old female who presents at 13w3d for a routine visit. Denies headache, visual changes, chest pain, shortness of breath, vaginal bleeding, leakage of fluid, or dysuria. Feeling well, no complaints. O: See flow sheet Gen: No apparent distress Abd: Gravid, nontender ASSESSMENT/PLAN: 1. Supervision of high risk in second trimester ([facility]) - ICD9: V23.9, ICD10: O09.92 (primary diagnosis) - Continue PNV - [id number] negative - Declines carrier screening 2. 13 weeks gestation of ([facility]) - ICD9: V22.2, ICD10: Z3A.13 - NT today, report pending 3. Short interval between pregnancies affecting , antepartum ([facility]) - ICD9: V23.89, ICD10: O09.899 - Delivered August 2023 4. Obesity affecting , antepartum, unspecified obesity type ([facility]) - ICD9: 649.13, ICD10: O99.210 -Pre BMI 39 - Plan for 32 week growth q 4 weeks. - Weekly NSTs at 36 weeks. 5. History of vacuum extraction assisted delivery - ICD9: V13.29, ICD10: Z87.59 6. History of pre-eclampsia - ICD9: V13.29, ICD10: Z87.59 - Start 162 mg of aspirin nightly PTL precautions reviewed. RTO in 4 weeks or sooner as needed. Jonnie Hopson APRN.PROVIDER SERVICE REPRESENTATIVE documented in this encounter [facility] 07-18-2024 Instructions Laurel Tipton LPN - 07/18/2024 8:06 AM EDT Please select the following link to access the [facility] Your Guide to a Healthy . [email or web address] documented in this encounter [facility] 07-18-2024 Note HNO ID: [id number] Author: TARA RUBALCAVA APRN.PROVIDER SERVICE REPRESENTATIVE Service: ? Author Type: Nurse Practitioner Type: Progress Notes Filed: 07/18/2024 09:00 Note Text: Patient declined v/stol landing signal officer. INITIAL OB ASSESSMENT HPI: Grecia is a 28 year old White here to establish Obstetrical Care. Patient's last menstrual period was 04/23/2024 (exact date). from OB Dating Form. was planned Complaints: Lawler x2 per week OB History Gravida3 Para1 Term1 Preterm0 AB1 Living1 SAB1 IAB0 Ectopic0 Multiple0 Live Births1 Previous history: Prior : No History of 4th degree laceration: No History of shoulder dystocia: No History of Hypertensive disorders including pre-eclampsia or gestational hypertension: Yes History of gestational diabetes: No Patient's Risk Screening for delivery: Have you had a prior vazquez between 20w and 36w6d? No How many pregnancies have you had before? 2 Did you have a previous baby with a GBS Infection? No Please select all that apply for any prior : N/A MEDICAL/PSYCHOSOCIAL HISTORY: History of hemorrhage or bleeding concerns: No Thyroid Disease: No History of chronic hypertension: No History of pre-existing diabetes: No No results found for: ABORHD No weight on file for this encounter. Last Pap: 03/16/2023 History of abnormal pap: No Prior treatment for cervical dysplasia: none. Last HPV: History of STDs: N/A Partner History of STDs: None Did you have a partner with Herpes? No Tobacco use: No E-Cigarette/Vaping Use: No Caffeine use: Yes Drug use: No Alcohol use: No Multivitamin with Folic acid: Yes Would refuse blood transfusion if medically necessary: No Social Needs: How often does this describe you? I don't have enough money to pay my bills: Never Within the past 12 months, have you worried that your food would run out before you had money to buy more? Never In the past 12 months, has lack of reliable transportation kept you from going to medical appointments or work, or from getting things needed for daily living? Never In the past 12 months, have you had any concerns about having a place to live, or about the condition or quality of your housing? Never Would you like more information on any of the following (please check all that apply)? Not interested Social History: Do you have any history of depression, anxiety, PTSD, or other mood problems? No Do you have a history of abuse or trauma that may impact your experience? No Are you currently employed? Yes Depression/Anxiety Screening: denies symptoms of depression. OB Depression and Anxiety Screening- This Encounter (since 07/17/2024) None Genetic Screening: Partner present: Yes Patient verbalized knowledge of partner family health history: Yes Do you or your partner have any personal or family history of defects not previously discussed: No Do you have history of a complicated by anomaly, genetic condition, or demise: No Preeclampsia Risk Screening: Screening for prevention of preeclampsia: High risk factors: History of pre-eclampsia, especially when accompanied by an adverse outcome Moderate risk ractors: Obesity (body mass index greater than 30) OB Risk Screening: Completed, no positive findings documented. 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 Does not have a counselor. Coping well at this time. Update throughout . EH Elevated glucose tolerance test 06/18/2023 06/22/23 - negative 3hr GTT - Gianni Nascimento MD 3 hour ordered. Gestational hypertension, third trimester (HCC) 08/20/2023 Spontaneous ([facility]) History reviewed. No pertinent surgical history. Current Outpatient Medications Medication Sig Dispense Refill calcium phosphate dibas/vit D3 (VITAMIN D, WITH CALCIUM, ORAL) Take 5,000 mg by mouth once daily. labetalol (TRANDATE) 100 mg tablet Take 100 mg by mouth once daily. TAKE 1 TABLET BY MOUTH TWICE DAILY FOR 10 DAYS. TAKE IF BLOOD PRESSURE IS GREATER THAN 150 SYSTOLIC OR GREATER THAN 95 DIASTOLIC (Patient not taking: Reported on 10/06/2023) ferrous sulfate (IRON) 325 mg (65 mg iron) tablet Take 325 mg by mouth every other day. ibuprofen (MOTRIN) 200 mg tablet Take 200 mg by mouth every 6 hours as needed. vit calc,iron,folic ( [id number]-FA ORAL) Take by mouth as directed. magnesium oxide (MAG-OX) 400 mg (241.3 mg magnesium) tablet Take 400 mg by mouth. No current facility-administered medications for this visit. Allergies As of Date: 07/18/2024 (No Known Allergies) Fully Assessed 10/06/2023 Does patient have penicillin allergy: No REVIEW OF SYSTEMS: GENERAL: Negative for: Fever or Chills HEENT: Nega (more content not included)... 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 INITIAL OB ASSESSMENT HPI: Grecia is a 28 year old White here to establish Obstetrical Care. Patient's last menstrual period was 04/23/2024 (exact date). from OB Dating Form. was planned Complaints: Lawler x2 per week OB History Gravida3 Para1 Term1 Preterm0 AB1 Living1 SAB1 IAB0 Ectopic0 Multiple0 Live Births1 Previous history: Prior : No History of 4th degree laceration: No History of shoulder dystocia: No History of Hypertensive disorders including pre-eclampsia or gestational hypertension: Yes History of gestational diabetes: No Patient's Risk Screening for delivery: Have you had a prior vazquez between 20w and 36w6d? No How many pregnancies have you had before? 2 Did you have a previous baby with a GBS Infection? No Please select all that apply for any prior : N/A MEDICAL/PSYCHOSOCIAL HISTORY: History of hemorrhage or bleeding concerns: No Thyroid Disease: No History of chronic hypertension: No History of pre-existing diabetes: No No results found for: ABORHD No weight on file for this encounter. Last Pap: 03/16/2023 History of abnormal pap: No Prior treatment for cervical dysplasia: none. Last HPV: History of STDs: N/A Partner History of STDs: None Did you have a partner with Herpes? No Tobacco use: No E-Cigarette/Vaping Use: No Caffeine use: Yes Drug use: No Alcohol use: No Multivitamin with Folic acid: Yes Would refuse blood transfusion if medically necessary: No Social Needs: How often does this describe you? I don't have enough money to pay my bills: Never Within the past 12 months, have you worried that your food would run out before you had money to buy more? Never In the past 12 months, has lack of reliable transportation kept you from going to medical appointments or work, or from getting things needed for daily living? Never In the past 12 months, have you had any concerns about having a place to live, or about the condition or quality of your housing? Never Would you like more information on any of the following (please check all that apply)? Not interested Social History: Do you have any history of depression, anxiety, PTSD, or other mood problems? No Do you have a history of abuse or trauma that may impact your experience? No Are you currently employed? Yes Depression/Anxiety Screening: denies symptoms of depression. OB Depression and Anxiety Screening- This Encounter (since 07/17/2024) None Genetic Screening: Partner present: Yes Patient verbalized knowledge of partner family health history: Yes Do you or your partner have any personal or family history of defects not previously discussed: No Do you have history of a complicated by anomaly, genetic condition, or demise: No Preeclampsia Risk Screening: Screening for prevention of preeclampsia: High risk factors: History of pre-eclampsia, especially when accompanied by an adverse outcome Moderate risk ractors: Obesity (body mass index greater than 30) OB Risk Screening: Completed, no positive findings documented. 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 Does not have a counselor. Coping well at this time. Update throughout . EH Elevated glucose tolerance test 06/18/2023 06/22/23 - negative 3hr GTT - Gianni Nascimento MD 3 hour ordered. Gestational hypertension, third trimester (HCC) 08/20/2023 Spontaneous (HCC) History reviewed. No pertinent surgical history. Current Outpatient Medications Medication Sig Dispense Refill calcium phosphate dibas/vit D3 (VITAMIN D, WITH CALCIUM, ORAL) Take 5,000 mg by mouth once daily. labetalol (TRANDATE) 100 mg tablet Take 100 mg by mouth once daily. TAKE 1 TABLET BY MOUTH TWICE DAILY FOR 10 DAYS. TAKE IF BLOOD PRESSURE IS GREATER THAN 150 SYSTOLIC OR GREATER THAN 95 DIASTOLIC (Patient not taking: Reported on 10/06/2023) ferrous sulfate (IRON) 325 mg (65 mg iron) tablet Take 325 mg by mouth every other day. ibuprofen (MOTRIN) 200 mg tablet Take 200 mg by mouth every 6 hours as needed. vit calc,iron,folic ( [id number]-[id number]-TI-FA ORAL) Take by mouth as directed. magnesium oxide (MAG-OX) 400 mg (241.3 mg magnesium) tablet Take 400 mg by mouth. No current facility-administered medications for this visit. Allergies As of Date: 07/18/2024 (No Known Allergies) Fully Assessed 10/06/2023 Does patient have penicillin allergy: No REVIEW OF SYSTEMS: GENERAL: Negative for: Fever or Chills HEENT: Negative for: Headache, Impaired Vision, Ringing in Ears, Nosebleeds NECK: Negative for: Swelling, Pain, Stiffness RESPIRATORY: Negative for: Cough, Shortness of breath, Wheezing GASTROINTESTINAL: Negative for: Heartburn, Constipation, Diarrhea, Blood in stool, Vomiting MUSCULOSKELETAL: Negative for: Muscle or joint pain, stiffness, Joint swelling NEUROLOGIC/PSYCHIATRIC: Negative for: Weakness, Paralysis, Numbness, Tingling, Tremor, Anxiety, Depression, Memory loss SKIN: Negative for: Rash, Itching GENITOURINARY: Negative for: vaginal itching, vaginal discharge, hematuria or dysuria SENSITIVE EXAM: The sensitive examination was discussed with the Patient or Patient's Authorized Certified Marine Mechanic. As applicable, any other physician, advance practice provider, medical student, or other health professional student that will be observing or involved in the sensitive examination for educational or training purposes was discussed with the Patient or Authorized Certified Marine Mechanic. The Patient or Authorized Certified Marine Mechanic has agreed to proceed with the sensitive examination. (Sensitive examination includes inspection and/or palpation of the breasts, pelvis, prostate and anorectal regions). PHYSICAL EXAM: LMP 04/23/2024 GENERAL: pleasant in no apparent distress DERMATOLOGY: Normal, without lesions, non-icteric, and non-hirsute NECK: Supple, full range of motion, no adenopathy, and thyroid normal CHEST: Normal inspiratory effort BREAST: soft, non-tender, symmetric, no dominant mass, normal nipple-areolar complex, no lymphadenopathy, and no nipple discharge ABDOMEN: soft, non-tender, and no masses NEURO: alert and oriented x3,exam grossly non-focal PELVIS: External genitalia normal without lesions. Perineal body intact. No vaginal or cervical lesions. Cervix closed. No adnexal masses or tenderness. Clinical Pelvimetry: Pelvimetry clinically assessed as adequate Limited OB ultrasound exam: single intrauterine and POCUS performed. +cardiac activity, CRL NOT consistent with LMP. GUERDA changed from 01/28/25 to 02/11/25 Tara Rubalcava APRN.PROVIDER SERVICE REPRESENTATIVE SBIRT Grecia Lockett was given the 4P's screening tool. Grecia answered No to all the questions, the result is determined to be negative. ASSESSMENT: 28 year old at 12w2d wks gestational age PLAN: 1) Patient oriented to practice. Patient given new OB orientation folder. Discussed nutrition, folic acid supplementation, dietary guidelines, exercise, smoking, alcohol, caffeine, and drug use. Discussed gestational weight gain guidelines. Discussed routine OB labs including STD/HIV. Discussed how to access Your guide to a health and the Water Softener Installer. Reviewed midwifery and general operations agent services that are available. 2) Screening: Hemoglobin A1C: ordered Baby Aspirin: The patient has been counseled about the potential benefits of low dose aspirin in and our recommendation that this be offered to all patients, regardless of whether they meet the high risk criteria specified above. She Accepts Aneuploidy Screening: Discussed aneuploidy screening, nuchal translucency/first trimester early anatomy ultrasound and NIPT. The risks/benefits and limitations of NIPT/aneuploidy screening were reviewed including the potential for false negative and false positive results. The availability of genetic counseling was reviewed. Information on aneuploidy screening was provided. The patient chooses to proceed with First trimester early anatomy ultrasound (12-13w6d) and NIPT (10 weeks) Myriad Carrier Screening: Discussed myriad carrier screening. We discussed the availability of professional-society guided carrier screening and reviewed the conditions screened and limitations of screening. The availability of genetic counseling was reviewed. Information on carrier screening was provided. The patient Declines 3) Patient offered option of Virtual Visits. Patient unsure. May consider in future. 4) History of hypertension: Gestational Hypertension Discussed starting Aspirin 81 mg daily at 12 weeks. Ordered baseline CMP and Protein/Creatinine Ratio today Obesity (BMI >30), will order early glucose screen or Hemoglobin A1C. Follow up in 3 weeks or sooner ike. Tara Rubalcava APRN.CNP documented in this encounter [facility] 06-27-2024 Telephone encounter Note Called Pt to offer sooner appt 07/05/24 at 0845 with EH as she has 2 appointments available for 45 minute spot; however, Pt states she is unable to come in that day d/t her work schedule. This RN asked Pt if she would be able to switch her work schedule around and Pt stated that it would be unlikely. Advised Pt to come to appt on 07/18/24 with full bladder, anticipate call from MA/RN to obtain medical hx prior to appt and if we are unable to reach her we ask that she arrive 30 minutes prior to her scheduled appt. Advised Pt if she develops vaginal bleeding or severe abdominal pain to go to ER. Pt voiced understanding. Den Kang RN [facility] 06-27-2024 Miscellaneous Notes Called Pt to offer sooner appt 07/05/24 at 0845 with EH as she has 2 appointments available for 45 minute spot; however, Pt states she is unable to come in that day d/t her work schedule. This RN asked Pt if she would be able to switch her work schedule around and Pt stated that it would be unlikely. Advised Pt to come to appt on 07/18/24 with full bladder, anticipate call from MA/RN to obtain medical hx prior to appt and if we are unable to reach her we ask that she arrive 30 minutes prior to her scheduled appt. Advised Pt if she develops vaginal bleeding or severe abdominal pain to go to ER. Pt voiced understanding. 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 VISIT Grecia Lockett is a 28 year old year old here for visit. Delivery Summary: Vac assisted vaginal delivery No longer taking labetalol No LAWLER Desires no control. Would like again soon. Encouraged waiting at least 6 months. Risk or Pre E again in future pregnancies. Pumping and bottle feeding ROS/ Recovery: Feeding: Breast and bottle feeding problems: Seeing building performance consultant, trouble latching. Menses since delivery: spotting Menstrual pattern prior to : Regular periods [place] since delivery: Not resumed Depression: denies symptoms of depression. OB Depression and Anxiety Screening- This Encounter (since 10/05/2023) Over the past 2 weeks have you felt down, depressed, or hopeless? Negative Over the past two weeks, have you felt little interest or pleasure in doing things? Negative Feeling nervous, anxious or on edge 0-Not at all Not being able to stop or control worrying 0-Not al all Anxiety Pre-Screening Total (If >/= 3 additional questions will be reviewed) 0 Emotional support: Yes Bowel symptoms: Negative for abdominal discomfort, blood in stools or black stools and change in bowel habits Abdomen: none Bladder symptoms: No dysuria, gross hematuria, urinary frequency, urinary urgency, or incontinence Other issues: None Last Pap: 2022 normal HPV: N/A PAST MEDICAL HISTORY Diagnosis Date Anxiety during 05/20/2023 Reports she is anxious in general. Does not have a counselor. Coping well at this time. Update throughout . EH Elevated glucose tolerance test 06/18/2023 06/22/23 - negative 3hr GTT - Gianni Nascimento MD 3 hour ordered. Gestational hypertension, third trimester 08/20/2023 Spontaneous No past surgical history on file. FAMILY HISTORY Problem Relation Age of Onset No Known Problems Mother No Known Problems Father No Known Problems Sister No Known Problems Brother Diabetes Maternal Grandmother Diabetes Maternal Grandfather No Known Problems Paternal Grandmother No Known Problems Paternal Grandfather Social History Tobacco Use Smoking status: Never Smokeless tobacco: Never Vaping Use Vaping Use: Never used Substance Use Topics Alcohol use: Never Drug use: Never PHYSICAL EXAMINATION: BP 120/76 Wt 254 lb 9.6 oz (115.5kg) LMP 10/06/2023 GENERAL: pleasant, female in no apparent distress HEENT: Normocephalic, atraumatic, mucus membranes moist, and no lesions NECK: Supple, full range of motion, no adenopathy, and thyroid normal DERMATOLOGY: Normal, without lesions, non-icteric, and non-hirsute BREAST: soft, non-tender, symmetric, no dominant mass, normal nipple-areolar complex, no lymphadenopathy, and no nipple discharge CHEST: Normal inspiratory effort ABDOMEN: soft, non-tender, and no masses. INCISION: N/A PELVIC: external genitalia normal, normal Bartholin's glands, urethra, [place]'s glands, no vulvar lesions, no cervical lesions, good vaginal support, physiologic discharge present, normal appearing perineal body and perianal region BIMANUAL: uterus normal size, shape and consistency, no adnexal masses, and non-tender NEURO: alert and oriented x3,exam grossly non-focal EXTREMITIES: normal ASSESSMENT AND PLAN: 28 year old status post Vacuum with course complicated by Pre E. Contraception plan: none, desires Follow up: RTC for annual exams and PRN Elicia Gaming MD documented in this encounter [facility] 09-01-2023 History of Presen t illness Narrative EARLY VISIT Grecia Lockett is a 28 year old here for 5 days visit. Delivery Summary: On magnesium post . Discharge with labetalol. Has been taking only one a day. Bps start to increase throughout the day. Reviewed Rx. It was confusing. Should be taking BID. Still swelling. No LAWLER or vision changes. Breast feeding well. ROS: General: Denies any fever or chills Hypertension Screening: Headache? No. Visual Changes? No Epigastric Pain? No Increased Swelling? Yes Taking any BP medications at home? No If applicable, monitoring BP at home? (If Yes, include results) Yes / 127/92 Mood: normal Depression: denies symptoms of depression. OB Depression and Anxiety Screening- This Encounter (since 08/31/2023) None Feeding: Breast feeding problems: None Bladder: No dysuria, gross hematuria, urinary frequency, urinary urgency, or incontinence Bowel symptoms: Negative for abdominal discomfort, blood in stools or black stools and change in bowel habits Abdomen: N/A Bleeding: light flow Bottom and Perineum: No issues Sleep: no sleep concerns, feels rested [place] since delivery: Not resumed Emotional support: Yes Exercise: N/A Other issues: None PHYSICAL EXAMINATION: LMP 12/04/2022 General: pleasant,female in no apparent distress, A&O x 3. Skin warm and intact. Breast: Deferred Abdomen: Deferred /Incision: N/A Pelvic: Deferred Bimanual: Deferred ASSESSMENT AND PLAN: 28 year old status post with course complicated by HTN. Contraception plan: not applicable. Reinforced 6-week pelvic rest. Encouraged condom usage should patient deviate. Education: resources provided - see MA/RN note Start taking labetalol BID. To add an addition dose if BP elevated above given parameters. Follow up: Return to Clinic for 6 week visit and as needed Elicia Gaming MD documented in this encounter [facility] 08-31-2023 History of Presen t illness Narrative POPULATION HEALTH NAVIGATION OUTREACH Action/FYI Spoke to patient patient deliviered Reason for Outreach Medicaid OB/Peds Care Gaps due: N/A Patient Contacted: Spoke to patient/parent/or legal guardian Patient identified by name and : Yes Navigation Signature: Maru Douglass Population Health Navigator August 31, 2023 9:44 AM documented in this encounter [facility] 08-31-2023 History of Presen t illness Narrative Patient delivered via at [facility] on 08/27/23 per Sona Figueroa M.D. . See OB Outcome note. Elicia Ashley RN documented in this encounter [facility] 08-29-2023 Note [facility] Medical Records Department [address] [place] [address] Discharge Summary 08/29/23 1101 MR#: [id number] Acct: [id number] Name: GRECIA LOCKETT Rep #: [id number] : 1995 28 From: Sona Figueroa MD PCP: Status:ADM IN Location: [id number] Providers Date of Admission: 08/26/23 Date of Discharge: 08/29/23 Reason For Visit: vacuum assisted vaginal delivery Diagnosis Discharge Diagnosis (1) Vacuum-assisted vaginal delivery: Status: Acute Code(s): Z37.9 - Outcome of delivery, unspecified Plan: PPD#2 preeclampsia w/ severe features. BP stable. D/w her r/b/a to d/c home w/ labetalol. Close surveillance of BP w/ home monitor. Patient has and has been checking at home. D/w her importance of f/u within 3 days. Call or return for severe preeclampsia features. acute blood loss anemia- d/c home on fe and doing well Medications at Discharge Home Medications PNV#14-iron fum-FA#4-plg-erkonaps 27 mg iron-1 mg-300 mg-50 mg capsule cap PO 08/26/23 ferrous sulfate 325 mg (65 mg iron) tablet (FeroSul) 325 mg PO QODAY 60 days #15 tabs 08/29/23 ibuprofen 600 mg tablet 600 mg PO Q6H PRN Pain 20 days #60 TABLETS 08/29/23 labetalol 100 mg tablet 100 mg PO BID 10 days #20 tabs 08/29/23 Hospital Course Operations - (Vaccum assisted vaginal delivery on 08/27/23) Procedures None Summary of Care Provided Minutes Spent on Discharge: 22 Hospital Course: 28-year-old female presented for induction of labor on 08/26/2023 for gestational hypertension. Upon arrival she was diagnosed with preeclampsia with severe features. She required IV labetalol. She underwent Cytotec, Aggarwal, Pitocin and AROM for induction of labor. She had a vacuum-assisted vaginal delivery on 08/27/2023 for paternal exhaustion. She had a second-degree laceration. She had atony without hemorrhage. She had mild acute blood loss anemia. She tolerated this well. By day #2 her blood pressures were stable and she was not on antihypertensives. She was tolerating the anemia well. She was discharged home on iron. She was instructed to call or return for any symptoms of severe preeclampsia. She completed 24 hours of magnesium status post vaginal delivery. Discussed with her chance of rebound hypertension. Will discharge home with a prescription of labetalol. She does not have to take this regularly at this time but will give her 1 dose before she leaves to make sure she tolerates it so she can take it as needed at home if her blood pressure trends up. Return to the office within 3 days of delivery. Patient is comfortable with this plan and will monitor blood pressures closely at home. Weight / BMI Weight Weight: 124.284 kg Body Mass Index (BMI) 44.2 ABG / Lab / Microbiology Data 08/28/23 04:45 08/26/23 20:15 Meaningful Use Info Meaningful Use Meaningful Use Diagnoses (Choose all that apply): None applicable Ischemic Stroke Statin Dosing Therapy Reference: STATIN DOSE THERAPY REFERENCE: * Patients > 75 years receive moderate or high dose statin therapy. * Patients 75 years or YOUNGER should receive HIGH intensity statin dose unless contraindicated. You will be required to document reason for non-treatment if statin daily dose does not meet guidelines. HIGH DOSE STATIN THERAPY DAILY Atorvastatin > than or = to 40 mg Rosuvastatin > than or = to 20 mg Amlodipine + Atorvastatin > than or = to 2.5/40 mg Ezetimibe + Simvastatin 10/80 mg Simvastatin 80mg Discharge Plan Admission Admit Date/Time: 08/26/23 19:17 Primary Reason for Your Visit: Vaginal delivery Attending Provider: Sona Figueroa Discharge Orders/Prescriptions Prescriptions: New labetalol 100 mg tablet 100 mg PO BID 10 Days Qty: 20 0RF Rx Instructions: take if BP >150 systolic or > 95 diastolic ferrous sulfate [FeroSul] 325 mg (65 mg iron) tablet 325 mg PO QODAY 60 Days Qty: 15 1RF ibuprofen 600 mg tablet 600 mg PO Q6H PRN (Reason: Pain) 20 Days Qty: 60 1RF Continued PNV #14-iron-FA#3-aji-nlfttala 27 mg iron-1 mg -300 mg-50 mg capsule PO Discontinued magnesium 200 mg tablet 200 mg PO DAILY Disposition Disposition (needs filled in before D/C Order can be placed): Home, Self Care 08/29/23 1103 Cosigner Signature (if applicable): CC: Dr. Sona Figueroa MD Signed [facility] 08-25-2023 Progress note Formatting of t his note might be different from the original. S: Grecia Lockett is a 28 year old female who presents at 09/10/2023, by Last Menstrual Period for a routine visit. Denies headache, visual changes, chest pain, shortness of breath, vaginal bleeding, leakage of fluid, or dysuria. Feeling well, no complaints. Good movement no contractions. Average BP 135/90. No Headache. Reviewed IOL process. Patient is agreeable. O: See flow sheet Gen: No apparent distress Abd: Gravid, nontender 0.5/50/-2 GBS neg ASSESSMENT/PLAN: 1. Obesity affecting in third trimester, unspecified obesity type - ICD9: 649.13, ICD10: O99.213 (primary diagnosis) - URINE OB DIP B/O 2. Elevated blood pressure reading without diagnosis of hypertension - ICD9: 796.2, ICD10: R03.0 - Now gestational HTN. IOL scheduled for tomorrow night - URINE OB DIP B/O 3. with care elsewhere in third trimester - ICD9: V22.1, ICD10: Z34.93 - URINE OB DIP B/O 4. 37 weeks gestation of - ICD9: V22.2, ICD10: Z3A.37 - URINE OB DIP B/O Elicia Gaming MD [facility] 08-25-2023 History of Presen t illness Narrative REYES BP A-135/90 6-129/89 5-123/85 4-140/86 3-139/89 2-132/92 1-147/100 documented in this encounter [facility] 08-25-2023 Miscellaneous Notes S: Grecia Lockett is a 28 year old female who presents at 09/10/2023, by Last Menstrual Period for a routine visit. Denies headache, visual changes, chest pain, shortness of breath, vaginal bleeding, leakage of fluid, or dysuria. Feeling well, no complaints. Good movement no contractions. Average BP 135/90. No Headache. Reviewed IOL process. Patient is agreeable. O: See flow sheet Gen: No apparent distress Abd: Gravid, nontender 0.5/50/-2 GBS neg ASSESSMENT/PLAN: 1. Obesity affecting in third trimester, unspecified obesity type - ICD9: 649.13, ICD10: O99.213 (primary diagnosis) - URINE OB DIP B/O 2. Elevated blood pressure reading without diagnosis of hypertension - ICD9: 796.2, ICD10: R03.0 - Now gestational HTN. IOL scheduled for tomorrow night - URINE OB DIP B/O 3. with care elsewhere in third trimester - ICD9: V22.1, ICD10: Z34.93 - URINE OB DIP B/O 4. 37 weeks gestation of - ICD9: V22.2, ICD10: Z3A.37 - URINE OB DIP B/O Elicia Gaming MD documented in this encounter [facility] 08-25-2023 Instructions Margoth Luna MA - 08/25/2023 8:55 AM EDT SEQUENTIAL SCREENINGS The [facility] offers sequential screenings for women who are interested in screenings for chromosomal abnormalities and certain defects during a . The sequential screen combines ultrasound and blood tests to determine the risk of chromosomal abnormalities, including Down's Syndrome (Trisomy 21) and Trisomy 18, as well as open neural tube defects including spina bifida. Ultrasound examination is performed between 11 weeks and 13 weeks gestational age. Blood tests are drawn after the ultrasound and again later in the between 15 and 21 weeks gestational age. Please let your physician know if you are interested in this testing. It will require an appointment with our aviation technician aircraft. This is not an ultrasound performed by a physician in our office during a routine visit. SIGNS AND SYMPTOMS OF LABOR 1. Contractions every 10 minutes or more often 2. Clear, pink, or brownish fluid (water) leaking from vagina 3. Feeling that baby is pushing down, pressure 4. Low, dull backache 5. Cramps that feel like a period 6. Cramps with or without diarrhea If you notice any of the above symptoms, contact our office at [phone] and ask to speak with a nurse. After hours, you can call doctors registry at [phone] OR call [facility] at [phone] and ask to have the doctor manager generation paged. If you consider this an emergency, dial 0-1-8 or go to your nearest emergency department. NEED HELP? Are you dealing with a violent or abusive relationship? Are you a victim of rape or sexual assult? Call [facility] ([place]) 24 hour Crisis Hotline: 270.773.2909 or 541-464-4102. MANUAL Your Guide to a Healthy manual is now on-line. Visit [email or web address] to download your free copy documented in this encounter [facility] 08-20-2023 Progress note Formatting of t his note might be different from the original. S: Grecia Lockett is a 28 year old female who presents at 09/10/2023, by Last Menstrual Period for a routine visit. Denies headache, visual changes, chest pain, shortness of breath, vaginal bleeding, leakage of fluid, or dysuria. Feeling well, no complaints. BP 142/84 Negative PIH labs. Pr/cr 0.1. Declines IOL prior to 38 weeks. Reviewed PIH precautions. Is getting a BP cuff for home. To call with elevated BP or symptoms. O: See flow sheet Gen: No apparent distress Abd: Gravid, nontender ASSESSMENT/PLAN: 1. with care elsewhere in third trimester - ICD9: V22.1, ICD10: Z34.93 (primary diagnosis) - URINE OB DIP B/O 2. Obesity affecting in third trimester, unspecified obesity type - ICD9: 649.13, ICD10: O99.213 Nst done earlier this week - URINE OB DIP B/O 3. Elevated blood pressure reading without diagnosis of hypertension - ICD9: 796.2, ICD10: R03.0 - URINE OB DIP B/O 4. 37 weeks gestation of - ICD9: V22.2, ICD10: Z3A.37 - URINE OB DIP B/O 5. Gestational hypertension, third trimester - ICD9: 642.33, ICD10: O13.3 IOL between 38-39 Reviewed PIH precautions with patient and . Getting a BP cuff for home. Has appointment scheduled for Wednesday. Elicia Gaming MD [facility] 08-20-2023 Miscellaneous Notes S: Grecia Lockett is a 28 year old female who presents at 09/10/2023, by Last Menstrual Period for a routine visit. Denies headache, visual changes, chest pain, shortness of breath, vaginal bleeding, leakage of fluid, or dysuria. Feeling well, no complaints. BP 142/84 Negative PIH labs. Pr/cr 0.1. Declines IOL prior to 38 weeks. Reviewed PIH precautions. Is getting a BP cuff for home. To call with elevated BP or symptoms. O: See flow sheet Gen: No apparent distress Abd: Gravid, nontender ASSESSMENT/PLAN: 1. with care elsewhere in third trimester - ICD9: V22.1, ICD10: Z34.93 (primary diagnosis) - URINE OB DIP B/O 2. Obesity affecting in third trimester, unspecified obesity type - ICD9: 649.13, ICD10: O99.213 Nst done earlier this week - URINE OB DIP B/O 3. Elevated blood pressure reading without diagnosis of hypertension - ICD9: 796.2, ICD10: R03.0 - URINE OB DIP B/O 4. 37 weeks gestation of - ICD9: V22.2, ICD10: Z3A.37 - URINE OB DIP B/O 5. Gestational hypertension, third trimester - ICD9: 642.33, ICD10: O13.3 IOL between 38-39 Reviewed PIH precautions with patient and . Getting a BP cuff for home. Has appointment scheduled for Wednesday. Elicia Gaming MD documented in this encounter [facility] 08-20-2023 Instructions Margoth Luna MA - 08/20/2023 11:07 AM EDT SEQUENTIAL SCREENINGS The [facility] offers sequential screenings for women who are interested in screenings for chromosomal abnormalities and certain defects during a . The sequential screen combines ultrasound and blood tests to determine the risk of chromosomal abnormalities, including Down's Syndrome (Trisomy 21) and Trisomy 18, as well as open neural tube defects including spina bifida. Ultrasound examination is performed between 11 weeks and 13 weeks gestational age. Blood tests are drawn after the ultrasound and again later in the between 15 and 21 weeks gestational age. Please let your physician know if you are interested in this testing. It will require an appointment with our aviation technician aircraft. This is not an ultrasound performed by a physician in our office during a routine visit. SIGNS AND SYMPTOMS OF LABOR 1. Contractions every 10 minutes or more often 2. Clear, pink, or brownish fluid (water) leaking from vagina 3. Feeling that baby is pushing down, pressure 4. Low, dull backache 5. Cramps that feel like a period 6. Cramps with or without diarrhea If you notice any of the above symptoms, contact our office at [phone] and ask to speak with a nurse. After hours, you can call [employer] registry at [phone] OR call [facility] at [phone] and ask to have the doctor manager generation paged. If you consider this an emergency, dial 9-1-5 or go to your nearest emergency department. NEED HELP? Are you dealing with a violent or abusive relationship? Are you a victim of rape or sexual assult? Call [facility] ([place]) 24 hour Crisis Hotline: 409.845.4387 or 257-753-2863. MANUAL Your Guide to a Healthy manual is now on-line. Visit [email or web address] to download your free copy documented in this encounter [facility] 08-18-2023 Telephone encounter Note ok for note to be off for gestational hypertension, high risk until delivery and through PP leave. Sona Figueroa MD [facility] Work Phone: 08-18-2023 Miscellaneous Notes ok for note to be off for gestational hypertension, high risk until delivery and through PP leave. Sona Figueroa MD 36w5d Patient has appointment on 08/19. Would you like to discuss this at that time? documented in this encounter [facility] 08-18-2023 Telephone encounter Note 36w5d Patient has appointment on 08/19. Would you like to discuss this at that time? [facility] 08-17-2023 History of Presen t illness Narrative NST SUMMARY PROVIDER ASSESSMENT AND INTERPRETATION Grecia Lockett is a 28 year old female, , who is at 36w4d with an GUERDA of 09/10/2023, by Last Menstrual Period dating method. Indications for NST: Obesity Baseline: 130 Variability: Moderate Accelerations: Present 15 X 15 Decelerations: None Contractions: TOCO: None Interpretation: Reactive SIGNATURE: Gianni Nascimento MD documented in this encounter [facility] 08-17-2023 Progress note Formatting of t his note might be different from the original. KJ - VB No. LOF No. CTXS No. Movement: present. Other c/o: No. Denies headaches or blurry vision. Medication list reviewed. Physical Exam See Flow Sheet Gen: no accute distress, well appearing Abd: soft, nontender, gravid A/P 36w4d Estimated Date of Delivery: 09/10/23 Elevated BP - true BP normal & no symptoms of preE. Patient amenable to NST and preE labs today. Follow up Wednesday for BP check Labor precautions reviewed, Kick counts reviewed. Gianni Nascimento MD [facility] 08-17-2023 Miscellaneous Notes EDER - VB No. LOF No. CTXS No. Movement: present. Other c/o: No. Denies headaches or blurry vision. Medication list reviewed. Physical Exam See Flow Sheet Gen: no accute distress, well appearing Abd: soft, nontender, gravid A/P 36w4d Estimated Date of Delivery: 09/10/23 Elevated BP - true BP normal & no symptoms of preE. Patient amenable to NST and preE labs today. Follow up Wednesday for BP check Labor precautions reviewed, Kick counts reviewed. Gianni Nascimento MD documented in this encounter [facility] 08-17-2023 Sheri Rico MA - 08/17/2023 1:29 PM EDT SEQUENTIAL SCREENINGS The [facility] offers sequential screenings for women who are interested in screenings for chromosomal abnormalities and certain defects during a . The sequential screen combines ultrasound and blood tests to determine the risk of chromosomal abnormalities, including Down's Syndrome (Trisomy 21) and Trisomy 18, as well as open neural tube defects including spina bifida. Ultrasound examination is performed between 11 weeks and 13 weeks gestational age. Blood tests are drawn after the ultrasound and again later in the between 15 and 21 weeks gestational age. Please let your physician know if you are interested in this testing. It will require an appointment with our aviation technician aircraft. This is not an ultrasound performed by a physician in our office during a routine visit. SIGNS AND SYMPTOMS OF LABOR 1. Contractions every 10 minutes or more often 2. Clear, pink, or brownish fluid (water) leaking from vagina 3. Feeling that baby is pushing down, pressure 4. Low, dull backache 5. Cramps that feel like a period 6. Cramps with or without diarrhea If you notice any of the above symptoms, contact our office at [phone] and ask to speak with a nurse. After hours, you can call [facility] at [phone] OR call [facility] at [phone] and ask to have the doctor manager generation paged. If you consider this an emergency, dial 9-1-0 or go to your nearest emergency department. NEED HELP? Are you dealing with a violent or abusive relationship? Are you a victim of rape or sexual assult? Call [facility] ([facility] 24 hour Crisis Hotline: 400.830.5028 or 149-092-2160. MANUAL Your Guide to a Healthy manual is now on-line. Visit [email or web address] to download your free copy documented in this encounter [facility] 08-12-2023 Note Addended by: GIANNI NASCIMENTO on: 08/12/2023 03:54 PM Modules accepted: Orders [facility] 08-12-2023 Miscellaneous Notes Addended by: GIANNI NASCIMENTO on: 08/12/2023 03:54 PM Modules accepted: Orders Addended by: JACQUELYN MACK on: 08/12/2023 02:53 PM Modules accepted: Orders KJ - VB No. LOF No. CTXS Yes - occ. Movement: present. Other c/o: No. Medication list reviewed. Physical Exam See Flow Sheet Gen: no accute distress, well appearing Abd: soft, nontender, gravid TAUS: confirms vtx A/P 35w6d Estimated Date of Delivery: 09/10/23 Labs: GBS don Obesity - needs repeat growth US and NST but declining at this time due to cost/lack of insurance coverage PTL precautions reviewed, Kick counts reviewed. Gianni Nascimento MD documented in this encounter [facility] 08-12-2023 Note Addended by: JACQUELYN LOUISE on: 08/12/2023 02:53 PM Modules accepted: Orders [facility] 08-12-2023 Progress note Formatting of t his note might be different from the original. KJ - VB No. LOF No. CTXS Yes - occ. Movement: present. Other c/o: No. Medication list reviewed. Physical Exam See Flow Sheet Gen: no accute distress, well appearing Abd: soft, nontender, gravid TAUS: confirms vtx A/P 35w6d Estimated Date of Delivery: 09/10/23 Labs: GBS don Obesity - needs repeat growth US and NST but declining at this time due to cost/lack of insurance coverage PTL precautions reviewed, Kick counts reviewed. Gianni Nascimento MD [facility] 08-12-2023 Instructions Toyin Montez MA - 08/12/2023 2:09 PM EDT SEQUENTIAL SCREENINGS The [facility] offers sequential screenings for women who are interested in screenings for chromosomal abnormalities and certain defects during a . The sequential screen combines ultrasound and blood tests to determine the risk of chromosomal abnormalities, including Down's Syndrome (Trisomy 21) and Trisomy 18, as well as open neural tube defects including spina bifida. Ultrasound examination is performed between 11 weeks and 13 weeks gestational age. Blood tests are drawn after the ultrasound and again later in the between 15 and 21 weeks gestational age. Please let your physician know if you are interested in this testing. It will require an appointment with our aviation technician aircraft. This is not an ultrasound performed by a physician in our office during a routine visit. SIGNS AND SYMPTOMS OF LABOR 1. Contractions every 10 minutes or more often 2. Clear, pink, or brownish fluid (water) leaking from vagina 3. Feeling that baby is pushing down, pressure 4. Low, dull backache 5. Cramps that feel like a period 6. Cramps with or without diarrhea If you notice any of the above symptoms, contact our office at [phone] and ask to speak with a nurse. After hours, you can call doctors registry at [phone] OR call [facility] at [phone] and ask to have the doctor manager generation paged. If you consider this an emergency, dial 3-1-8 or go to your nearest emergency department. NEED HELP? Are you dealing with a violent or abusive relationship? Are you a victim of rape or sexual assult? Call [facility] ([place]) 24 hour Crisis Hotline: 410.581.9837 or 211-477-1293. MANUAL Your Guide to a Healthy manual is now on-line. Visit [email or web address] to download your free copy documented in this encounter [facility] 07-29-2023 Progress note Formatting of t his note might be different from the original. KJ - VB No. LOF No. CTXS No. Movement: present. Other c/o: No. Medication list reviewed. Physical Exam See Flow Sheet Gen: no accute distress, well appearing Abd: soft, nontender, gravid A/P 33w6d Estimated Date of Delivery: 09/10/23 Obesity - patient declines NSTs due to concerns about insurance coverage. Discussed rationale & importance of EFM. She will call if would like to schedule an NST for next week. PTL precautions reviewed, Kick counts reviewed. Gianni Nascimento MD [facility] 07-29-2023 Miscellaneous Notes KJ - VB No. LOF No. CTXS No. Movement: present. Other c/o: No. Medication list reviewed. Physical Exam See Flow Sheet Gen: no accute distress, well appearing Abd: soft, nontender, gravid A/P 33w6d Estimated Date of Delivery: 09/10/23 Obesity - patient declines NSTs due to concerns about insurance coverage. Discussed rationale & importance of EFM. She will call if would like to schedule an NST for next week. PTL precautions reviewed, Kick counts reviewed. Gianni Nascimento MD documented in this encounter [facility] 07-29-2023 Instructions Toyin Montez MA - 07/29/2023 1:34 PM EDT SEQUENTIAL SCREENINGS The [facility] offers sequential screenings for women who are interested in screenings for chromosomal abnormalities and certain defects during a . The sequential screen combines ultrasound and blood tests to determine the risk of chromosomal abnormalities, including Down's Syndrome (Trisomy 21) and Trisomy 18, as well as open neural tube defects including spina bifida. Ultrasound examination is performed between 11 weeks and 13 weeks gestational age. Blood tests are drawn after the ultrasound and again later in the between 15 and 21 weeks gestational age. Please let your physician know if you are interested in this testing. It will require an appointment with our aviation technician aircraft. This is not an ultrasound performed by a physician in our office during a routine visit. SIGNS AND SYMPTOMS OF LABOR 1. Contractions every 10 minutes or more often 2. Clear, pink, or brownish fluid (water) leaking from vagina 3. Feeling that baby is pushing down, pressure 4. Low, dull backache 5. Cramps that feel like a period 6. Cramps with or without diarrhea If you notice any of the above symptoms, contact our office at [phone] and ask to speak with a nurse. After hours, you can call doctors registry at [phone] OR call [facility] at [phone] and ask to have the doctor manager generation paged. If you consider this an emergency, dial 9-1-1 or go to your nearest emergency department. NEED HELP? Are you dealing with a violent or abusive relationship? Are you a victim of rape or sexual assult? Call [facility] ([place]) 24 hour Crisis Hotline: 691.373.5581 or 430-758-9841. MANUAL Your Guide to a Healthy manual is now on-line. Visit [email or web address] to download your free copy documented in this encounter [facility] 07-16-2023 Miscellaneous Notes FMLA completed, faxed to employer, scanned into EMR copy filed in nurses station, original placed with appointment notes to give to pt at follow up appt on 07/29/23. Chloé Naik LPN FMLA paperwork completed and placed on providers desk for signature. Chloé Naik LPN documented in this encounter [facility] 07-15-2023 Miscellaneous Notes KJ - VB No. LOF No. CTXS No. Movement: present. Other c/o: No. Medication list reviewed. Physical Exam See Flow Sheet Gen: no accute distress, well appearing Abd: soft, nontender, gravid A/P 31w6d Estimated Date of Delivery: 09/10/23 True BP normal Obesity - growth US today. Weekly NSTs ordered. PTL precautions reviewed, Kick counts reviewed. Gianni Nascimento MD documented in this encounter [facility] 07-15-2023 History of Presen t illness Narrative REYES BP A-126/83 6-126/82 5-131/80 4-123/84 3-128/82 2-123/85 1-126/83 documented in this encounter [facility] 07-15-2023 Instructions Margoth Luna MA - 07/15/2023 1:53 PM EDT SEQUENTIAL SCREENINGS The [facility] offers sequential screenings for women who are interested in screenings for chromosomal abnormalities and certain defects during a . The sequential screen combines ultrasound and blood tests to determine the risk of chromosomal abnormalities, including Down's Syndrome (Trisomy 21) and Trisomy 18, as well as open neural tube defects including spina bifida. Ultrasound examination is performed between 11 weeks and 13 weeks gestational age. Blood tests are drawn after the ultrasound and again later in the between 15 and 21 weeks gestational age. Please let your physician know if you are interested in this testing. It will require an appointment with our aviation technician aircraft. This is not an ultrasound performed by a physician in our office during a routine visit. SIGNS AND SYMPTOMS OF LABOR 1. Contractions every 10 minutes or more often 2. Clear, pink, or brownish fluid (water) leaking from vagina 3. Feeling that baby is pushing down, pressure 4. Low, dull backache 5. Cramps that feel like a period 6. Cramps with or without diarrhea If you notice any of the above symptoms, contact our office at [phone] and ask to speak with a nurse. After hours, you can call doctors registry at [phone] OR call [facility] at [phone] and ask to have the doctor manager generation paged. If you consider this an emergency, dial 9-1-1 or go to your nearest emergency department. NEED HELP? Are you dealing with a violent or abusive relationship? Are you a victim of rape or sexual assult? Call [facility] ([place]) 24 hour Crisis Hotline: 907.598.7783 or 197-158-2537. MANUAL Your Guide to a Healthy manual is now on-line. Visit [email or web address] to download your free copy documented in this encounter [facility] 06-18-2023 Miscellaneous Notes 3 hour already ordered by KJ. Jonnie Hopson APRN.PROVIDER SERVICE REPRESENTATIVE documented in this encounter [facility] 06-17-2023 Miscellaneous Notes 3hr GTT ordered Gianni Nascimento MD 3 hour GTT order pending. Dulce Gaviria RN documented in this encounter [facility] 06-17-2023 History of Presen t illness Narrative Grecia Lockett 27 year old is here for her injection of Rhophylac. Grecia Lockett No results found for: ABORHD, ABSCREEN, ABID Grecia Lockett is RH Negative Rhophylac was given without incident. See immunizations for details of immunizations administered today. Provider Dr. Nascimento was present in office at time of injection Grecia Lockett was given her Rhophylac pocket card. Dulce Gaviria RN Patient identified by name and date of . Grecia Lockett presents today for a vaccination of Tdap. Patient denies an allergy to latex: yes Patient denies a severe (life-threatening) allergy to a previous dose of Tdap, DTP, DTaP, DT or Td vaccine. Yes Patient denies history of epilepsy or neurological problems: Yes Patient is afebrile and denies being moderately or severely ill: Yes Patient denies history of Guillain-[place] Syndrome (a severe paralytic illness): Yes Tdap Adacel injection was given without incident. See immunizations for details of immunizations administered today. VIS sheet provided: Yes Provider Ifeanyi was present in office at time of injection. Toyin Montez MA documented in this encounter [facility] 06-17-2023 Miscellaneous Notes KJ - VB No. LOF No. CTXS No. Movement: present. Other c/o: No. Medication list reviewed. Physical Exam See Flow Sheet Gen: no accute distress, well appearing Abd: soft, nontender, gravid A/P 27w6d Estimated Date of Delivery: 09/10/23 Labs: 28 week labs RH negative - rhogam today Tdap today Declines LARC Obesity - growth US in 4 weeks PTL precautions reviewed, Kick counts reviewed. Gianni Nascimento MD documented in this encounter [facility] 06-17-2023 Instructions Toyin Montez MA - 06/17/2023 9:30 AM EDT SEQUENTIAL SCREENINGS The [facility] offers sequential screenings for women who are interested in screenings for chromosomal abnormalities and certain defects during a . The sequential screen combines ultrasound and blood tests to determine the risk of chromosomal abnormalities, including Down's Syndrome (Trisomy 21) and Trisomy 18, as well as open neural tube defects including spina bifida. Ultrasound examination is performed between 11 weeks and 13 weeks gestational age. Blood tests are drawn after the ultrasound and again later in the between 15 and 21 weeks gestational age. Please let your physician know if you are interested in this testing. It will require an appointment with our aviation technician aircraft. This is not an ultrasound performed by a physician in our office during a routine visit. SIGNS AND SYMPTOMS OF LABOR 1. Contractions every 10 minutes or more often 2. Clear, pink, or brownish fluid (water) leaking from vagina 3. Feeling that baby is pushing down, pressure 4. Low, dull backache 5. Cramps that feel like a period 6. Cramps with or without diarrhea If you notice any of the above symptoms, contact our office at [phone] and ask to speak with a nurse. After hours, you can call doctors registry at [phone] OR call [facility] at [phone] and ask to have the doctor manager generation paged. If you consider this an emergency, dial 9-1-4 or go to your nearest emergency department. NEED HELP? Are you dealing with a violent or abusive relationship? Are you a victim of rape or sexual assult? Call [facility] ([place]) 24 hour Crisis Hotline: 848.806.1608 or 035-586-3882. MANUAL Your Guide to a Healthy manual is now on-line. Visit [email or web address] to download your free copy documented in this encounter [facility] 05-20-2023 [facility] at [place]. Have we received the report for that? Jonnie Hopson APRN.PROVIDER SERVICE REPRESENTATIVE documented in this encounter [facility] 05-20-2023 History of Presen t illness Narrative INITIAL OB ASSESSMENT HPI: Grecia is a 27 year old White here to establish Obstetrical Care. Patient's last menstrual period was 12/04/2022. from OB Dating Form. Do you have regular periods/menstrual cycles? Yes was planned Complaints: No OB History T0 L0 SAB1 IAB0 Ectopic0 Multiple0 Live Births0 How many pregnancies have you had before? 1 Have you had a prior vazquez between 20w and 36w6d? No Did you present in active spontaneous labor or have ruptured membranes, or advanced cervical dilation (greater than or equal to 4 cm) or effacement? No Did you have a previous baby with a GBS Infection? No Please select all that apply for any prior : N/A Did you have a partner with Herpes? No Prior : No History of 4th degree laceration: No Patient's Risk Screening for delivery: MEDICAL/PSYCHOSOCIAL HISTORY: History of hemorrhage or bleeding concerns: No Thyroid Disease: No History of chronic hypertension: No History of pre-existing diabetes: No BMI 40.74 kg/(m^2) History of abnormal pap: No Prior treatment for cervical dysplasia: none. History of STDs: N/A Tobacco use: No E-Cigarette/Vaping Use: No Caffeine use: Yes coffee about every other day Drug use: No Alcohol use: No Multivitamin with Folic acid: Yes Bahai or heritage: No Would refuse blood transfusion if medically necessary: No No results found for: ABORHD Social Needs: How often does this describe you? I don't have enough money to pay my bills: Never Within the past 12 months, have you worried that your food would run out before you had money to buy more? Never In the past 12 months, has lack of reliable transportation kept you from going to medical appointments or work, or from getting things needed for daily living? Never In the past 12 months, have you had any concerns about having a place to live, or about the condition or quality of your housing? Never Would you like more information on any of the following (please check all that apply)? none Social History: Do you have any history of depression, anxiety, PTSD, or other mood problems? No Do you have a history of abuse or trauma that may impact your experience? No Are you currently employed? Yes Depression/Anxiety Screening: denies symptoms of depression. OB Depression and Anxiety Screening- This Encounter (since 05/19/2023) Over the past 2 weeks have you felt down, depressed, or hopeless? Negative Over the past two weeks, have you felt little interest or pleasure in doing things? Negative Feeling nervous, anxious or on edge 1-Several days Not being able to stop or control worrying 0-Not al all Anxiety Pre-Screening Total (If >/= 3 additional questions will be reviewed) 1 ACOG Recommended Screening: Screening for early gestational diabetes testing: Criteria for early testing requires elevated BMI plus one other risk factor: BMI 40.74 kg/(m^2) (risk factor if > than 25 or 23 in Americans) Additional risk factors: None She does not meet ACOG criteria for early gestational DM screening. 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 No pertinent past medical history. History reviewed. No pertinent surgical history. Current Outpatient Medications Medication Sig Dispense Refill vit calc,iron,folic ( [id number] ORAL) Take by mouth as directed. magnesium oxide (MAG-OX) 400 mg (241.3 mg magnesium) tablet Take 400 mg by mouth. No current facility-administered medications for this visit. Allergies As of Date: 05/20/2023 (No Known Allergies) Fully Assessed 05/20/2023 Does patient have penicillin allergy: No REVIEW OF SYSTEMS: GENERAL: Negative for: Fever or Chills HEENT: Negative for: Headache, Impaired Vision, Ringing in Ears, Nosebleeds NECK: Negative for: Swelling, Pain, Stiffness RESPIRATORY: Negative for: Cough, Shortness of breath, Wheezing GASTROINTESTINAL: Negative for: Heartburn, Diarrhea, Blood in stool, Vomiting + constipation MUSCULOSKELETAL: Negative for: Muscle or joint pain, stiffness, Joint swelling NEUROLOGIC/PSYCHIATRIC: Negative for: Weakness, Paralysis, Numbness, Tingling, Tremor, Depression, Memory loss + anxiety SKIN: Negative for: Rash, Itching GENITOURINARY: Negative for: vaginal itching, vaginal discharge, hematuria or dysuria Denies leakage of fluid, bleeding, or contractions. Reports good movement. PHYSICAL EXAM: BP 120/86 Ht 5' 6 (1.68m) Wt 252 lb 6.4 oz (114.5kg) LMP 12/04/2022 BMI 40.76 kg/(m^2). GENERAL: pleasant in no apparent distress DERMATOLOGY: Normal, without lesions, non-icteric, and non-hirsute NECK: Supple, full range of motion, no adenopathy CHEST: Normal inspiratory effort BREAST: deferred ABDOMEN: gravid, nontender NEURO: alert and oriented x3,exam grossly non-focal Limited OB ultrasound exam: not performed ASSESSMENT: 27 year old at 23w6d wks gestational age PLAN: 1) Patient oriented to practice. Patient given new OB orientation folder. Discussed nutrition, folic acid supplementation, dietary guidelines, exercise, smoking, alcohol, caffeine, and drug use. Discussed gestational weight gain guidelines. Discussed routine OB labs including STD/HIV. Discussed how to access Your guide to a health and the Water Softener Installer. Discussed aneuploidy and carrier screening. Regarding aneuploidy screening, nuchal translucency/first trimester early anatomy ultrasound and NIPT were discussed. Regarding carrier screening, the myriad screen was discussed. The risks/benefits and limitations of NIPT/aneuploidy screening were reviewed including the potential for false negative and false positive results. We discussed the availability of professional-society guided carrier screening and reviewed the conditions screened and limitations of screening. The availability of genetic counseling was reviewed. Information on aneuploidy/carrier screening was provided. The patient chooses: Aneuploidy screening: already had quad screen, negative Discussed hemoglobin electrophoresis. Patient: Declines Patient offered option of Virtual Visits. Patient unsure. May consider in future. Reviewed midwifery and general operations agent services that are available. ACTIVE PROBLEM LIST Supervision of High Risk in Second Trimester - 05/20/2023 Comment: Care Checklist Vaccines: [ ] Flu vaccine [ ] declined [ ] RSV vaccine 32 0/7 - 36 6 (Dec - May) [ ] declined [ ] COVID vaccine [ ] declined [ ] TDaP -36 [ ] declined First trimester: [X] Dating US [X] 1st tri labs [X] Pap smear [ ] Carrier screening [X] declined [ ] NIPT screening [ ] declined [ ] First trimester anatomy scan [ ] declined [ ] ASA ppx indicated [ ] not indicated [ ] M Power Consult [ ] not indicated [ ] declined Second trimester: [ ] AFP [ ] declined [X] Anatomy scan - had at [place] [ ] Mode of Delivery - [ ] Feeding - [ ] Pump ordered [ ] Diabetes screen [ ] CBC, RPR Third trimester (28-30 weeks): [ ] Consent [ ] Contraception - [ ] Surgical Services Manager Third trimester (36-40 weeks): [ ] GBS [ ] Presentation - [ ] Scheduled [ ] yes - Hibiclens, pre-op instructions, CBC, T&S ordered [ ] no [ ] H&P 23 Weeks Gestation of - 05/20/2023 Comment: care and precautions reviewed. GTT, RPR, and CBC next visit. EH Rh Negative State in Antepartum Period, Second Trimester - 05/20/2023 Comment: Plan for Rhogam with 28 week visit and . With Care Elsewhere in Second Trimester - 05/20/2023 Comment: Transferring from [place]. [facility]. She states that she had an anatomy scan and it was normal. Records pending. Tension Headaches - 05/20/2023 Comment: Taking Magnesium for headache prevention. EH Anxiety During - 05/20/2023 Comment: Reports she is anxious in general. Does not have a counselor. Coping well at this time. Update throughout . EH Obesity Affecting in Second Trimester - 05/20/2023 Comment: Pre BMI 39. Plan for 32 week growth. EH Constipation During in Second Trimester - 05/20/2023 Comment: Recommend Colace and increased hydration. Follow up in 4 weeks OB visit. Jonnie Hopson APRN.PROVIDER SERVICE REPRESENTATIVE documented in this encounter [facility] 05-20-2023 Instructions Sheri Last MA - 05/20/2023 9:53 AM EST Please select the following link to access the [facility] Your Guide to a Healthy . [email or web address] documented in this encounter [facility] 04-21-2023 Miscellaneous Notes Please inform Grecia that her anatomy ultrasound came back normal documented in this encounter [facility] Work Phone: 04-21-2023 Progress note Formatting of t his note might be different from the original. Please inform Grecia that her anatomy ultrasound came back normal [facility] Work Phone: 06-21-2022 History of Presen t illness Narrative Grecia is a 26-year-old who comes in to discuss results of blood work done. Patient was here earlier this week with some brown discharge to confirm her . However on ultrasound here no acute pole was identified. Subsequently we have been watching her [employer] Work Phone: Evaluation note Diagnosis 16 weeks gestation of documented in this encounter [facility] Work Phone: Evaluation note* Diagnosis Encounter for supervision of high risk in second trimester, antepartum- Primary 23 weeks gestation of state, incidental Rh negative state in antepartum period, second trimester with care elsewhere in second trimester Tension headaches Anxiety during Obesity affecting in second trimester, unspecified obesity type Constipation during in second trimester [facility] Diagnosis 27 weeks gestation of - Primary state, incidental Need for vaccination Need for prophylactic vaccination and inoculation against unspecified single disease Obesity affecting in third trimester, unspecified obesity type Rh negative state in antepartum period Rhesus isoimmunization affecting management of mother, antepartum condition [facility] [place] [facility] Diagnosis Abnormal glucose in , antepartum- Primary Abnormal maternal glucose tolerance, antepartum [facility] [place] [facility] Diagnosis Elevated glucose tolerance test- Primary Impaired glucose tolerance test [facility] Diagnosis Encounter for anatomic survey- Primary Obesity affecting in third trimester, unspecified obesity type with care elsewhere in third trimester 31 weeks gestation of state, incidental [facility] Diagnosis 31 weeks gestation of - Primary state, incidental Obesity affecting in third trimester, unspecified obesity type [facility] [place] [facility]* Diagnosis 33 weeks gestation of - Primary state, incidental Obesity affecting in third trimester, unspecified obesity type with care elsewhere in third trimester documented in this encounter [facility] note* Diagnosis 35 weeks gestation of - Primary state, incidental Obesity affecting in third trimester, unspecified obesity type with care elsewhere in third trimester documented in this encounter [facility] note* Diagnosis 36 weeks gestation of - Primary state, incidental Obesity affecting in third trimester, unspecified obesity type Elevated blood pressure reading without diagnosis of hypertension documented in this encounter [facility] note* Diagnosis with care elsewhere in third trimester- Primary Obesity affecting in third trimester, unspecified obesity type Elevated blood pressure reading without diagnosis of hypertension 37 weeks gestation of state, incidental Gestational hypertension, third trimester documented in this encounter [facility] note* Diagnosis Obesity affecting in third trimester, unspecified obesity type- Primary Elevated blood pressure reading without diagnosis of hypertension with care elsewhere in third trimester 37 weeks gestation of state, incidental documented in this encounter [facility] note* Diagnosis hypertension- Primary Unspecified hypertension, condition or complication documented in this encounter [facility] note* Diagnosis care and examination- Primary Routine follow-up documented in this encounter [facility] note* Diagnosis , supervision, high-risk, unspecified trimester (HCC)- Primary Short interval between pregnancies affecting , antepartum ([facility]) 10 weeks gestation of ([facility]) state, incidental with uncertain dates, antepartum ([facility]) state, incidental Screen for STD (sexually transmitted disease) Screening examination for venereal disease documented in this encounter [facility] note* Diagnosis Supervision of high risk in second trimester ([facility])- Primary Unspecified high-risk 13 weeks gestation of ([facility]) state, incidental Short interval between pregnancies affecting , antepartum (HCC) Obesity affecting , antepartum, unspecified obesity type (HCC) History of vacuum extraction assisted delivery Other postprocedural status History of pre-eclampsia Personal history of other genital system and obstetric disorders documented in this encounter [facility] note* Diagnosis Encounter for screening for malformation using ultrasound ([facility])- Primary 13 weeks gestation of ([facility]) state, incidental documented in this encounter [facility] note* Diagnosis Supervision of high risk in second trimester (HCC)- Primary Unspecified high-risk 16 weeks gestation of (HCC) state, incidental History of vacuum extraction assisted delivery Other postprocedural status History of pre-eclampsia Personal history of other genital system and obstetric disorders Short interval between pregnancies affecting , antepartum (HCC) Obesity affecting , antepartum, unspecified obesity type ([facility]) History of gestational hypertension [facility] [place] [facility]* Diagnosis 20 weeks gestation of ([facility])- Primary state, incidental Supervision of high risk in second trimester ([facility]) Unspecified high-risk History of vacuum extraction assisted delivery Other postprocedural status History of pre-eclampsia Personal history of other genital system and obstetric disorders Short interval between pregnancies affecting , antepartum ([facility]) Obesity affecting , antepartum, unspecified obesity type ([facility]) documented in this encounter [facility] note* Diagnosis Encounter for anatomic survey ([facility])- Primary Encounter for anatomic survey 20 weeks gestation of ([facility]) state, incidental Obesity affecting in second trimester, unspecified obesity type ([facility]) documented in this encounter [facility] note* Diagnosis Supervision of high risk in second trimester ([facility])- Primary Unspecified high-risk 24 weeks gestation of ([facility]) state, incidental History of vacuum extraction assisted delivery Other postprocedural status History of pre-eclampsia Personal history of other genital system and obstetric disorders Short interval between pregnancies affecting , antepartum ([facility]) Obesity affecting , antepartum, unspecified obesity type ([facility]) History of gestational hypertension documented in this encounter [facility] note* Diagnosis Supervision of high risk in third trimester ([facility])- Primary Unspecified high-risk 28 weeks gestation of ([facility]) state, incidental History of vacuum extraction assisted delivery Other postprocedural status History of pre-eclampsia Personal history of other genital system and obstetric disorders Short interval between pregnancies affecting , antepartum ([facility]) Obesity affecting , antepartum, unspecified obesity type ([facility]) Need for vaccination Need for prophylactic vaccination and inoculation against unspecified single disease Rh negative state in antepartum period ([facility]) Rhesus isoimmunization affecting management of mother, antepartum condition Supervision of high risk in second trimester ([facility]) Unspecified high-risk documented in this encounter [facility] note* Diagnosis Supervision of high risk in third trimester ([facility])- Primary Unspecified high-risk 30 weeks gestation of ([facility]) state, incidental History of pre-eclampsia Personal history of other genital system and obstetric disorders Short interval between pregnancies affecting , antepartum (HCC) Obesity affecting , antepartum, unspecified obesity type (HCC) Rh negative state in antepartum period (HCC) Rhesus isoimmunization affecting management of mother, antepartum condition Uterine size-date discrepancy, third trimester ([facility]) [facility] Armida is a 26-year-old 1 para 0 who comes in for confirmation of . This is the pa riana's first . Patient reports that for about a week she has been having some brown spotting discharge. Patient reports she has been sexually active with her partner and the bleeding started before hand. Patient is taking vitamins and has no additional [facility] today[facility] [employer] Phone: [employer] for referral (narrative)* Diagnostic Procedure Only (Routine) - Authorized Specialty Diagnoses / Procedures Referred By Contac t Referred To Contact [facility] Diagnoses 27 weeks gestation of Obesity affecting in third trimester, unspecified obesity type Procedures OBSTETRIC ULTRASOUND WHI US PREG UTERUS AFTER 1ST TRIMEST GESTATION Gianni Nascimento MD [address] [place] [address] [facility] [place] [address] Referral ID Status Reason Start Date Expiration Date Visits Requested Visits Authorized [id number] Authorized Auto-Generat ed Referral 06/17/2023 06/16/2024 1 1 [facility] for referral (narrative)* Outpatient Procedure (Routine) - Pending Review Specialty Diagnoses / Procedures Referred By Contac t Referred To Contact [facility] Diagnoses Obesity affecting in third trimester, unspecified obesity type Procedures NON-STRESS TEST NON-STRESS TEST Gianni Nascimento MD [address] [place] [address] [facility] [address] [place] [address] Referral ID Status Reason Start Date Expiration Date Visits Requested Visits Authorized [id number] Pending Review Auto-Generat ed Referral 07/15/2023 07/14/2024 8 1 [facility] for referral (narrative)* Diagnostic Procedure Only (Routine) - Pending Review Specialty Diagnoses / Procedures Referred By Contac t Referred To Contact [facility] Diagnoses 35 weeks gestation of Obesity affecting in third trimester, unspecified obesity type Procedures OBSTETRIC ULTRASOUND WHI US PREG UTERUS AFTER 1ST TRIMEST GESTATION Gianni Nascimento MD [address] [place] [address] [facility] [address] [place] [address] Referral ID Status Reason Start Date Expiration Date Visits Requested Visits Authorized [id number] Pending Review Auto-Generat ed Referral 08/12/2023 08/11/2024 1 1 [facility] for visit Narrative* Diagnostic Procedure Only (Routine) - Closed Specialty Diagnoses / Procedures Referred By Contac t Referred To Contact [facility] Diagnoses 10 weeks gestation of (HCC) Procedures OBSTETRIC ULTRASOUND WHI US PREG UTERUS AFTER 1ST TRIMEST GESTATION Tara Rubalcava APRN.BILL [address] [place] [address] Phone: tel: fax: [facility] [address] [place] [address] Referral ID Status Reason Start Date Expiration Date V isits Requested Visits Authorized [id number] Closed Auto-Generate d Referral 07/18/2024 07/18/2025 1 1 [facility] Chief Complaint New patient here today for amenorrhea. She states her LMP 04/22/2022 and her periods come regular. She has nausea, no breast tenderness, Some spotting when she wipes for the past week.Patient here for miscarriage follow up. She is still bleeding. A little bit more now but still not wearing a pad. She notes no cramping. Family History No Family History Records FoundUnknown Family Member Name Dates Details Family history of diabetes m ellitus: Grandparent(V18.0, Z83.3) Status:Active Family history of hypertensi on: Grandfather(V17.49, Z82.49) Status:Active Unknown Family Member Name Dates Details Family history of diabetes m ellitus: Grandparent(V18.0, Z83.3) Status:Active Family history of hypertensi on: Grandfather(V17.49, Z82.49) Status:Active Unknown Family Member Name Dates Details Family history of diabetes m ellitus: Grandparent(V18.0, Z83.3) Status:Active Family history of hypertensi on: Grandfather(V17.49, Z82.49) Status:Active Unknown Family Member Name Dates Details Family history of diabetes m ellitus: Grandparent(V18.0, Z83.3) Status:Active Family history of hypertensi on: Grandfather(V17.49, Z82.49) Status:Active Unknown Family Member Name Dates Details Family history of diabetes m ellitus: Grandparent(V18.0, Z83.3) Status:Active Family history of hypertensi on: Grandfather(V17.49, Z82.49) Status:Active Unknown Family Member Name Dates Details Family history of diabetes m ellitus: Grandparent(V18.0, Z83.3) Status:Active Family history of hypertensi on: Grandfather(V17.49, Z82.49) Status:Active Unknown Family Member Name Dates Details Family history of diabetes m ellitus: Grandparent(V18.0, Z83.3) Status:Active Family history of hypertensi on: Grandfather(V17.49, Z82.49) Status:Active Summary Purpose Advance Directives No Advanced Directives Records FoundNo Advanced Directives Records FoundNo Advanced Directives Records FoundNo Advanced Directives Records FoundNo Advanced Directives Records FoundNo Advanced Directives Records FoundNo Advanced Directives Records FoundNo Advanced Directives Records Found Reason for Referral Specialty Diagnoses / Procedures Referred By Contac t Referred To Contact Radiology Diagnoses 16 weeks gestation of Procedures US OB 14+ weeks anatomy scan Irina Handley MD [address] [facility], [place] [address] Referral ID Status Reason Start Date Expiration Date Visits Requested Visits Authorized [id number] Authorized Perform Procedure 3 03/30/2024 1 1 Health Concerns Problem Noted Date Diagnosed Date [facility] Education - COMMON 05/19/2023 Problem Noted Date Diagnosed Date [facility] CC Education - COMMON 05/19/2023 Active Problems Noted Date Diagnosed Date [facility] CC Education - COMMON 05/19/2023 Active Problems Noted Date Diagnosed Date [facility] CC Education - COMMON 05/19/2023 Active Problems Noted Date Diagnosed Date [facility] CC Education - COMMON 05/19/2023 Active Problems Noted Date Diagnosed Date [facility] CC Education - COMMON 05/19/2023 Active Problems Noted Date Diagnosed Date [facility] CC Education - COMMON 05/19/2023 Active Problems Noted Date Diagnosed Date [facility] CC Education - COMMON 05/19/2023 Additional Source Comments INFORMATION SOURCE (unrecogn ized section and content) DATE CREATED AUTHOR 06/27/2022 [employer] DATE CREATED AUTHOR AUTHOR'S ORGANIZ ATION 07/25/2022 [facility] DATE CREATED AUTHOR AUTHOR'S ORGANIZ ATION 08/01/2022 [facility] DATE CREATED AUTHOR AUTHOR'S ORGANIZ ATION 04/02/2023 [facility] DATE CREATED AUTHOR AUTHOR'S ORGANIZ ATION 09/06/2023 [facility] DATE CREATED AUTHOR AUTHOR'S ORGANIZ ATION 12/27/2023 [facility] DATE CREATED AUTHOR AUTHOR'S ORGANIZ ATION 08/15/2024 [facility] DATE CREATED AUTHOR AUTHOR'S ORGANIZ ATION 01/20/[address] [facility] Reason for Visit (unrecogniz ed section and content) Specialty Diagnoses / Procedures Referred By Contac t Referred To Contact Radiology Diagnoses 16 weeks gestation of Procedures US OB 14+ weeks anatomy scan Irina Handley MD [address] [place] [address] [facility], [address] [address] Referral ID Status Reason Start Date Expiration Date Visits Requested Visits Authorized [id number] Authorized Perform Procedure 3 03/30/2024 1 1 Reason Comments Initial OB Visit Reason Comments Records Reason Onset Date Comments Care 06/17/2023 Reason Comments Abnormal Glucose Reason Comments US Specialty Diagnoses / Procedures Referred By Contac t Referred To Contact [facility] Diagnoses 27 weeks gestation of Obesity affecting in third trimester, unspecified obesity type Procedures OBSTETRIC ULTRASOUND WHI US PREG UTERUS AFTER 1ST TRIMEST GESTATION Gianni Nascimento MD [address] [place] [address] [facility] [address] [place] [address] Referral ID Status Reason Start Date Expiration Date V isits Requested Visits Authorized [id number] Closed Auto-Generate d Referral 06/17/2023 06/16/2024 1 1 Reason Onset Date Comments Care 07/15/2023 Reason Comments FMLA Paperwork Reason Onset Date Comments Care 07/29/2023 Reason Onset Date Comments Care 08/12/2023 Reason Onset Date Comments Care 08/17/2023 Reason Onset Date Comments Care 08/20/2023 Reason Onset Date Comments Care 08/25/2023 Reason Comments Ob Delivery Note Reason Onset Date Comments [facility] Navigation Outreach 08/31/2023 Ob.peds Reason Comments Early Bp check Reason Comments Routine 6 week Reason Comments Patient Question Sooner appointment? Reason Comments [facility] Reason Onset Date Comments Care 08/09/2024 Reason Onset Date Comments Care 09/01/2024 Reason Onset Date Comments Care 09/29/2024 Specialty Diagnoses / Procedures Referred By Karen t Referred To Contact [facility] Diagnoses with uncertain dates, antepartum (HCC) Encounter for supervision of normal in multigravida (HCC) Procedures OBSTETRIC ULTRASOUND WHI US PREG UTERUS AFTER 1ST TRIMEST GESTATION Tara Rubalcava APRN.BILL [address] [place] [address] Phone: tel: fax: [facility] [address] [place] [address] Referral ID Status Reason Start Date Expiration Date V isits Requested Visits Authorized [id number] Closed Auto-Generate d Referral 07/18/2024 07/18/2025 1 1 Reason Onset Date Comments Care 10/26/2024 Reason Onset Date Comments Care 11/24/2024 Reason Onset Date Comments Care 12/05/2024 Care Teams (unrecognized sec tion and content) [employer] Relationship Specialty Start Date End Date Irina Handley MD [address] [place] [address] Dr [facility] [place] [address] PCP - [employer] PCP 10/03/22 Source Comments (unrecognize d section and content) In the event this informatio n is protected by the Federal Confidentiality of Alcohol and Drug Abuse Patient Records regulations: The Federal rules restrict any use of the information to criminally investigate or prosecute any alcohol or drug abuse patient.[facility] the event this information is protected by the Federal Confidentiality of Alcohol and Drug Abuse Patient Records regulations: The Federal rules restrict any use of the information to criminally investigate or prosecute any alcohol or drug abuse patient.[facility] Center[facility] the event this information is protected by the Federal Confidentiality of Alcohol and Drug Abuse Patient Records regulations: The Federal rules restrict any use of the information to criminally investigate or prosecute any alcohol or drug abuse patient.[facility] Center[facility] the event this information is protected by the Federal Confidentiality of Alcohol and Drug Abuse Patient Records regulations: The Federal rules restrict any use of the information to criminally investigate or prosecute any alcohol or drug abuse patient.[facility] Center[facility] the event this information is protected by the Federal Confidentiality of Alcohol and Drug Abuse Patient Records regulations: The Federal rules restrict any use of the information to criminally investigate or prosecute any alcohol or drug abuse patient.[facility] CenterIn the event this information is protected by the Federal Confidentiality of Alcohol and Drug Abuse Patient Records regulations: The Federal rules restrict any use of the information to criminally investigate or prosecute any alcohol or drug abuse patient.[facility] CenterIn the event this information is protected by the Federal Confidentiality of Alcohol and Drug Abuse Patient Records regulations: The Federal rules restrict any use of the information to criminally investigate or prosecute any alcohol or drug abuse patient.[facility] CenterIn the event this information is protected by the Federal Confidentiality of Alcohol and Drug Abuse Patient Records regulations: The Federal rules restrict any use of the information to criminally investigate or prosecute any alcohol or drug abuse patient.[facility] CenterIn the event this information is protected by the Federal Confidentiality of Alcohol and Drug Abuse Patient Records regulations: The Federal rules restrict any use of the information to criminally investigate or prosecute any alcohol or drug abuse patient.[facility] CenterIn the event this information is protected by the Federal Confidentiality of Alcohol and Drug Abuse Patient Records regulations: The Federal rules restrict any use of the information to criminally investigate or prosecute any alcohol or drug abuse patient.[facility] CenterIn the event this information is protected by the Federal Confidentiality of Alcohol and Drug Abuse Patient Records regulations: The Federal rules restrict any use of the information to criminally investigate or prosecute any alcohol or drug abuse patient.[facility] CenterIn the event this information is protected by the Federal Confidentiality of Alcohol and Drug Abuse Patient Records regulations: The Federal rules restrict any use of the information to criminally investigate or prosecute any alcohol or drug abuse patient.[facility] CenterIn the event this information is protected by the Federal Confidentiality of Alcohol and Drug Abuse Patient Records regulations: The Federal rules restrict any use of the information to criminally investigate or prosecute any alcohol or drug abuse patient.[facility] CenterIn the event this information is protected by the Federal Confidentiality of Alcohol and Drug Abuse Patient Records regulations: The Federal rules restrict any use of the information to criminally investigate or prosecute any alcohol or drug abuse patient.[facility] CenterIn the event this information is protected by the Federal Confidentiality of Alcohol and Drug Abuse Patient Records regulations: The Federal rules restrict any use of the information to criminally investigate or prosecute any alcohol or drug abuse patient.[facility] CenterIn the event this information is protected by the Federal Confidentiality of Alcohol and Drug Abuse Patient Records regulations: The Federal rules restrict any use of the information to criminally investigate or prosecute any alcohol or drug abuse patient.[facility] CenterIn the event this information is protected by the Federal Confidentiality of Alcohol and Drug Abuse Patient Records regulations: The Federal rules restrict any use of the information to criminally investigate or prosecute any alcohol or drug abuse patient.[facility] CenterIn the event this information is protected by the Federal Confidentiality of Alcohol and Drug Abuse Patient Records regulations: The Federal rules restrict any use of the information to criminally investigate or prosecute any alcohol or drug abuse patient.[facility] CenterIn the event this information is protected by the Federal Confidentiality of Alcohol and Drug Abuse Patient Records regulations: The Federal rules restrict any use of the information to criminally investigate or prosecute any alcohol or drug abuse patient.[facility] CenterIn the event this information is protected by the Federal Confidentiality of Alcohol and Drug Abuse Patient Records regulations: The Federal rules restrict any use of the information to criminally investigate or prosecute any alcohol or drug abuse patient.[facility] CenterIn the event this information is protected by the Federal Confidentiality of Alcohol and Drug Abuse Patient Records regulations: The Federal rules restrict any use of the information to criminally investigate or prosecute any alcohol or drug abuse patient.[facility] CenterIn the event this information is protected by the Federal Confidentiality of Alcohol and Drug Abuse Patient Records regulations: The Federal rules restrict any use of the information to criminally investigate or prosecute any alcohol or drug abuse patient.[facility] CenterIn the event this information is protected by the Federal Confidentiality of Alcohol and Drug Abuse Patient Records regulations: The Federal rules restrict any use of the information to criminally investigate or prosecute any alcohol or drug abuse patient.[facility] CenterIn the event this information is protected by the Federal Confidentiality of Alcohol and Drug Abuse Patient Records regulations: The Federal rules restrict any use of the information to criminally investigate or prosecute any alcohol or drug abuse patient.[facility] CenterIn the event this information is protected by the Federal Confidentiality of Alcohol and Drug Abuse Patient Records regulations: The Federal rules restrict any use of the information to criminally investigate or prosecute any alcohol or drug abuse patient.[facility] CenterIn the event this information is protected by the Federal Confidentiality of Alcohol and Drug Abuse Patient Records regulations: The Federal rules restrict any use of the information to criminally investigate or prosecute any alcohol or drug abuse patient.[facility] CenterIn the event this information is protected by the Federal Confidentiality of Alcohol and Drug Abuse Patient Records regulations: The Federal rules restrict any use of the information to criminally investigate or prosecute any alcohol or drug abuse patient.[facility] CenterIn the event this information is protected by the Federal Confidentiality of Alcohol and Drug Abuse Patient Records regulations: The Federal rules restrict any use of the information to criminally investigate or prosecute any alcohol or drug abuse patient.[facility] CenterIn the event this information is protected by the Federal Confidentiality of Alcohol and Drug Abuse Patient Records regulations: The Federal rules restrict any use of the information to criminally investigate or prosecute any alcohol or drug abuse patient.[facility] FOR RECORDS PERTAINING TO PATIENTS WHO ARE OR HAVE BEEN ENROLLED IN A CHEMICAL DEPENDENCY/SUBSTANCEABUSE PROGRAM, SOME INFORMATION MAY BE OMITTED. This clinical summary was aggregated from multiple sources. Caution should be exercised in using it in the provision of clinical care. This summary normalizes information from multiple sources, and as a consequence, information in this document may materially change the coding, format and clinical context of patient data. In addition, data may be omitted in some cases. CLINICAL DECISIONS SHOULD BE BASED ON THE PRIMARY CLINICAL RECORDS. [facility]. provides no warranty or guarantee of the accuracy or completeness of information in this document.
[2025-01-21 19:12] VITALS: BMI 46.6
--- OUTSIDE RECORDS SUMMARY | 2025-01-21 19:24 | XMS RPT_ITS | CCD ---
Author Organization [facility] Care Team Providers Care Residential Case Manager Name Role Phone None, No PCP Unavailable Unavailable Unavailable Unavailable IRINA HANDLEY Attending UnavailIRINA Barnes Attending UnavailMD IRINA Barnes Referring Unava ilable HANDLEY, MD IRINA QUINTANA Attending Unava ilable HANDLEYMD IRINA GIBSON Referring Unava ilable HANDLEY, MD IRINA QUINTANA Attending Unava ilable HANDLEYMD IRINA GIBSON Attending Unava ilable HANDLEY, MD IRINA QUINTANA Referring Unava ilable Handley Irina RAMEY Unavailable [phone] Unavailable Primary Care Provider Unavailabl e Unavailable Primary Care Provider Unavailabl e Eyal SENIOR SALES MANAGER, Karina Attending Unavailable Elicia Gaming Referring Unavailable Sona Figueroa Admitting Unavailable Sona Figueroa Attending Unavailable HANDLEY, IRINA P Referring Unavailable HANDLEY, IRINA P Attending Unavailable DARLEEN WU Attending Unavailable SHEPHERD, GRECIA Referring Unavailable NIKITA CARR Attending Unavailable NEYHART CANO, ELENITA Referring Unavail able SHEPHERD, GRECIA Referring Unavailable SHEPHERD, GRECIA Referring Unavailable SHEPHERD, GRECIA Referring Unavailable SHEPHERD, GERCIA Referring Unavailable NEYHART EVAN CANORE Attending Unavail [...] by mouth. 0 Active vit calc,iron,folic ( KFVWQCCE-UEM-GA-FA ORAL) (20 sources) vit harriet c,iron,folic ( BLMDRNIG-XXF-FI-FA ORAL) Take by mouth as directed. Active vit harriet c,iron,folic ( FSPJIUTF-TJZ-CY-FA ORAL) Take by mouth as directed. 0 [...] affecting in third trimester, unspecified obesity type ([facility])] Onset: 12-05-2024 Chronic Other complications of (14 [...] [Supervision of high risk in third trimester ([facility])] Onset: 01-12-2025 Episodic Other complications of (1 source) Supervision of high risk , unspecified, second trimester; Translations: [Supervision of high risk in second trimester ([facility])] Onset: 11-24-2024 Episodic Other complications of (1 source) Uterine size-date discrepancy, third trimester; Translations: [Uterine size-date discrepancy, third trimester ([facility])] Onset: 12-05-2024 Episodic Other complications of (1 source) Maternal care for excessive growth, third trimester, not applicable or unspecified; Translations: [Excessive growth affecting management of in third trimester, single or unspecified fetus ([facility])] Onset: 12-25-2024 Episodic Other female genital disorders [...] of ; Translations: [20 weeks gestation of ([facility])] Onset: 09-29-2024 Episodic Residual codes; unclassified (1 source) 13 weeks gestation of ; Translations: [13 weeks gestation of ([facility])] Onset: 08-09-2024 Episodic Residual codes; unclassified (1 source) 10 weeks gestation of ; Translations: [10 weeks gestation of ([facility])] Onset: 07-18-2024 Episodic Unclassified (7 sources) Finding of menstrual bleeding; Translations: [Menstruation] Comment on above: AGE 12; Results Test Name Value Interpretation Reference Range Facility CBC panel Auto (Bld)on 01-18 Erythrocyte distribution width (RBC) [Ratio] 13.0 % Normal 11.5-15.0 [facility] Comment on above: Order Comment: Lynsey soto Type: BLOOD SPECIMEN Ordering Facility: [facility] Address: [address] [place] [address] Performed By: #### 3 084-1, 77900-3 #### [facility] CLIA [id number] [address] [place] [address] [place] Hematocrit (Bld) [Volume fraction] 37.0 % Normal 36.0-46.0 [facility] Comment on above: Order Comment: Lynsey soto Type: BLOOD SPECIMEN Ordering Facility: [facility] Address: [address] [place] [address] Performed By: #### 3 084-1, 87876-9 #### [facility] CLIA [id number] [address] [place] [address] [place] Hemoglobin (Bld) [Mass/Vol] 13.2 g/dL Normal 11.5-15.5 [facility] Comment on above: Order Comment: Speci men Type: BLOOD SPECIMEN Ordering Facility: [facility] Address: [address] [place] [address] Performed By: #### 3 084-, 31987-6 #### [facility] CLIA [id number] [address] [place] [address] [place] MCH (RBC) [Entitic mass] 31.0 pg Normal 26.0-34.0 [facility] Comment on above: Order Comment: Speci men Type: BLOOD SPECIMEN Ordering Facility: [facility] Address: [address] [place] [address] Performed By: #### 3 084-, 69606-0 #### [facility] [id number] [address] [place] [address] [place] MCHC (RBC) [Mass/Vol] 35.7 g/dL Normal 30.5-36.0 [facility] Comment on above: Order Comment: Speci men Type: BLOOD SPECIMEN Ordering Facility: [facility] Address: [address] [place] [address] Performed By: #### 3 084-, 46884-6 #### [facility] [id number] [address] [place] [address] [place] MCV (RBC) [Entitic vol] 86.9 fL Normal 80.0-100.0 [facility] Comment on above: Order Comment: Speci men Type: BLOOD SPECIMEN Ordering Facility: [facility] Address: [address] [place] [address] Performed By: #### 3 084-1, 33677-1 #### [facility] [id number] [address] [place] [address] [place] Nucleated RBC (Bld) [#/Vol] 10*3/uL Normal <0.01 [facility] Comment on above: Order Comment: Speci men Type: BLOOD SPECIMEN Ordering Facility: [facility] Address: [address] [place] [address] Performed By: #### 3 084-1, 10390-0 #### [facility] CLIA [id number] [address] [place] [address] [place] Platelet mean volume (Bld) [Entitic vol] 11.1 fL Normal 9.0-12.7 [facility] Comment on above: Order Comment: Speci men Type: BLOOD SPECIMEN Ordering Facility: [facility] Address: [address] [place] [address] Performed By: #### 3 084-1, 14468-7 #### [facility] CLIA [id number] [address] [place] [address] [place] Platelets (Bld) [#/Vol] 183 10*3/uL Normal 150-400 [facility] Comment on above: Order Comment: Speci men Type: BLOOD SPECIMEN Ordering Facility: [facility] Address: [address] [place] [address] Performed By: #### 3 084-1, 73007-4 #### [facility] CLIA [id number] [address] [place] [address] [place] RBC (Bld) [#/Vol] 4.26 10*6/uL Normal 3.90-5.20 [facility] Comment on above: Order Comment: Speci men Type: BLOOD SPECIMEN Ordering Facility: [facility] Address: [address] [place] [address] Performed By: #### 3 084-1, 71177-0 #### [facility] CLIA [id number] [address] [place] [address] [place] WBC (Bld) [#/Vol] 12.43 10*3/uL High 3.70-11.00 [facility] Comment on above: Order Comment: Speci men Type: BLOOD SPECIMEN Ordering Facility: [facility] Address: [address] [place] [address] Performed By: #### 3 084-1, 47818-8 #### [facility] CLIA [id number] [address] [place] [address] [place] Comprehensive metabolic 2000 panelon 01-18-2025 Albumin [Mass/Vol] 3.3 g/dL Low 3.9-4.[address] [facility] Comment on above: Order Comment: Speci men Type: BLOOD SPECIMENOrdering Facility: [facility] Address: [address] [place] [address] Performed By: #### 3 084-1, 68734-2 ####[facility] [id number] [place] [address] [place] ALP [Catalytic activity/Vol] 127 U/L High 34-123 [facility] Comment on above: Order Comment: Speci men Type: BLOOD SPECIMENOrdering Facility: [facility] Address: [address] [place] [address] Performed By: #### 3 084-1, 65133-0 ####[facility]TEWNCLIA [id number] [place] [address] [place] ALT [Catalytic activity/Vol] 7 U/L Normal 7-38 [facility] Comment on above: Order Comment: Speci men Type: BLOOD SPECIMENOrdering Facility: [facility] Address: [address] [place] [address] Performed By: #### 3 084-1, 55089-6 ####[facility] [id number] [place] [address] [place] Anion gap [Moles/Vol] 11 mmol/L Normal 8-15 [facility] Comment on above: Order Comment: Speci men Type: BLOOD SPECIMENOrdering Facility: [facility] Address: [address] [place] [address] Performed By: #### 3 084-1, 62034-4 ####[facility]TE[facility]CLIA [id number] [place] [address] [place] AST [Catalytic activity/Vol] 11 U/L Low 13-35 [facility] Comment on above: Order Comment: Speci men Type: BLOOD SPECIMENOrdering Facility: [facility] Address: [address] [place] [address] Performed By: #### 3 084-1, 29489-7 ####[facility]ENCLIA [id number] [place] [address] [place] Bilirubin [Mass/Vol] 0.2 mg/dL Normal 0.2-1.3 [facility] Comment on above: Order Comment: Speci men Type: BLOOD SPECIMENOrdering Facility: [facility] Address: [address] [place] [address] Performed By: #### 3 084-1, 04231-4 ####[facility] [id number] [place] [address] [place] Calcium [Mass/Vol] 9.2 mg/dL Normal 8.5-10.[address] [facility] Comment on above: Order Comment: Speci men Type: BLOOD SPECIMENOrdering Facility: [facility] Address: [address] [place] [address] Performed By: #### 3 084-1, 41864-7 ####[facility]CLIA [id number] [place] [address] [place] Chloride [Moles/Vol] 104 mmol/L Normal 98-107 [facility] Comment on above: Order Comment: Speci men Type: BLOOD SPECIMENOrdering Facility: [facility] Address: [address] [place] [address] Performed By: #### 3 084-1, 52573-8 ####[facility] ASHVINSunniNCCLEMENCIA [id number] [place] [address] [place] CO2 [Moles/Vol] 20 mmol/L Low 22-30 [facility] Comment on above: Order Comment: Speci men Type: BLOOD SPECIMENOrdering Facility: [facility] Address: [address] [place] [address] Performed By: #### 3 084-1, 15109-1 ####[facility] [id number] [place] [address] [place] Creatinine [Mass/Vol] 0.47 mg/dL Low 0.58-0.96 [facility] Comment on above: Order Comment: Speci men Type: BLOOD SPECIMENOrdering Facility: [facility] Address: [address] [place] [address] Performed By: #### 3 084-1, 46587-4 ####[facility] [id number] [address] [place] eGFRcr SerPlBld CKD-EPI 2020 132 mL/min/1.73m??? Normal >=60 [facility] Comment on above: Order Comment: Speci men Type: BLOOD SPECIMENOrdering Facility: [facility] Address: [address] [place] [address] Result Comment: Eda mated Glomerular Filtration Rate [...] actual GFR. Performed By: #### 3 084-1, 03480-4 ####[facility]CL[facility] [id number] [place] [address] [place] Glucose [Mass/Vol] 97 mg/dL Normal 74-[address] [facility] Comment on above: Order Comment: Speci men Type: BLOOD SPECIMENOrdering Facility: [facility] Address: [address] [place] [address] Result Comment: The [place] Diabetes Association (ADA) provides guidance for cutoff [...] Standards of Medical Care in Diabetes 2016, [place] Diabetes Association. Diabetes Care. 2016.39(Suppl 1). Performed By: #### 3 084-1, 15890-3 ####[facility] [id number] [place] [address] [place] Potassium [Moles/Vol] 3.7 mmol/L Normal 3.7-5.1 [facility] Comment on above: Order Comment: Speci men Type: BLOOD SPECIMENOrdering Facility: [facility] Address: [address] [place] [address] Performed By: #### 3 084-1, 45156-2 ####[facility] [id number] [place] [address] [place] Protein [Mass/Vol] 6.3 g/dL Normal 6.3-8.[address] [facility] Comment on above: Order Comment: Speci men Type: BLOOD SPECIMENOrdering Facility: [facility] Address: [address] [place] [address] Performed By: #### 3 084-1, 65219-7 ####[facility] [id number] [place] [address] [place] Sodium [Moles/Vol] 135 mmol/L Low 136-[address] [facility] Comment on above: Order Comment: Speci men Type: BLOOD SPECIMENOrdering Facility: [facility] Address: [address] [place] [address] Performed By: #### 3 084-1, 24953-2 ####[facility] [id number] [place] [address] [place] Urea nitrogen [Mass/Vol] 5 mg/dL Low 7-21 [facility] Comment on above: Order Comment: Speci men Type: BLOOD SPECIMENOrdering Facility: [facility] Address: [address] [place] [address] Performed By: #### 3 084-1, 79254-1 ####[facility] [id number] [place] [address] [place] Prot/Creat Uron 01-18-2025 Protein/Creatinine (U) [Mass ratio] 0.10 mg/mg Normal <0.15 [facility] Comment on above: Order Comment: Speci men Type: URINE SPECIMENOrdering Facility: [facility] Address: [address] [place] [address] Result Comment: Adul t Proteinuria Categories: <0.15 mg/mg is considered normal to mildly increased 0.15 - 0.50 mg/mg is considered moderately increased >0.50 mg/mg is considered severely increased KDIGO. (2013). KDIGO 2012 Clinical Practice Guideline for the Evaluation and Management of Chronic Kidney Disease. Official Journal of the International Society of Nephrology, 3(1), 1-150. Performed By: #### 2 890-2 ####[facility] LABCLIA [id number] [place] [address] [place] Protein/Creatinine (U) [Mass ratio]on 01-18-2025 Creatinine (U) [Mass/Vol] 102.5 mg/dL Normal 20.0-300.0 [facility] Comment on above: Order Comment: Speci men Type: URINE SPECIMENOrdering Facility: [facility] Address: [address] [place] [address] Performed By: #### 2 890-2 ####[facility] LABCLIA [id number] [address] [place] Protein (U) [Mass/Vol] 10 mg/dL Normal 0-20 [facility] Comment on above: Order Comment: Speci men Type: URINE SPECIMENOrdering Facility: [facility] Address: [address] [place] [address] Performed By: #### 2 890-2 ####[facility] LABCLIA [id number] [address] [place] Urate SerPl-mCncon Urate [Mass/Vol] 4.0 mg/dL Normal 2.5-6.6 [facility] Comment on above: Order Comment: Speci men Type: BLOOD SPECIMENOrdering Facility: [facility] Address: [address] [place] [address] Performed By: #### 3 084-1, 66434-6 ####[facility] [id number] [place] [address] [place] CBC panel Auto (Bld)on 01-12 Erythrocyte distribution width (RBC) [Ratio] 12.8 % Normal 11.5-15.0 [facility] Comment on above: Order Comment: Speci men Type: BLOOD SPECIMENOrdering Facility: [facility] Address: [address] [place] [address] Performed By: #### 5 8410-2 ####[facility]CA [id number] [place] [address] [place] Hematocrit (Bld) [Volume fraction] 37.5 % Normal 36.0-46.0 [facility] Comment on above: Order Comment: Speci men Type: BLOOD SPECIMENOrdering Facility: [facility] Address: [address] [place] [address] Performed By: #### 5 8410-2 ####[facility] [id number] [place] [address] [place] Hemoglobin (Bld) [Mass/Vol] 13.6 g/dL Normal 11.5-15.5 [facility] Comment on above: Order Comment: Speci men Type: BLOOD SPECIMENOrdering Facility: [facility] Address: [address] [place] [address] Performed By: #### 5 8410-2 ####[facility] [id number] [place] [address] [place] MCH (RBC) [Entitic mass] 31.6 pg Normal 26.0-34.0 [facility] Comment on above: Order Comment: Speci men Type: BLOOD SPECIMENOrdering Facility: [facility] Address: [address] [place] [address] Performed By: #### 5 8410-2 ####[facility]ENCLI [id number] [place] [address] [place] MCHC (RBC) [Mass/Vol] 36.3 g/dL High 30.5-36.0 [facility] Comment on above: Order Comment: Speci men Type: BLOOD SPECIMENOrdering Facility: [facility] Address: [address] [place], [place] [address] Performed By: #### 5 8410-2 ####[facility] [id number] [address] [place] MCV (RBC) [Entitic vol] 87.2 fL Normal 80.0-100.0 [facility] Comment on above: Order Comment: Speci men Type: BLOOD SPECIMENOrdering Facility: [facility] Address: [address] [place] [address] Performed By: #### 5 8410-2 ####[facility] LLOYD [id number] [place] [address] [place] Nucleated RBC (Bld) [#/Vol] 10*3/uL Normal <0.01 [facility] Comment on above: Order Comment: Speci men Type: BLOOD SPECIMENOrdering Facility: [facility] Address: [address] [place] [address] Performed By: #### 5 8410-2 ####[facility]ARE[facility] [id number] [place] [address] [place] Platelet mean volume (Bld) [Entitic vol] 10.8 fL Normal 9.0-12.7 [facility] Comment on above: Order Comment: Speci men Type: BLOOD SPECIMENOrdering Facility: [facility] Address: [address] [place] [address] Performed By: #### 5 8410-2 ####[facility] [id number] [place] [address] [place] Platelets (Bld) [#/Vol] 191 10*3/uL Normal 150-400 [facility] Comment on above: Order Comment: Speci men Type: BLOOD SPECIMENOrdering Facility: [facility] Address: [address] [place] [address] Performed By: #### 5 8410-2 ####[facility]CAREGLENNALIA [id number] [place] [address] [place] RBC (Bld) [#/Vol] 4.30 10*6/uL Normal 3.90-5.20 [facility] Comment on above: Order Comment: Speci men Type: BLOOD SPECIMENOrdering Facility: [facility] Address: [address] [place] [address] Performed By: #### 5 8410-2 ####[facility] MILLWNCLIA [id number] [place] [address] [place] WBC (Bld) [#/Vol] 12.57 10*3/uL High 3.70-11.00 [facility] Comment on above: Order Comment: Speci men Type: BLOOD SPECIMENOrdering Facility: [facility] Address: [address] [place] [address] Performed By: #### 5 8410-2 ####[facility] [id number] [place] [address] [place] Comprehensive metabolic 2000 panelon 01-12-2025 Albumin [Mass/Vol] 3.6 g/dL Low 3.9-4.[address] [facility] Comment on above: Order Comment: Speci men Type: BLOOD SPECIMEN [facility] Address: [address] [place], [place] [address] Performed By: #### 3 084-1, 79691-7 #### [facility] CLIA [id number] [address] [place] [address] [place] ALP [Catalytic activity/Vol] 128 U/L High 34-123 [facility] Comment on above: Order Comment: Speci men Type: BLOOD SPECIMEN [facility] Address: [address] [place], [place] [address] Performed By: #### 3 084-1, 50199-7 #### [facility] CLIA [id number] [address] [place] [address] [place] ALT [Catalytic activity/Vol] 6 U/L Low 7-38 [facility] Comment on above: Order Comment: Speci men Type: BLOOD SPECIMEN [facility] Address: [address] [place], [place] [address] Performed By: #### 3 084-1, 62088-5 #### [facility] CLIA [id number] [address] [place] [address] [place] Anion gap [Moles/Vol] 13 mmol/L Normal 8-15 [facility] Comment on above: Order Comment: Speci men Type: BLOOD SPECIMEN [facility] Address: [address] [place] [address] Performed By: #### 3 084-1, 75354-8 #### [facility] CLIA [id number] [address] [place] [address] [place] AST [Catalytic activity/Vol] 13 U/L Normal 13-35 [facility] Comment on above: Order Comment: Speci men Type: BLOOD SPECIMEN [facility] Address: [address] [place] [address] Performed By: #### 3 084-1, 52392-0 #### [facility] CLIA [id number] [address] [place] [address] [place] Bilirubin [Mass/Vol] 0.2 mg/dL Normal 0.2-1.3 [facility] Comment on above: Order Comment: Speci men Type: BLOOD SPECIMEN [facility] Address: [address] [place] [address] Performed By: #### 3 084-1, 15883-3 #### [facility] CLIA [id number] [address] [place] [address] [place] Calcium [Mass/Vol] 9.6 mg/dL Normal 8.5-10.[address] [facility] Comment on above: Order Comment: Speci men Type: BLOOD SPECIMEN [facility] Address: [address] [place] [address] Performed By: #### 3 084-1, 71803-0 #### [facility] CLIA [id number] [address] [place] [address] [place] Chloride [Moles/Vol] 104 mmol/L Normal 98-107 [facility] Comment on above: Order Comment: Speci men Type: BLOOD SPECIMEN [facility] Address: [address] [place] [address] Performed By: #### 3 084-1, 27288-5 #### [facility] CLIA [id number] [address] [place] [address] [place] CO2 [Moles/Vol] 19 mmol/L Low 22-30 [facility] Comment on above: Order Comment: Speci men Type: BLOOD SPECIMEN [facility] Address: [address] [place] [address] Performed By: #### 3 084-1, 08930-1 #### [facility] CLIA [id number] [address] [place] [address] [place] Creatinine [Mass/Vol] 0.53 mg/dL Low 0.58-0.96 [facility] Comment on above: Order Comment: Speci men Type: BLOOD SPECIMEN [facility] Address: [address] [place] [address] Performed By: #### 3 084-1, 79712-1 #### [facility] [id number] [address] [place] [address] [place] eGFRcr SerPlBld CKD-EPI 2020 129 mL/min/1.73m??? Normal >=60 [facility] Comment on above: Order Comment: Speci men Type: BLOOD SPECIMEN [facility] Address: [address] [place] [address] Result Comment: Eda mated Glomerular Filtration Rate [...] actual GFR. Performed By: #### 3 [id number]- [id number] #### [facility] [id number] [address] [place] [address] [place] Glucose [Mass/Vol] 108 mg/dL High 74-[address] [facility] Comment on above: Order Comment: Lynsey soto Type: BLOOD SPECIMEN Ordering Facility: [facility] Address: [address] [place] [address] Result Comment: The [place] Diabetes Association (ADA) provides guidance for cutoff [...] Standards of Medical Care in Diabetes 2016, [place] Diabetes Association. Diabetes Care. 2016.39(Suppl 1). Performed By: #### 3 084-1, 59587-1 #### [facility] [id number] [address] [place] [address] [place] Potassium [Moles/Vol] 3.8 mmol/L Normal 3.7-5.1 [facility] Comment on above: Order Comment: Lynsey soto Type: BLOOD SPECIMEN Ordering Facility: [facility] Address: [address] [place] [address] Performed By: #### 3 084-1, 13464-7 #### [facility] [id number] [address] [place] [address] [place] Protein [Mass/Vol] 6.8 g/dL Normal 6.3-8.[address] [facility] Comment on above: Order Comment: Lynsey soto Type: BLOOD SPECIMEN Ordering Facility: [facility] Address: [address] [place], [place] [address] Performed By: #### 3 084-1, 47791-7 #### [facility] CLIA [id number] [address] [place] [address] [place] Sodium [Moles/Vol] 136 mmol/L Normal 136-[address] [facility] Comment on above: Order Comment: Speci men Type: BLOOD SPECIMEN Ordering Facility: [facility] Address: [address] [place] [address] Performed By: #### 3 084-1, 82603-6 #### [facility] CLIA [id number] [address] [place] [address] [place] Urea nitrogen [Mass/Vol] 7 mg/dL Normal 7-21 [facility] Comment on above: Order Comment: Speci men Type: BLOOD SPECIMEN Ordering Facility: [facility] Address: [address] [place] [address] Performed By: #### 3 084-1, 94301-1 #### [facility] [id number] [address] [place] [address] [place] Prot/Creat Uron 01-12-2025 Protein/Creatinine (U) [Mass ratio] 0.10 mg/mg Normal <0.15 [facility] Comment on above: Order Comment: Speci men Type: URINE SPECIMENOrdering Facility: [facility] Address: [address] [place] [address] Result Comment: Adul t Proteinuria Categories: <0.15 mg/mg is considered normal to mildly increased 0.15 - 0.50 mg/mg is considered moderately increased >0.50 mg/mg is considered severely increased KDIGO. (2013). KDIGO 2012 Clinical Practice Guideline for the Evaluation and Management of Chronic Kidney Disease. Official Journal of the International Society of Nephrology, 3(1), 1-150. Performed By: #### 2 890-2 ####[facility] [id number] [place] [address] [place] Protein/Creatinine (U) [Mass ratio]on 01-12-2025 Creatinine (U) [Mass/Vol] 69.4 mg/dL Normal 20.0-300.0 [facility] Comment on above: Order Comment: Speci men Type: URINE SPECIMENOrdering Facility: [facility] Address: [address] [place] [address] Performed By: #### 2 890-2 ####[facility] [id number] [place] [address] [place] Protein (U) [Mass/Vol] 7 mg/dL Normal 0-20 [facility] Comment on above: Order Comment: Speci men Type: URINE SPECIMENOrdering Facility: [facility] Address: [address] [place] [address] Performed By: #### 2 890-2 ####[facility] [id number] [place] [address] [place] ROUTINE, GROUP B ST REPTOCOCCUS BY PCRon 01-12-2025 ROUTINE, GROUP B STREPTOCOCCUS BY PCR Not detected Normal [facility] Comment on above: Performed By: #### G BPCR ####[facility] LABIA [id number] [place] [address] [place] Urate SerPl-mCncon Urate [Mass/Vol] 3.8 mg/dL Normal 2.5-6.6 [facility] Comment on above: Order Comment: Speci men Type: BLOOD SPECIMEN Ordering Facility: [facility] Address: [address] [place] [address] Performed By: #### 3 084-1, 79339-5 #### [facility] [id number] [address] [place] [address] [place] CNPTana 01-05-2025 BILLN Telephone (OBGYWM) -------- GRECIA LOCKETT ([id number]) 1995 F Date Time Provider Department 01/05/25 GRECIA SHEPHERD During your visit today, we recorded the following information about you: Susan Munoz RN 01/05/2025 10:05 AM Signed Received [facility] paperwork for patient. Patient presented with [...] LPN - Fully Assessed Reason for Visit: [facility] Paperwork [2707] Prescriptions as of 01/08/2025 - aspirin, enteric coated (ECOTRIN LOW STRENGTH) 81 mg EC tablet Take 2 tablets by mouth once daily. - vit calc,iron,folic ( OVQJSTUX-DTB-WJ-FA ORAL) Take by mouth as directed. - [...] affecting management of *12/25/2024 Encounter Status:Closed by ELICIA ASHLEY on 01/08/25 Normal [facility] CBC W Auto Differential pane l (Bld)on 01-02-2025 Basophils (Bld) [#/Vol] 10*3/uL Normal <0.11 [facility] Comment on above: Order Comment: Speci men Type: BLOOD SPECIMENOrdering Facility: [facility] Address: [address] [place] [address] Performed By: #### 5 7021-8 ####[facility] [id number] [place] [address] [place] Basophils/100 WBC (Bld) 0.2 % Normal [facility] Comment on above: Order Comment: Speci men Type: BLOOD SPECIMENOrdering Facility: [facility] Address: [address] [place] [address] Performed By: #### 5 7021-8 ####[facility] [id number] [place] [address] [place] Differential cell count method Nom (Bld) Auto Normal [facility] Comment on above: Order Comment: Speci men Type: BLOOD SPECIMENOrdering Facility: [facility] Address: [address] [place] [address] Performed By: #### 5 7021-8 ####[facility] [id number] [place] [address] [place] Eosinophils (Bld) [#/Vol] 0.06 10*3/uL Normal <0.46 [facility] Comment on above: Order Comment: Speci men Type: BLOOD SPECIMENOrdering Facility: [facility] Address: [address] [place] [address] Performed By: #### 5 7021-8 ####[facility] [id number] [place] [address] [place] Eosinophils/100 WBC (Bld) 0.6 % Normal [facility] Comment on above: Order Comment: Speci men Type: BLOOD SPECIMENOrdering Facility: [facility] Address: [address] [place] [address] Performed By: #### 5 7021-8 ####[facility] [id number] [place] [address] [place] Erythrocyte distribution width (RBC) [Ratio] 12.8 % Normal 11.5-15.0 [facility] Comment on above: Order Comment: Speci men Type: BLOOD SPECIMENOrdering Facility: [facility] Address: [address] [place] [address] Performed By: #### 5 7021-8 ####[facility] [id number] [place] [address] [place] Hematocrit (Bld) [Volume fraction] 35.6 % Low 36.0-46.0 [facility] Comment on above: Order Comment: Speci men Type: BLOOD SPECIMENOrdering Facility: [facility] Address: [address] [place] [address] Performed By: #### 5 7021-8 ####[facility] MILLTOWNCLIA [id number] [place] [address] [place] Hemoglobin (Bld) [Mass/Vol] 12.5 g/dL Normal 11.5-15.5 [facility] Comment on above: Order Comment: Speci men Type: BLOOD SPECIMENOrdering Facility: [facility] Address: [address] [place] [address] Performed By: #### 5 7021-8 ####[facility] [id number] [place] [address] [place] Immature granulocytes (Bld) [#/Vol] 0.13 10*3/uL High <0.10 [facility] Comment on above: Order Comment: Speci men Type: BLOOD SPECIMENOrdering Facility: [facility] Address: [address] [place] [address] Performed By: #### 5 7021-8 ####[facility] [id number] [place] [address] [place] Immature granulocytes/100 WBC (Bld) 1.2 % Normal [facility] Comment on above: Order Comment: Speci men Type: BLOOD SPECIMENOrdering Facility: [facility] Address: [address] [place] [address] Performed By: #### 5 7021-8 ####[facility] [id number] [place] [address] [place] Lymphocytes (Bld) [#/Vol] 2.06 10*3/uL Normal 1.00-4.00 [facility] Comment on above: Order Comment: Speci men Type: BLOOD SPECIMENOrdering Facility: [facility] Address: [address] [place] [address] Performed By: #### 5 7021-8 ####[facility] [id number] [place] [address] [place] Lymphocytes/100 WBC (Bld) 19.8 % Normal [facility] Comment on above: Order Comment: Speci men Type: BLOOD SPECIMENOrdering Facility: [facility] Address: [address] [place] [address] Performed By: #### 5 7021-8 ####[facility] [id number] [place] [address] [place] MCH (RBC) [Entitic mass] 31.3 pg Normal 26.0-34.0 [facility] Comment on above: Order Comment: Speci men Type: BLOOD SPECIMENOrdering Facility: [facility] Address: [address] [place] [address] Performed By: #### 5 7021-8 ####[facility]ENCSal [id number] [place] [address] [place] MCHC (RBC) [Mass/Vol] 35.1 g/dL Normal 30.5-36.0 [facility] Comment on above: Order Comment: Speci men Type: BLOOD SPECIMENOrdering Facility: [facility] Address: [address] [place] [address] Performed By: #### 5 7021-8 ####[facility]ENCLISal [id number] [place] [address] [place] MCV (RBC) [Entitic vol] 89.0 fL Normal 80.0-100.0 [facility] Comment on above: Order Comment: Speci men Type: BLOOD SPECIMENOrdering Facility: [facility] Address: [address] [place] [address] Performed By: #### 5 7021-8 ####[facility] [id number] [place] [address] [place] Monocytes (Bld) [#/Vol] 0.87 10*3/uL High <0.87 [facility] Comment on above: Order Comment: Speci men Type: BLOOD SPECIMENOrdering Facility: [facility] Address: [address] [place] [address] Performed By: #### 5 7021-8 ####[facility] [id number] [place] [address] [place] Monocytes/100 WBC (Bld) 8.4 % Normal [facility] Comment on above: Order Comment: Speci men Type: BLOOD SPECIMENOrdering Facility: [facility] Address: [address] [place] [address] Performed By: #### 5 7021-8 ####[facility] [id number] [place] [address] [place] Neutrophils (Bld) [#/Vol] 7.27 10*3/uL Normal 1.45-7.50 [facility] Comment on above: Order Comment: Speci men Type: BLOOD SPECIMENOrdering Facility: [facility] Address: [address] [place] [address] Performed By: #### 5 7021-8 ####[facility] [id number] [place] [address] [place] Neutrophils/100 WBC (Bld) 69.8 % Normal [facility] Comment on above: Order Comment: Speci men Type: BLOOD SPECIMENOrdering Facility: [facility] Address: [address] [place] [address] Performed By: #### 5 7021-8 ####[facility] [id number] [place] [address] [place] Nucleated RBC (Bld) [#/Vol] 10*3/uL Normal <0.01 [facility] Comment on above: Order Comment: Speci men Type: BLOOD SPECIMENOrdering Facility: [facility] Address: [address] [place] [address] Performed By: #### 5 7021-8 ####[facility] ANIKETNCLIA [id number] [place] [address] [place] Nucleated RBC/100 WBC (Bld) [Ratio] 0.0 /100 WBC Normal [facility] Comment on above: Order Comment: Speci men Type: BLOOD SPECIMENOrdering Facility: [facility] Address: [address] [place] [address] Performed By: #### 5 7021-8 ####[facility] [id number] [place] [address] [place] Platelet mean volume (Bld) [Entitic vol] 10.5 fL Normal 9.0-12.7 [facility] Comment on above: Order Comment: Speci men Type: BLOOD SPECIMENOrdering Facility: [facility] Address: [address] [place] [address] Performed By: #### 5 7021-8 ####[facility] [id number] [place] [address] [place] Platelets (Bld) [#/Vol] 185 10*3/uL Normal 150-400 [facility] Comment on above: Order Comment: Speci men Type: BLOOD SPECIMENOrdering Facility: [facility] Address: [address] [place] [address] Performed By: #### 5 7021-8 ####[facility] [id number] [place] [address] [place] RBC (Bld) [#/Vol] 4.00 10*6/uL Normal 3.90-5.20 [facility] Comment on above: Order Comment: Speci men Type: BLOOD SPECIMENOrdering Facility: [facility] Address: [address] [place] [address] Performed By: #### 5 7021-8 ####[facility] [id number] [place] [address] [place] WBC (Bld) [#/Vol] 10.41 10*3/uL Normal 3.70-11.00 [facility] Comment on above: Order Comment: Speci men Type: BLOOD SPECIMENOrdering Facility: [facility] Address: [address] [place] [address] Performed By: #### 5 7021-8 ####[facility] [id number] [place] [address] [place] Comprehensive metabolic 2000 panelon 01-02-2025 Albumin [Mass/Vol] 3.4 g/dL Low 3.9-4.[address] [facility] Comment on above: Order Comment: Speci men Type: BLOOD SPECIMEN [facility] Address: [address] [place] [address] Performed By: #### 3 084-1, 39518-3 #### [facility] CLIA [id number] [address] [place] [address] [place] ALP [Catalytic activity/Vol] 99 U/L Normal 34-123 [facility] Comment on above: Order Comment: Speci men Type: BLOOD SPECIMEN [facility] Address: [address] [place] [address] Performed By: #### 3 084-1, 32637-3 #### [facility] CLIA [id number] [address] [place] [address] [place] ALT [Catalytic activity/Vol] 6 U/L Low 7-38 [facility] Comment on above: Order Comment: Speci men Type: BLOOD SPECIMEN [facility] Address: [address] [place] [address] Performed By: #### 3 084-1, 83449-2 #### [facility] CLIA [id number] [address] [place] [address] [place] Anion gap [Moles/Vol] 10 mmol/L Normal 8-15 [facility] Comment on above: Order Comment: Speci men Type: BLOOD SPECIMEN Order[facility] Facility[facility] Address: [address] [place] [address] Performed By: #### 3 084-1, 21075-1 #### [facility] CLIA [id number] [address] [place] [address] [place] AST [Catalytic activity/Vol] 11 U/L Low 13-35 [facility] Comment on above: Order Comment: Speci men Type: BLOOD SPECIMEN [facility] Address: [address] [place] [address] Performed By: #### 3 084-1, 61520-9 #### [facility] CLIA [id number] [address] [place] [address] [place] Bilirubin [Mass/Vol] 0.2 mg/dL Normal 0.2-1.3 [facility] Comment on above: Order Comment: Speci men Type: BLOOD SPECIMEN [facility] Address: [address] [place] [address] Performed By: #### 3 084-1, 19625-0 #### [facility] CLIA [id number] [address] [place] [address] [place] Calcium [Mass/Vol] 9.0 mg/dL Normal 8.5-10.[address] [facility] Comment on above: Order Comment: Speci men Type: BLOOD SPECIMEN [facility] Address: [address] [place] [address] Performed By: #### 3 084-1, 36171-5 #### [facility] CLIA [id number] [address] [place] [address] [place] Chloride [Moles/Vol] 104 mmol/L Normal 98-107 [facility] Comment on above: Order Comment: Speci men Type: BLOOD SPECIMEN [facility] Address: [address] [place], [place] [address] Performed By: #### 3 084-1, 04705-2 #### [facility] [id number] [address] [place] [address] [place] CO2 [Moles/Vol] 22 mmol/L Normal 22-30 [facility] Comment on above: Order Comment: Speci men Type: BLOOD SPECIMEN [facility] Address: [address] [place] [address] Performed By: #### 3 084-1, 26015-7 #### [facility] [id number] [address] [place] [address] [place] Creatinine [Mass/Vol] 0.57 mg/dL Low 0.58-0.96 [facility] Comment on above: Order Comment: Speci men Type: BLOOD SPECIMEN [facility] Address: [address] [place] [address] Performed By: #### 3 084-1, 17667-1 #### [facility] [id number] [address] [place] [address] [place] eGFRcr SerPlBld CKD-EPI 2020 126 mL/min/1.73m??? Normal >=60 [facility] Comment on above: Order Comment: Speci men Type: BLOOD SPECIMEN [facility] Address: [address] [place] [address] Result Comment: Eda mated Glomerular Filtration Rate [...] actual GFR. Performed By: #### 3 084-1, 58485-8 #### [facility] CLIA [id number] [address] [place] [address] [place] Glucose [Mass/Vol] 90 mg/dL Normal 74-[address] [facility] Comment on above: Order Comment: Lynsey soto Type: BLOOD SPECIMEN [facility] Facility[facility] Address: [address] [place], [place] [address] Result Comment: The [place] Diabetes Association (ADA) provides guidance for cutoff [...] Standards of Medical Care in Diabetes 2016, [place] Diabetes Association. Diabetes Care. 2016.39(Suppl 1). Performed By: #### 3 084-1, 72508-6 #### [facility] [id number] [address] [place] [address] [place] Potassium [Moles/Vol] 3.9 mmol/L Normal 3.7-5.1 [facility] Comment on above: Order Comment: Lynsey soto Type: BLOOD SPECIMEN [facility] Address: [address] [place] [address] Performed By: #### 3 084-1, 54533-2 #### [facility] CLIA [id number] [address] [place] [address] [place] Protein [Mass/Vol] 6.3 g/dL Normal 6.3-8.[address] [facility] Comment on above: Order Comment: Lynsey soto Type: BLOOD SPECIMEN [facility] Address: [address] [place], [place] [address] Performed By: #### 3 084-1, 74762-2 #### [facility] CLIA [id number] [address] [place] [address] [place] Sodium [Moles/Vol] 136 mmol/L Normal 136-[address] [facility] Comment on above: Order Comment: Speci men Type: BLOOD SPECIMEN [facility] Facility[facility] Address: [address] [place] [address] Performed By: #### 3 084-1, 44000-1 #### [facility] CLIA [id number] [address] [place] [address] [place] Urea nitrogen [Mass/Vol] 5 mg/dL Low 7-21 [facility] Comment on above: Order Comment: Speci men Type: BLOOD SPECIMEN [facility] Facility[facility] Address: [address] [place] [address] Performed By: #### 3 084-1, 89693-9 #### [facility] CLIA [id number] [address] [place] [address] [place] Prot/Creat Uron 01-02-2025 Protein/Creatinine (U) [Mass ratio] 0.15 mg/mg High <0.15 [facility] Comment on above: Order Comment: Speci men Type: BLOOD SPECIMEN Order[facility] Facility[facility] Address: [address] [place] [address] Result Comment: Adul t Proteinuria Categories: <0.15 mg/mg is considered normal to mildly increased 0.15 - 0.50 mg/mg is considered moderately increased >0.50 mg/mg is considered severely increased KDIGO. (2013). KDIGO 2012 Clinical Practice Guideline for the Evaluation and Management of Chronic Kidney Disease. Official Journal of the International Society of Nephrology, 3(1), 1-150. Performed By: #### 3 084-1, 54922-6 #### [facility] CLIA [id number] [address] [place] [address] [place] Protein/Creatinine (U) [Mass ratio]on 01-02-2025 Creatinine (U) [Mass/Vol] 33.4 mg/dL Normal 20.0-300.0 [facility] Comment on above: Order Comment: Speci men Type: BLOOD SPECIMEN [facility] Facility[facility] Address: [address] [place] [address] Performed By: #### 3 084-1, 75139-5 #### [facility] CLIA [id number] [address] [place] [address] [place] Protein (U) [Mass/Vol] 5 mg/dL Normal 0-20 [facility] Comment on above: Order Comment: Speci men Type: BLOOD SPECIMEN [facility] Address: [address] [place] [address] Performed By: #### 3 084-1, 25373-0 #### [facility] [id number] [address] [place] [address] [place] Urate SerPl-mCncon Urate [Mass/Vol] 3.5 mg/dL Normal 2.5-6.6 [facility] Comment on above: Order Comment: Speci men Type: BLOOD SPECIMEN [facility] Address: [address] [place] [address] Performed By: #### 3 084-1, 92631-1 #### [facility] [id number] [address] [place] [address] [place] CBC W Auto Differential pane l (Bld)on 12-22-2024 Basophils (Bld) [#/Vol] 0.03 10*3/uL Normal <0.11 [facility] Comment on above: Order Comment: Speci men Type: BLOOD SPECIMENOrdering Facility: [facility] Address: [address] [place] [address] Performed By: #### 5 7021-8 ####[facility] [id number] [place] [address] [place] Basophils/100 WBC (Bld) 0.3 % Normal [facility] Comment on above: Order Comment: Speci men Type: BLOOD SPECIMENOrdering Facility: [facility] Address: [address] [place] [address] Performed By: #### 5 7021-8 ####[facility]ENNALIA [id number] [place] [address] [place] Differential cell count method Nom (Bld) Auto Normal [facility] Comment on above: Order Comment: Speci men Type: BLOOD SPECIMENOrdering Facility: [facility] Address: [address] [place] [address] Performed By: #### 5 7021-8 ####[facility]A [id number] [place] [address] [place] Eosinophils (Bld) [#/Vol] 0.08 10*3/uL Normal <0.46 [facility] Comment on above: Order Comment: Speci men Type: BLOOD SPECIMENOrdering Facility: [facility] Address: [address] [place] [address] Performed By: #### 5 7021-8 ####[facility] [id number] [place] [address] [place] Eosinophils/100 WBC (Bld) 0.7 % Normal [facility] Comment on above: Order Comment: Speci men Type: BLOOD SPECIMENOrdering Facility: [facility] Address: [address] [place] [address] Performed By: #### 5 7021-8 ####[facility] [id number] [place] [address] [place] Erythrocyte distribution width (RBC) [Ratio] 12.8 % Normal 11.5-15.0 [facility] Comment on above: Order Comment: Speci men Type: BLOOD SPECIMENOrdering Facility: [facility] Address: [address] [place] [address] Performed By: #### 5 7021-8 ####[facility] ASHVINVARSHALIA [id number] [place] [address] [place] Hematocrit (Bld) [Volume fraction] 35.0 % Low 36.0-46.0 [facility] Comment on above: Order Comment: Speci men Type: BLOOD SPECIMENOrdering Facility: [facility] Address: [address] [place] [address] Performed By: #### 5 7021-8 ####[facility] [id number] [place] [address] [place] Hemoglobin (Bld) [Mass/Vol] 12.4 g/dL Normal 11.5-15.5 [facility] Comment on above: Order Comment: Speci men Type: BLOOD SPECIMENOrdering Facility: [facility] Address: [address] [place] [address] Performed By: #### 5 7021-8 ####[facility] [id number] [place] [address] [place] Immature granulocytes (Bld) [#/Vol] 0.12 10*3/uL High <0.10 [facility] Comment on above: Order Comment: Speci men Type: BLOOD SPECIMENOrdering Facility: [facility] Address: [address] [place] [address] Performed By: #### 5 7021-8 ####[facility] [id number] [place] [address] [place] Immature granulocytes/100 WBC (Bld) 1.1 % Normal [facility] Comment on above: Order Comment: Speci men Type: BLOOD SPECIMENOrdering Facility: [facility] Address: [address] [place] [address] Performed By: #### 5 7021-8 ####[facility] [id number] [place] [address] [place] Lymphocytes (Bld) [#/Vol] 2.24 10*3/uL Normal 1.00-4.00 [facility] Comment on above: Order Comment: Speci men Type: BLOOD SPECIMENOrdering Facility: [facility] Address: [address] [place] [address] Performed By: #### 5 7021-8 ####[facility] [id number] [place] [address] [place] Lymphocytes/100 WBC (Bld) 19.7 % Normal [facility] Comment on above: Order Comment: Speci men Type: BLOOD SPECIMENOrdering Facility: [facility] Address: [address] [place] [address] Performed By: #### 5 7021-8 ####[facility] [id number] [place] [address] [place] MCH (RBC) [Entitic mass] 31.4 pg Normal 26.0-34.0 [facility] Comment on above: Order Comment: Speci men Type: BLOOD SPECIMENOrdering Facility: [facility] Address: [address] [place] [address] Performed By: #### 5 7021-8 ####[facility] [id number] [place] [address] [place] MCHC (RBC) [Mass/Vol] 35.4 g/dL Normal 30.5-36.0 [facility] Comment on above: Order Comment: Speci men Type: BLOOD SPECIMENOrdering Facility: [facility] Address: [address] [place] [address] Performed By: #### 5 7021-8 ####[facility]I [id number] [place] [address] [place] MCV (RBC) [Entitic vol] 88.6 fL Normal 80.0-100.0 [facility] Comment on above: Order Comment: Speci men Type: BLOOD SPECIMENOrdering Facility: [facility] Address: [address] [place] [address] Performed By: #### 5 7021-8 ####[facility] ASHVINSunniNCCLEMENCIA [id number] [place] [address] [place] Monocytes (Bld) [#/Vol] 1.00 10*3/uL High <0.87 [facility] Comment on above: Order Comment: Speci men Type: BLOOD SPECIMENOrdering Facility: [facility] Address: [address] [place] [address] Performed By: #### 5 7021-8 ####[facility] [id number] [place] [address] [place] Monocytes/100 WBC (Bld) 8.8 % Normal [facility] Comment on above: Order Comment: Speci men Type: BLOOD SPECIMENOrdering Facility: [facility] Address: [address] [place] [address] Performed By: #### 5 7021-8 ####[facility] [id number] [place] [address] [place] Neutrophils (Bld) [#/Vol] 7.92 10*3/uL High 1.45-7.50 [facility] Comment on above: Order Comment: Speci men Type: BLOOD SPECIMENOrdering Facility: [facility] Address: [address] [place] [address] Performed By: #### 5 7021-8 ####[facility] [id number] [place] [address] [place] Neutrophils/100 WBC (Bld) 69.4 % Normal [facility] Comment on above: Order Comment: Speci men Type: BLOOD SPECIMENOrdering Facility: [facility] Address: [address] [place] [address] Performed By: #### 5 7021-8 ####[facility] [id number] [place] [address] [place] Nucleated RBC (Bld) [#/Vol] 10*3/uL Normal <0.01 [facility] Comment on above: Order Comment: Speci men Type: BLOOD SPECIMENOrdering Facility: [facility] Address: [address] [place] [address] Performed By: #### 5 7021-8 ####[facility] [id number] [place] [address] [place] Nucleated RBC/100 WBC (Bld) [Ratio] 0.0 /100 WBC Normal [facility] Comment on above: Order Comment: Speci men Type: BLOOD SPECIMENOrdering Facility: [facility] Address: [address] [place] [address] Performed By: #### 5 7021-8 ####[facility] [id number] [place] [address] [place] Platelet mean volume (Bld) [Entitic vol] 10.3 fL Normal 9.0-12.7 [facility] Comment on above: Order Comment: Speci men Type: BLOOD SPECIMENOrdering Facility: [facility] Address: [address] [place] [address] Performed By: #### 5 7021-8 ####[facility] [id number] [place] [address] [place] Platelets (Bld) [#/Vol] 186 10*3/uL Normal 150-400 [facility] Comment on above: Order Comment: Speci men Type: BLOOD SPECIMENOrdering Facility: [facility] Address: [address] [place] [address] Performed By: #### 5 7021-8 ####[facility] [id number] [place] [address] [place] RBC (Bld) [#/Vol] 3.95 10*6/uL Normal 3.90-5.20 [facility] Comment on above: Order Comment: Speci men Type: BLOOD SPECIMENOrdering Facility: [facility] Address: [address] [place] [address] Performed By: #### 5 7021-8 ####[facility] [id number] [place] [address] [place] WBC (Bld) [#/Vol] 11.39 10*3/uL High 3.70-11.00 [facility] Comment on above: Order Comment: Speci men Type: BLOOD SPECIMENOrdering Facility: [facility] Address: [address] [place] [address] Performed By: #### 5 7021-8 ####[facility] [id number] [place] [address] [place] Comprehensive metabolic 2000 panelon 12-22-2024 Albumin [Mass/Vol] 3.5 g/dL Low 3.9-4.[address] [facility] Comment on above: Order Comment: Speci men Type: BLOOD SPECIMEN [facility] Address: [address] [place] [address] Performed By: #### 3 084-1, 04175-8 #### [facility] CLIA [id number] [address] [place] [address] [place] ALP [Catalytic activity/Vol] 91 U/L Normal 34-123 [facility] Comment on above: Order Comment: Speci men Type: BLOOD SPECIMEN [facility] Address: [address] [place] [address] Performed By: #### 3 084-1, 00804-1 #### [facility] CLIA [id number] [address] [place] [address] [place] ALT [Catalytic activity/Vol] 6 U/L Low 7-38 [facility] Comment on above: Order Comment: Speci men Type: BLOOD SPECIMEN [facility] Address: [address] [place] [address] Performed By: #### 3 084-1, 54545-8 #### [facility] CLIA [id number] [address] [place] [address] [place] Anion gap [Moles/Vol] 11 mmol/L Normal 8-15 [facility] Comment on above: Order Comment: Speci men Type: BLOOD SPECIMEN [facility] Address: [address] [place] [address] Performed By: #### 3 084-1, 41744-0 #### [facility] CLIA [id number] [address] [place] [address] [place] AST [Catalytic activity/Vol] 10 U/L Low 13-35 [facility] Comment on above: Order Comment: Speci men Type: BLOOD SPECIMEN [facility] Address: [address] [place] [address] Performed By: #### 3 084-1, 72805-7 #### [facility] CLIA [id number] [address] [place] [address] [place] Bilirubin [Mass/Vol] 0.2 mg/dL Normal 0.2-1.3 [facility] Comment on above: Order Comment: Speci men Type: BLOOD SPECIMEN [facility] Address: [address] [place] [address] Performed By: #### 3 084-1, 17178-3 #### [facility] CLIA [id number] [address] [place] [address] [place] Calcium [Mass/Vol] 9.0 mg/dL Normal 8.5-10.[address] [facility] Comment on above: Order Comment: Speci men Type: BLOOD SPECIMEN [facility] Address: [address] [place] [address] Performed By: #### 3 084-1, 96722-0 #### [facility] CLIA [id number] [address] [place] [address] [place] Chloride [Moles/Vol] 107 mmol/L Normal 98-107 [facility] Comment on above: Order Comment: Speci men Type: BLOOD SPECIMEN [facility] Address: [address] [place] [address] Performed By: #### 3 084-1, 65296-8 #### [facility] CLIA [id number] [address] [place] [address] [place] CO2 [Moles/Vol] 19 mmol/L Low 22-30 [facility] Comment on above: Order Comment: Speci men Type: BLOOD SPECIMEN [facility] Address: [address] [place] [address] Performed By: #### 3 084-1, 72665-5 #### [facility] CLIA [id number] [address] [place] [address] [place] Creatinine [Mass/Vol] 0.53 mg/dL Low 0.58-0.96 [facility] Comment on above: Order Comment: Speci men Type: BLOOD SPECIMEN [facility] Address: [address] [place] [address] Performed By: #### 3 084-1, 64400-5 #### [facility] CLIA [id number] [address] [place] [address] [place] eGFRcr SerPlBld CKD-EPI 2020 129 mL/min/1.73m??? Normal >=60 [facility] Comment on above: Order Comment: Speci men Type: BLOOD SPECIMEN [facility] Address: [address] [place] [address] Result Comment: Eda mated Glomerular Filtration Rate [...] actual GFR. Performed By: #### 3 084-1, 47320-3 #### [facility] CLIA [id number] [address] [place] [address] [place] Glucose [Mass/Vol] 99 mg/dL Normal 74-[address] [facility] Comment on above: Order Comment: Lynsey soto Type: BLOOD SPECIMEN [facility] Address: [address] [place] [address] Result Comment: The [place] Diabetes Association (ADA) provides guidance for cutoff [...] Standards of Medical Care in Diabetes 2016, [place] [employer]. Diabetes Care. 2016.39(Suppl 1). Performed By: #### 3 084-, 61420-2 #### [facility] [id number] [address] [place] [address] [place] Potassium [Moles/Vol] 3.6 mmol/L Low 3.7-5.1 [facility] Comment on above: Order Comment: Lynsey soto Type: BLOOD SPECIMEN [facility] Address: [address] [place] [address] Performed By: #### 3 084-1, 25287-1 #### [facility] CLIA [id number] [address] [place] [address] [place] Protein [Mass/Vol] 6.3 g/dL Normal 6.3-8.[address] [facility] Comment on above: Order Comment: Speci men Type: BLOOD SPECIMEN [facility] Address: [address] [place] [address] Performed By: #### 3 084-1, 99346-1 #### [facility] [id number] [address] [place] [address] [place] Sodium [Moles/Vol] 137 mmol/L Normal 136-[address] [facility] Comment on above: Order Comment: Speci men Type: BLOOD SPECIMEN [facility] Address: [address] [place] [address] Performed By: #### 3 084-1, 01740-5 #### [facility] [id number] [address] [place] [address] [place] Urea nitrogen [Mass/Vol] 5 mg/dL Low 7-21 [facility] Comment on above: Order Comment: Speci men Type: BLOOD SPECIMEN [facility] Address: [address] [place] [address] Performed By: #### 3 084-1, 29227-3 #### [facility] [id number] [address] [place] [address] [place] Prot/Creat Uron 12-22-2024 Protein/Creatinine (U) [Mass ratio] 0.08 mg/mg Normal <0.15 [facility] Comment on above: Order Comment: Speci men Type: URINE SPECIMENOrdering Facility: [facility] Address: [address] [place] [address] Result Comment: Adul t Proteinuria Categories: <0.15 mg/mg is considered normal to mildly increased 0.15 - 0.50 mg/mg is considered moderately increased >0.50 mg/mg is considered severely increased KDIGO. (2013). KDIGO 2012 Clinical Practice Guideline for the Evaluation and Management of Chronic Kidney Disease. Official Journal of the International Society of Nephrology, 3(1), 1-150. Performed By: #### 2 890-2 ####[facility] [id number] [place] [id number] [place] Protein/Creatinine (U) [Mass ratio]on 12-22-2024 Creatinine (U) [Mass/Vol] 166.1 mg/dL Normal 20.0-300.0 [facility] Comment on above: Order Comment: Speci men Type: URINE SPECIMENOrdering Facility: [facility] Address: [address] [place] [address] Performed By: #### 2 890-2 ####[facility] [id number] [place] [id number] [place] Protein (U) [Mass/Vol] 13 mg/dL Normal 0-20 [facility] Comment on above: Order Comment: Speci men Type: URINE SPECIMENOrdering Facility: [facility] Address: [address] [place] [address] Performed By: #### 2 890-2 ####[facility] [id number] [place] [id number] [place] Urate SerPl-mCncon Urate [Mass/Vol] 3.3 mg/dL Normal 2.5-6.6 [facility] Comment on above: Order Comment: Speci men Type: BLOOD SPECIMEN [facility] Address: [address] [place] [address] Performed By: #### 3 084-1, 30976-8 #### [facility] [id number] [address] [place] [address] [place] CBC panel Auto (Bld)on 11-24 Erythrocyte distribution width (RBC) [Ratio] 12.3 % Normal 11.5-15.0 [facility] Comment on above: Order Comment: Speci men Type: BLOOD SPECIMEN [facility] Address: [address] [place] [address] Performed By: #### R UBIGG #### [facility] CLIA [id number] [address] [place] [address] [place] Hematocrit (Bld) [Volume fraction] 33.9 % Low 36.0-46.0 [facility] Comment on above: Order Comment: Speci men Type: BLOOD SPECIMEN [facility] Address: [address] [place] [address] Performed By: #### R UBIGG #### [facility] IA [id number] [address] [place] [address] [place] Hemoglobin (Bld) [Mass/Vol] 11.9 g/dL Normal 11.5-15.5 [facility] Comment on above: Order Comment: Speci men Type: BLOOD SPECIMEN [facility] Address: [address] [place] [address] Performed By: #### R UBIGG #### [facility] IA [id number] [address] [place] [address] [place] MCH (RBC) [Entitic mass] 31.6 pg Normal 26.0-34.0 [facility] Comment on above: Order Comment: Speci men Type: BLOOD SPECIMEN [facility] Address: [address] [place] [address] Performed By: #### R UBIGG #### [facility] CLIA [id number] [address] [place] [address] [place] MCHC (RBC) [Mass/Vol] 35.1 g/dL Normal 30.5-36.0 [facility] Comment on above: Order Comment: Speci men Type: BLOOD SPECIMEN [facility] Address: [address] [place] [address] Performed By: #### R UBIGG #### [facility] CLIA [id number] [address] [place] [address] [place] MCV (RBC) [Entitic vol] 89.9 fL Normal 80.0-100.0 [facility] Comment on above: Order Comment: Speci men Type: BLOOD SPECIMEN [facility] Address: [address] [place] [address] Performed By: #### R UBIGG #### [facility] CLIA [id number] [address] [place] [address] [place] Nucleated RBC (Bld) [#/Vol] 10*3/uL Normal <0.01 [facility] Comment on above: Order Comment: Speci men Type: BLOOD SPECIMEN [facility] Address: [address] [place] [address] Performed By: #### R UBIGG #### [facility] CLIA [id number] [address] [place] [address] [place] Platelet mean volume (Bld) [Entitic vol] 10.0 fL Normal 9.0-12.7 [facility] Comment on above: Order Comment: Speci men Type: BLOOD SPECIMEN [facility] Address: [address] [place] [address] Performed By: #### R UBIGG #### [facility] CLIA [id number] [address] [place] [address] [place] Platelets (Bld) [#/Vol] 189 10*3/uL Normal 150-400 [facility] Comment on above: Order Comment: Speci men Type: BLOOD SPECIMEN [facility] Address: [address] [place] [address] Performed By: #### R UBIGG #### [facility] CLIA [id number] [address] [place] [address] [place] RBC (Bld) [#/Vol] 3.77 10*6/uL Low 3.90-5.20 [facility] Comment on above: Order Comment: Speci men Type: BLOOD SPECIMEN [facility] Address: [address] [place] [address] Performed By: #### R UBIGG #### [facility] CLIA [id number] [address] [place] [address] [place] WBC (Bld) [#/Vol] 8.49 10*3/uL Normal 3.70-11.00 [facility] Comment on above: Order Comment: Speci men Type: BLOOD SPECIMEN [facility] Address: [address] [place] [address] Performed By: #### R UBIGG #### [facility] CLIA [id number] [address] [place] [address] [place] GESTATIONAL GLUCOSE SCREEN, 1-HOUR, 50 GRAM, NON-FASTINGon 11-24-2024 Glucose [Mass/Vol] 128 mg/dL Normal 74-[address] [facility] Comment on above: Order Comment: Speci men Type: BLOOD SPECIMEN [facility] Address: [address] [place] [address] Result Comment: [facility] Congress of Obstetricians and Gynecologists (Angeline/Tushar) guidelines state a gestational diabetes mellitus positive screen is made, in women not previously diagnosed with overt diabetes, when the 1 hr plasma glucose level is equal to or above 140 mg/dL. The [facility] [employer] [facility] [place] recommends a 135 mg/dL cutoff. Performed By: #### R UBIGG #### [facility] CLIA [id number] [address] [place] [address] [place] Reagin and Treponema pallidu m IgG and IgM [Interp]on 11-24-2024 T. pallidum IgG+IgM IA Ql (S) Non-Reactive Normal Nonreactive [facility] Comment on above: Order Comment: Speci men Type: BLOOD SPECIMEN [facility] Address: [address] [place] [address] Performed By: #### R UBIGG #### [facility] CLIA [id number] [address] [place] [address] [place] Reagin+T pallidum IgG+IgM Se rPl-Impon 11-24-2024 Reagin and Treponema pallidum IgG and IgM [Interp] Cannot exclude recent Treponemal infection if specimen collected within 7-10 days after appearance of suspect lesions or 2-3 weeks after an exposure. Clinical correlation is required. Normal [facility] Comment on above: Order Comment: Speci men Type: BLOOD SPECIMEN [facility] Address: [address] [place] [address] Performed By: #### R UBIGG #### [facility] CLIA [id number] [address] [place] [address] [place] TYPE + SCREEN PRENATALon ABO A Normal [facility] Comment on above: Order Comment: Speci men Type: BLOOD SPECIMENOrdering Facility: [facility] Address: [address] [place] [address] Performed By: #### T SPN ####[facility]CLIA [id number] [place] [address] [place] Rh Nom (Bld) Negative Normal [facility] Comment on above: Order Comment: Speci men Type: BLOOD SPECIMENOrdering Facility: [facility] Address: [address] [place] [address] Performed By: #### T SPN ####[facility] BANKCLIA [id number] [place] [address] [place] TYPE AND SCREEN EXPIRATION 11/27/2024 23:59 Normal [facility] Comment on above: Order Comment: Speci men Type: BLOOD SPECIMENOrdering Facility: [facility] Address: [address] [place] [address] Performed By: #### T SPN ####[facility]ANKCLIA [id number] [place] [address] [place] Examination level ultrasound [...] 14 oz EFW by: Hadlock (HC-AC-FL) Extended Sternman 4.5 mm CM 3.8 mm 11% Nicolaides [...] normal LVOT view: normal 3-vessel view: normal 6-gcutov-hbzpgoc view: normal Heart / Thorax Situs: situs [...] Read By: Elvie Goodwin M.D. MATERNAL MEDICINE [facility] Radiology Study observation (narrative) [facility] Examination level ultrasound on 08-09-2024 Indication First trimester anatomic survey Maternal obesity, BMI >35 Impression The patient is referred for a first trimester anatomy scan including nuchal translucency measurement as clinically indicated. - Single, live, intrauterine . - [place] rump length measurement is consistent with the [...] view: visualized 4-chamber view with color: visualized 9-hpgiah-gtyjfzo view: normal Abdominal cord insertion: normal Stomach: [...] ovary Vol 7.8 cm Performed By: Lisa Alstno, GREG, RVT Read By: Elvie Goodwin M.D. MATERNAL MEDICINE [facility] Radiology Study observation (narrative) [facility] Bacteria Ur Culton Bacteria identified Cx Nom (U) CULTURE, URINE: No growth (<1,000 CFU/ml) Normal [facility] Comment on above: Performed By: #### 6 30-4 ####[facility] LABCLIA [id number] [address] [place] OF [facility] C. trachomatis+N. gonorrhoea e DNA ESME+probe Ql (Unsp spec)on 07-18-2024 C. trachomatis rRNA ESME+probe Ql (Unsp spec) Not detected Normal Not detected [facility] Comment on above: Order Comment: Speci men Type: BLOOD SPECIMEN Ordering Facility: [facility] Address: [address] [place] [address] Performed By: #### R UBIGG #### [facility] CLIA [id number] [address] [place] [address] [place] N. gonorrhoeae rRNA ESME+probe Ql (Unsp spec) Not detected Normal Not detected [facility] Comment on above: Order Comment: Speci men Type: BLOOD SPECIMEN Ordering Facility: [facility] Address: [address] [place] [address] Performed By: #### R UBIGG #### [facility] CLIA [id number] [address] [place] [address] [place] CBC W Auto Differential pane l (Bld)on 07-18-2024 Basophils (Bld) [#/Vol] 10*3/uL Normal <0.11 [facility] Comment on above: Order Comment: Speci men Type: BLOOD SPECIMEN Ordering Facility: [facility] Address: [address] [place] [address] Performed By: #### R UBIGG #### [facility] CLIA [id number] [address] [place] [address] [place] Basophils/100 WBC (Bld) 0.3 % Normal [facility] Comment on above: Order Comment: Speci men Type: BLOOD SPECIMEN Ordering Facility: [facility] Address: [address] [place] [address] Performed By: #### R UBIGG #### [facility] CLIA [id number] [address] [place] [address] [place] Differential cell count method Nom (Bld) Auto Normal [facility] Comment on above: Order Comment: Speci men Type: BLOOD SPECIMEN Ordering Facility: [facility] Address: [address] [place] [address] Performed By: #### R UBIGG #### [facility] CLIA [id number] [address] [place] [address] [place] Eosinophils (Bld) [#/Vol] 0.06 10*3/uL Normal <0.46 [facility] Comment on above: Order Comment: Speci men Type: BLOOD SPECIMEN Ordering Facility: [facility] Address: [address] [place] [address] Performed By: #### R UBIGG #### [facility] CLIA [id number] [address] [place] [address] [place] Eosinophils/100 WBC (Bld) 1.0 % Normal [facility] Comment on above: Order Comment: Speci men Type: BLOOD SPECIMEN Ordering Facility: [facility] Address: [address] [place] [address] Performed By: #### R UBIGG #### [facility] CLIA [id number] [address] [place] [address] [place] Erythrocyte distribution width (RBC) [Ratio] 12.3 % Normal 11.5-15.0 [facility] Comment on above: Order Comment: Speci men Type: BLOOD SPECIMEN Ordering Facility: [facility] Address: [address] [place] [address] Performed By: #### R UBIGG #### [facility] CLIA [id number] [address] [place] [address] [place] Hematocrit (Bld) [Volume fraction] 35.3 % Low 36.0-46.0 [facility] Comment on above: Order Comment: Speci men Type: BLOOD SPECIMEN Ordering Facility: [facility] Address: [address] [place] [address] Performed By: #### R UBIGG #### [facility] CLIA [id number] [address] [place] [address] [place] Hemoglobin (Bld) [Mass/Vol] 12.6 g/dL Normal 11.5-15.5 [facility] Comment on above: Order Comment: Speci men Type: BLOOD SPECIMEN Ordering Facility: [facility] Address: [address] [place] [address] Performed By: #### R UBIGG #### [facility] CLIA [id number] [address] [place] [address] [place] Immature granulocytes (Bld) [#/Vol] 10*3/uL Normal <0.10 [facility] Comment on above: Order Comment: Speci men Type: BLOOD SPECIMEN Ordering Facility: [facility] Address: [address] [place] [address] Performed By: #### R UBIGG #### [facility] CLIA [id number] [address] [place] [address] [place] Immature granulocytes/100 WBC (Bld) 0.3 % Normal [facility] Comment on above: Order Comment: Speci men Type: BLOOD SPECIMEN Ordering Facility: [facility] Address: [address] [place] [address] Performed By: #### R UBIGG #### [facility] CLIA [id number] [address] [place] [address] [place] Lymphocytes (Bld) [#/Vol] 1.82 10*3/uL Normal 1.00-4.00 [facility] Comment on above: Order Comment: Speci men Type: BLOOD SPECIMEN Ordering Facility: [facility] Address: [address] [place] [address] Performed By: #### R UBIGG #### [facility] CLIA [id number] [address] [place] [address] [place] Lymphocytes/100 WBC (Bld) 29.2 % Normal [facility] Comment on above: Order Comment: Speci men Type: BLOOD SPECIMEN Ordering Facility: [facility] Address: [address] [place] [address] Performed By: #### R UBIGG #### [facility] CLIA [id number] [address] [place] [address] [place] MCH (RBC) [Entitic mass] 31.0 pg Normal 26.0-34.0 [facility] Comment on above: Order Comment: Speci men Type: BLOOD SPECIMEN Ordering Facility: [facility] Address: [address] [place] [address] Performed By: #### R UBIGG #### [facility] CLIA [id number] [address] [place] [address] [place] MCHC (RBC) [Mass/Vol] 35.7 g/dL Normal 30.5-36.0 [facility] Comment on above: Order Comment: Speci men Type: BLOOD SPECIMEN Ordering Facility: [facility] Address: [address] [place] [address] Performed By: #### R UBIGG #### [facility] CLIA [id number] [address] [place] [address] [place] MCV (RBC) [Entitic vol] 86.9 fL Normal 80.0-100.0 [facility] Comment on above: Order Comment: Speci men Type: BLOOD SPECIMEN Ordering Facility: [facility] Address: [address] [place] [address] Performed By: #### R UBIGG #### [facility] CLIA [id number] [address] [place] [address] [place] Monocytes (Bld) [#/Vol] 0.51 10*3/uL Normal <0.87 [facility] Comment on above: Order Comment: Speci men Type: BLOOD SPECIMEN Ordering Facility: [facility] Address: [address] [place] [address] Performed By: #### R UBIGG #### [facility] CLIA [id number] [address] [place] [address] [place] Monocytes/100 WBC (Bld) 8.2 % Normal [facility] Comment on above: Order Comment: Speci men Type: BLOOD SPECIMEN Ordering Facility: [facility] Address: [address] [place] [address] Performed By: #### R UBIGG #### [facility] CLIA [id number] [address] [place] [address] [place] Neutrophils (Bld) [#/Vol] 3.81 10*3/uL Normal 1.45-7.50 [facility] Comment on above: Order Comment: Speci men Type: BLOOD SPECIMEN Ordering Facility: [facility] Address: [address] [place] [address] Performed By: #### R UBIGG #### [facility] CLIA [id number] [address] [place] [address] [place] Neutrophils/100 WBC (Bld) 61.0 % Normal [facility] Comment on above: Order Comment: Speci men Type: BLOOD SPECIMEN Ordering Facility: [facility] Address: [address] [place] [address] Performed By: #### R UBIGG #### [facility] CLIA [id number] [address] [place] [address] [place] Nucleated RBC (Bld) [#/Vol] 10*3/uL Normal <0.01 [facility] Comment on above: Order Comment: Speci men Type: BLOOD SPECIMEN Ordering Facility: [facility] Address: [address] [place] [address] Performed By: #### R UBIGG #### [facility] CLIA [id number] [address] [place] [address] [place] Nucleated RBC/100 WBC (Bld) [Ratio] 0.0 /100 WBC Normal [facility] Comment on above: Order Comment: Speci men Type: BLOOD SPECIMEN Ordering Facility: [facility] Address: [address] [place] [address] Performed By: #### R UBIGG #### [facility] CLIA [id number] [address] [place] [address] [place] Platelet mean volume (Bld) [Entitic vol] 10.2 fL Normal 9.0-12.7 [facility] Comment on above: Order Comment: Speci men Type: BLOOD SPECIMEN Ordering Facility: [facility] Address: [address] [place] [address] Performed By: #### R UBIGG #### [facility] CLIA [id number] [address] [place] [address] [place] Platelets (Bld) [#/Vol] 228 10*3/uL Normal 150-400 [facility] Comment on above: Order Comment: Speci men Type: BLOOD SPECIMEN Ordering Facility: [facility] Address: [address] [place] [address] Performed By: #### R UBIGG #### [facility] CLIA [id number] [address] [place] [address] [place] RBC (Bld) [#/Vol] 4.06 10*6/uL Normal 3.90-5.20 [facility] Comment on above: Order Comment: Speci men Type: BLOOD SPECIMEN Ordering Facility: [facility] Address: [address] [place] [address] Performed By: #### R UBIGG #### [facility] CLIA [id number] [address] [place] [address] [place] WBC (Bld) [#/Vol] 6.24 10*3/uL Normal 3.70-11.00 [facility] Comment on above: Order Comment: Speci men Type: BLOOD SPECIMEN Ordering Facility: [facility] Address: [address] [place] [address] Performed By: #### R UBIGG #### [facility] CLIA [id number] [address] [place] [address] [facility] [place] Comprehensive metabolic 2000 panelOrdered By: Tonia Dinero on 07-18-2024 Albumin [Mass/Vol] 4.1 g/dL 3.9 - 4.9 g/dL [facility] ALP [Catalytic activity/Vol] 63 U/L 34 - 123 U/L [facility] ALT [Catalytic activity/Vol] 8 U/L 7 - 38 U/L [facility] Anion gap [Moles/Vol] 11 mmol/L 8 - 15 mmol/L [facility] AST [Catalytic activity/Vol] 12 U/L Low 13 - 35 U/L [facility] Bilirubin [Mass/Vol] 0.3 mg/dL 0.2 - 1.3 mg/dL [facility] Calcium [Mass/Vol] 9.4 mg/dL 8.5 - 10. 2 mg/dL [facility] Chloride [Moles/Vol] 105 mmol/L 98 - 107 mmol/L [facility] CO2 [Moles/Vol] 20 mmol/L Low 22 - 30 mmol/L [facility] Creatinine [Mass/Vol] 0.55 mg/dL Low 0.58 - 0.96 mg/dL [facility] GFR/1.73 sq M.predicted among non-blacks MDRD (S/P/Bld) [Vol rate/Area] 128 mL/min/{1.73_m2} - PINF [facility] Comment on above: Estimated Glomerular Filtration Rate [...] [Mass/Vol] 94 mg/dL 74 - 99 mg/dL [facility] Comment on above: The [place] Diabete s Association (ADA) provides guidance for [...] Standards of Medical Care in Diabetes 2016, [place] Diabetes Association. Diabetes Care. 2016.39(Suppl 1). Interpretation and review of laboratory results Abnormal [facility] Potassium [Moles/Vol] 3.6 mmol/L Low 3.7 - 5.1 mmol/L [facility] Protein [Mass/Vol] 6.7 g/dL 6.3 - 8.0 g/dL [facility] Sodium [Moles/Vol] 136 mmol/L 136 - 144 mmol/L [facility] Urea nitrogen [Mass/Vol] 8 mg/dL 7 - 21 mg/dL [facility] Comprehensive metabolic 2000 panelon 07-18-2024 Albumin [Mass/Vol] 4.1 g/dL Normal 3.9-4.[address] [facility] Comment on above: Order Comment: Speci men Type: BLOOD SPECIMEN Ordering Facility: [facility] Address: [address] [place] [address] Performed By: #### R UBIGG #### [facility] CLIA [id number] [address] [place] [address] [place] ALP [Catalytic activity/Vol] 63 U/L Normal 34-123 [facility] Comment on above: Order Comment: Speci men Type: BLOOD SPECIMEN Ordering Facility: [facility] Address: [address] [place] [address] Performed By: #### R UBIGG #### [facility] CLIA [id number] [address] [place] [address] [place] ALT [Catalytic activity/Vol] 8 U/L Normal 7-38 [facility] Comment on above: Order Comment: Speci men Type: BLOOD SPECIMEN Ordering Facility: [facility] Address: [address] [place] [address] Performed By: #### R UBIGG #### [facility] CLIA [id number] [address] [place] [address] [place] Anion gap [Moles/Vol] 11 mmol/L Normal 8-15 [facility] Comment on above: Order Comment: Speci men Type: BLOOD SPECIMEN Ordering Facility: [facility] Address: [address] [place] [address] Performed By: #### R UBIGG #### [facility] CLIA [id number] [address] [place] [address] [place] AST [Catalytic activity/Vol] 12 U/L Low 13-35 [facility] Comment on above: Order Comment: Speci men Type: BLOOD SPECIMEN Ordering Facility: [facility] Address: [address] [place] [address] Performed By: #### R UBIGG #### [facility] CLIA [id number] [address] [place] [address] [place] Bilirubin [Mass/Vol] 0.3 mg/dL Normal 0.2-1.3 [facility] Comment on above: Order Comment: Speci men Type: BLOOD SPECIMEN Ordering Facility: [facility] Address: [address] [place] [address] Performed By: #### R UBIGG #### [facility] CLIA [id number] [address] [place] [address] [place] Calcium [Mass/Vol] 9.4 mg/dL Normal 8.5-10.[address] [facility] Comment on above: Order Comment: Speci men Type: BLOOD SPECIMEN Ordering Facility: [facility] Address: [address] [place] [address] Performed By: #### R UBIGG #### [facility] CLIA [id number] [address] [place] [address] [place] Chloride [Moles/Vol] 105 mmol/L Normal 98-107 [facility] Comment on above: Order Comment: Speci men Type: BLOOD SPECIMEN Ordering Facility: [facility] Address: [address] [place] [address] Performed By: #### R UBIGG #### [facility] CLIA [id number] [address] [place] [address] [place] CO2 [Moles/Vol] 20 mmol/L Low 22-30 [facility] Comment on above: Order Comment: Speci men Type: BLOOD SPECIMEN Ordering Facility: [facility] Address: [address] [place] [address] Performed By: #### R UBIGG #### [facility] CLIA [id number] [address] [place] [address] [place] Creatinine [Mass/Vol] 0.55 mg/dL Low 0.58-0.96 [facility] Comment on above: Order Comment: Speci men Type: BLOOD SPECIMEN Ordering Facility: [facility] Address: [address] [place] [address] Performed By: #### R UBIGG #### [facility] CLIA [id number] [address] [place] [address] [place] Creatinine and Glomerular filtration rate.predicted panel (S/P/Bld) 128 mL/min/1.73m??? Normal >=60 [facility] Comment on above: Order Comment: Lynsey soto Type: BLOOD SPECIMEN Ordering Facility: [facility] Address: [address] [place] [address] Result Comment: Eda mated Glomerular Filtration Rate [...] GFR. Performed By: #### R UBIGG #### [facility] CLIA [id number] [address] [place] [address] [place] Glucose [Mass/Vol] 94 mg/dL Normal 74-[address] [facility] Comment on above: Order Comment: Lynsey soto Type: BLOOD SPECIMEN Ordering Facility: [facility] Address: [address] [place] [address] Result Comment: The [place] Diabetes Association (ADA) provides guidance for cutoff [...] Standards of Medical Care in Diabetes 2016, [place] Diabetes Association. Diabetes Care. 2016.39(Suppl 1). Performed By: #### R UBIGG #### [facility] CLIA [id number] [address] [place] [address] [place] Potassium [Moles/Vol] 3.6 mmol/L Low 3.7-5.1 [facility] Comment on above: Order Comment: Speci men Type: BLOOD SPECIMEN Ordering Facility: [facility] Address: [address] [place] [address] Performed By: #### R UBIGG #### [facility] CLIA [id number] [address] [place] [address] [place] Protein [Mass/Vol] 6.7 g/dL Normal 6.3-8.[address] [facility] Comment on above: Order Comment: Speci men Type: BLOOD SPECIMEN Ordering Facility: [facility] Address: [address] [place] [address] Performed By: #### R UBIGG #### [facility] CLIA [id number] [address] [place] [address] [place] Sodium [Moles/Vol] 136 mmol/L Normal 136-[address] [facility] Comment on above: Order Comment: Speci men Type: BLOOD SPECIMEN Ordering Facility: [facility] Address: [address] [place] [address] Performed By: #### R UBIGG #### [facility] CLIA [id number] [address] [place] [address] [place] Urea nitrogen [Mass/Vol] 8 mg/dL Normal 7-21 [facility] Comment on above: Order Comment: Speci men Type: BLOOD SPECIMEN Ordering Facility: [facility] Address: [address] [place] [address] Performed By: #### R UBIGG #### [facility] CLIA [id number] [address] [place] [address] [place] HBV surface Ag Ser Qlon 04- HBV surface Ag Ql (S) Negative Normal Negative [facility] Comment on above: Order Comment: Speci men Type: BLOOD SPECIMENOrdering Facility: [facility] Address: [address] [place], [place] [address] Performed By: #### 3 1201-7, 44045-9, 5-3 ####[facility] [id number] [place] [address] [place] HCV Ab Ser Qlon 07-18-2024 HCV Ab Ql (S) Negative Normal Negative [facility] Comment on above: Order Comment: Speci men Type: BLOOD SPECIMEN Ordering Facility: [facility] Address: [address] [place] [address] Result Comment: The result suggests no evidence of infection with Hepatitis C virus. Should recent infection be suspected, repeat testing may be considered 4-6 weeks after this draw. Performed By: #### R UBIGG #### [facility] CLIA [id number] [address] [place] [address] [place] HIV 1+2 Ab IA Qlon HIV 1 and 2 Ab IA.rapid Nom (S/P/Bld) Normal [facility] Comment on above: Order Comment: Speci men Type: BLOOD SPECIMENOrdering Facility: [facility] Address: [address] [place] [address] Result Comment: Test not indicated. Performed By: #### 3 1201-7, 88875-0, 5194-3 ####[facility] [id number] [place] [address] [place] HIV 1+2 Ab+HIV1 p24 Ag IA Ql Non-Reactive Normal Nonreactive [facility] Comment on above: Order Comment: Speci men Type: BLOOD SPECIMENOrdering Facility: [facility] Address: [address] [place] [address] Performed By: #### 3 1201-7, 25766-7, 5195-3 ####[facility] [id number] [place] [address] [place] HIV immunoassay testing algorithm interpretation (S/P/Bld) [Interp] Normal [facility] Comment on above: Order Comment: Speci men Type: BLOOD SPECIMENOrdering Facility: [facility] Address: [address] [place] [address] Result Comment: No e vidence of HIV-1 or HIV-2 infection. Should recent infection be suspected, repeat testing may be considered 2-3 weeks after this draw. [place] Rev. Code 3701.243(E): This information has been [...] or diagnoses. Performed By: #### 3 1201-7, 32055-4, 5195-3 ####[facility] [id number] [place] [address] [place] HbA1c (Bld)on 07-18-2024 Average glucose Estimated from glycated hemoglobin (Bld) [Mass/Vol] 88 mg/dL Normal [facility] Comment on above: Order Comment: [facility] Type: BLOOD SPECIMEN Ordering Facility: [facility] Address: [address] [place] [address] Result Comment: eAG: (Estimated average glucose) is a calculated value from HgbA1c and is sales and service representative of the average blood glucose level in the last 2-3 month period. Performed By: #### R UBIGG #### [facility] CLIA [id number] [address] [place] [address] [place] HbA1c (Bld) [Mass fraction] 4.7 % Normal 4.3-5.6 [facility] Comment on above: Order Comment: Lynsey soto Type: BLOOD SPECIMEN Ordering Facility: [facility] Address: [address] [place] [address] Result Comment: Amer [place] Diabetes Association guidelines indicate that patients with HgbA1c in the range 5.7-6.4% are at increased risk for development of diabetes, and intervention by lifestyle modification may be beneficial. HgbA1c greater or equal to 6.5% is considered diagnostic of diabetes. Performed By: #### R UBIGG #### [facility] CLIA [id number] [address] [place] [address] [place] [id number] PLUSon 07-18-2024 Cell-free DNA./Cell-free DNA.total Dosage of chromosome-specific cfDNA (cfDNA) [Molar fraction] 13% Normal [facility] Comment on above: Order Comment: Speci men Type: BLOOD SPECIMEN Ordering Facility: [facility] Address: [address] [place] [address] Performed By: #### 3 084-1, 48239-7 #### [facility] CLIA [id number] [address] [place] [address] [place] Chr 13+18+21+X+Y aneuploidy Dosage of chromosome-specific cfDNA Ql (cfDNA) Negative Normal [facility] Comment on above: Order Comment: Speci men Type: BLOOD SPECIMEN Ordering Facility: [facility] Address: [address] [place] [address] Performed By: #### 3 084-1, 24053-6 #### [id number] [address] [place] [address] Chr 21 trisomy Dosage of chromosome-specific cfDNA Ql (cfDNA) Negative Normal [facility] Comment on above: Order Comment: Speci men Type: BLOOD SPECIMEN Ordering Facility: [facility] Address: [address] [place] [address] Performed By: #### 3 084-1, 79169-9 #### [facility] [id number] [address] [place] [address] [place] Chr X and Y aneuploidy risk Sequencing Ql (cfDNA) [Interp] Not detected Normal [facility] Comment on above: Order Comment: Speci men Type: BLOOD SPECIMEN Ordering Facility: [facility] Address: [address] [place] [address] Result Comment: Not Detected Not Detected Performed By: #### 3 084-1, 44549-0 #### [facility] CLIA [id number] [address] [place] [address] [place] Citation Roe (Reference lab test) Comment Normal [facility] Comment on above: Order Comment: Speci men Type: BLOOD SPECIMEN Ordering Facility: [facility] Address: [address] [place] [address] Result Comment: 1. P chloe GONCALVES, et al. Nayely Med. 2012;14(3):296-305. 2. Luis MUÑOZ et al. Prenat Diag. 2013;33(6):591-597. 3. Adam C, et al. Clin Chem. 2015 Apr;61(4):608-616. 4. Jessy GONCALVES et al. Nayely Med. 2011;13(11):913-920. 5. ACOG/[facility] Practice Bulletin No. 226, Jan 2020. Performed By: #### 3 084-1, 59671-6 #### [facility] CLIA [id number] [address] [place] [address] [place] Gestational age Estimated from conception date Vazquez Normal [facility] Comment on above: Order Comment: Speci men Type: BLOOD SPECIMEN Ordering Facility: [facility] Address: [address] [place] [address] Performed By: #### 3 084-1, 60099-9 #### [facility] CLIA [id number] [address] [place] [address] [place] GESTATIONALAGE AGE > OR = 9W Yes Normal [facility] Comment on above: Order Comment: Speci men Type: BLOOD SPECIMEN Ordering Facility: [facility] Address: [address] [place] [address] Performed By: #### 3 084-1, 09442-8 #### [facility] CLIA [id number] [address] [place] [address] [place] Laboratory comment Roe (Report) Comment Normal [facility] Comment on above: Order Comment: Lynsey soto Type: BLOOD SPECIMEN Ordering Facility: [facility] Address: [address] [place] [address] Result Comment: The MaterniT(R) 21 PLUS laboratory-developed test (LDT) analyzes circulating cell-free DNA from a maternal blood sample. This test is used for screening purposes and not diagnostic. Clinical correlation is recommended. Validation data on twin pregnancies is limited and the ability of this test to detect aneuploidy in higher multiple gestations has not yet been validated. Performed By: #### 3 084-1, 48449-9 #### [facility] CLIA [id number] [address] [place] [address] OF [facility] director critical care name Nom (Provider) Comment Normal [facility] Comment on above: Order Comment: Lynsey soto Type: BLOOD SPECIMEN Ordering Facility: [facility] Address: [address] [place] [address] Result Comment: This specimen showed an expected representation of chromosome 21, 18 and 13 material. Clinical correlation is suggested. Comment Иван Calderon MD, PhD, Director, [employer] Performed By: #### 3 084-1, 04191-0 #### [facility] CLIA [id number] [address] [place] [address] LIMITATIONS OF THE TEST Comment Normal [facility] Comment on above: Order Comment: Lynsey soto Type: BLOOD SPECIMEN Ordering Facility: [facility] Address: [address] [place] [address] Result Comment: Malini sheldon the results of [...] and Fragmin(R)). Performed By: #### 3 084-1, 11323-6 #### [facility] CLIA [id number] [address] [place] [address] [place] Monosomy X risk Dosage of chromosome-specific cfDNA Ql (Plasma cell-free+WBC DNA) [Interp] Not detected Normal [facility] Comment on above: Order Comment: Speci men Type: BLOOD SPECIMEN Ordering Facility: [facility] Address: [address] [place], [place] [address] Performed By: #### 3 084-1, 44376-4 #### [facility] CLIA [id number] [address] NEGATIVE PREDICTIVE VALUE Note Normal [facility] Comment on above: Order Comment: Lynsey soto Type: BLOOD SPECIMEN Ordering Facility: [facility] Address: [address] [place] [address] Result Comment: The Negative Predictive Value (NPV) for trisomy 21, 18, and 13 is greater than 99%. The NPV for SCA and ESS cannot be calculated as SCA and ESS are only reported when an abnormality is detected. Performed By: #### 3 084-1, 39302-1 #### [facility] CLIA [id number] [address] PERFORMANCE CHARACTERISTICS Note Normal [facility] Comment on above: Order Comment: Lynsey soto Type: BLOOD SPECIMEN Ordering Facility: [facility] Address: [address] [place] [address] Result Comment: ! Sex ! Accuracy: 99.4% [...] ! ! ! * As reported in [facility] database nstd37 [https://www.ncbi.nlm.nih.gov/dbvar/studies/nstd37/ ] # Estimated Sensitivity. Sensitivity estimated across the observed size distribution of each syndrome [per [facility] database nstd37] and across the range of fractions observed in routine clinical NIPT. Actual sensitivity can also be influenced by other factors such as the size of the event, total sequence counts, amplification bias, or sequence bias. ## Vazquez gestation only. Performed By: #### 3 084-1, 56538-5 #### [id number] [address] [place] [address] [place] POSITIVE PREDICTIVE VALUE N/A Normal [facility] Comment on above: Order Comment: Speci men Type: BLOOD SPECIMEN Ordering Facility: [facility] Address: [address] [place] [address] Performed By: #### 3 084-1, 10684-4 #### [facility] CLIA [id number] [address] [place] [address] [place] Reference Lab Test Method Comment Normal [facility] Comment on above: Order Comment: Speci men Type: BLOOD SPECIMEN Ordering Facility: [facility] Address: [address] [place] [address] Result Comment: See Notes Circulating cell-free DNA [...] and 22. Performed By: #### 3 084-1, 29015-1 #### [facility] CLIA [id number] [address] [place] [address] [place] Service comment (Unsp spec) [Interp] Comment Normal [facility] Comment on above: Order Comment: Lynsey soto Type: BLOOD SPECIMEN Ordering Facility: [facility] Address: [address] [place] [address] Result Comment: See Notes [employer] is a subsidiary of [employer], using the brand [employer]. This test was developed and its performance characteristics determined by [employer]. It has not been cleared or approved by the Food and Drug Administration. This laboratory is certified under the Clinical Laboratory Improvement Amendments (CLIA) as qualified to perform high complexity clinical laboratory testing and accredited by the [employer] (CAP). If there is future clinical need for adding MaterniT GENOME testing, this specimen will be available until term. [facility] samples will not be retained beyond 60 days. [facility] patients will have to send a new sample for re-sequencing ([facility] Test Code: 466174). Performed By: #### 3 084-1, 82261-4 #### [facility] CLIA [id number] [address] [place] [address] [place] Sex Dosage of chromosome-specific cfDNA Nom (cfDNA) Comment Normal [facility] Comment on above: Order Comment: Speci men Type: BLOOD SPECIMEN Ordering Facility: [facility] Address: [address] [place] [address] Result Comment: Cons istent with Female Performed By: #### 3 084-1, 66906-4 #### [facility] CLIA [id number] [address] [place] [address] [place] Test performance information Roe (Unsp spec) Comment Normal [facility] Comment on above: Order Comment: Speci men Type: BLOOD SPECIMEN Ordering Facility: [facility] Address: [address] [place] [address] Result Comment: The performance characteristics of the MaterniT(R) 21 PLUS laboratory-developed test (LDT) have been determined in a clinical validation study with women at increased risk for chromosomal aneuploidy.[1-4] Performed By: #### 3 084-1, 26740-2 #### [facility] CLIA [id number] [address] [place] [address] [place] Trisomy 13 risk Dosage of chromosome-specific cfDNA Ql (cfDNA) [Interp] Negative Normal [facility] Comment on above: Order Comment: Speci men Type: BLOOD SPECIMEN Ordering Facility: [facility] Address: [address] [place] [address] Performed By: #### 3 084-1, 12640-0 #### [facility] CLIA [id number] [address] [place] [address] [place] Trisomy 18 risk Dosage of chromosome-specific cfDNA Ql (Plasma cell-free+WBC DNA) [Interp] Negative Normal [facility] Comment on above: Order Comment: Leoneli men Type: BLOOD SPECIMEN Ordering Facility: [facility] Address: [address] [place] [address] Performed By: #### 3 084-1, 70694-4 #### [facility] CLIA [id number] [address] [place] [address] [place] 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 [...] Read By: Tara Rubalcava CNP MATERNAL MEDICINE [facility] Radiology Study observation (narrative) [facility] Prot/Creat Uron 07-18-2024 Protein/Creatinine (U) [Mass ratio] 0.32 mg/mg High <0.15 [facility] Comment on above: Order Comment: Speci men Type: BLOOD SPECIMEN Ordering Facility: [facility] Address: [facility] [place] [address] Result Comment: Adul t Proteinuria Categories: <0.15 mg/mg is considered normal to mildly increased 0.15 - 0.50 mg/mg is considered moderately increased >0.50 mg/mg is considered severely increased KDIGO. (2013). KDIGO 2012 Clinical Practice Guideline for the Evaluation and Management of Chronic Kidney Disease. Official Journal of the International Society of Nephrology, 3(1), 1-150. Performed By: #### R UBIGG #### [facility] CLIA [id number] [address] [place] [address] [place] Protein/Creatinine (U) [Mass ratio]on 07-18-2024 Creatinine (U) [Mass/Vol] 37.9 mg/dL Normal 20.0-300.0 [facility] Comment on above: Order Comment: Speci men Type: BLOOD SPECIMEN Ordering Facility: [facility] Address: [address] [place] [address] Performed By: #### R UBIGG #### [facility] [place] [id number] [address] [place] [address] [place] Protein (U) [Mass/Vol] 12 mg/dL Normal 0-20 [facility] Comment on above: Order Comment: Speci brittany Type: BLOOD SPECIMEN Ordering Facility: [facility] Address: [address] [place] [address] Performed By: #### R UBIGG #### [facility] CLIA [id number] [address] [place] [address] [place] RUBELLA IGG ANTIBODYon 07-18 RUBELLA IGG AB, QUAL Positive Normal Positive [facility] Comment on above: Order Comment: Lynsey soto Type: BLOOD SPECIMEN Ordering Facility: [facility] Address: [address] [place] [address] Result Comment: The result suggests recent or past exposure to Rubella virus or history of Rubella vaccination. Positive result may also be seen due to presence of passively-transferred antibodies. Please correlate with patient's history. Performed By: #### R UBIGG #### [facility] CLIA [id number] [address] [place] [address] [place] Reagin and Treponema pallidu m IgG and IgM [Interp]on 07-18-2024 T. pallidum IgG+IgM IA Ql (S) Non-Reactive Normal Nonreactive [facility] Comment on above: Order Comment: Speci men Type: BLOOD SPECIMENOrdering Facility: [facility] Address: [address] [place] [address] Performed By: #### 3 1201-7, 30671-9, 5195-3 ####[facility] [id number] [place] [address] [place] Reagin+T pallidum IgG+IgM Se rPl-Impon 07-18-2024 Reagin and Treponema pallidum IgG and IgM [Interp] Cannot exclude recent Treponemal infection if specimen collected within 7-10 days after appearance of suspect lesions or 2-3 weeks after an exposure. Clinical correlation is required. Normal [facility] Comment on above: Order Comment: Speci men Type: BLOOD SPECIMENOrdering Facility: [facility] Address: [address] [place] [address] Performed By: #### 3 1201-7, 35661-3, 5195-3 ####[facility] [id number] [place] [address] [place] TRICHOMONAS VAGINALIS NAATon 07-18-2024 T. vaginalis DNA ESME+probe Ql (Unsp spec) Not detected Normal Not detected [facility] Comment on above: Order Comment: Speci men Type: BLOOD SPECIMEN Ordering Facility: [facility] Address: [address] [place] [address] Performed By: #### R UBIGG #### [facility] CLIA [id number] [address] [place] [address] [place] TYPE + SCREEN PRENATALon ABO A Normal [facility] Comment on above: Order Comment: Speci men Type: BLOOD SPECIMENOrdering Facility: [facility] Address: [address] [place] [address] Performed By: #### T SPN ####[facility] B[facility] BANKCLIA [id number] [place] [address] [place] Rh Nom (Bld) Negative Normal [facility] Comment on above: Order Comment: Speci men Type: BLOOD SPECIMENOrdering Facility: [facility] Address: [address] [place] [address] Performed By: #### T SPN ####[facility] [id number] [address] TYPE AND SCREEN EXPIRATION 07/21/2024 23:59 Normal [facility] Comment on above: Order Comment: Speci men Type: BLOOD SPECIMENOrdering Facility: [facility] Address: [address] [place] [address] Performed By: #### T SPN ####[facility] BANKCLIA [id number] [address] CNPTana 06-27-2024 BILLN Telephone (WOOB) -------- GRECIA LOCKETT ([id number]) 1995 F Date Time Provider Department 06/27/24 TARA RUBALCAVA During your visit today, we recorded the following information about you: Sheri Park 06/27/2024 9:27 AM Signed Patient called said she's needs her first appointments (her last period was 04/23) next available appointment is 07/18 Can be reached at [phone] Please advise Den Kang, BLANCA 06/27/2024 10:17 [...] hours as needed. - vit calc,iron,folic ( [id number]-XC-[id number] ORAL) Take by mouth as directed. - magnesium oxide (MAG-OX) 400 mg (241.3 mg magnesium) tablet Take 400 mg by mouth. Problem List As Of Date 06/27/2024 Noted Resolved Supervision of high risk in second tr*05/20/2023 09/01/2023 23 weeks gestation of [Z3A.23] 05/20/2023 09/01/2023 Rh negative state in antepartum period, second *05/20/2023 09/01/20[facility]05/20/2023 09/01/2023 Tension headaches [G44.209] 05/20/2023 Anxiety during [O99.340, F41.9] 05/20/2023 10/06/2023 Obesity affecting in second trimester*05/20/2023 09/01/2023 Constipation during in second trimest*05/20/2023 09/01/2023 Elevated glucose tolerance test [R73.09] 06/18/2023 10/06/2023 Gestational hypertension, third trimester [O13.*08/20/2023 10/06/2023 Encounter Status:Closed by DEN KANG on 06/27/24 [facility] MR/BMS.Dayna 09-01-2023 MR/BMS.[facility] [place] [address] OFFICE VISIT Date of Service: 08/31/23 MR#: [id number] Acct: [id number] Name: GRECIA LOCKETT Rep #: [id number] : 1995 Provider: Karina Birch NP Age/Sex: 28/F [place] [facility] [place]: Signed Intake Vital Signs 08/26/23 19:37 [...] with PRN. Coding Level of Care Code 86316 PRVT COUNSELING INDIVID Diagnoses Care and examination of lactating mother Z39.1 Time Spent (min) 30 09/01/23 5297 Date Karina Birch NP SENIOR SALES MANAGER-C Cosigner Signature: Date (if applicable) CC: Normal [facility] CBC W/Diff, Automatedon 05-2 PATH REV Reviewed Normal [facility] Comment on above: Order Comment: Comme nts: First day Result Comment: Neut rophilic leukocytosis. Normocytic anemia. Clinical correlation suggested. Anton Ross D.O. 08/31/23 AMENDED REPORT 08/31/23 1439 PATH REV previously reported as: August Performed By: #### L 100.0100 ####[facility] [address] [place], [place], [id number] BRho(D) IGon 08-28-2023 Rho(D) IG Normal [facility] Comment on above: Result Comment: RH10 5076 Rho(D) IG PRSMD TRFSD 08/28/23 0558 Performed By: #### B RHNM, BRho(D) IG #### [facility] [address] [place], [place], [address] Rh Negative Mom Workupon ABO and Rh group Nom (Bld) Blood group A Rh(D) negative Normal [facility] Comment on above: Order Comment: Comme nts: Age > 13 Weeks baby boy saleemanzio [id number] Performed By: #### B RHNM, BRho(D) IG #### [facility] [address] [place], [place], [address] ABO and Rh group Nom (Bld) Blood group O Rh(D) positive Normal [facility] Comment on above: Order Comment: Comme nts: Age > 13 Weeks baby boy pisanzio [id number] Performed By: #### B RHNM, BRho(D) IG #### [facility] [address] [place], [place], [address] DIRECT ANTIGLOB Negative Normal NEGATIVE [facility] Comment on above: Order Comment: Comme nts: Age > 13 Weeks baby boy chase [id number] Performed By: #### B Genny MARTIN(D) IG #### [facility] [address] [place], [place], [address] SCREEN Negative Normal NEGATIVE [facility] Comment on above: Order Comment: Comme nts: Age > 13 Weeks baby boy chase [id number] Performed By: #### B Genny MARTIN(D) IG #### [facility] [address] [place], [place], [address] MOM'S ABS Negative Normal [facility] Comment on above: Order Comment: Comme nts: Age > 13 Weeks baby boy chase [phone] [phone] Performed By: #### B MARIO, AMARILISho(D) IG #### [facility] [address] [place], [place], [address] Magnesiumon 08-27-2023 Magnesium [Mass/Vol] 3.1 mg/dL High 1.6-2.6 [facility] Comment on above: Performed By: #### L 501.5200 #### [facility] [address] [place], [place], [address] Operative Reporton 4 Operative Report [facility] Medical Records Department [address] [place] [address] Operative Report 08/27/23 2227 MR#: [id number] Acct: [id number] Name: GRECIA LOCKETT Rep #: [id number] : 1995 28 From: Sona Figueroa MD PCP: Status:ADM IN Location: [id number] Maternal Data Information GUERDA Calculator Estimated Delivery [...] MD; Dr. Sona Figueroa MD Signed Normal [facility] AST(SGOT)on 08-26-2023 AST [Catalytic activity/Vol] 19 U/L Normal 15-37 [facility] Comment on above: Performed By: #### L 501.1400, L100.0500, L501.4405, L501.0900, L501.4100, L501.1105 ####[facility] [address] [place], [address] Alanine Aminotransferas (SGP T)on 08-26-2023 ALT [Catalytic activity/Vol] 17 U/L Normal 13-56 [facility] Comment on above: Performed By: #### L 501.1400, L100.0500, L501.4405, L501.0900, L501.4100, L501.1105 ####[facility] [address] [place], [address] CBC W/Diff, Automatedon 05- Absolute Lymph 2.22 X10 3/uL Normal 0.83-4.51 [facility] Comment on above: Performed By: #### L 100.0100, BTS, E23208-4 #### [facility] [address] [place], [address] Absolute Neut 8.9 X10 3/uL High 2.0-7.7 [facility] Comment on above: Performed By: #### L 100.0100, BTS, C28291-1 #### [facility] [address] [place], [address] Basophils/100 WBC (Bld) 0.2 % Normal 0-1 [facility] Comment on above: Performed By: #### L 100.0100, BTS, N10622-9 #### [facility] [address] [place], [address] Eosinophils/100 WBC (Bld) 0.4 % Normal 0-5 [facility] Comment on above: Performed By: #### L 100.0100, BTS, Y44741-4 #### [facility] [address] [place], [address] Erythrocyte distribution width (RBC) [Ratio] 12.2 % Normal 11.6-14.6 [facility] Comment on above: Performed By: #### L 100.0100, BTS, S06599-5 #### [facility] [address] [place], [address] Hematocrit (Bld) [Volume fraction] 36.3 % Low 37-47 [facility] Comment on above: Performed By: #### L 100.0100, BTS, Z85699-1 #### [facility] [address] [place], [address] Hemoglobin (Bld) [Mass/Vol] 12.6 g/dL Normal 12.0-15.0 [facility] Comment on above: Performed By: #### L 100.0100, BTS, T11775-8 #### [facility] [address] [place], [address] IG% 0.800 Normal 0.0-0.9 [facility] Comment on above: Result Comment: IG% - Immature Granulocytes (promyelocytes, myelocytes and metamyelocytes) > 1% indicates that a LEFT SHIFT is Present. Performed By: #### L 100.0100, BTS, G22948-3 #### [facility] [address] [place], [address] Lymphocytes/100 WBC (Bld) 17.9 % Low 19-41 [facility] Comment on above: Performed By: #### L 100.0100, BTS, R15953-2 #### [facility] [address] [place], [address] MCH (RBC) [Entitic mass] 30.6 pg Normal 27.0-32.0 [facility] Comment on above: Performed By: #### L 100.0100, BTS, [id number] #### [facility] [address] [place], [address] MCHC (RBC) [Mass/Vol] 34.7 g/dL Normal 32-36 [facility] Comment on above: Performed By: #### L 100.0100, BTS, J62368-5 #### [facility] [address] [place], [address] MCV (RBC) [Entitic vol] 88.1 fL Normal 81-99 [facility] Comment on above: Performed By: #### L 100.0100, BTS, C95513-6 #### [facility] [address] [place], [address] Monocytes/100 WBC (Bld) 8.8 % Normal 0-10 [facility] Comment on above: Performed By: #### L 100.0100, BTS, V85537-6 #### [facility] [address] [place], [address] Neutrophils/100 WBC (Bld) 71.9 % High 47-70 [facility] Comment on above: Performed By: #### L 100.0100, BTS, U99059-3 #### [facility] [address] [place], [address] Nucleated RBC (Bld) [#/Vol] 0 10*3/uL Normal 0-5 [facility] Comment on above: Performed By: #### L 100.0100, BTS, D72604-4 #### [facility] [address] [place], [address] Platelet mean volume (Bld) [Entitic vol] 11.4 fL Normal 6.2-12.0 [facility] Comment on above: Performed By: #### L 100.0100, BTS, K53119-6 #### [facility] [address] [place], [address] Platelets (Bld) [#/Vol] 204 10*3/uL Normal 150-450 [facility] Comment on above: Performed By: #### L 100.0100, BTS, H38306-4 #### [facility] [address] [place], [address] RBC (Bld) [#/Vol] 4.12 10*6/uL Low 4.2-5.4 [facility] Comment on above: Performed By: #### L 100.0100, BTS, G09592-3 #### [facility] [address] [place], [address] RDW SD 39.0 fl Normal 35.1-43.9 [facility] Comment on above: Performed By: #### L 100.0100, BTS, P05897-4 #### [facility] [address] [place], [address] WBC (Bld) [#/Vol] 12.4 10*3/uL High 4.4-11.0 [facility] Comment on above: Performed By: #### L 100.0100, BTS, Q70738-4 #### [facility] [address] [place], [address] CBC-Complete Blood Cnt No Di ffon 08-26-2023 HCT Normal 37-47 [facility] Comment on above: Result Comment: DUPL ICATE ORDER Performed By: #### L 501.1400, L100.0500, L501.4405, L501.0900, L501.4100, L501.1105 ####[facility] [address] [place], [address] HGB Normal 12.0-15.0 [facility] Comment on above: Result Comment: DUPL ICATE ORDER Performed By: #### L 501.1400, L100.0500, L501.4405, L501.0900, L501.4100, L501.1105 ####[facility] [address] [place], [address] MCH Normal 27.0-32.0 [facility] Comment on above: Result Comment: DUPL ICATE ORDER Performed By: #### L 501.1400, L100.0500, L501.4405, L501.0900, L501.4100, L501.1105 ####[facility] [address] [place], [address] MCHC Normal 32-36 [facility] Comment on above: Result Comment: DUPL ICATE ORDER Performed By: #### L 501.1400, L100.0500, L501.4405, L501.0900, L501.4100, L501.1105 ####[facility] [address] [place], [address] MCV Normal 81-99 [facility] Comment on above: Result Comment: DUPL ICATE ORDER Performed By: #### L 501.1400, L100.0500, L501.4405, L501.0900, L501.4100, L501.1105 ####[facility] [address] [place], [address] PLT Normal 150-450 [facility] Comment on above: Result Comment: DUPL ICATE ORDER Performed By: #### L 501.1400, L100.0500, L501.4405, L501.0900, L501.4100, L501.1105 ####[facility] [address] [place], [address] RBC Normal 4.2-5.4 [facility] Comment on above: Result Comment: DUPL ICATE ORDER Performed By: #### L 501.1400, L100.0500, L501.4405, L501.0900, L501.4100, L501.1105 ####[facility] [address] [place], [address] RDW CV Normal 11.6-14.6 [facility] Comment on above: Result Comment: DUPL ICATE ORDER Performed By: #### L 501.1400, L100.0500, L501.4405, L501.0900, L501.4100, L501.1105 ####[facility] [address] [place], [address] RDW SD Normal 35.1-43.9 [facility] Comment on above: Result Comment: DUPL ICATE ORDER Performed By: #### L 501.1400, L100.0500, L501.4405, L501.0900, L501.4100, L501.1105 ####[facility] [address] [place], [address] WBC Normal 4.4-11.0 [facility] Comment on above: Result Comment: DUPL ICATE ORDER Performed By: #### L 501.1400, L100.0500, L501.4405, L501.0900, L501.4100, L501.1105 ####[facility] [address] [place], [address] H AND P Exam - OB/GYNon 05-2 H&P Exam - DIRECTOR EXPORT [facility] Medical Records Department [address] [place] [address] H P Exam - DIRECTOR EXPORT 08/26/231948 MR#: [id number] Acct: [id number] Name: GRECIA LOCKETT Rep #: [id number] : 1995 28 From: Darleen Wu CNM PCP: Status:ADM IN Location: [id number] HPI - General General Date of Admission: [...] ???Medication ???Instructions ???Recorded ???Last Taken ???Type PNV#14-iron fum-FA#0-iav-nurtvlkq cap PO 08/26/23 08/26/23 History 27 mg [...] collaborating physici (more content not included)... Normal [facility] Hepatitis C Antibodyon 08-25 Hepatitis C AB Non-Reactive Normal Nonreactive [facility] Comment on above: Result Comment: Non Reactive: < 0.8 Equivocal: >/= 0.8 to < 1.0 Reactive: >/= 1.0 The [facility] requires that a reactive/equivocal HCV antibody result be sent out for confirmation. HCV Quant by PCR testing. Performed By: #### L 3890.6300 ####[facility] [address] [place], [address] L509.8000on 08-26-2023 Syphilis Abs Non-Reactive Normal [facility] Comment on above: Performed By: #### L 509.8000 #### [facility] [address] [place], [address] Protein+Creatinine Ratio,Uri neon 08-26-2023 PROT:CRE RATIO TNP Normal 0-200 [facility] Comment on above: Performed By: #### L 501.1400, L100.0500, L501.4405, L501.0900, L501.4100, L501.1105 ####[facility] [address] [place], [address] PROTEIN,UR.RAN. < 6.0 Normal <11.9 [facility] Comment on above: Performed By: #### L 501.1400, L100.0500, L501.4405, L501.0900, L501.4100, L501.1105 ####[facility] [address] [place], [address] UR CREAT 22.70 mg/dL Normal NO RANGE EST. [facility] Comment on above: Performed By: #### L 501.1400, L100.0500, L501.4405, L501.0900, L501.4100, L501.1105 ####[facility] [address] [place], [address] Serum Creatinine AND GFRon 0 08-26-2023 Creatinine [Mass/Vol] 0.53 mg/dL Low 0.55-1.02 [facility] Comment on above: Result Comment: The validity of the calculated GFR GFRAA in patients over 70 years has not been determined. Clinical correlation is essential. Performed By: #### L 501.1400, L100.0500, L501.4405, L501.0900, L501.4100, L501.1105 ####[facility] [address] [place], [address] ECRCL 212.79 ml/min Normal [facility] Comment on above: Performed By: #### L 501.1400, L100.0500, L501.4405, L501.0900, L501.4100, L501.1105 ####[facility] [address] [place], [address] EST GFR - AA 175 mL/min Normal >60 [facility] Comment on above: Result Comment: Afri can Portuguese GFR Calc Performed By: #### L 501.1400, L100.0500, L501.4405, L501.0900, L501.4100, L501.1105 ####[facility] [address] [place], [address] GFR/1.73 sq M.predicted among non-blacks MDRD (S/P/Bld) [Vol rate/Area] 145 mL/min/{1.73_m2} Normal >60 [facility] Comment on above: Result Comment: Non- GFR Calc Performed By: #### L 501.1400, L100.0500, L501.4405, L501.0900, L501.4100, L501.1105 ####[facility] [address] [place], [address] Type AND Screenon 08-26-2023 Ab SCREEN GEL TNP Normal [facility] Comment on above: Order Comment: Labor Performed By: #### L 100.0100, BTS, N07482-6 #### [facility] [address] [place], [place], [address] Uric Acidon 08-26-2023 URIC 3.2 mg/dL Normal 2.6-6.0 [facility] Comment on above: Result Comment: The drugs N-Acetylcysteine and Metamizole may falsely depress this assay. Performed By: #### L 501.1400, L100.0500, L501.4405, L501.0900, L501.4100, L501.1105 ####[facility] [address] [place], [place], [address] ALANINE AMINOTRANSFERASE / S GPTOrdered By: Shyanne Márquez on 08-17-2023 ALT [Catalytic activity/Vol] 8 U/L 7 - 38 U/L [facility] ALT [Catalytic activity/Vol] Ordered By: Shyanne Márquez on 08-17-2023 Interpretation and review of laboratory results Normal [facility] ASPARTATE AMINOTRANSFERASE/S GOTon 08-17-2023 AST [Catalytic activity/Vol] 15 U/L 13 - 35 U/L [facility] CBC panel Auto (Bld)on 08-16 Erythrocyte distribution width (RBC) [Ratio] 12.1 % 11.5 - 15.0 % [facility] Hematocrit (Bld) [Volume fraction] 38.6 % 36.0 - 46.0 % [facility] Hemoglobin (Bld) [Mass/Vol] 13.3 g/dL 11.5 - 15.5 g/dL [facility] Interpretation and review of laboratory results Normal [facility] MCH (RBC) [Entitic mass] 30.5 pg 26.0 - 34.0 pg [facility] MCHC (RBC) [Mass/Vol] 34.5 g/dL 30.5 - 36.0 g/dL [facility] MCV (RBC) [Entitic vol] 88.5 fL 80.0 - 100.0 fL [facility] Nucleated RBC (Bld) [#/Vol] NINF [facility] Platelet mean volume (Bld) [Entitic vol] 10.9 fL 9.0 - 12.7 fL [facility] Platelets (Bld) [#/Vol] 205 10*3/uL [facility] RBC (Bld) [#/Vol] 4.36 10*6/uL 3.90 - 5.2 0 m/uL [facility] WBC (Bld) [#/Vol] 10.04 10*3/uL [facility] CREATININE BLDon 08-17-2023 Creatinine [Mass/Vol] 0.60 mg/dL 0.58 - 0.96 mg/dL [facility] GFR/1.73 sq M.predicted among non-blacks MDRD (S/P/Bld) [Vol rate/Area] 126 mL/min/{1.73_m2} - PINF [facility] Comment on above: Estimated Glomerular Filtration Rate [...] Interpretation and review of laboratory results Normal [facility] No Panel Informationon 08-16 [facility] Interpretation and review of laboratory results Normal [facility] PROTEIN / CREATININE RATIOon 08-17-2023 Protein/Creatinine (U) [Mass ratio] 0.10 mg/mg [facility] - 0.15 mg/mg [facility] Comment on above: Adult Proteinuria Ca tegories: [...] [Mass/Vol] 111.3 mg/dL 20.0 - 300.0 mg/dL [facility] Interpretation and review of laboratory results Normal [facility] Protein (U) [Mass/Vol] 11 mg/dL 0 - 20 mg/dL [facility] UREA NITROGENon 08-17-2023 Urea nitrogen [Mass/Vol] 5 mg/dL Low 7 - 21 mg/dL [facility] URIC ACIDon 08-17-2023 Urate [Mass/Vol] 4.3 mg/dL 2.5 - 6.6 mg/dL [facility] URINE OB DIP B/Oon 4 Glucose Ql (U) Negative Neg mg/dL [facility] Interpretation and review of laboratory results Normal [facility] Protein.monoclonal (U) [Mass/Vol] Negative Neg mg/dL [facility] Urea nitrogen [Mass/Vol]on 0 08-17-2023 Interpretation and review of laboratory results Abnormal [facility] URINE OB DIP B/Oon 4 Glucose Ql (U) Negative Neg mg/dL [facility] Protein.monoclonal (U) [Mass/Vol] Negative Neg mg/dL [facility] URINE OB DIP B/Oon 4 Glucose Ql (U) Negative Neg mg/dL [facility] Protein.monoclonal (U) [Mass/Vol] Negative Neg mg/dL [facility] Examination level ultrasound on 07-15-2023 [facility] US OB 14+ WEEKS ANATOMY SCAN on 04-21-2023 US OB 14+ WEEKS ANATOMY SCAN Interpreted By: Maxime Santiago, STUDY: US OB 14+ WEEKS ANATOMY SCAN; 04/21/2023 10:10 am INDICATION: Signs/Symptoms:Anatomy. COMPARISON: None. ACCESSION NUMBER(S): [id number] ORDERING CLINICIAN: IRINA HANDLEY TECHNIQUE: Multiple images [...] Maxime Santiago 04/21/2023 12:41 PM Dictation workstation: [id number] [facility] US for in second o r third trimesteron 04-21-2023 Single live intraute rine gestation corresponding to 19 weeks, 5 days, +/-10 days. No gross anatomic abnormality is identified. Recommend continued routine follow-up imaging evaluation. MACRO: None Signed by: Maxime Santiago 04/21/2023 12:41 PM Dictation workstation: [id number] MMODAL Interpreted By: Maxime Santiago, STUDY: US OB 14+ WEEKS ANATOMY SCAN; 04/21/2023 10:10 am INDICATION: Signs/Symptoms:Anatomy. COMPARISON: None. ACCESSION NUMBER(S): [id number] ORDERING CLINICIAN: IRINA HANDLEY TECHNIQUE: Multiple images [...] am INDICATION: Signs/Symptoms:Anatomy. COMPARISON: None. ACCESSION NUMBER(S): [id number] ORDERING CLINICIAN: IRINA HANDLEY TECHNIQUE: Multiple images [...] Maxime Santiago 04/21/2023 12:41 PM Dictation workstation: [id number] [facility] Work Phone: Radiology Study observation (narrative) [facility] Work Phone: US for in second o r third trimesterOrdered By: Maxime Santiago on 04-21-2023 [facility] Work Phone: CBC panel Auto (Bld)on 03-02 Erythrocyte distribution width (RBC) [Ratio] 12.4 % Normal 11.5-14.5 [facility] Comment on above: Performed By: #### 5 8410-2 #### QUAN PEDRAZA ([id number]) [facility] ([facility]) [address] [place] [address] Hematocrit (Bld) [Volume fraction] 39.5 % Normal 36.0-46.0 [facility] Comment on above: Performed By: #### 5 8410-2 #### QUAN PEDRAZA ([id number]) [facility] ([facility]) [address] [place] [address] Hemoglobin (Bld) [Mass/Vol] 13.5 g/dL Normal 12.0-16.0 [facility] Comment on above: Performed By: #### 5 8410-2 #### QUAN PEDRAZA ([id number]) [facility] ([facility]) [address] [place] [address] MCH (RBC) [Entitic mass] 30.1 pg Normal 26.0-34.0 [facility] Comment on above: Performed By: #### 5 8410-2 #### QUAN PEDRAZA ([id number]) [facility] ([facility]) [address] [place] [address] MCHC (RBC) [Mass/Vol] 34.2 g/dL Normal 32.0-36.0 [facility] Comment on above: Performed By: #### 5 8410-2 #### QUAN PEDRAZA ([id number]) [facility] ([facility]) [address] [place] [address] MCV (RBC) [Entitic vol] 88 fL Normal 80-100 [facility] Comment on above: Performed By: #### 5 8410-2 #### QUAN PEDRAZA ([id number]) [facility] ([facility]) [address] [place] [address] Nucleated RBC/100 WBC (Bld) [Ratio] 0.0 /100 WBCs Normal 0.0-0.0 [facility] Comment on above: Performed By: #### 5 8410-2 #### QUAN PEDRAZA ([id number]) [facility] ([facility]) [address] [place] [address] Platelets (Bld) [#/Vol] 245 x10*3/uL Normal 150-450 [facility] Comment on above: Performed By: #### 5 8410-2 #### QUAN PEDRAZA ([id number]) [facility] ([facility]) [address] [place] [address] RBC (Bld) [#/Vol] 4.49 x10*6/uL Normal 4.00-5.20 [facility] Comment on above: Performed By: #### 5 8410-2 #### QUAN PEDRAZA ([id number]) [facility] ([facility]) [address] [place] [address] WBC (Bld) [#/Vol] 7.6 x10*3/uL Normal 4.4-11.3 [facility] Comment on above: Performed By: #### 5 8410-2 #### QUAN PEDRAZA ([id number]) [facility] ([facility]) [address] [place] [address] HIV 1+2 Ab+HIV1 p24 Agon HIV 1+2 Ab+HIV1 p24 Ag IA Ql Non-Reactive Normal Nonreactive [facility] Comment on above: Order Comment: HIV A g/Ab screen is performed using the Siemens AtellCellNovo HIV Ag/Ab Combo assay which detects the presence of HIV p24 antigen as well as antibodies to HIV-1 (Group M and O) and HIV-2. No laboratory evidence of HIV infection. If acute HIV infection is suspected, consider testing for HIV RNA by PCR (viral load). Performed By: #### 5 6888-1 #### SHYANNE Ross ([id number]) [facility] ([facility]) [address] [place] [address] Hepatitis B virus surface Ag on 03-02-2023 HBV surface Ag IA Ql Non-Reactive Normal Nonreactive [facility] Comment on above: Result Comment: Biot in interference may cause falsely decreased results. Patients taking a Biotin dose of up to 5 mg/day should refrain from taking Biotin for 24 hours before sample collection. Providers may contact their local laboratory for further information. Performed By: #### 5 196-1 #### SHYANNE Ross ([id number]) [facility] ([facility]) [address] [place] [address] REFLEX ADDED, ANEMIA PANELon 03-02-2023 REFLEX ADDED, ANEMIA PANEL Normal [facility] Comment on above: Result Comment: No r eflex Performed By: #### A PRFX #### SHYANNE Ross ([id number]) [facility] ([facility]) [address] [place] [address] Rubella virus IgG IA Qnon Rubella virus IgG IA Ql Positive Normal Negative [facility] Comment on above: Order Comment: NEGAT LIDYA: [...] By: #### 5 334-8 #### SHYANNE Ross ([id number]) [facility] ([facility]) [address] [place], [place] [address] Rubella virus IgG Qn (S) 1.6 IA Normal <=0.7 IA [facility] Comment on above: Order Comment: NEGAT LIDYA: [...] By: #### 5 334-8 #### SHYANNE Ross ([id number]) [facility] ([facility]) [address] [place], [place] [address] Treponema pallidum Abon 02-04 T. pallidum Ab Ql (S) Non-Reactive Normal Nonreactive [facility] Comment on above: Result Comment: No s ignificant level of Treponema pallidum antibody detected. Repeat testing in 2 to 4 weeks may be considered if early infection or incubating syphilis infection is suspected. Performed By: #### 2 2587-0 #### SHYANNE Ross ([id number]) [facility] ([facility]) [address] [place], [place] [address] Blood type and Indirect anti body screen panel (Bld)on 02-09-2023 ABO group Nom (Bld) A Normal [facility] Comment on above: Order Comment: Speci men for compatibility testing requires full first and last name, MRN, , date, time of collection, and labor gang supervisor/election supervisor's signature on tube(s) or it will be rejected. Please collect 1 lavender top-KEDTA OR 1 pink top-KEDTA and sign, date and time with the patient's full first and last name, MRN and . Review your Rh Negative female patient's potential need for Rh Immune Globulin (RhIg)administration. Performed By: #### 3 4532-2 #### QUAN PEDRAZA ([id number]) [facility] [address] [place] [address] [place] Blood group antibody screen Ql Negative Normal [facility] Comment on above: Order Comment: Speci men for compatibility testing requires full first and last name, MRN, , date, time of collection, and labor gang supervisor/election supervisor's signature on tube(s) or it will be rejected. Please collect 1 lavender top-KEDTA OR 1 pink top-KEDTA and sign, date and time with the patient's full first and last name, MRN and . Review your Rh Negative female patient's potential need for Rh Immune Globulin (RhIg)administration. Performed By: #### 3 4532-2 #### QUAN PEDRAZA ([id number]) [facility] ([facility]) [address] [place], [place] [address] [place] D Ag Ql (Bld) Negative Normal [facility] Comment on above: Order Comment: Speci men for compatibility testing requires full first and last name, MRN, , date, time of collection, and labor gang supervisor/election supervisor's signature on tube(s) or it will be rejected. Please collect 1 lavender top-KEDTA OR 1 pink top-KEDTA and sign, date and time with the patient's full first and last name, MRN and . Review your Rh Negative female patient's potential need for Rh Immune Globulin (RhIg)administration. Performed By: #### 3 4532-2 #### QUAN PEDRAZA ([id number]) [facility] ([facility]) [address] [place] [address] HCG, Beta Quantitativeon HCG.beta subunit Qn m[IU]/mL [place] [address] [employer] Work Phone: Comment on above: .Total HCG measureme nt is performed using the Noam Thelma AccessImmunoassay which detects intact HCG and free beta HCG subunit. .This test is not indicated for use as a tumor marker.HCG testing is performed using a different test methodology at [facility] than other [facility]. Direct result comparisonshould only be made within the same method. REF VALUESNON FEMALE <5MALES <5 HCG,BETA-QUANTITATIVEon 04- HCG,BETA-QUANTITATI VE <2 Normal [facility] Comment on above: Result Comment: . Total HCG measurement is performed using the Noam [place] Access Immunoassay which detects intact HCG and free beta HCG subunit. . This test is not indicated for use as a tumor marker. HCG testing is performed using a different test methodology at [facility] than other [facility]. Direct result comparison should only be made within the same method. REF VALUES NON FEMALE <5 MALES <5 Performed By: #### H CGQU #### [place] [address] HCG, Beta Quantitativeon HCG.beta subunit Qn 5 m[IU]/mL Abnormal [facility] [address] Work Phone: Comment on above: .Total HCG measureme nt is performed using the Noam [place] AccessImmunoassay which detects intact HCG and free beta HCG subunit. .This test is not indicated for use as a tumor marker.HCG testing is performed using a different test methodology at [facility] than other [facility]. Direct result comparisonshould only be made within [...] HCG,BETA-QUANTITATIVEon 07-04 HCG,BETA-QUANTITATI VE 5 mIU/mL Abnormal [facility] Comment on above: Result Comment: . Total HCG measurement is performed using the Noam [place] Access Immunoassay which detects intact HCG and free beta HCG subunit. . This test is not indicated for use as a tumor marker. HCG testing is performed using a different test methodology at [facility] than other [facility]. Direct result comparison should only be made [...] elevation. Performed By: #### H QU #### [address] [address] DIRECTOR EXPORT - Office Visiton 06-04 DIRECTOR EXPORT - Office Visit Provider Impressions Grecia and [...] TABS Vitals Vital Signs Recorded: 26Jun2022 08:40AM [id number] Qwjcclszs47 Height5 ft 6 in Ocnagz107 lb BMI Vekkouosgu41.87 kg/m2 BSA Calculated2.19 Physical Exam Constitutional: Healthy-appearing in no distress. Head and Face: No obvious lesions. Pulmonary: Breathing comfortably. Musculoskeletal: Good mobility. Psychiatric: Appropriately oriented with normal mood and affect. Signatures Electronically signed by : Irina Handley MD; Jun 26 2022 8:49AM EST (Author) Normal [employer] HCG, Beta Quantitativeon HCG.beta subunit Qn m[IU]/mL Abnormal [facility] [address] [place] Work Phone: Comment on above: .Total HCG measureme nt is performed using the [place] AccessImmunoassay which detects intact HCG and free beta HCG subunit. .This test is not indicated for use as a tumor marker.HCG testing is performed using a different test methodology at [facility] than other [facility]. Direct result comparisonshould only be made within [...] elevation. HCG,BETA-QUANTITATIVEon 06-04 HCG,BETA-QUANTITATI VE mIU/mL Abnormal [facility] Comment on above: Result Comment: . Total HCG measurement is performed using the [employer] Access Immunoassay which detects intact HCG and free beta HCG subunit. . This test is not indicated for use as a tumor marker. HCG testing is performed using a different test methodology at [facility] than other [facility]. Direct result comparison should only be made [...] elevation. Performed By: #### H CGQU #### [facility] [address] [place] [address] No Panel Informationon 06-24 Normal [facility] [address] Work Phone: DIRECTOR EXPORT - Office Visiton 06-04 DIRECTOR EXPORT - Office Visit Diagnoses/Problems Assessed of unknown [...] RHOGAM. PT HAS NO CONCERNS OFFICE SUPPLY [facility] [id number] LOT [id number] EXP 09/13/2023 RIGHT DELTOID History of Present [...] TABS Vitals Vital Signs Recorded: 24Jun2022 10:15AM [id number] Icbizxdpa72 Height5 ft 6 in Zyznkl749 lb 5.79 oz BMI Lujddibrvv42.77 kg/m2 BSA Calculated2.19 Physical Exam Constitutional: Healthy-appearing in no acute distress. Head and Face: No obvious lesions. Pulmonary: Breathing comfortably. Musculoskeletal: Good mobility. Psychiatric: Appropriately oriented with normal mood and affect. Signatures Electronically signed by : Irina Handley MD; Jun 24 2022 10:32AM EST (Author) Normal [employer] US PELVIS OB TRANSABDOMINAL W TRANSVAGINAL UP TO 1st TRIMESTERon 06-24-2022 US PELVIS OB TRANSABDOMINAL W TRANSVAGINAL UP TO 1st TRIMESTER Patient Name: GRECIA LOCKETT STUDY: US PELVIS OB TRANSABDOMINAL WITH TRANSVAGINAL 06/24/2022 9:47 am INDICATION: unknown location O36.80X0: of unknown anatomic location. COMPARISON: None. ACCESSION NUMBER(S): [id number] ORDERING CLINICIAN: IRINA HANDLEY TECHNIQUE: Multiple grayscale [...] days. Electronically signed by: MAXIME SANTIAGO MD [facility] Cult, Genitalon 06-23-2022 Bacteria identified Aer cx Nom (Genital specimen) [facility] [employer] Work Phone: GENITAL CULTURE, BACT.on GENITAL CULTURE, BACT. PATIENT: GRECIA LOCKETT LOCATION: [facility] BILL#: [id number] : 89 AGE: SEX: F ORDERED BY: IRINA HANDLEY SOURCE: GENITAL COLLECTED: 06/23/22 11:35 ANTIBIOTICS AT ANA CRISTINA.: RECEIVED : 06/23/22 17:49 SITE: Vaginal R E S U L T S GENITAL CULTURE, BACT. FINAL 06/27/22 09:32 NO PATHOGENS Culture examined for Group A Streptococcus, Group B Streptococcus, Neisseria gonorrhoeae and Yeast ONLY. NO Neisseria gonorrhoeae ISOLATED. Normal [facility] Comment on above: Performed By: #### G ENLO #### [facility] [address] [place] [address] HCG, Beta [place] [address] m[IU]/mL Abnormal [facility] [address] Work Phone: Comment on above: .Total HCG measureme nt is performed using the Noam Humboldt AccessImmunoassay which detects intact HCG and free beta HCG subunit. .This test is not indicated for use as a tumor marker.HCG testing is performed using a different test methodology at [facility] than other [facility]. Direct result comparisonshould only be made within [...] the HCG elevation. HCG,BETA-QUANTITATIVEon 06-04 HCG,[place] [address] mIU/mL Abnormal [facility] Comment on above: Result Comment: . Total HCG measurement is performed using the Noam Thelma Access Immunoassay which detects intact HCG and free beta HCG subunit. . This test is not indicated for use as a tumor marker. HCG testing is performed using a different test methodology at [facility] than other [facility]. Direct result comparison should only be made [...] elevation. Performed By: #### H CGQU #### [id number] [place] [address] IO HCG, Urine Test on 06-23-2022 HCG ( test) Ql (U) Positive [facility] [address] Work Phone: Laboratory - Blood bankon ABO group Nom (Bld) A [facility] [address] Work Phone: ABO group Nom (Bld) Canceled [facility] [address] Work Phone: Blood group antibody screen Ql Negative [facility] Work Phone: Blood group antibody screen Ql Canceled [facility] Work Phone: Rh immune globulin screen (Bld) [Interp] Negative [facility] Work Phone: Comment on above: Review your Rh Negat lidya female patient's potential need for Rh Immune Globulin (RhIg)administration. Rh immune globulin screen (Bld) [Interp] Canceled [facility] Work Phone: DIRECTOR EXPORT - Office Visiton 06-04 DIRECTOR EXPORT - Office Visit Diagnoses/Problems Assessed (V22.2) (Z34.90) [...] TABS Vitals Vital Signs Recorded: 23Jun2022 11:16AM [id number] Onjmnilrp53 Height5 ft 6 in Mecduq826 lb BMI Pjkszimikx80.54 kg/m2 BSA Calculated2.18 Physical Exam Constitutional: Healthy-appearing [...] + SCREENon 06-23-2022 ABO TYPE A Normal [facility] Comment on above: Performed By: #### T +S #### [place] [address] RH TYPE Negative Normal [facility] Comment on above: Result Comment: Revi ew your Rh Negative female patient's potential need for Rh Immune Globulin (RhIg)administration. Performed By: #### T +S #### [address] [address] [id number] ABO TYPE Canceled Normal [facility] Comment on above: Order Comment: TEST TYPE + SCREEN WAS CANCELLED, 06/23/2022 14:12 MBANK. Performed By: #### T +S #### [facility] [address] [place] [address] RH TYPE Canceled Normal [facility] Comment on above: Order Comment: TEST TYPE + SCREEN WAS CANCELLED, 06/23/2022 14:12 MBANK. Performed By: #### T +S #### [facility] [address] [place] [address] Vital Signs Date Time Vital Sign Value Performing Clinician Facility 12-05-2024 09:33-0400 Body mass index (BMI) [Ratio] 43.58 kg/m2 Grecia Shepherd COLLATING MACHINE OPERATOR.CNM Work Phone: [facility] 12-05-2024 09:33-0400 Body weight 122.47 kg Grecia Shepherd COLLATING MACHINE OPERATOR.CNM Work Phone: [facility] 12-05-2024 09:33-0400 Diastolic blood pressure 80 mm[Hg] Grecia Shepherd COLLATING MACHINE OPERATOR.CNM Work Phone: [facility] 12-05-2024 09:33-0400 Systolic blood pressure 124 mm[Hg] Grecia Shepherd COLLATING MACHINE OPERATOR.CNM Work Phone: [facility] 11-24-2024 09:14-0400 Body mass index (BMI) [Ratio] 42.93 kg/m2 Darleen Wu COLLATING MACHINE OPERATOR.CNM Work Phone: [facility] 11-24-2024 09:14-0400 Body weight 120.66 kg Darleen Wu COLLATING MACHINE OPERATOR.CNM Work Phone: [facility] 11-24-2024 09:14-0400 Diastolic blood pressure 70 mm[Hg] Darleen Vizcainots COLLATING MACHINE OPERATOR.CNM Work Phone: [facility] 11-24-2024 09:14-0400 Systolic blood pressure 144 mm[Hg] Darleen Vizcainots COLLATING MACHINE OPERATOR.CNM Work Phone: [facility] 10-26-2024 08:36-0400 Body mass index (BMI) [Ratio] 41.48 kg/m2 Jonnie Hopson COLLATING MACHINE OPERATOR.SUPERVISOR PLASTERING Work Phone: [facility] 10-26-2024 08:36-0400 Body weight 116.57 kg Jonnie Hopson COLLATING MACHINE OPERATOR.SUPERVISOR PLASTERING Work Phone: [facility] 10-26-2024 08:36-0400 Diastolic blood pressure 68 mm[Hg] Jonnie Haury COLLATING MACHINE OPERATOR.SUPERVISOR PLASTERING Work Phone: [facility] 10-26-2024 08:36-0400 Systolic blood pressure 120 mm[Hg] Jonnie Haury COLLATING MACHINE OPERATOR.SUPERVISOR PLASTERING Work Phone: [facility] 09-29-2024 10:40-0400 Body mass index (BMI) [Ratio] 40.19 kg/m2 Darleen Plotts COLLATING MACHINE OPERATOR.CNM Work Phone: [facility] 09-29-2024 10:40-0400 Body weight 112.95 kg Darleen Plotts COLLATING MACHINE OPERATOR.CNM Work Phone: [facility] 09-29-2024 10:40-0400 Diastolic blood pressure 76 mm[Hg] Darleen Plotts COLLATING MACHINE OPERATOR.CNM Work Phone: [facility] 09-29-2024 10:40-0400 Systolic blood pressure 116 mm[Hg] Darleen Plotts COLLATING MACHINE OPERATOR.CNM Work Phone: [facility] 09-01-2024 08:33-0400 Body mass index (BMI) [Ratio] 39.54 kg/m2 Jonnie Haury COLLATING MACHINE OPERATOR.SUPERVISOR PLASTERING Work Phone: [facility] 09-01-2024 08:33-0400 Body weight 111.13 kg Jonnie Haury COLLATING MACHINE OPERATOR.SUPERVISOR PLASTERING Work Phone: [facility] 09-01-2024 08:33-0400 Diastolic blood pressure 84 mm[Hg] Jonnie Haury COLLATING MACHINE OPERATOR.SUPERVISOR PLASTERING Work Phone: [facility] 09-01-2024 08:33-0400 Systolic blood pressure 130 mm[Hg] Jonnie Haury COLLATING MACHINE OPERATOR.SUPERVISOR PLASTERING Work Phone: [facility] 08-09-2024 08:38-0400 Body mass index (BMI) [Ratio] 39.54 kg/m2 Jonnie Haury COLLATING MACHINE OPERATOR.SUPERVISOR PLASTERING Work Phone: [facility] 08-09-2024 08:38-0400 Body weight 111.13 kg Jonnie Haury COLLATING MACHINE OPERATOR.SUPERVISOR PLASTERING Work Phone: [facility] 08-09-2024 08:38-0400 Diastolic blood pressure 72 mm[Hg] Jonnie Haury COLLATING MACHINE OPERATOR.SUPERVISOR PLASTERING Work Phone: [facility] 08-09-2024 08:38-0400 Systolic blood pressure 120 mm[Hg] Jonnie Haury COLLATING MACHINE OPERATOR.SUPERVISOR PLASTERING Work Phone: [facility] 07-18-2024 08:22-0400 Body mass index (BMI) [Ratio] 39.61 kg/m2 Tara Khadar COLLATING MACHINE OPERATOR.SUPERVISOR PLASTERING Work Phone: [facility] 07-18-2024 08:22-0400 Body weight 111.31 kg Tara Rogers COLLATING MACHINE OPERATOR.SUPERVISOR PLASTERING Work Phone: [facility] 07-18-2024 08:22-0400 Diastolic blood pressure 70 mm[Hg] Tara Khadar COLLATING MACHINE OPERATOR.SUPERVISOR PLASTERING Work Phone: [facility] 07-18-2024 08:22-0400 Systolic blood pressure 124 mm[Hg] Tara Khadar COLLATING MACHINE OPERATOR.SUPERVISOR PLASTERING Work Phone: [facility] 10-06-2023 10:11-0400 Body mass index (BMI) [Ratio] 41.09 kg/m2 Elicia Gaming MD Work Phone: [facility] 10-06-2023 10:11-0400 Body weight 115.49 kg Elicia Gaming MD Work Phone: [facility] 10-06-2023 10:11-0400 Diastolic blood pressure 76 mm[Hg] Elicia Gaming MD Work Phone: [facility] 10-06-2023 10:11-0400 Systolic blood pressure 120 mm[Hg] Elicia Gaming MD Work Phone: [facility] 09-01-2023 14:40-0400 Body mass index (BMI) [Ratio] 41.48 kg/m2 Elicia Gaming MD Work Phone: [facility] 09-01-2023 14:40-0400 Body weight 116.57 kg Elicia Gaming MD Work Phone: [facility] 09-01-2023 14:40-0400 Diastolic blood pressure 86 mm[Hg] Elicia Gaming MD Work Phone: [facility] 09-01-2023 14:40-0400 Systolic blood pressure 131 mm[Hg] Elicia Gaming MD Work Phone: [facility] 08-25-2023 08:58-0400 Body mass index (BMI) [Ratio] 43.9 kg/m2 Elicia Gaming MD Work Phone: [facility] 08-25-2023 08:58-0400 Body weight 123.38 kg Elicia Gaming MD Work Phone: [facility] 08-25-2023 08:58-0400 Diastolic blood pressure 90 mm[Hg] Elicia Gaming MD Work Phone: [facility] Comment on above: Simultaneous filing. User may not have s een previous data. 08-25-2023 08:58-0400 Systolic blood pressure 135 mm[Hg] Elicia Gaming MD Work Phone: [facility] Comment on above: Simultaneous filing. User may not have s een previous data. 08-20-2023 11:07-0400 Body mass index (BMI) [Ratio] 43.26 kg/m2 Elicia Gaming MD Work Phone: [facility] 08-20-2023 11:07-0400 Body weight 121.56 kg Elicia Gaming MD Work Phone: [facility] 08-20-2023 11:07-0400 Diastolic blood pressure 84 mm[Hg] Elicia Gaming MD Work Phone: [facility] 08-20-2023 11:07-0400 Systolic blood pressure 142 mm[Hg] Elicia Gaming MD Work Phone: [facility] 08-17-2023 13:45-0400 Diastolic blood pressure 85 mm[Hg] Gianni Nascimento MD Work Phone: [facility] Comment on above: truBP average 08-17-2023 13:45-0400 Systolic blood pressure 133 mm[Hg] Gianni Nascimento MD Work Phone: [facility] Comment on above: truBP average 08-17-2023 13:33-0400 Body mass index (BMI) [Ratio] 42.87 kg/m2 Gianni Nascimento MD Work Phone: [facility] 08-17-2023 13:33-0400 Body weight 120.47 kg Gianni Nascimento MD Work Phone: [facility] 08-12-2023 14:09-0400 Body mass index (BMI) [Ratio] 42.77 kg/m2 Gianni Nascimento MD Work Phone: [facility] 08-12-2023 14:09-0400 Body weight 120.2 kg Gianni Nascimento MD Work Phone: [facility] 08-12-2023 14:09-0400 Diastolic blood pressure 84 mm[Hg] Gianni Nascimento MD Work Phone: [facility] 08-12-2023 14:09-0400 Systolic blood pressure 136 mm[Hg] Gianni Nascimento MD Work Phone: [facility] 07-29-2023 13:38-0400 Body mass index (BMI) [Ratio] 41.48 kg/m2 Gianni Nascimento MD Work Phone: [facility] 07-29-2023 13:38-0400 Body weight 116.57 kg Gianni Nascimento MD Work Phone: [facility] 07-29-2023 13:38-0400 Diastolic blood pressure 84 mm[Hg] Gianni Nascimento MD Work Phone: [facility] 07-29-2023 13:38-0400 Systolic blood pressure 134 mm[Hg] Gianni Nascimento MD Work Phone: [facility] 07-15-2023 14:35-0400 Diastolic blood pressure 83 mm[Hg] Gianni Nascimento MD Work Phone: [facility] 07-15-2023 14:35-0400 Systolic blood pressure 126 mm[Hg] Gianni Nascimento MD Work Phone: [facility] 07-15-2023 13:54-0400 Body weight 117.94 kg Gianni Nascimento MD Work Phone: [facility] 06-17-2023 09:40-0400 Body weight 115.21 kg Gianni Nascimento MD Work Phone: [facility] 06-17-2023 09:40-0400 Diastolic blood pressure 84 mm[Hg] Gianni Nascimento MD Work Phone: [facility] 06-17-2023 09:40-0400 Systolic blood pressure 128 mm[Hg] Gianni Nascimento MD Work Phone: [facility] 05-20-2023 10:00-0500 Body height 167.6 cm Jonnie Haury COLLATING MACHINE OPERATOR.SUPERVISOR PLASTERING Work Phone: [facility] 05-20-2023 10:00-0500 Body weight 114.49 kg Jonnie Haury COLLATING MACHINE OPERATOR.SUPERVISOR PLASTERING Work Phone: [facility] 05-20-2023 10:00-0500 Diastolic blood pressure 86 mm[Hg] Jonnie Haury COLLATING MACHINE OPERATOR.SUPERVISOR PLASTERING Work Phone: [facility] 05-20-2023 10:00-0500 Systolic blood pressure 120 mm[Hg] Jonnie Haury COLLATING MACHINE OPERATOR.SUPERVISOR PLASTERING Work Phone: [facility] 06-26-2022 08:40-0400 Body height 167.64 cm No PCP None [facility] [address] Work Phone: 06-26-2022 08:40-0400 Body mass index (BMI) [Ratio] 39.87 kg/m2 No PCP None [facility] [address] Work Phone: 06-26-2022 08:40-0400 Body surface area Derived from formula 2.19 m2 No PCP None [facility] [address] Work Phone: 06-26-2022 08:40-0400 Body weight 112.04 kg No PCP None [facility] Work Phone: 06-26-2022 08:40-0400 Diastolic blood pressure 82 mm[Hg] No PCP None [facility] Work Phone: 06-26-2022 08:40-0400 Systolic blood pressure 132 mm[Hg] No PCP None [facility] [address] Work Phone: 06-24-2022 10:15-0400 Body height 167.64 cm No PCP None [facility] [address] Work Phone: 06-24-2022 10:15-0400 Body mass index (BMI) [Ratio] 39.77 kg/m2 No PCP None [facility] Work Phone: 06-24-2022 10:15-0400 Body surface area Derived from formula 2.19 m2 No PCP None [facility] Work Phone: 06-24-2022 10:15-0400 Body weight 111.75 kg No PCP None [facility] [address] Work Phone: 06-24-2022 10:15-0400 Diastolic blood pressure 90 mm[Hg] No PCP None [facility] Work Phone: 06-24-2022 10:15-0400 Systolic blood pressure 136 mm[Hg] No PCP None [facility] [address] Work Phone: 06-23-2022 11:16-0400 Body height 167.64 cm No PCP None [facility] [address] Work Phone: 06-23-2022 11:16-0400 Body mass index (BMI) [Ratio] 39.54 kg/m2 No PCP None [facility] Work Phone: 06-23-2022 11:16-0400 Body surface area Derived from formula 2.18 m2 No PCP None [facility] [address] Work Phone: 06-23-2022 11:16-0400 Body weight 111.13 kg No PCP None [facility] [address] Work Phone: 06-23-2022 11:16-0400 Diastolic blood pressure 72 mm[Hg] No PCP None [facility] [address] Work Phone: 06-23-2022 11:16-0400 Systolic blood pressure 118 mm[Hg] No PCP None [facility] [address] Work Phone: Encounters Encounter Date Encounter Type Care Provider Facility Start: 01-18-2025 End: 01-18-2025 ambulatory ELENITA CANO Facility:[facility] Start: 01-18-2025 End: 01-18-2025 ambulatory GRECIA SHEPHERD Facility:[facility] Start: 01-16-2025 End: 01-16-2025 ambulatory GIANNI NASCIMENTO Facility:[facility] Start: 01-15-2025 End: 01-15-2025 ambulatory GRECIA SHEPHERD Facility:[facility] Start: 01-12-2025 End: 01-12-2025 ambulatory ELENITA CANO Facility:[facility] Start: 01-12-2025 End: 01-12-2025 ambulatory GRECIA SHEPHERD Facility:[facility] Start: 01-10-2025 End: 01-10-2025 ambulatory ELICIA GAMING Facility:[facility] Start: 01-05-2025 End: 01-05-2025 ambulatory GRECIALAKEISHA SHEPHERD Facility:[facility] Start: 01-02-2025 End: 01-02-2025 ambulatory GRECIA SHEPHERD Facility:[facility] Start: 01-02-2025 End: 01-02-2025 ambulatory GRECIA SHEPHERD Facility:[facility] Start: 12-27-2024 End: 12-27-2024 ambulatory ELENITA CANO Facility:[facility] Start: 12-22-2024 End: 12-22-2024 ambulatory GRECIA SHEPHERD Facility:[facility] Start: 12-22-2024 End: 12-22-2024 ambulatory GRECIA SHEPHERD Facility:[facility] Start: 12-05-2024 End: 12-05-2024 Patient encounter procedure Grecia Shepherd COLLATING MACHINE OPERATOR.CATRACHITAM Work Phone: OB/Gynecology Comment on above: Supervision of high risk in third trimester (HCC) (Primary Dx); 30 weeks gestation of (HCC); History of pre-eclampsia; Short interval between pregnancies affecting , antepartum (HCC); Obesity affecting , antepartum, unspecified obesity type (HCC); Rh negative state in antepartum period (HCC); Uterine size-date discrepancy, third trimester (HCC) Start: 12-05-2024 End: 12-05-2024 [facility] GRECIA DAI Facility:[facility] Start: 11-24-2024 End: 11-24-2024 Patient encounter procedure Darleen Wu COLLATING MACHINE OPERATOR.CNM Work Phone: OB/Gynecology Comment on above: Supervision [...] second trimester (HCC) Start: 11-24-2024 End: 11-24-2024 [facility] JONNIE HOPSON Facility:[facility] Start: 10-26-2024 End: 10-26-2024 Patient encounter procedure Jonnie Hopson COLLATING MACHINE OPERATOR.SUPERVISOR PLASTERING Work Phone: OB/Gynecology Comment on above: Supervision of high risk in second trimester (HCC) (Primary Dx); 24 weeks gestation of (HCC); History of vacuum extraction assisted delivery; History of pre-eclampsia; Short interval between pregnancies affecting , antepartum (HCC); Obesity affecting , antepartum, unspecified obesity type (HCC); History of gestational hypertension Start: 10-26-2024 End: 10-26-2024 [facility] JONNIE HOPSON Facility:[facility] Start: 09-29-2024 End: 09-29-2024 Patient encounter [...] type (HCC) Start: 09-29-2024 End: 09-29-2024 [facility] Start: 09-01-2024 End: 09-01-2024 Patient encounter [...] of gestational hypertension Start: 09-01-2024 End: 09-01-2024 [facility] Start: 08-09-2024 End: 08-09-2024 Patient encounter procedure [...] gestation of (HCC) Start: 08-09-2024 End: 08-09-2024 [facility] Start: 07-18-2024 End: 09-17-2024 Follow-up encounter Tara Rubalcava APRN.CNP Work Phone: OB/Gynecology Start: 07-18-2024 End: 07-18-2024 ambulatory TARA RUBALCAVA Facility:[facility] Start: 07-18-2024 End: 07-18-2024 Patient encounter procedure Tara Rubalcava BILLY.SUPERVISOR PLASTERING Work Phone: OB/Gynecology Comment on above: , supervisi on, high-risk, unspecified trimester (HCC) (Primary Dx); Short interval between pregnancies affecting , antepartum (HCC); 10 weeks gestation of (HCC); with uncertain dates, antepartum (HCC); Screen for STD (sexually transmitted disease) Start: 06-27-2024 End: 06-27-2024 Telephone encounter Tara Rubalcava BILLY.SUPERVISOR PLASTERING Work Phone: OB/Gynecology Comment on above: Patient Question (So keyon appointment?) Start: 10-06-2023 End: 10-06-2023 Patient encounter procedure Elicia Gaming MD Work Phone: OB/Gynecology Comment on above: care and examination (Primary Dx) Start: 09-01-2023 End: 09-01-2023 Patient encounter procedure Elicia Gaming MD Work Phone: OB/Gynecology Comment on above: hypertens ion (Primary Dx) Start: 08-31-2023 End: 08-31-2023 ambulatory Maru Espino[facility] [place] Start: 08-31-2023 Patient encounter procedure [facility] [place] Comment on above: Population Health Na vigation Outreach (Ob.peds/) Start: 08-27-2023 ambulatory Sona corral MD Work Phone: OB/Gynecology Comment on above: Ob Delivery Note Start: 08-26-2023 End: 08-29-2023 Evaluation and management of inpatient Elicia Gaming Facility:[facility] Start: 08-25-2023 End: 08-25-2023 Patient encounter [...] Start: 07-15-2023 End: 07-15-2023 Patient encounter procedure Supplier Development Manager Quentin Ultrasound Work Phone: OB/Gynecology Comment on above: [...] second trimester Start: 04-21-2023 End: 04-21-2023 ambulatory [facility] Start: 04-21-2023 End: 04-21-2023 Subsequent hospital visit by physician [address] Comment on above: 16 weeks gestation o f Start: 04-21-2023 End: 04-21-2023 ambulatory [facility] Start: 03-31-2023 [facility] Start: 03-02-2023 End: 03-03-2023 [facility] Start: 02-09-2023 End: 02-10-2023 [facility] Start: 07-31-2022 Chart Update No PCP None [address] Work Phone: Start: 07-15-2022 AUDIT No PCP None [facility] [address] Work Phone: Start: 06-29-2022 Chart Update No PCP None [facility] [address] Work Phone: Start: 06-26-2022 FUV, Provider: Irina Handley, Status: Pen, Time: 8:30 AM No PCP None [facility] [address] Work Phone: Start: 06-26-2022 Office outpatient vi sit 25 minutes No PCP None [facility] [address] Work Phone: Start: 06-26-2022 ambulatory MD IRINA HANDLEY Facility:[id number] Start: 06-25-2022 Chart Update No PCP None [facility] [address] Work Phone: Start: 06-24-2022 Office outpatient vi sit 25 minutes No PCP None [facility] [address] Work Phone: Start: 06-24-2022 ambulatory MD IRINA HANDLEY Facility:[id number] Start: 06-24-2022 ambulatory IRINA HANDLEY Facility:[id number] Start: 06-23-2022 ambulatory IRINA HANDLEY Facility:[id number] Start: 06-23-2022 Office outpatient ne w 30 minutes No PCP None [facility] [address] Work Phone: Start: 06-23-2022 ambulatory MD IRINA HANDLEY Facility:[id number] Procedures Date Procedure Procedure Detail Performing Clinician Start: 11-24-2024 Antibody screen CHRISTINE WU Comment on above: Order Comment: Speci men Type: BLOOD SPECIMENOrdering Facility: [facility] Address: [address] [place] [address] Performed By: #### T SPN ####CC MAIN BLOOD BANKCLIA [id number] [facility] [id number] [place] [address] [place] Start: 09-29-2024 Us preg uterus after 1st trimest 04/05 gestation Tara Khadar COLLATING MACHINE OPERATOR.SUPERVISOR PLASTERING Work Phone: Start: 08-09-2024 Us preg uterus after 1st trimest 04/05 gestation Tara Rogers COLLATING MACHINE OPERATOR.SUPERVISOR PLASTERING Work Phone: Start: 07-18-2024 Antibody screen CHRISTINE WU Comment on above: Order Comment: Speci men Type: BLOOD SPECIMENOrdering Facility: [facility] Address: [facility] [place] [address] Performed By: #### T SPN ####CC MAIN BLOOD BANKCLIA [id number] [facility] [id number] [place] Start: 07-18-2024 Us uterus l imited 1 fetuses Tara Whitecalf COLLATING MACHINE OPERATOR.SUPERVISOR PLASTERING Work Phone: Start: 08-26-2023 Antibody screen Karina Birch NP Comment on above: Order Comment: Labor Performed By: #### L 100.0100, [facility], [id number] #### [facility] [address] [facility] [place], [place], [id number] Start: 08-17-2023 URINE OB DIP B/O Gianni [...] ion [Identifier] in Cervix by Cyto stain [facility] 2 Start: 02-09-2023 TYPE AND SCREEN Start: 06-23-2022 Antibody screen IRINA PITTMAN Comment on above: Performed By: #### T +S #### [facility] [address] [place] [address] Start: 06-23-2022 Antibody screen MD GI HANDLEY Comment on above: Order Comment: TEST TYPE + SCREEN WAS CANCELLED, 06/23/2022 14:12 MBANK. Performed By: #### T +S #### [facility] [address] [place] [address] No history of surgery No PCP None Plan of Treatment Date Care Activity Detail Author Start: 08-05-2045 Zoster Vaccines (1 o f 2) Zoster Vaccines (1 of 2) [facility] Start: 11-24-2034 Urine microalbumin profile DTaP,Tdap,Td Vaccine (3 - Td or Tdap) [facility] Start: 06-16-2033 Urine microalbumin profile DTaP,Tdap,Td Vaccine (2 - Td or Tdap) [facility] Start: 03-02-2026 Screening for malign ant neoplasm of cervix [facility] Start: 01-29-2025 End: 01-29-2025 Patient encounter procedure OB/Gynecology Comment on above: NST / OB Start: 01-24-2025 End: 01-24-2025 Patient encounter procedure OB/Gynecology Comment on above: NST NST OB Start: 01-15-2025 End: 01-15-2025 Patient encounter procedure [facility] Comment on above: BPP/ OB OB Start: 01-02-2025 End: 01-02-2025 Patient encounter procedure 01/02/2025 10:15 AM EDT Routine Office Visit OB/Gynecology [address] [place] [address] Grecia Shepherd APRN.CNM [address] [place] [address] Ob OB/Gynecology Comment on above: Ob Start: 12-22-2024 End: 12-22-2024 Patient encounter procedure [facility] Comment on above: BPP / OB OB Start: 12-17-2024 RSV Vaccine (1 - Ris k 1-dose series) RSV Vaccine (1 - Risk 1-dose series) [facility] Start: 12-05-2024 End: 12-05-2024 Patient encounter procedure 12/05/2024 9:45 AM EDT Routine Office Visit OB/Gynecology [address] [place] [address] Grecia Shepherd APRN.CNM [address] [place] [address] OB OB/Gynecology Comment on above: OB Start: 12-04-2024 Influenza vaccination [facility] Start: 11-24-2024 End: 11-24-2024 Patient encounter procedure 11/24/2024 9:15 AM EDT Routine Office Visit OB/Gynecology [address] [place] [address] Darleen Wu APRN.CNM [address] [place] [address] OB OB/Gynecology Comment on above: OB Start: 10-26-2024 End: 01-25-2025 CBC panel - Blood by Automated count COMPLETE BLOOD COUNT Lab Routine Supervision of high risk in second trimester (HCC) 24 weeks gestation of (HCC) Expected: 10/26/2024, Expires: 01/25/2025 [facility] Work Phone: Comment on above: Expected: 10/26/2024 , Expires: 01/25/2025 Start: 10-26-2024 End: 01-25-2025 GESTATIONAL GLUCOSE SCREEN, 1-HOUR, 50 GRAM, NON-FASTING GESTATIONAL GLUCOSE SCREEN, 1-HOUR, 50 GRAM, NON-FASTING Lab Routine Supervision of high risk in second trimester (HCC) 24 weeks gestation of (HCC) Expected: 10/26/2024, Expires: 01/25/2025 [facility] Comment on above: Expected: 10/26/2024 , Expires: 01/25/2025 Start: 10-26-2024 End: 01-25-2025 SYPHILIS TREPONEMAL W/REFLEX SYPHILIS TREPONEMAL W/REFLEX Lab Routine Supervision of high risk in second trimester (HCC) 24 weeks gestation of (HCC) Expected: 10/26/2024, Expires: 01/25/2025 [facility] Comment on above: Expected: 10/26/2024 , Expires: 01/25/2025 Start: 10-26-2024 End: 01-25-2025 TYPE + SCREEN TYPE + SCREEN Blood Bank Routine Supervision of high risk in second trimester (HCC) 24 weeks gestation of (HCC) Expected: 10/26/2024, Expires: 01/25/2025 [facility] Comment on above: Expected: 10/26/2024 , Expires: 01/25/2025 Start: 10-26-2024 End: 10-26-2024 Patient encounter procedure 10/26/2024 8:45 AM EDT Routine Office Visit OB/Gynecology [address] [place] [address] Jonnie Hopson APRN.SUPERVISOR [employer] [address] [place] [address] OB OB/Gynecology Comment on above: OB Start: 10-10-2024 End: 10-10-2024 Patient encounter procedure 10/10/2024 9:40 AM EDT Office Visit OB/Gynecology [address] [place] [address] Gianni Nascimento MD [address] [place] [address] annual OB/Gynecology Comment on above: annual Start: 09-29-2024 End: 09-29-2024 Patient encounter procedure [facility] Comment on above: Anatomy Scan OB Routine Start: 09-01-2024 End: 09-01-2024 Patient encounter procedure 09/01/2024 8:45 AM EDT Routine Office Visit OB/Gynecology [address] [place] [address] Jonnie Hopson APRN.SUPERVIS[employer] [address] [place] [address] OB Routine OB/Gynecology Comment on above: OB Routine Start: 08-17-2024 End: 08-17-2024 Patient encounter procedure 08/17/2024 10:00 AM EDT Routine Office Visit OB/Gynecology [address] [place] [address] Gianni Nascimento MD [address] [place] [address] OB/Gynecology Comment on above: Start: 08-09-2024 End: 08-09-2024 Patient encounter procedure Maternal Medicine Comment on above: Nuchal US OB Routine Start: 07-18-2024 End: 10-17-2024 ANEMIA REFLEX PANEL [facility] Work Phone: Comment on above: Expected: 07/18/2024 , Expires: 10/17/2024 Start: 07-18-2024 End: 10-17-2024 Chromosome 21 trisomy [Presence] in Blood or Tissue by Cytogenetics [facility] Comment on above: Expected: 07/18/2024 , Expires: 10/17/2024 Start: 07-18-2024 End: 10-17-2024 Hemoglobin A1c in Blood [facility] Comment on above: Expected: 07/18/2024 , Expires: 10/17/2024 Start: 07-18-2024 End: 10-17-2024 Hepatitis B virus surface Ag [Presence] in Serum [facility] Comment on above: Expected: 07/18/2024 , Expires: 10/17/2024 Start: 07-18-2024 End: 10-17-2024 Hepatitis C virus Ab [Presence] in Serum [facility] Comment on above: Expected: 07/18/2024 , Expires: 10/17/2024 Start: 07-18-2024 End: 10-17-2024 HIV 1+2 Ab [Presence] in Serum or Plasma by Immunoassay [facility] Comment on above: Expected: 07/18/2024 , Expires: 10/17/2024 Start: 07-18-2024 End: 07-18-2025 OBSTETRIC ULTRASOUND WHI [facility] Comment on above: Expected: 07/18/2024 , Expires: 07/18/2025 Start: 07-18-2024 End: 10-17-2024 Protein/Creatinine [Mass Ratio] in Urine [facility] Comment on above: Expected: 07/18/2024 , Expires: 10/17/2024 Start: 07-18-2024 End: 10-17-2024 RUBELLA IGG ANTIBODY [facility] Comment on above: Expected: 07/18/2024 , Expires: 10/17/2024 Start: 07-18-2024 End: 10-17-2024 SYPHILIS TREPONEMAL W/REFLEX [facility] Comment on above: Expected: 07/18/2024 , Expires: 10/17/2024 Start: 07-18-2024 End: 10-17-2024 TYPE + SCREEN [facility] Comment on above: Expected: 07/18/2024 , Expires: 10/17/2024 Start: 07-18-2024 End: 07-18-2024 Patient encounter procedure 07/18/2024 8:15 AM EDT Initial Office Visit OB/Gynecology [address] [place], [place] [address] Tara Rubalcava, BILLY.SUPERVISOR PLASTERING [address] [place] [address] New OB OB/Gynecology Comment on above: New OB Start: 12-05-2023 Covid-19 Vaccine ( season) Covid-19 Vaccine () [facility] Start: 12-05-2023 Influenza vaccination [facility] Start: 10-06-2023 End: 10-06-2023 Patient encounter procedure 10/06/2023 10:20 AM EDT Office Visit OB/Gynecology [address] [place] [address] Elicia Gaming MD [address] [place] [address] Post OB/Gynecology Comment on above: Post Start: 09-03-2023 End: 09-03-2023 Patient encounter procedure 09/03/2023 9:10 AM EDT Routine Office Visit OB/Gynecology [address] [place] [address] Elicia Gaming MD [address] [place] [address] OB OB/Gynecology Comment on above: OB Start: 09-01-2023 End: 09-01-2023 Patient encounter procedure 09/01/2023 2:50 PM EDT Office Visit OB/Gynecology [address] [place] [address] Elicia Gaming MD [address] [place] [address] PP BP Check OB/Gynecology Comment on above: PP BP Check Start: 08-25-2023 End: 08-25-2023 Patient encounter procedure 08/25/2023 9:10 AM EDT Routine Office Visit OB/Gynecology [address] [place] [address] Elicia Gaming MD [address] [place] [address] OB OB/Gynecology Comment on above: OB Start: 08-20-2023 End: 08-20-2023 Patient encounter procedure 08/20/2023 11:10 AM EDT Routine Office Visit OB/Gynecology [address] [place] [address] Elicia Gaming MD [address] [place] [address] OB OB/Gynecology Comment on above: OB Start: 08-17-2023 End: 08-17-2023 Patient encounter procedure 08/17/2023 1:40 PM EDT Routine Office Visit OB/Gynecology [address] [place] [address] Gianni Nascimento MD [address] [place] [address] OB OB/Gynecology Comment on above: OB Start: 08-12-2023 End: 08-11-2024 OBSTETRIC ULTRASOUND WHI OBSTETRIC ULTRASOUND WHI Anc Imaging Routine 35 weeks gestation of Obesity affecting in third trimester, unspecified obesity type Expected: 08/12/2023, Expires: 08/11/2024 [facility] Work Phone: Comment on above: Expected: 08/12/2023 , Expires: 08/11/2024 Start: 08-12-2023 End: 08-12-2023 Patient encounter procedure 08/12/2023 1:50 PM EDT Routine Office Visit OB/Gynecology [address] [place] [address] Gianni Nascimento MD [address] [place] [address] OB OB/Gynecology Comment on above: OB Start: 06-17-2023 End: 09-16-2023 GEST GLUC MONIKA, 3-HR, 100 GM, FASTING GEST GLUC MONIKA, 3-HR, 100 GM, FASTING Lab Routine Abnormal glucose in , antepartum Expected: 06/17/2023, Expires: 09/16/2023 [facility] Work Phone: Comment on above: Expected: 06/17/2023 , Expires: 09/16/2023 Start: 06-17-2023 End: 06-16-2024 OBSTETRIC ULTRASOUND WHI OBSTETRIC ULTRASOUND WHI Anc Imaging Routine 27 weeks gestation of Obesity affecting in third trimester, unspecified obesity type Expected: 06/17/2023, Expires: 06/16/2024 [facility] Work Phone: Comment on above: Expected: 06/17/2023 , Expires: 06/16/2024 Start: 05-20-2023 End: 08-19-2023 CBC panel - Blood by Automated count CBC Lab Routine Encounter for supervision of high risk in second trimester, antepartum 23 weeks gestation of Expected: 05/20/2023, Expires: 08/19/2023 [facility] Work Phone: Comment on above: Expected: 05/20/2023 , Expires: 08/19/2023 Start: 05-20-2023 End: 08-19-2023 GEST GLUC SCREEN, 1-HR, 50 GM, NON-FASTING GEST GLUC SCREEN, 1-HR, 50 GM, NON-FASTING Lab Routine Encounter for supervision of high risk in second trimester, antepartum 23 weeks gestation of Expected: 05/20/2023, Expires: 08/19/2023 [facility] Work Phone: Comment on above: Expected: 05/20/2023 , Expires: 08/19/2023 Start: 05-20-2023 End: 08-19-2023 SYPHILIS TOTAL W/REFLEX SYPHILIS TOTAL W/REFLEX Lab Routine Encounter for supervision of high risk in second trimester, antepartum 23 weeks gestation of Expected: 05/20/2023, Expires: 08/19/2023 [facility] Work Phone: Comment on above: Expected: 05/20/2023 , Expires: 08/19/2023 Start: 05-19-2023 End: 05-19-2023 Patient encounter procedure 05/19/2023 10:00 AM EST Routine [facility] Medical Office Building [address] [place] [address] Ifeanyi Seth MD [address] [facility] Medical Office, [facility] [address] [place] [address] [facility] Medical Office Building Start: 04-05-2023 Behavioral Health Screening Behavioral Health Screening [facility] Start: 04-05-2023 Depression Assessment Depression Ass essment [facility] Start: 12-04-2022 Covid-19 Vaccine ( season) Covid-19 Vaccine ( season) [facility] Start: 12-04-2022 Influenza vaccination Influenza Vacc ine (#1) [facility] Start: 08-05-2022 HPV Vaccine (1 - 3-d ose SCDM series) HPV Vaccine (1 - 3-dose SCDM series) [facility] Start: 08-05-2017 DTaP/Tdap/Td Vaccine s (1 - Tdap) DTaP/Tdap/Td Vaccines (1 - Tdap) [facility] Start: 08-05-2016 Screening for malign ant neoplasm of cervix HPV/Cotest [facility] Start: 08-05-2014 Hepatitis B Vaccine (1 of 3 - 19+ 3-dose series) Hepatitis B Vaccine (1 of 3 - 19+ 3-dose series) [facility] Start: 08-05-2014 Urine microalbumin profile DTaP,Tdap,Td Vaccine (1 - Tdap) [facility] Start: 08-05-2013 Anxiety Screening Anxiety Screening [facility] Start: 08-05-2013 Depression Screening Depression Scre ening [facility] Start: 08-05-2013 Hepatitis C screening Hepatitis C Sc stanislaw [facility] Start: 08-05-2013 HIV screening HIV Screening [facility] Start: 08-05-1996 MMR Vaccines (1 of 1 - Standard series) MMR Vaccines (1 of 1 - Standard series) [facility] Start: 08-05-1996 Varicella vaccination Varicell a Vaccines (1 of 2 - 2-dose childhood series) [facility] Start: 02-06-1996 COVID-19 Vaccine (#1) COVID-19 Vacci ne (#1) [facility] Start: 1995 Hepatitis B Vaccine (1 of 3 - 3-dose series) Hepatitis B Vaccine (1 of 3 - 3-dose series) [facility] Start: 1995 Hepatitis B Vaccines (1 of 3 - 3-dose series) Hepatitis B Vaccines (1 of 3 - 3-dose series) [facility] Start: 1995 Lipid panel Lipid Panel [facility] Start: 1995 Yearly Adult Physical Yearly Adult P [facility] Bacteria identified in Urine by Culture BACTERIAL CULTURE, URINE Microbiology Routine with uncertain dates, antepartum (HCC) 07/18/2024 10:46 AM T [facility] Chlamydia trachomatis+Neisseria gonorrhoeae DNA [Presence] in Unspecified specimen by ESME with probe detection GONORRHEA/CHLAMYDIA NAAT Lab Routine with uncertain dates, antepartum (HCC) 07/18/2024 10:46 AM EDT [facility] End: 10-01-2023 nonstress test NON-STRESS TEST Procedures Routine Obesity affecting in third trimester, unspecified obesity type Once per week for 8 Occurrences starting 07/15/2023 until 10/01/2023 [facility] Work Phone: Comment on above: Once per week for 8 Occurrences starting 07/15/2023 until 10/01/2023 End: 11-25-2025 nonstress test NON-STRESS TEST Procedures Routine Supervision of high risk in third trimester (HCC) Obesity affecting , antepartum, unspecified obesity type (HCC) Once per week for 5 Occurrences starting 12/05/2024 until 11/25/2025 [facility] Work Phone: Comment on above: Once per week for 5 Occurrences starting 12/05/2024 until 11/25/2025 End: 11-19-2025 OBSTETRIC ULTRASOUND WHI OBSTETRIC ULTRASOUND WHI Anc Imaging Routine Supervision of high risk in third trimester (HCC) Obesity affecting , antepartum, unspecified obesity type (HCC) Once per month for 3 Occurrences starting 12/05/2024 until 11/19/2025 [facility] Comment on above: Once per month for 3 Occurrences starting 12/05/2024 until 11/19/2025 ROUTINE, GR OUP B STREP PCR ROUTINE, GROUP B STREP PCR Microbiology Routine with care elsewhere in third trimester 08/12/2023 3:56 PM EDT [facility] TRICHOMONAS VAGINALI S NAAT TRICHOMONAS VAGINALIS NAAT Lab Routine Screen for STD (sexually transmitted disease) 07/18/2024 10:46 AM T [facility] TYPE + SCREEN TYPE + SC REEN Blood Bank Routine 27 weeks gestation of 06/17/2023 10:24 AM EDT [facility] Work Phone: URINE OB DIP B/O URINE OB DIP B/ O Lab Routine Obesity affecting in third trimester, unspecified obesity type Elevated blood pressure reading without diagnosis of hypertension with care elsewhere in third trimester 37 weeks gestation of Ordered: 08/20/2023 [facility] Work Phone: Comment on above: Ordered: 08/20/2023 URINE OB DIP B/O URINE OB DIP B/ O Lab Routine Obesity affecting in third trimester, unspecified obesity type Elevated blood pressure reading without diagnosis of hypertension with care elsewhere in third trimester 37 weeks gestation of Ordered: 08/25/2023 [facility] Work Phone: Comment on above: Ordered: 08/25/2023 [facility] Immunizations Immunization Date Immunization Notes Care Provider Harley degroot 11-24-2024 RHO(D) immune globul in- IV or IM Darleen Wu APRN.CNRenato Work Phone: [facility] 11-24-2024 tetanus toxoid, redu piedad diphtheria toxoid, and acellular pertussis vaccine, adsorbed Darleen Wu APRN.CNM Work Phone: [facility] 06-17-2023 RHO(D) immune globul in- IV or IM Gianni Nascimento MD Work Phone: [facility] 06-17-2023 tetanus toxoid, redu piedad diphtheria toxoid, and acellular pertussis vaccine, adsorbed Gianni Nascimento MD Work Phone: [facility] 02-09-2023 RHO(D) immune globul in - IM [address] Payers Date Payer Category Payer Self-pay 2022 Private Health Insurance [id number] 2022 Private Health Insurance [id number] 1995 Unknown [id number] 2.16.8 [id number] 1995 Unknown [id number] 2.16.8 [id number] 1995 Unknown [id number] 2.16. [id number] 1995 Unknown [id number] 2.16. [id number] 1995 Unknown [id number] 2.16. [id number] 1995 Unknown [id number] 2.16.8 [id number] 1995 Unknown [id number] 2.16.8 [id number] 1995 Unknown [id number] 2.16.8 [id number] 1995 Unknown [id number] 2.16.8 [id number] 1995 Unknown [id number] 2.16.8 [id number] Unknown [employer] Unknown [id number] 2.16.8 [id number] Unknown [id number] 2.16.8 [id number] Social History Date Type Detail Facility Start: 02-09-2023 End: 06-17-2023 Sexually active Sexually active [facility] Start: 02-02-2023 End: 05-20-2023 Tobacco smoking status NHIS Never smoked tobacco [facility] Work Phone: Start: 02-02-2023 End: 05-20-2023 Tobacco use and exposure Smokeless tobacco non-user [facility] Work Phone: Start: 02-09-2023 End: 10-26-2024 Alcohol intake Lifetime non-drinker (finding) [facility] Work Phone: Start: 02-09-2023 End: 06-17-2023 Tobacco use panel [facility] Start: 12-18-2022 [facility] Work Phone: Start: 1995 Sex Assigned At Not on file [facility] Work Phone: Start: 04-11-2023 End: 04-21-2023 Exposure to SARS-CoV-2 (event) Not sure [facility] Start: 03-06-2012 National Score (1-100), lower number is lower risk 59 [facility] Goals Date Patient Goal Desired Activity /State Personal health goal Personal health goal Clinical Notes 06-21-2022 to 01-18-2025 Quick Notes - Grecia Shepherd APRN.[facility] - 12/05/2024 9:41 AM EDTPrenatal Quick Notes - Grecia Shepherd APRN.[facility] - 12/05/2024 9:41 AM EDTPatient InstructionsPatient Instructions Note Date & Type Note Facility 01-18-2025 Note HNO ID: [id number] Author: NIKITA CARR MD Service: ? Author [...] Irregular Interpretation: Reactive SIGNATURE: Nikita Carr DO [facility] 01-18-2025 Note HNO ID: [id number] Author: SHERI LAST MA Service: ? Author Type: Workforce Advisor Type: Progress Notes Filed: 01/18/2025 10:19 Note Text: TruBP: 131/81 126/2 129/85 128/80 Average: 128/82 [facility] 01-16-2025 Note HNO ID: [id number] Author: SHERI LAST MA Service: ? Author Type: Workforce Advisor Type: Progress Notes Filed: 01/16/2025 13:37 Note Text: TruBP: 139/87 137/84 135/87 130/88 133/83 130/87 Average: 134/86 [facility] 01-12-2025 Note HNO ID: [id number] Author: SHERI LAST MA Service: ? Author Type: Workforce Advisor Type: Progress Notes Filed: 01/12/2025 17:27 Note Text: TruBP: 138/87 125/84 122/81 129/77 111/76 114/80 Average: 123/80 [facility] 01-10-2025 Note HNO ID: [id number] Author: ELICIA GAMING MD Service: ? Author Type: Physician Type: Progress Notes Filed: 01/10/2025 14:31 Note Text: NST SUMMARY PROVIDER ASSESSMENT AND INTERPRETATION Indications for NST: Obesity and GHTN, poly Baseline: 150 Variability: Moderate Accelerations: Present 15 X 15 Decelerations: None Interpretation: Reactive SIGNATURE: Elicia Gaming MD [facility] 01-05-2025 Note HNO ID: [id number] Author: ELENITA CHOWDHURY MD Service: ? Author [...] I and Reactive SIGNATURE: Elenita Hagen MD [facility] 01-02-2025 Note HNO ID: [id number] Author: GRECIA SHEPHERD APRN.CNRenato Service: ? Author Type: Tuber Machine Operator Type: Progress Notes Filed: 01/04/2025 10:52 Note Text: NST SUMMARY PROVIDER ASSESSMENT AND INTERPRETATION Grecia Lockett is a 29 year old female, , who is at 34w2d with an GUERDA of 02/11/2025, by Ultrasound dating method. Indications for NST: Gestational HTN Baseline: 145 Variability: Moderate Accelerations: Present 15 X 15 Decelerations: None Contractions: TOCO: None Interpretation: Reactive SIGNATURE: Grecia Shepherd APRN.CNM [facility] 12-27-2024 Note HNO ID: [id number] Author: ELENITA CHOWDHURY MD Service: ? Author [...] I and Reactive SIGNATURE: Elenita Hagen MD [facility] 12-22-2024 Note HNO ID: [id number] Author: GRECIA SHEPHERD APRN.CN Service: ? Author Type: Tuber Machine Operator Type: Progress Notes Filed: 12/22/2024 09:33 Note [...] RTO in 2 weeks Grecia Shepherd APRN.CNM [facility] 12-05-2024 Progress note Formatting of t [...] RTO in 2 weeks Grecia Shepherd APRN.CNM [facility] 12-05-2024 Miscellaneous Notes SID-S: Grecia Lockett is [...] Grecia Shepherd APRN.CNM documented in this encounter [facility] 12-05-2024 Instructions Shantelle Cardenas MA - 12/05/2024 9:32 AM EDT SEQUENTIAL SCREENINGS The [facility] offers sequential screenings for women who are [...] It will require an appointment with our central service technician. This is not an ultrasound performed by [...] the above symptoms, contact our office at [phone] and ask to speak with a nurse. After hours, you can call doctors registry at [phone] OR call [facility] at [phone] and ask to have the doctor livestock commission agent paged. If you consider this an emergency, dial 9-1-6 or go to your nearest emergency department. NEED HELP? Are you dealing with a violent or abusive relationship? Are you a victim of rape or sexual assult? Call [facility] ([place]) 24 hour Crisis Hotline: 662.370.7116 or 343-877-4874. MANUAL Your Guide to a Healthy manual is now on-line. Visit [email or web address] to download your free copy documented in this encounter [facility] 11-24-2024 Note HNO ID: [id number] Author: DULCE GAVIRIA RN Service: ? Author [...] her Rhophylac pocket card. Dulce Gaviria RN [facility] 11-24-2024 History of Presen t illness [...] severely ill: Yes Patient denies history of Guillain-Joplin Syndrome (a severe paralytic illness): Yes Tdap Adacel injection was given without incident. See immunizations for details of immunizations administered today. VIS sheet provided: Yes Provider Darleen Wu CNM was present in office at time of injection. documented in this encounter [facility] 11-24-2024 Progress note Formatting of t his [...] or sooner if needed Darleen Wu APRN.CNM [facility] 11-24-2024 Miscellaneous Notes S: Grecia Lockett is [...] Darleen Wu APRN.CNM documented in this encounter [facility] 11-24-2024 Note HNO ID: [id number] Author: MARGOTH LUNA MA Service: ? Author Type: Workforce Advisor Type: Progress Notes Filed: 11/24/2024 10:34 Note [...] severely ill: Yes Patient denies history of Guillain-Joplin Syndrome (a severe paralytic illness): Yes Tdap Adacel injection was given without incident. See immunizations for details of immunizations administered today. VIS sheet provided: Yes Provider Darleen Wu CNM was present in office at time of injection. [facility] 11-24-2024 Instructions Margoth Luna MA - 11/24/2024 9:13 AM EDT SEQUENTIAL SCREENINGS The [facility] offers sequential screenings for women who are [...] It will require an appointment with our central service technician. This is not an ultrasound performed by [...] the above symptoms, contact our office at [phone] and ask to speak with a nurse. After hours, you can call doctors registry at [phone] OR call [facility] at [phone] and ask to have the doctor livestock commission agent paged. If you consider this an emergency, dial or go to your nearest emergency department. NEED HELP? Are you dealing with a violent or abusive relationship? Are you a victim of rape or sexual assult? Call [facility] ([place]) 24 hour Crisis Hotline: 320.702.6156 or 886-739-1689. MANUAL Your Guide to a Healthy manual is now on-line. Visit [email or web address] to download your free copy documented in this encounter [facility] 10-26-2024 Progress note Formatting of t his [...] Supervision of high risk in second trimester ([facility]) - ICD9: V23.9, ICD10: O09.92 (primary diagnosis) - Continue PNV and LDA 24 weeks gestation of ([facility]) - ICD9: V22.2, ICD10: Z3A.24 - GTT, [...] Short interval between pregnancies affecting , antepartum ([facility]) - ICD9: V23.89, ICD10: O09.899 - August 2023 vaginal delivery Obesity affecting , antepartum, unspecified obesity type ([facility]) - ICD9: 649.13, ICD10: O99.210 -Pre BMI 39 - Plan for 32 week growth q 4 weeks. - Weekly NSTs at 36 weeks. PTL precautions reviewed. RTO in 4 weeks or sooner as needed. Jonnie Hopson APRN.SUPERVISOR PLASTERING [facility] 10-26-2024 Miscellaneous Notes EH - S: Grecia is a 29 year old female who presents at 24w4d for a routine visit. Feeling movement. Denies headache, visual changes, chest pain, shortness of breath, vaginal bleeding, leakage of fluid, or dysuria. Feeling well, no complaints. O: See flow sheet Gen: No apparent distress Abd: Gravid, nontender, S>D ASSESSMENT/PLAN: Supervision of high risk in second trimester ([facility]) - ICD9: V23.9, ICD10: O09.92 (primary diagnosis) - Continue PNV and LDA 24 weeks gestation of ([facility]) - ICD9: V22.2, ICD10: Z3A.24 - GTT, [...] Short interval between pregnancies affecting , antepartum ([facility]) - ICD9: V23.89, ICD10: O09.899 - August 2023 vaginal delivery Obesity affecting , antepartum, unspecified obesity type ([facility]) - ICD9: 649.13, ICD10: O99.210 -Pre BMI 39 - Plan for 32 week growth q 4 weeks. - Weekly NSTs at 36 weeks. PTL precautions reviewed. RTO in 4 weeks or sooner as needed. Jonnie Hopson APRN.SUPERVISOR PLASTERING documented in this encounter [facility] 10-26-2024 Instructions Shantelle Cardenas MA - 10/26/2024 8:32 AM EDT SEQUENTIAL SCREENINGS The [facility] offers sequential screenings for women who are [...] It will require an appointment with our central service technician. This is not an ultrasound performed by [...] the above symptoms, contact our office at [phone] and ask to speak with a nurse. After hours, you can call doctors registry at [phone] OR call [facility] at [phone] and ask to have the doctor livestock commission agent paged. If you consider this an emergency, dial 9-1-6 or go to your nearest emergency department. NEED HELP? Are you dealing with a violent or abusive relationship? Are you a victim of rape or sexual assult? Call [facility] ([place]) 24 hour Crisis Hotline: 985.126.5696 or 845-542-0135. MANUAL Your Guide to a Healthy manual is now on-line. Visit [email or web address] [email or web address] to download your free copy documented in this encounter [facility] 09-29-2024 Progress note Formatting of t his [...] or sooner if needed Darleen Wu APRN.CNM [facility] 09-29-2024 Miscellaneous Notes S: Grecia Lockett is [...] Darleen Wu APRN.CNM documented in this encounter [facility] 09-29-2024 Timoteo Menezes MA - 09/29/2024 10:33 AM EDT SEQUENTIAL SCREENINGS The [facility] offers sequential screenings for women who are [...] It will require an appointment with our central service technician. This is not an ultrasound performed by [...] the above symptoms, contact our office at [phone] and ask to speak with a nurse. After hours, you can call doctors registry at [phone] OR call [facility] at [phone] and ask to have the doctor livestock commission agent paged. If you consider this an emergency, dial 1-6-3 or go to your nearest emergency department. NEED HELP? Are you dealing with a violent or abusive relationship? Are you a victim of rape or sexual assult? Call [facility] ([place]) 24 hour Crisis Hotline: 714.717.1547 or 656-302-3302. MANUAL Your Guide to a Healthy manual is now on-line. Visit [email or web address] [email or web address] to download your free copy documented in this encounter [facility] 09-01-2024 Miscellaneous Notes EH - S: Grecia [...] Obesity affecting , antepartum, unspecified obesity type ([facility]) - ICD9: 649.13, ICD10: O99.210 -Pre BMI 39 - Plan for 32 week growth q 4 weeks. - Weekly NSTs at 36 weeks. PTL precautions reviewed. RTO in 4 weeks or sooner as needed. Jonnie Hopson APRN.SUPERVISOR PLASTERING documented in this encounter [facility] 09-01-2024 Progress note Formatting of t his [...] weeks or sooner as needed. Jonnie Hopson APRN.SUPERVISOR PLASTERING [facility] 09-01-2024 Instructions Chloé Pino LPN - 09/01/2024 8:30 AM EDT SEQUENTIAL SCREENINGS The [facility] offers sequential screenings for women who are [...] It will require an appointment with our central service technician. This is not an ultrasound performed by [...] the above symptoms, contact our office at [phone] and ask to speak with a nurse. After hours, you can call doctors registry at [phone] OR call [facility] at [phone] and ask to have the doctor livestock commission agent paged. If you consider this an emergency, dial 12-04- or go to your nearest emergency department. NEED HELP? Are you dealing with a violent or abusive relationship? Are you a victim of rape or sexual assult? Call [facility] ([facility] 24 hour Crisis Hotline: 585.445.3340 or 019-186-1638. MANUAL Your Guide to a Healthy manual is now on-line. Visit [email or web address]/[email or web address] [email or web address] to download your free copy documented in this encounter [facility] 08-09-2024 Progress note Formatting of t his note might be different from the original. Anatomy ultrasound reviewed. No abnormalities identified. Follow up as clinically indicated. Please place copy in ob chart. Sona Figueroa MD [facility] Work Phone: 08-09-2024 Miscellaneous Notes Anatomy ultrasound reviewed. No abnormalities identified. Follow up as clinically indicated. Please place copy in ob chart. Sona Figueroa MD documented in this encounter [facility] 08-09-2024 Instructions Shantelle Cardenas MA - 08/09/2024 8:22 AM EDT SEQUENTIAL SCREENINGS The [facility] offers sequential screenings for women who are [...] It will require an appointment with our central service technician. This is not an ultrasound performed by [...] the above symptoms, contact our office at [phone] and ask to speak with a nurse. After hours, you can call doctors registry at [phone] OR call [facility] at [phone] and ask to have the doctor livestock commission agent paged. If you consider this an emergency, dial 9-1-1 or go to your nearest emergency department. NEED HELP? Are you dealing with a violent or abusive relationship? Are you a victim of rape or sexual assult? Call [facility] ([place]) 24 hour Crisis Hotline: 564.632.2966 or 689-417-6098. MANUAL Your Guide to a Healthy manual is now on-line. Visit [email or web address]/HealthyPre [email or web address] to download your free copy documented in this encounter [facility] 08-09-2024 Note HNO ID: [id number] Author: JONNIE HOPSON APRN.SUPERVISOR PLASTERING Service: ? Author Type: Nurse Practitioner Type: [...] Supervision of high risk in second trimester ([facility]) - ICD9: V23.9, ICD10: O09.92 (primary diagnosis) - Continue PNV - Dvojmshr09 negative - Declines carrier screening 2. 13 weeks gestation of ([facility]) - ICD9: V22.2, ICD10: Z3A.13 - NT today, report pending 3. Short interval between pregnancies affecting , antepartum ([facility]) - ICD9: V23.89, ICD10: O09.899 - Delivered August 2023 4. Obesity affecting , antepartum, unspecified obesity type ([facility]) - ICD9: 649.13, ICD10: O99.210 -Pre BMI [...] or sooner as needed. Jonnie Hopson APRN.BILL [facility] 08-09-2024 History of Presen t illness [...] Supervision of high risk in second trimester ([facility]) - ICD9: V23.9, ICD10: O09.92 (primary diagnosis) - Continue PNV - Aoqztcrp88 negative - Declines carrier screening 2. 13 weeks gestation of ([facility]) - ICD9: V22.2, ICD10: Z3A.13 - NT today, report pending 3. Short interval between pregnancies affecting , antepartum ([facility]) - ICD9: V23.89, ICD10: O09.899 - Delivered August 2023 4. Obesity affecting , antepartum, unspecified obesity type ([facility]) - ICD9: 649.13, ICD10: O99.210 -Pre BMI [...] weeks or sooner as needed. Jonnie Hopson APRN.SUPERVISOR PLASTERING documented in this encounter [facility] 07-18-2024 Instructions Laurel Tipton LPN - 07/18/2024 8:06 AM EDT Please select the following link to access the [facility] Your Guide to a Healthy . [email or web address] documented in this encounter [facility] 07-18-2024 Note HNO ID: [id number] Author: TARA RUBALCAVA APRN.SUPERVISOR PLASTERING Service: ? Author Type: Nurse Practitioner Type: Progress Notes Filed: 07/18/2024 09:00 Note Text: Patient declined director agency & strategic partnerships. 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 Does not have a counselor. Coping well at this time. Update throughout . EH Elevated glucose tolerance test 06/18/2023 06/22/23 - negative 3hr GTT - Gianni Nascimento MD 3 hour ordered. Gestational hypertension, third trimester (HCC) 08/20/2023 Spontaneous ([facility]) History reviewed. No pertinent surgical history. Current [...] 6 hours as needed. vit calc,iron,folic ( KAFPUIHG-WLK-SF-FA ORAL) Take by mouth as directed. magnesium oxide (MAG-OX) 400 mg (241.3 mg magnesium) tablet Take 400 mg by mouth. No current facility-administered medications for this visit. Allergies As of Date: 07/18/2024 (No Known Allergies) Fully Assessed 10/06/2023 Does patient have penicillin allergy: No REVIEW OF SYSTEMS: GENERAL: Negative for: Fever or Chills HEENT: Nega (more content not included)... 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 vit calc,iron,folic ( KNWLCIII-DRI-IQ-FA ORAL) Take by mouth as directed. magnesium [...] discussed with the Patient or Patient's Authorized Air Tester. As applicable, any other physician, advance practice provider, medical student, or other health professional student that will be observing or involved in the sensitive examination for educational or training purposes was discussed with the Patient or Authorized Air Tester. The Patient or Authorized Air Tester has agreed to proceed with the sensitive [...] changed from 01/28/25 to 02/11/25 Tara Rubalcava APRN.SUPERVISOR PLASTERING SBIRT Grecia Lockett was given the 4P's [...] Your guide to a health and the Jogger Operator. Reviewed midwifery and studio grip services that are available. 2) Screening: Hemoglobin [...] Tara Rubalcava APRN.CNP documented in this encounter [facility] 06-27-2024 Telephone encounter Note Called Pt to [...] ER. Pt voiced understanding. Den Kang RN [facility] 06-27-2024 Miscellaneous Notes Called Pt to offer [...] appointment is 07/18 Can be reached at [phone] Please advise documented in this encounter [facility] 06-27-2024 Telephone encounter Note Patient called said she's needs her first appointments (her last period was 04/23) next available appointment is 07/18 Can be reached at [phone] Please advise [facility] Work Phone: 10-06-2023 History of Presen t illness Narrative Partnership Development Manager offered: Patient declines. VISIT Grecia Lockett is a 28 year old year old here for visit. Delivery Summary: Vac assisted vaginal delivery No longer taking labetalol No LAWLER Desires no control. Would like again soon. Encouraged waiting at least 6 months. Risk or Pre E again in future pregnancies. Pumping and bottle feeding ROS/ Recovery: Feeding: Breast and bottle feeding problems: Seeing business information consultant, trouble latching. Menses since delivery: spotting Menstrual pattern prior to : Regular periods [place] since delivery: Not resumed Depression: denies symptoms [...] external genitalia normal, normal Bartholin's glands, urethra, Cut Off's glands, no vulvar lesions, no cervical lesions, [...] Elicia Gaming MD documented in this encounter [facility] 09-01-2023 History of Presen t illness Narrative [...] issues Sleep: no sleep concerns, feels rested [place] since delivery: Not resumed Emotional support: Yes [...] Elicia Gaming MD documented in this encounter [facility] 08-31-2023 History of Presen t illness Narrative POPULATION HEALTH NAVIGATION OUTREACH Action/FYI Spoke to patient patient deliviered Reason for Outreach Medicaid OB/Peds Care Gaps due: N/A Patient Contacted: Spoke to patient/parent/or legal guardian Patient identified by name and : Yes Navigation Signature: Maru Douglass Population Health Navigator August 31, 2023 9:44 AM documented in this encounter [facility] 08-31-2023 History of Presen t illness Narrative Patient delivered via at [facility] on 08/27/23 per Sona Figueroa M.D. . See OB Outcome note. Elicia Ashley RN documented in this encounter [facility] 08-29-2023 Note [facility] Medical Records Department [address] [place] [address] Discharge Summary 08/29/23 1101 MR#: [id number] Acct: [id number] Name: GRECIA LOCKETT Rep #: [id number] : 1995 28 From: Sona Figueroa MD PCP: Status:ADM IN Location: [id number] Providers Date of Admission: 08/26/23 Date of [...] well Medications at Discharge Home Medications PNV#14-iron fum-FA#1-rxs-eqqfzdid 27 mg iron-1 mg-300 mg-50 mg capsule [...] 20 Days Qty: 60 1RF Continued PNV #14-iron-FA#2-xzl-njiafzqq 27 mg iron-1 mg -300 mg-50 mg capsule PO Discontinued magnesium 200 mg tablet 200 mg PO DAILY Disposition Disposition (needs filled in before D/C Order can be placed): Home, Self Care 08/29/23 1103 Cosigner Signature (if applicable): CC: Dr. Sona Figueroa MD Signed [facility] 08-25-2023 Progress note Formatting of t [...] URINE OB DIP B/O Elicia Gaming MD [facility] 08-25-2023 History of Presen t illness Narrative REYES BP A-135/90 6-129/89 5-123/85 4-140/86 3-139/89 2-132/92 1-147/100 documented in this encounter [facility] 08-25-2023 Miscellaneous Notes S: Grecia Lockett is [...] Elicia Gaming MD documented in this encounter [facility] 08-25-2023 Instructions Margoth Luna MA - 08/25/2023 8:55 AM EDT SEQUENTIAL SCREENINGS The [facility] offers sequential screenings for women who are [...] It will require an appointment with our central service technician. This is not an ultrasound performed by [...] the above symptoms, contact our office at [phone] and ask to speak with a nurse. After hours, you can call doctors registry at [phone] OR call [facility] at [phone] and ask to have the doctor livestock commission agent paged. If you consider this an emergency, dial 1-1-9 or go to your nearest emergency department. NEED HELP? Are you dealing with a violent or abusive relationship? Are you a victim of rape or sexual assult? Call [facility] ([place]) 24 hour Crisis Hotline: 122.647.7842 or 127-596-9694. MANUAL Your Guide to a Healthy manual is now on-line. Visit [email or web address] to download your free copy documented in this encounter [facility] 08-20-2023 Progress note Formatting of t his [...] appointment scheduled for Wednesday. Elicia Gaming MD [facility] 08-20-2023 Miscellaneous Notes S: Grecia Lcokett is a 28 year old female who [...] Elicia Gaming MD documented in this encounter [facility] 08-20-2023 Instructions Margoth Luna MA - 08/20/2023 11:07 AM EDT SEQUENTIAL SCREENINGS The [facility] offers sequential screenings for women who are [...] It will require an appointment with our central service technician. This is not an ultrasound performed by [...] the above symptoms, contact our office at [phone] and ask to speak with a nurse. After hours, you can call [facility] at [phone] OR call [facility] at [phone] and ask to have the doctor livestock commission agent paged. If you consider this an emergency, dial 9-1-7 or go to your nearest emergency department. NEED HELP? Are you dealing with a violent or abusive relationship? Are you a victim of rape or sexual assult? Call [facility] ([place]) 24 hour Crisis Hotline: 216.425.6731 or 094-941-9640. MANUAL Your Guide to a Healthy manual is now on-line. Visit [email or web address] [email or web address] to download your free copy documented in this encounter [facility] 08-18-2023 Telephone encounter Note ok for note to be off for gestational hypertension, high risk until delivery and through PP leave. Sona Figueroa MD [facility] Work Phone: 08-18-2023 Miscellaneous Notes ok for note to be off for gestational hypertension, high risk until delivery and through PP leave. Sona Figueroa MD 36w5d Patient has appointment on 08/19. Would you like to discuss this at that time? documented in this encounter [facility] 08-18-2023 Telephone encounter Note 36w5d Patient has appointment on 08/19. Would you like to discuss this at that time? [facility] 08-17-2023 History of Presen t illness Narrative [...] Gianni Nascimento MD documented in this encounter [facility] 08-17-2023 Progress note Formatting of t his [...] reviewed, Kick counts reviewed. Gianni Nascimento MD [facility] 08-17-2023 Miscellaneous Notes EDER - VB No. [...] Gianni Nascimento MD documented in this encounter [facility] 08-17-2023 Sheri Rico MA - 08/17/2023 1:29 PM EDT SEQUENTIAL SCREENINGS The [facility] offers sequential screenings for women who are [...] It will require an appointment with our central service technician. This is not an ultrasound performed by [...] the above symptoms, contact our office at [phone] and ask to speak with a nurse. After hours, you can call [facility] at [phone] OR call [facility] at [phone] and ask to have the doctor livestock commission agent paged. If you consider this an emergency, dial 9-1-7 or go to your nearest emergency department. NEED HELP? Are you dealing with a violent or abusive relationship? Are you a victim of rape or sexual assult? Call [facility] ([facility] 24 hour Crisis Hotline: 405.686.3880 or 557-987-3890. MANUAL Your Guide to a Healthy manual is now on-line. Visit [email or web address] [email or web address] to download your free copy documented in this encounter [facility] 08-12-2023 Note Addended by: GIANNI NASCIMENTO on: 08/12/2023 03:54 PM Modules accepted: Orders [facility] 08-12-2023 Miscellaneous Notes Addended by: GIANNI NASCIMENTO [...] Gianni Nascimento MD documented in this encounter [facility] 08-12-2023 Note Addended by: JACQUELYN LOUISE on: 08/12/2023 02:53 PM Modules accepted: Orders [facility] 08-12-2023 Progress note Formatting of t his [...] reviewed, Kick counts reviewed. Gianni Nascimento MD [facility] 08-12-2023 Instructions Toyin Montez MA - 08/12/2023 2:09 PM EDT SEQUENTIAL SCREENINGS The [facility] offers sequential screenings for women who are [...] It will require an appointment with our central service technician. This is not an ultrasound performed by [...] the above symptoms, contact our office at [phone] and ask to speak with a nurse. After hours, you can call doctors registry at [phone] OR call [facility] at [phone] and ask to have the doctor livestock commission agent paged. If you consider this an emergency, dial 2-3-3 or go to your nearest emergency department. NEED HELP? Are you dealing with a violent or abusive relationship? Are you a victim of rape or sexual assult? Call [facility] ([place]) 24 hour Crisis Hotline: 549.816.8631 or 271-179-6987. MANUAL Your Guide to a Healthy manual is now on-line. Visit [email or web address] [email or web address] to download your free copy documented in this encounter [facility] 07-29-2023 Progress note Formatting of t his [...] reviewed, Kick counts reviewed. Gianni Nascimento MD [facility] 07-29-2023 Miscellaneous Notes KJ - VB No. [...] Gianni Nascimento MD documented in this encounter [facility] 07-29-2023 Instructions Toyin Montez MA - 07/29/2023 1:34 PM EDT SEQUENTIAL SCREENINGS The [facility] offers sequential screenings for women who are [...] It will require an appointment with our central service technician. This is not an ultrasound performed by [...] the above symptoms, contact our office at [phone] and ask to speak with a nurse. After hours, you can call doctors registry at [phone] OR call [facility] at [phone] and ask to have the doctor livestock commission agent paged. If you consider this an emergency, dial 9-1-1 or go to your nearest emergency department. NEED HELP? Are you dealing with a violent or abusive relationship? Are you a victim of rape or sexual assult? Call [facility] ([place]) 24 hour Crisis Hotline: 633.954.8937 or 383-895-3471. MANUAL Your Guide to a Healthy manual is now on-line. Visit [email or web address]/HealthyPre [email or web address] to download your free copy documented in this encounter [facility] 07-16-2023 Miscellaneous Notes FMLA completed, faxed to employer, scanned into EMR copy filed in nurses station, original placed with appointment notes to give to pt at follow up appt on 07/29/23. Chloé Naik LPN FMLA paperwork completed and placed on providers desk for signature. Chloé Naik LPN documented in this encounter [facility] 07-15-2023 Miscellaneous Notes KJ - VB No. [...] Gianni Nascimento MD documented in this encounter [facility] 07-15-2023 History of Presen t illness Narrative REYES BP A-126/83 6-126/82 5-131/80 4-123/84 3-128/82 2-123/85 1-126/83 documented in this encounter [facility] 07-15-2023 Instructions Margoth Luna MA - 07/15/2023 1:53 PM EDT SEQUENTIAL SCREENINGS The [facility] offers sequential screenings for women who are [...] It will require an appointment with our central service technician. This is not an ultrasound performed by [...] the above symptoms, contact our office at [phone] and ask to speak with a nurse. After hours, you can call doctors registry at [phone] OR call [facility] at [phone] and ask to have the doctor livestock commission agent paged. If you consider this an emergency, dial 9-1-1 or go to your nearest emergency department. NEED HELP? Are you dealing with a violent or abusive relationship? Are you a victim of rape or sexual assult? Call [facility] ([place]) 24 hour Crisis Hotline: 312.347.2919 or 550-231-1577. MANUAL Your Guide to a Healthy manual is now on-line. Visit [email or web address]/HealthyPre [email or web address] to download your free copy documented in this encounter [facility] 06-18-2023 Miscellaneous Notes 3 hour already ordered by KJ. Jonnie Hopson APRN.SUPERVISOR PLASTERING documented in this encounter [facility] 06-17-2023 Miscellaneous Notes 3hr GTT ordered Gianni Nascimento MD 3 hour GTT order pending. Dulce Gaviria RN documented in this encounter [facility] 06-17-2023 History of Presen t illness Narrative [...] severely ill: Yes Patient denies history of Guillain-[place] Syndrome (a severe paralytic illness): Yes Tdap Adacel injection was given without incident. See immunizations for details of immunizations administered today. VIS sheet provided: Yes Provider Ifeanyi was present in office at time of injection. Toyin Montez MA documented in this encounter [facility] 06-17-2023 Miscellaneous Notes KJ - VB No. [...] Gianni Nascimento MD documented in this encounter [facility] 06-17-2023 Instructions Toyin Montez MA - 06/17/2023 9:30 AM EDT SEQUENTIAL SCREENINGS The [facility] offers sequential screenings for women who are [...] It will require an appointment with our central service technician. This is not an ultrasound performed by [...] the above symptoms, contact our office at [phone] and ask to speak with a nurse. After hours, you can call doctors registry at [phone] OR call [facility] at [phone] and ask to have the doctor livestock commission agent paged. If you consider this an emergency, dial 9-1- or go to your nearest emergency department. NEED HELP? Are you dealing with a violent or abusive relationship? Are you a victim of rape or sexual assult? Call [facility] ([place]) 24 hour Crisis Hotline: 501.948.3622 or 724-517-4707. MANUAL Your Guide to a Healthy manual is now on-line. Visit [email or web address] to download your free copy documented in this encounter [facility] 05-20-2023 [facility] that [facility] had [facility] ultrasound at [place]. Have we received the report for that? 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 No pertinent past medical history. History reviewed. No pertinent surgical history. Current Outpatient Medications Medication Sig Dispense Refill vit calc,iron,folic ( [id number] ORAL) Take by mouth as directed. magnesium [...] Your guide to a health and the Jogger Operator. Discussed aneuploidy and carrier screening. Regarding aneuploidy [...] May consider in future. Reviewed midwifery and studio grip services that are available. ACTIVE PROBLEM LIST [...] declined [X] Anatomy scan - had at [place] [ ] Mode of Delivery - [ ] Feeding - [ ] Pump ordered [ ] Diabetes screen [ ] CBC, RPR Third trimester (28-30 weeks): [ ] Consent [ ] Contraception - [ ] Communication Technician Third trimester (36-40 weeks): [ ] GBS [...] Second Trimester - 05/20/2023 Comment: Transferring from [place]. She states that [...] in 4 weeks OB visit. Jonnie Hopson APRN.SUPERVISOR PLASTERING documented in this encounter [facility] 05-20-2023 Instructions Sheri Last MA - 05/20/2023 9:53 AM EST Please select the following link to access the [facility] Your Guide to a Healthy . [email or web address] vanessa documented in this encounter [facility] 04-21-2023 Miscellaneous Notes Please inform Grecia that her anatomy ultrasound came back normal documented in this encounter [facility] Work Phone: 04-21-2023 Progress note Formatting of t his note might be different from the original. Please inform Grecia that her anatomy ultrasound came back normal [facility] Work Phone: 06-21-2022 History of Presen t illness Narrative Grecia is a 26-year-old who comes in to discuss results of blood work done. Patient was here earlier this week with some brown discharge to confirm her . However on ultrasound here no acute pole was identified. Subsequently we have been watching her [facility] Work Phone: Evaluation note Diagnosis 16 weeks gestation of documented in this encounter [facility] Work Phone: Evaluation note* Diagnosis Encounter for supervision of high risk in second trimester, antepartum- Primary 23 weeks gestation of state, incidental Rh negative state in antepartum period, second trimester with care elsewhere in second trimester Tension headaches Anxiety during Obesity affecting in second trimester, unspecified obesity type Constipation during in second trimester [facility] Diagnosis 27 weeks gestation of - Primary state, incidental Need for vaccination Need for prophylactic vaccination and inoculation against unspecified single disease Obesity affecting in third trimester, unspecified obesity type Rh negative state in antepartum period Rhesus isoimmunization affecting management of mother, antepartum condition [facility] Diagnosis Abnormal glucose in , antepartum- Primary Abnormal maternal glucose tolerance, antepartum [facility] Diagnosis Elevated glucose tolerance test- Primary Impaired glucose tolerance test [facility] Diagnosis Encounter for anatomic survey- Primary Obesity affecting in third trimester, unspecified obesity type with care elsewhere in third trimester 31 weeks gestation of state, incidental [facility] Diagnosis 31 weeks gestation of - Primary state, incidental Obesity affecting in third trimester, unspecified obesity type [facility] Diagnosis 33 weeks gestation of - Primary state, incidental Obesity affecting in third trimester, unspecified obesity type with care elsewhere in third trimester documented in this encounter [facility] note* Diagnosis 35 weeks gestation of - Primary state, incidental Obesity affecting in third trimester, unspecified obesity type with care elsewhere in third trimester documented in this encounter [facility] note* Diagnosis 36 weeks gestation of - Primary state, incidental Obesity affecting in third trimester, unspecified obesity type Elevated blood pressure reading without diagnosis of hypertension documented in this encounter [facility] note* Diagnosis with care elsewhere in third trimester- Primary Obesity affecting in third trimester, unspecified obesity type Elevated blood pressure reading without diagnosis of hypertension 37 weeks gestation of state, incidental Gestational hypertension, third trimester documented in this encounter [facility] note* Diagnosis Obesity affecting in third trimester, unspecified obesity type- Primary Elevated blood pressure reading without diagnosis of hypertension with care elsewhere in third trimester 37 weeks gestation of state, incidental documented in this encounter [facility] note* Diagnosis hypertension- Primary Unspecified hypertension, condition or complication documented in this encounter [facility] note* Diagnosis care and examination- Primary Routine follow-up documented in this encounter [facility] note* Diagnosis , supervision, high-risk, unspecified trimester (HCC)- Primary Short interval between pregnancies affecting , antepartum ([facility]) 10 weeks gestation of ([facility]) state, incidental with uncertain dates, antepartum ([facility]) state, incidental Screen for STD (sexually transmitted disease) Screening examination for venereal disease documented in this encounter [facility] note* Diagnosis Supervision of high risk in second trimester ([facility])- Primary Unspecified high-risk 13 weeks gestation of ([facility]) state, incidental Short interval between pregnancies affecting , antepartum (HCC) Obesity affecting , antepartum, unspecified obesity type (HCC) History of vacuum extraction assisted delivery Other postprocedural status History of pre-eclampsia Personal history of other genital system and obstetric disorders documented in this encounter [facility] note* Diagnosis Encounter for screening for malformation using ultrasound ([facility])- Primary 13 weeks gestation of ([facility]) state, incidental documented in this encounter [facility] note* Diagnosis Supervision of high risk in second trimester (HCC)- Primary Unspecified high-risk 16 weeks gestation of (HCC) state, incidental History of vacuum extraction assisted delivery Other postprocedural status History of pre-eclampsia Personal history of other genital system and obstetric disorders Short interval between pregnancies affecting , antepartum (HCC) Obesity affecting , antepartum, unspecified obesity type ([facility]) History of gestational hypertension [facility] Diagnosis 20 weeks gestation of ([facility])- Primary state, incidental Supervision of high risk in second trimester ([facility]) Unspecified high-risk History of vacuum extraction assisted delivery Other postprocedural status History of pre-eclampsia Personal history of other genital system and obstetric disorders Short interval between pregnancies affecting , antepartum ([facility]) Obesity affecting , antepartum, unspecified obesity type ([facility]) documented in this encounter [facility] note* Diagnosis Encounter for anatomic survey ([facility])- Primary Encounter for anatomic survey 20 weeks gestation of ([facility]) state, incidental Obesity affecting in second trimester, unspecified obesity type ([facility]) documented in this encounter [facility] note* Diagnosis Supervision of high risk in second trimester ([facility])- Primary Unspecified high-risk 24 weeks gestation of ([facility]) state, incidental History of vacuum extraction assisted delivery Other postprocedural status History of pre-eclampsia Personal history of other genital system and obstetric disorders Short interval between pregnancies affecting , antepartum ([facility]) Obesity affecting , antepartum, unspecified obesity type ([facility]) History of gestational hypertension documented in this encounter [facility] note* Diagnosis Supervision of high risk in third trimester ([facility])- Primary Unspecified high-risk 28 weeks gestation of ([facility]) state, incidental History of vacuum extraction assisted delivery Other postprocedural status History of pre-eclampsia Personal history of other genital system and obstetric disorders Short interval between pregnancies affecting , antepartum ([facility]) Obesity affecting , antepartum, unspecified obesity type ([facility]) Need for vaccination Need for prophylactic vaccination and inoculation against unspecified single disease Rh negative state in antepartum period ([facility]) Rhesus isoimmunization affecting management of mother, antepartum condition Supervision of high risk in second trimester ([facility]) Unspecified high-risk documented in this encounter [facility] note* Diagnosis Supervision of high risk in third trimester ([facility])- Primary Unspecified high-risk 30 weeks gestation of (HCC) state, incidental History of pre-eclampsia Personal history of other genital system and obstetric disorders Short interval between pregnancies affecting , antepartum (HCC) Obesity affecting , antepartum, unspecified obesity type (HCC) Rh negative state in antepartum period (HCC) Rhesus isoimmunization affecting management of mother, antepartum condition Uterine size-date discrepancy, third trimester (HCC) [facility] Armida is a 26-year-old [...] taking vitamins and has no additional [facility] today[facility] Phone: [employer] for referral (narrative)* Diagnostic Procedure Only (Routine) - Authorized Specialty Diagnoses / Procedures Referred By Contac t Referred To Contact [facility] Diagnoses 27 weeks gestation of Obesity affecting in third trimester, unspecified obesity type Procedures OBSTETRIC ULTRASOUND WHI US PREG UTERUS AFTER 1ST TRIMEST GESTATION Gianni Nascimento MD [address] [place] [address] [facility] [place] [address] Referral ID Status Reason Start Date Expiration Date Visits Requested Visits Authorized [id number] Authorized Auto-Generat ed Referral 06/17/2023 06/16/2024 1 1 [facility] for referral (narrative)* Outpatient Procedure (Routine) - Pending Review Specialty Diagnoses / Procedures Referred By Contac t Referred To Contact [facility] Diagnoses Obesity affecting in third trimester, unspecified obesity type Procedures NON-STRESS TEST NON-STRESS TEST Gianni Nascimento MD [address] [place] [address] [facility] [address] [place] [address] Referral ID Status Reason Start Date Expiration Date Visits Requested Visits Authorized [id number] Pending Review Auto-Generat ed Referral 07/15/2023 07/14/2024 8 1 [facility] for referral (narrative)* Diagnostic Procedure Only (Routine) - Pending Review Specialty Diagnoses / Procedures Referred By Contac t Referred To Contact [facility] Diagnoses 35 weeks gestation of Obesity affecting in third trimester, unspecified obesity type Procedures OBSTETRIC ULTRASOUND WHI US PREG UTERUS AFTER 1ST TRIMEST GESTATION Gianni Nascimento MD [address] [place] [address] [facility] [address] [place] [address] Referral ID Status Reason Start Date Expiration Date Visits Requested Visits Authorized [id number] Pending Review Auto-Generat ed Referral 08/12/2023 08/11/2024 1 1 [facility] for visit Narrative* Diagnostic Procedure Only (Routine) - Closed Specialty Diagnoses / Procedures Referred By Contac t Referred To Contact [facility] Diagnoses 10 weeks gestation of (HCC) Procedures OBSTETRIC ULTRASOUND WHI US PREG UTERUS AFTER 1ST TRIMEST GESTATION Tara Rubalcava APRN.BILL [address] [place] [address] Phone: tel: fax: [facility] [address] [place] [address] Referral ID Status Reason Start Date Expiration Date V isits Requested Visits Authorized [id number] Closed Auto-Generate d Referral 07/18/2024 07/18/2025 1 1 [facility] Chief Complaint New patient here today for [...] weeks anatomy scan Irina Handley MD [address] [facility], [place] [address] Referral ID Status Reason Start Date Expiration [...] section and content) DATE CREATED AUTHOR 06/27/2022 [email or web address] DATE CREATED AUTHOR AUTHOR'S ORGANIZ ATION 07/25/2022 [facility] DATE CREATED AUTHOR AUTHOR'S ORGANIZ ATION 08/01/2022 [facility] DATE CREATED AUTHOR AUTHOR'S ORGANIZ ATION 04/02/2023 [facility] DATE CREATED AUTHOR AUTHOR'S ORGANIZ ATION 09/06/2023 [facility] DATE CREATED AUTHOR AUTHOR'S ORGANIZ ATION 12/27/2023 [facility] DATE CREATED AUTHOR AUTHOR'S ORGANIZ ATION 08/15/2024 [facility] DATE CREATED AUTHOR AUTHOR'S ORGANIZ ATION 01/20/2025 [facility] Reason for Visit (unrecogniz ed section and content) Specialty Diagnoses / Procedures Referred By Contac t Referred To Contact Radiology Diagnoses 16 weeks gestation of Procedures US OB 14+ weeks anatomy scan Irina Handley MD [address] [place] [address] [facility], [address] [address] Referral ID Status Reason Start Date Expiration Date Visits Requested Visits Authorized [id number] Authorized Perform Procedure 3 03/30/2024 1 1 Reason Comments Initial OB Visit Reason Comments Records Reason Onset Date Comments Care 06/17/2023 Reason Comments Abnormal Glucose Reason Comments US Specialty Diagnoses / Procedures Referred By Contac t Referred To Contact [facility] Diagnoses 27 weeks gestation of Obesity affecting in third trimester, unspecified obesity type Procedures OBSTETRIC ULTRASOUND WHI US PREG UTERUS AFTER 1ST TRIMEST GESTATION Gianni Nascimento MD [address] [place] [address] [facility] [address] [place] [address] Referral ID Status Reason Start Date Expiration Date V isits Requested Visits Authorized [id number] Closed Auto-Generate d Referral 06/17/2023 06/16/2024 1 1 Reason Onset Date Comments Care 07/15/2023 Reason Comments FMLA Paperwork Reason Onset Date Comments Care 07/29/2023 Reason Onset Date Comments Care 08/12/2023 Reason Onset Date Comments Care 08/17/2023 Reason Onset Date Comments Care 08/20/2023 Reason Onset Date Comments Care 08/25/2023 Reason Comments Ob Delivery Note Reason Onset Date Comments [facility] Navigation Outreach 08/31/2023 Ob.peds Reason Comments Early Bp check Reason Comments Routine 6 week Reason Comments Patient Question Sooner appointment? Reason Comments [facility] Reason Onset Date Comments Care 08/09/2024 Reason Onset Date Comments Care 09/01/2024 Reason Onset Date Comments Care 09/29/2024 Specialty Diagnoses / Procedures Referred By Karen t Referred To Contact [facility] Diagnoses with uncertain dates, antepartum (HCC) Encounter for supervision of normal in multigravida (HCC) Procedures OBSTETRIC ULTRASOUND WHI US PREG UTERUS AFTER 1ST TRIMEST GESTATION Tara Rubalcava APRN.BILL [address] [place] [address] Phone: tel: fax: [facility] [address] [place] [address] Referral ID Status Reason Start Date Expiration Date V isits Requested Visits Authorized [id number] Closed Auto-Generate d Referral 07/18/2024 07/18/2025 1 1 Reason Onset Date Comments Care 10/26/2024 Reason Onset Date Comments Care 11/24/2024 Reason Onset Date Comments Care 12/05/2024 Care Teams (unrecognized sec tion and content) Residential Case Manager Relationship Specialty Start Date End Date Irina Handley MD [address] [place] [address] Dr NUNE[facility], [place] [address] PCP - [employer] PCP 10/03/22 Source Comments (unrecognize d section and content) In the event this informatio n is protected by the Federal Confidentiality of Alcohol and Drug Abuse Patient Records regulations: The Federal rules restrict any use of the information to criminally investigate or prosecute any alcohol or drug abuse patient.[facility] the event this information is protected by the Federal Confidentiality of Alcohol and Drug Abuse Patient Records regulations: The Federal rules restrict any use of the information to criminally investigate or prosecute any alcohol or drug abuse patient.[facility] Hospital[facility] the event this information is protected by the Federal Confidentiality of Alcohol and Drug Abuse Patient Records regulations: The Federal rules restrict any use of the information to criminally investigate or prosecute any alcohol or drug abuse patient.[facility] HospitalIn the event this information is protected by the Federal Confidentiality of Alcohol and Drug Abuse Patient Records regulations: The Federal rules restrict any use of the information to criminally investigate or prosecute any alcohol or drug abuse patient.[facility] HospitalIn the event this information is protected by the Federal Confidentiality of Alcohol and Drug Abuse Patient Records regulations: The Federal rules restrict any use of the information to criminally investigate or prosecute any alcohol or drug abuse patient.[facility] HospitalIn the event this information is protected by the Federal Confidentiality of Alcohol and Drug Abuse Patient Records regulations: The Federal rules restrict any use of the information to criminally investigate or prosecute any alcohol or drug abuse patient.[facility] HospitalIn the event this information is protected by the Federal Confidentiality of Alcohol and Drug Abuse Patient Records regulations: The Federal rules restrict any use of the information to criminally investigate or prosecute any alcohol or drug abuse patient.[facility] HospitalIn the event this information is protected by the Federal Confidentiality of Alcohol and Drug Abuse Patient Records regulations: The Federal rules restrict any use of the information to criminally investigate or prosecute any alcohol or drug abuse patient.[facility] HospitalIn the event this information is protected by the Federal Confidentiality of Alcohol and Drug Abuse Patient Records regulations: The Federal rules restrict any use of the information to criminally investigate or prosecute any alcohol or drug abuse patient.[facility] HospitalIn the event this information is protected by the Federal Confidentiality of Alcohol and Drug Abuse Patient Records regulations: The Federal rules restrict any use of the information to criminally investigate or prosecute any alcohol or drug abuse patient.[facility] HospitalIn the event this information is protected by the Federal Confidentiality of Alcohol and Drug Abuse Patient Records regulations: The Federal rules restrict any use of the information to criminally investigate or prosecute any alcohol or drug abuse patient.[facility] HospitalIn the event this information is protected by the Federal Confidentiality of Alcohol and Drug Abuse Patient Records regulations: The Federal rules restrict any use of the information to criminally investigate or prosecute any alcohol or drug abuse patient.[facility] HospitalIn the event this information is protected by the Federal Confidentiality of Alcohol and Drug Abuse Patient Records regulations: The Federal rules restrict any use of the information to criminally investigate or prosecute any alcohol or drug abuse patient.[facility] HospitalIn the event this information is protected by the Federal Confidentiality of Alcohol and Drug Abuse Patient Records regulations: The Federal rules restrict any use of the information to criminally investigate or prosecute any alcohol or drug abuse patient.[facility] HospitalIn the event this information is protected by the Federal Confidentiality of Alcohol and Drug Abuse Patient Records regulations: The Federal rules restrict any use of the information to criminally investigate or prosecute any alcohol or drug abuse patient.[facility] HospitalIn the event this information is protected by the Federal Confidentiality of Alcohol and Drug Abuse Patient Records regulations: The Federal rules restrict any use of the information to criminally investigate or prosecute any alcohol or drug abuse patient.[facility] HospitalIn the event this information is protected by the Federal Confidentiality of Alcohol and Drug Abuse Patient Records regulations: The Federal rules restrict any use of the information to criminally investigate or prosecute any alcohol or drug abuse patient.[facility] HospitalIn the event this information is protected by the Federal Confidentiality of Alcohol and Drug Abuse Patient Records regulations: The Federal rules restrict any use of the information to criminally investigate or prosecute any alcohol or drug abuse patient.[facility] HospitalIn the event this information is protected by the Federal Confidentiality of Alcohol and Drug Abuse Patient Records regulations: The Federal rules restrict any use of the information to criminally investigate or prosecute any alcohol or drug abuse patient.[facility] HospitalIn the event this information is protected by the Federal Confidentiality of Alcohol and Drug Abuse Patient Records regulations: The Federal rules restrict any use of the information to criminally investigate or prosecute any alcohol or drug abuse patient.[facility] HospitalIn the event this information is protected by the Federal Confidentiality of Alcohol and Drug Abuse Patient Records regulations: The Federal rules restrict any use of the information to criminally investigate or prosecute any alcohol or drug abuse patient.[facility] HospitalIn the event this information is protected by the Federal Confidentiality of Alcohol and Drug Abuse Patient Records regulations: The Federal rules restrict any use of the information to criminally investigate or prosecute any alcohol or drug abuse patient.[facility]In the event this information is protected by the Federal Confidentiality of Alcohol and Drug Abuse Patient Records regulations: The Federal rules restrict any use of the information to criminally investigate or prosecute any alcohol or drug abuse patient.[facility] HospitalIn the event this information is protected by the Federal Confidentiality of Alcohol and Drug Abuse Patient Records regulations: The Federal rules restrict any use of the information to criminally investigate or prosecute any alcohol or drug abuse patient.[facility] HospitalIn the event this information is protected by the Federal Confidentiality of Alcohol and Drug Abuse Patient Records regulations: The Federal rules restrict any use of the information to criminally investigate or prosecute any alcohol or drug abuse patient.[facility] HospitalIn the event this information is protected by the Federal Confidentiality of Alcohol and Drug Abuse Patient Records regulations: The Federal rules restrict any use of the information to criminally investigate or prosecute any alcohol or drug abuse patient.[facility] HospitalIn the event this information is protected by the Federal Confidentiality of Alcohol and Drug Abuse Patient Records regulations: The Federal rules restrict any use of the information to criminally investigate or prosecute any alcohol or drug abuse patient.[facility] HospitalIn the event this information is protected by the Federal Confidentiality of Alcohol and Drug Abuse Patient Records regulations: The Federal rules restrict any use of the information to criminally investigate or prosecute any alcohol or drug abuse patient.[facility] HospitalIn the event this information is protected by the Federal Confidentiality of Alcohol and Drug Abuse Patient Records regulations: The Federal rules restrict any use of the information to criminally investigate or prosecute any alcohol or drug abuse patient.[facility] FOR RECORDS PERTAINING TO PATIENTS WHO ARE [...] BASED ON THE PRIMARY CLINICAL RECORDS. [employer] [facility]. provides no warranty or guarantee of the accuracy or completeness of information in this document.
[2025-01-21 19:26] VITALS: BP 131/78; PULSE 101; PULSE 97; RESP 15; TEMP 37.3; O2SAT 91; O2SAT 95
[2025-01-21] MEDS: Lactated Ringers 1,000 ML 50 ML IV (19:30)
[2025-01-21 19:55] LABS: Hematocrit 36.4 % (37-47); Hemoglobin 13.0 g/dL (12.0-15.0); Immature Granulocytes Count 0.110 X10^3/uL (0.0-0.0); Mean Corp Hgb Conc 35.7 g/dL (32-36); Mean Corpuscular Volume 87.7 fL (81-99); Mean Platelet Vol. 11.2 fl (6.2-12.0); NRBC Flagged by Analyzer 0 % (0-5); Platelet Count 181 K/mm3 (150-450); RBC Distribution Width CV 12.7 % (11.6-14.6); RBC Distribution Width SD 40.7 fl (35.1-43.9); Red Blood Count 4.15 M/mm3 (4.2-5.4); White Blood Count 11.7 K/mm3 (4.4-11.0)
[2025-01-21 20:00] VITALS: BMI 2000.0; BMI 20251019.0
[2025-01-21 20:20] LABS: Syphilis Antibodies Nonreactive (Nonreactive)
[2025-01-21 20:24] VITALS: PULSE 89; O2SAT 97
[2025-01-22] VITALS (119 sets, daily range): BP systolic 104–156; BP diastolic 54–93; PULSE 83–135; RESP 15–18; TEMP 26.2–37.7; O2SAT 93–100; BMI 1348.0; BMI 20251020.0
[2025-01-22] MEDS: LACTATED RINGERS 500 ML 999 ML IV (06:18)
[2025-01-22] MEDS: Oxytocin 15 Units/NS 250ml 15 UNITS/250 ML IV.SOLN 2 UNITS IV (08:35)
[2025-01-22] MEDS: 0.9% Normal Saline Single 100 ML IV.SOLN. INTRA-UTER (08:49)
--- NOTE | 2025-01-22 12:57 | PCM.HP.OB ---
HPI - General General Date of Admission: 01/21/25 Date of Service: 01/22/25 Chief Complaint: induction HPI Narrative GRECIA HATFIELD, is a 29 F who presents for scheduled IOL at 37 weeks for gHTN. [facility] Medical History (Updated 01/22/25 @ 12:[address] Bushra Carr, DO) macrosomia Anxiety Polyhydramnios Vacuum-assisted vaginal delivery Acute adjustment disorder with mixed anxiety and depressed mood Rh negative status during Gestational hypertension Home Medications ?Medication ?Instructions ?Recorded ?Last Taken ?Type PNV 14-iron [id number]-nmi-docusate cap PO 08/26/23 01/21/25 08:00 History 27 mg iron-1 mg-300 mg-50 mg capsule ferrous sulfate 325 mg (65 mg 325 mg PO QODAY 60 days #15 tabs 08/29/23 Unknown Rx iron) tablet (FeroSul) ibuprofen 600 mg tablet 600 mg PO Q6H PRN Pain 20 days #60 08/29/23 Unknown Rx TABLETS labetalol 100 mg tablet 100 mg PO BID 10 days #20 tabs 08/29/23 Unknown Rx aspirin 81 mg capsule 81 mg PO DAILY 01/21/25 01/21/25 08:00 History magnesium 200 mg tablet 200 mg PO DAILY headaches 01/21/25 01/21/25 08:00 History Allergy/AdvReac Type Severity Reaction Status Date / Time No Known Allergies Allergy Verified 01/21/25 19:29 Social History Smoking Status: Never smoker History 1 Elective abortions Hx Para 1 Spontaneous abortions Hx # Term Pregnancies Ectopic pregnancies Hx # Pregnancies Multiple births # of living children 1 NST FHR Rate Baby A FHR Category:: Category I Vital Signs Vital Signs Vital Signs: 01/21/25 19:26 01/21/25 19:26 01/21/25 19: Temperature 99.1 F Temperature Source Pulse Rate 97 Respiratory Rate Blood Pressure BP Systolic BP Diastolic Pulse Ox 91 01/21/25 19:26 01/21/25 19:26 01/21/25 19:26 Temperature Temperature Source Temporal Pulse Rate 101 H Respiratory Rate Blood Pressure 131/78 H BP Systolic 131 BP Diastolic 78 Pulse Ox 01/21/25 19:26 01/21/25 19:26 01/21/25 19:26 Temperature 99.2 F H Temperature Source Pulse Rate Respiratory Rate 15 Blood Pressure BP Systolic BP Diastolic Pulse Ox 95 01/21/25 20:24 01/21/25 20:24 01/22/25 00:21 Temperature Temperature Source Temporal Pulse Rate 89 Respiratory Rate Blood Pressure BP Systolic BP Diastolic Pulse Ox 97 01/22/25 00:21 01/22/25 00:21 01/22/25 00:21 Temperature Temperature Source Pulse Rate 88 Respiratory Rate 16 Blood Pressure 138/87 H BP Systolic 138 BP Diastolic 87 Pulse Ox 01/22/25 00:21 01/22/25 00:21 01/22/25 03:59 Temperature 98.8 F 97.5 F L Temperature Source Pulse Rate Respiratory Rate Blood Pressure BP Systolic BP Diastolic Pulse Ox 96 01/22/25 04:02 01/22/25 04:02 01/22/25 04:02 Temperature Temperature Source Temporal Pulse Rate 95 Respiratory Rate Blood Pressure 141/88 H BP Systolic 141 BP Diastolic 88 Pulse Ox 01/22/25 04:02 01/22/25 04:02 01/22/25 07:20 Temperature Temperature Source Pulse Rate Respiratory Rate 15 Blood Pressure 141/79 H BP Systolic 141 BP Diastolic 79 Pulse Ox 94 01/22/25 07:20 01/22/25 07:20 01/22/25 07:20 Temperature 98.6 F Temperature Source Pulse Rate 90 Respiratory Rate Blood Pressure BP Systolic BP Diastolic Pulse Ox 94 01/22/25 07:20 01/22/25 07:20 01/22/25 07:20 Temperature Temperature Source Temporal Pulse Rate 91 Respiratory Rate 16 Blood Pressure BP Systolic BP Diastolic Pulse Ox 01/22/25 07:20 01/22/25 07:21 01/22/25 08:49 Temperature 98.6 F 98.4 F Temperature Source Pulse Rate Respiratory Rate Blood Pressure BP Systolic BP Diastolic Pulse Ox 97 01/22/25 08:50 01/22/25 08:50 01/22/25 08:50 Temperature Temperature Source Temporal Pulse Rate 83 Respiratory Rate Blood Pressure 135/68 H BP Systolic 135 BP Diastolic 68 Pulse Ox 01/22/25 08:50 01/22/25 08:50 01/22/25 08:50 Temperature Temperature Source Pulse Rate 84 Respiratory Rate 18 Blood Pressure BP Systolic BP Diastolic Pulse Ox 97 01/22/25 08:50 01/22/25 10:06 01/22/25 10:06 Temperature 98.4 F Temperature Source Pulse Rate 105 H Respiratory Rate Blood Pressure 129/70 H BP Systolic 129 BP Diastolic 70 Pulse Ox 01/22/25 10:06 01/22/25 10:07 01/22/25 11:25 Temperature 98.2 F Temperature Source Pulse Rate Respiratory Rate 16 Blood Pressure 140/80 H BP Systolic 140 BP Diastolic 80 Pulse Ox 01/22/25 11:25 01/22/25 11:26 01/22/25 11:26 Temperature Temperature Source Pulse Rate 93 Respiratory Rate 18 Blood Pressure BP Systolic BP Diastolic Pulse Ox 97 01/22/25 11:29 01/22/25 12:18 01/22/25 12:18 Temperature 99.0 F Temperature Source Pulse Rate 98 Respiratory Rate Blood Pressure 144/82 H BP Systolic 144 BP Diastolic 82 Pulse Ox 01/22/25 12:19 01/22/25 12:19 01/22/25 12:19 Temperature Temperature Source Temporal Pulse Rate Respiratory Rate 16 Blood Pressure BP Systolic BP Diastolic Pulse Ox 98 01/22/25 12:19 Temperature 99.1 F Temperature Source Pulse Rate Respiratory Rate Blood Pressure BP Systolic BP Diastolic Pulse Ox Weight Weight: 289 lb Body Mass Index (BMI) 46.6 Labs Labs Labs: Blood Type A NEGATIVE Antibody Screen NEGATIVE Hct, (37-47) 36.4 % L Hgb, (12.0-15.0) 13.0 g/dL Syphilis Total Ab, (Nonreactive) Nonreactive Hepatitis C Antibody, (Nonreactive) Non-Reactive Assessment & Plan (1) Obesity affecting : (2) 37 weeks gestation of : (3) Gestational hypertension: (4) Encounter for induction of labor: PLAN: Scheduled IOL at 37 weeks for gHTN. Cytotec x 3 given overnight when Grecia Shepherd CNM was implementation architect. This morning an intracervical perla was attempted to be placed, but unable to be successfully placed due to high station. Cvx 1.5/50/-3, vertex on exam. Pelvix adequate and EFW < 4500 grams. GBS negative. Pitocin was started per protocol. (5) Rh negative status during : (6) Polyhydramnios affecting :
--- NOTE | 2025-01-22 13:00 | PN.OBGYN_ITS ---
Subjective Subjective Feeling ctx's with pitocin and rating them 3/10. Objective Data Objective Data Vital Signs: Vital Signs Temp Pulse Resp BP Pulse Ox 99.1 F 98 16 144/82 H 98 01/22/25 12:19 01/22/25 12:18 01/22/25 12:19 01/22/25 12:18 01/22/25 12:19 Weight: 289 lb Body Mass Index (BMI) 46.6 Intake & Output: Intake and Output for Last 24 Hours 01/20/25 01/21/25 01/22/25 23:59 23:59 23:59 Intake Total 504.84 / 504.84 Balance 504.84 / 504.84 Lab / Micro Data 01/21/25 19:30 Labs: Laboratory Results - last 24 hr 01/21/25 19:30: WBC 11.7 H, RBC 4.15 L, Hgb 13.0, Hct 36.4 L, MCV 87.7, MCH 31.3, MCHC 35.7, RDW Std Deviation 40.7, RDW Coeff of Max 12.7, Plt Count 181, MPV 11.2, Immature Gran % (Auto) 0.900, Neut % (Auto) 72.4 H, Lymph % (Auto) 18.4 L, [place] % (Auto) 7.5, Eos % (Auto) 0.5, Baso % (Auto) 0.3, Absolute Neuts (auto) 8.4 H, Absolute Lymphs (auto) 2.15, Nucleated RBC % 0, Syphilis Total Ab Nonreactive, Blood Type A NEGATIVE, Antibody Screen NEGATIVE Physical Exam Const alert and no apparent distress General Appearance: comfortable Narrative: Cvx 3/60/-2, head well applied. NST FHR Rate Baby A FHR Category:: Category I Uterine Activity:: ctx q 1-2 min Assessment & Plan (1) Encounter for planned induction of labor: PLAN: AROM performed in usual fashion with return of a large amount of clear fluid. Category 1 tracing. Cont pitocin per protocol. Patient plans epidural for pain control.
[2025-01-22] MEDS: Lactated Ringers 1,000 ML 50 ML IV (13:42)
[2025-01-22] MEDS: Lactated Ringers 1,000 ML 999 ML IV (14:14)
[2025-01-22] MEDS: fentaNYL-bupivacaine (epidural) 100 ML BAG EPIDURAL (15:02)
[2025-01-22] MEDS: Lidocaine 1% (20 ml mdv) 20 ML Vial INFILT (20:36)
--- NOTE | 2025-01-22 20:43 | OB.VAGDELI_ITS ---
Assessment & Plan (1) Encounter for planned induction of labor: (2) Polyhydramnios affecting : (3) Gestational hypertension: (4) 37 weeks gestation of : (5) Obesity affecting : (6) Rh negative status during : (7) Vaginal delivery: (8) Obstetric vaginal laceration with first degree perineal laceration: Vaginal Delivery Maternal Presentation Maternal Presentation: Medically Indicated Induction Type of Induction: Pitocin, Amniotomy and Cytotec Medical Reason for Induction: Gestational Hypertension Vaginal Delivery Information Procedure Performed: Spontaneous Vaginal Delivery Surgeon/Practitioner: Bushra Carr Date of Procedure: 01/22/25 Pre-Procedure Diagnosis: 37 week gestation, obesity, polyhydramnios, gHTN Post-Procedure Diagnosis: As above Type of anesthesia: Epidural Estimated Blood Loss: 100 mL Findings Description of procedure: Patient was complete and pushing. Head of infant delivered in EM[place] position. A tight nuchal cord x 1 was noted, and it was unable to be reduced. The shoulders and body of the delivered spontaneously through the nuchal cord without traction, force or delay. There was a large amount of clear fluid present at time of delivery. The VFI was placed on maternal abdomen and the cord was clamped and cut immediately. The infant was handed off to the awaiting nursery staff. Cord blood and cord gases were obtained. The placenta delivered spontaneously and was noted to be normal appearing and intact. Fundus firm and bleeding scant. A first degree vaginal laceration was repaired in usual fashion with 3-0 Vicryl after injection of 15 mL of local anesthetic. A vaginal sweep was performed. Sponge and needle counts were correct. Procedure findings: VFI Apgars 4,8 Large amount of clear fluid noted at time of delivery Nuchal cord x 1 Normal appearing placenta First degree vaginal laceration Presentation: Vertex Amniotic Membrane Rupture Type: Artificial Amniotic Fluid Description: Clear Placental Delivery Description: Spontaneous Specimen collected: No Cord Vessel Description: 3 Vessels Cord Entanglement: Around neck x 1, tight Nuchal Cord Compression: Without compression Cord Gases: ABG and VBG A Gender: Female (1 minute): 4 (5 minute): 8 Delayed Cord Clamping: No Curator Of Education hammersmith helper: No Post Vaginal Deli Medications given after delivery: IV Pitocin Episiotomy Description: None Laceration: 1st degree Complication Complications: No
[2025-01-22] MEDS: Oxytocin 15 Units/NS 250ml 15 UNITS/250 ML IV.SOLN 83 UNITS IV (20:54)
[2025-01-23 00:07] VITALS: BP 139/73; PULSE 114; RESP 18; TEMP 36.6; O2SAT 98
[2025-01-23 03:55] VITALS: BP 145/85; PULSE 106; RESP 16; TEMP 36.4; O2SAT 97
--- NOTE | 2025-01-23 07:27 | PCM.PN.OB ---
Subjective Subjective The patient is doing well. She denies headache or vision changes. She has been ambulating and voiding without difficulty. She denies chest pain, shortness of breath, palpitations, leg pain. Lochia has been normal. She states her pain has been well-controlled. She offers no complaints and feels well this morning. Objective Data Objective Data Vital Signs: Vital Signs Temp Pulse Resp BP Pulse Ox O2 Del Method 97.5 F L 106 H 16 145/85 H 97 Room Air 01/23/25 03:55 01/23/25 03:55 01/23/25 03:55 01/23/25 03:55 01/23/25 03:55 01/23/25 03:55 Oxygen Delivery Method Room Air Weight: 289 lb Body Mass Index (BMI) 46.6 Intake & Output: Intake and Output for Last 24 Hours 01/21/25 01/22/25 01/23/25 23:59 23:59 23:59 Intake Total 3859.24 / 3859.24 Output Total 200 / 200 Balance 3659.24 / 3659.24 Lab / Micro Data 01/21/25 19:30 Labs: Laboratory Results - last 24 hr 01/22/25 22:01: Screen NEGATIVE, Baby's Blood Type O POSITIVE, Baby's EFRAIN NEGATIVE Physical Exam Const alert and no apparent distress Constitutional Narrative: resting General Appearance: comfortable Resp normal respiratory effort GI soft to palpation and non-tender Extremity no calf tenderness Assessment & Plan (1) Obstetric vaginal laceration with first degree perineal laceration: (2) Vaginal delivery: PLAN: PPD#1 s/p . Doing well. Anticipate discharge tomorrow (3) Gestational hypertension: PLAN: BP normal but most recent mild range. Cont to monitor. Discussed may need BP medication (4) Tachycardia: PLAN: Improving and asymptomatic Bleeding normal and no symptoms of anemia No evidence of DVT or PE Cont to monitor
[2025-01-23 08:20] VITALS: BP 141/80; PULSE 106; RESP 18; TEMP 37.4; O2SAT 97
[2025-01-23] MEDS: Benzocaine/Lanolin/Aloe Vera 85 GM Spray 1 SPRAY TOPICAL (08:26)
[2025-01-23] MEDS: SELF ADMINISTRATION OF MEDS 1 EACH NOTE ×2 (08:30→22:30)
[2025-01-23] MEDS: GLYCERIN/WITCH HAZEL (TUCKS) MED..PAD 1 EACH TOPICAL (09:28)
[2025-01-23] MEDS: Rho(D) Immune Globulin 300 MCG (1500 Unit) Syringe IV (09:58)
[2025-01-23 11:27] VITALS: BP 140/88; PULSE 93; RESP 18; TEMP 36.9; O2SAT 97
[2025-01-23] MEDS: NIFEdipine 30 MG Tablet PO (13:08)
[2025-01-23 16:30] VITALS: BP 137/83; PULSE 81; RESP 16; TEMP 36.8; O2SAT 100
[2025-01-23 21:12] VITALS: BP 139/78; PULSE 102; RESP 16; TEMP 36.6; O2SAT 99
[2025-01-24 03:26] VITALS: BP 134/72; PULSE 99; RESP 16; TEMP 36.3; O2SAT 98
[2025-01-24 07:30] VITALS: BP 128/71; PULSE 77; RESP 18; TEMP 37.1; O2SAT 97
--- NOTE | 2025-01-24 08:41 | PCM.PN.OB ---
Subjective Subjective Doing well. Ambulating and voiding without difficulty. Mild lochia. Breast feeding. No MENENDEZ. BP stable on procardia Objective Data Objective Data Vital Signs: Vital Signs Temp Pulse Resp BP Pulse Ox O2 Del Method 97.4 F L 99 16 134/72 H 98 Room Air 01/24/25 03:26 01/24/25 03:26 01/24/25 03:26 01/24/25 03:26 01/24/25 03:26 01/24/25 03:26 Oxygen Delivery Method Room Air Weight: 131.088 kg Body Mass Index (BMI) 46.6 Intake & Output: Intake and Output for Last 24 Hours 01/22/25 01/23/25 01/24/25 23:59 23:59 23:59 Intake Total 3859.24 / 3859.24 Output Total 200 / 200 Balance 3659.24 / 3659.24 Lab / Micro Data 01/21/25 19:30 ROS Constitutional Constitutional: Denies headache(s) Cardiovascular Cardiovascular: Denies chest pain or dyspnea Gastrointestinal Gastrointestinal: Denies nausea or vomiting Genitourinary Genitourinary: Denies dysuria Physical Exam Const alert, oriented x3 and no apparent distress General Appearance: cooperative and comfortable Eyes PERRL and EOMs intact bilaterally Resp normal respiratory effort GI soft to palpation and non-tender Uterus Palpation: uterus fundus firm ( below umbilicus) Extremity normal to inspection and full ROM Neuro oriented x3 and CN's II-XII intact bilaterally Psych mental status grossly normal Assessment & Plan (1) Vaginal delivery: (2) Gestational hypertension: QUALIFIERS: Trimester: third trimester Qualified Code(s): O13.3 - Gestational [-induced] hypertension without significant proteinuria, third trimester PLAN: Plan Discharge home Follow for BP check
--- NOTE | 2025-01-24 08:43 | PCM.DC.SUM ---
Providers Date of Admission: 01/21/25 Date of Discharge: 01/24/25 Reason For Visit: VAGINAL DELIVERY Diagnosis Discharge Diagnosis (1) Vaginal delivery: Status: Acute Code(s): O80 - Encounter for full-term uncomplicated delivery (2) Gestational hypertension: Status: Acute Code(s): O13.9 - Gestational [-induced] hypertension without significant proteinuria, unspecified trimester Qualifiers: Trimester: third trimester Qualified Code(s): O13.3 - Gestational [-induced] hypertension without significant proteinuria, third trimester Plan Discharge home Follow for BP check Medications at Discharge Home Medications PNV 14-iron [id number]-docusate 27 mg iron-1 mg-300 mg-50 mg capsule cap PO 08/26/23 ferrous sulfate 325 mg (65 mg iron) tablet (FeroSul) 325 mg PO QODAY 60 days #15 tabs 08/29/23 labetalol 100 mg tablet 100 mg PO BID 10 days #20 tabs 08/29/23 nifedipine 30 mg tablet,extended release 24 hr 30 mg PO DAILY #30 tabs 01/24/25 Hospital Course Operations None Procedures None Summary of Care Provided Minutes Spent on Discharge: 20 Hospital Course: BP managed PP with procardia Physical Exam Const alert and no apparent distress Narrative: Fundus firm, below umbilicus. Weight / BMI Weight Weight: 131.088 kg Body Mass Index (BMI) 46.6 ABG / Lab / Microbiology Data 01/21/25 19:30 D/C Instructions May resume sexual activity in: 6 weeks DC O2, CPAP, BIPAP Needs Home O2 Discharge instructions: No Please Follow Up With: Sona Figueroa MD When: Follow up with our office in 1-2 and 6 weeks or as needed. [phone] Meaningful Use Info Meaningful Use Meaningful Use Diagnoses (Choose all that apply): None applicable Discharge Plan Admission Admit Date/Time: 01/21/25 19:13 Primary Reason for Your Visit: Vaginal delivery Attending Provider: Grecia Shepherd Discharge Orders/Prescriptions Prescriptions: New nifedipine 30 mg Tablet Extended Release 24hr 30 mg PO DAILY Qty: 30 0RF Continued PNV 64-vlnc-RE2-dha-docusate 27 mg iron-1 mg -300 mg-50 mg capsule PO labetalol 100 mg tablet 100 mg PO BID 10 Days Qty: 20 0RF Rx Instructions: take if BP >150 systolic or > 95 diastolic ferrous sulfate [FeroSul] 325 mg (65 mg iron) tablet 325 mg PO QODAY 60 Days Qty: 15 1RF Discontinued ibuprofen 600 mg tablet 600 mg PO Q6H PRN (Reason: Pain) 20 Days Qty: 60 1RF aspirin 81 mg capsule 81 mg PO DAILY magnesium 200 mg tablet 200 mg PO DAILY Disposition Disposition (needs filled in before D/C Order can be placed): Home, Self Care
[2025-01-24] MEDS: NIFEdipine 30 MG Tablet PO (10:45)
[2025-01-24] MEDS: SELF ADMINISTRATION OF MEDS 1 EACH NOTE (10:46)
--- NOTE | 2025-01-24 11:09 | CASEMGMT ---
Social Work Assessment Labor and Delivery Unit Patient Address: [address] [place] [id number] Phone number: [phone] Date of Referral: 01/23/25 Time of Referral:?0127 Referred By: Bushra Carr Date of Intervention: ?01/24/25? Time of Intervention:? 1015 Reason for Referral:? hx of anxiety Sw completed chart review and acknowledges social work consult due to maternal history of anxiety. Sw presented to bedside and introduced self to mother of baby (MOB- Grecia) and father of baby (FOB- Daryl). Sw explained reason for sw involvement and completed psychosocial assessment. History obtained from: medical records, MOB and FOB Household composition: Currently residing in the family home is ADRIEN, JOEY, their one year old son, Seng, and baby when ready for discharge. Parents deny any housing concerns, stating their home is safe and secure. Patient's parent/guardian status:? Parents report that they met each other when working together at [employer], and then developed feeling for each other when they started car pooling to work with each other. They have been together for 5 years, for three. [place] baby is their second baby together. No concerns reported of domestic violence or intimate partner violence. ? Medical History: ?ADRIEN is 29 year old female who is 3, para 1 -now 2 following labor and delivery of . ADRIEN received routine care during with [facility]. ADRIEN presented to hospital for induction of labor due to hypertension and delivered baby via vaginal delivery on 01/22/25 at 37 weeks gestation. Baby girl, named Princess, was born weighing 7lb 7oz and had apgars of 4 and 8 at one and five minutes of life, respectfully. ADRIEN states that she is breast feeding and baby will be followed by Dr. Galicia for pediatric follow up and care. Educational Status:? Both parents graduated from high school. No problems with reading, learning or comprehension reported. Financial Status: Both parents are still employed at [employer]. Infant Supplies:?? All necessary baby supplies obtained, including: car seat, safe sleep space, clothes, diapers and wipes. Childcare/Caregiver(s):? ADRIEN reports that she will be the primary caregiver to baby, along with FOB. When both parents are working they have family members that are able to assist with childcare. Transportation:?Both parents have their drivers license and reliable means of transportation. ? Programs/Agencies Involved: ???Parents are over income for financial support from community resources. Children Services/Legal Issues:??? No prior involvement with children services, no issues or concerns warranting referral to be made at this time. Behavioral Health Issues: ??Mental Health History:?FOB denies mental health history. Per chart review MOB has been diagnosed with anxiety, depression and an adjustment disorder. However when discussing mental health diagnoses, MOB denies. Sw explained to ADRIEN that it is important to be mindful of her mental health history because mom's who have a mental health history are more at risk for experiencing symptoms of depression and/ or anxiety. ?? Substance Use History: Parents deny substance use prior to and during . ?? Family History:??Parents deny family history of substance use or significant mental health history. ??? Drug Screens: ??No drug screens observed while completing chart review. Family/Social Stressors:? Parents deny any issues, concerns or stressors at this time. Support Systems: ADRIEN reports that her biggest support is FOB and family members on both sides of the family. Depression/Shaken Baby/Safe Sleeping:? Sw educated both parents on signs and symptoms of baby blues and mood and anxiety disorders to be mindful of going into this period. ADRIEN states that she did not struggle with any mental health symptoms after her first baby was born, and as a result she does not anticipate struggling following this delivery either. FOB states that if MOB were to struggle he would be able to recognize it, and would know how to help her. ADRIEN stated that during her she felt happy and like herself. Now that baby has been born, MOB denies feeling down, sad, anxious or tearful. Sw educated parents on shaken baby prevention and ABCs of safe sleep, parents express understanding. ASSESSMENT:? MOB and baby admitted following labor and delivery of . ADRIEN's chart indicates mental health history positive for anxiety, depression and adjustment disorder, however while discussing mental health diagnoses/ history with MOB, she denied this. ADRIEN reports that she did not struggle with any anxiety or symptoms after her son was born, and felt good mentally during this . MOB states that she is aware of what mental health symptoms to be on the lookout for during this period. MOB informed sw that she has a lot of family who are supportive, and feels comfortable talking to them if she were to struggle at all with any depression or anxiety following this delivery. FOB also reports to being aware of how to recognize if MOB were struggling and how to help and support her. Parents were observed to hold baby attentively and lovingly. MOB looked at baby while talking with social work and reports to feeling a norman/ connection with her. Parents were engaging while completing social work assessment. Parents would answer questions asked and smiled during conversation, but did not overly share while talking. Parents report to having all necessary baby items for baby and have a lot of family supports in place. PLAN:? No other services requested or indicated. MOB and baby to be discharged when medically ready. Parents were provided literature regarding: signs and symptoms of baby blues and mood and anxiety disorders, Help Me Grow, shaken baby prevention, ABCs of safe sleep and a list of county resources that are available for them should any needs present themselves. Kenisha Banda, MAT CUTTER, [employer]CE[employer] CONNECTOR [employer]ACER
--- NOTE | 2025-01-29 15:08 | NURSING ---
01/29/2025-@ 1448 called spoke with MOB states everything is going well, feels that bp is improving as well. Has been pumping and feeding since bab jaundice level was up but peaked on wednesday and is getting better MOB states she hasnt been able to latch since she started bottles, but declines wanting/needing help at this time, states she will call if she needs help. Aware of s/sx of when to call for her care.
== END 2025-01-24 11:25 | disposition home or self-care (01) | DRG 807 ==
PROVIDERS: Admitting Provider Advanced Practice Midwife; Visit Provider Advanced Practice Midwife
DX: O13.4 Gestational [pregnancy-induced] hypertension without significant proteinuria, complicating childbirth (principal); Z37.0 Single live birth; O40.3XX0 Polyhydramnios, third trimester, not applicable or unspecified; O26.893 Other specified pregnancy related conditions, third trimester; O99.214 Obesity complicating childbirth; O69.1XX0 Labor and delivery complicated by cord around neck, with compression, not applicable or unspecified; O70.0 First degree perineal laceration during delivery; O99.893 Other specified diseases and conditions complicating puerperium; R00.0 Tachycardia, unspecified; Z3A.37 37 weeks gestation of pregnancy; Z79.82 Long term (current) use of aspirin; Z67.91 Unspecified blood type, Rh negative; Z79.899 Other long term (current) drug therapy
CPT/HCPCS: 59025; 59050; 85025; 85461; 86780; 86850; 86900; 86901; 90384; 99221; G0378; J2790; J2791